=== PATIENT | male | born 1940 | race African-American/Black ===

== ENCOUNTER 2016-06-07 04:24 | Emergency (ER) | payer MEDICARE, MEDICAID ==
[~2016-06-07] VITALS: Ht 182.9 cm; Wt 116.1 kg
[2016-06-07 04:24] VITALS: Ht 182.9 cm; Wt 116.1 kg
[~2016-06-07 04:24] MED LIST: ACET-2321 PO; ASPI81TA2 PO; BENZ1TAB7 PO; BISA10SU61 RECTALLY; DIVA125C PO; DOCU-168 PO; HYDR-4246 PO; INSU100I24 SQ; INSU100I3 SQ; INSU100V SQ; LATA2.5D7 BOTH EYES; LOSA50TA2 PO; MAG-37 PO; MAGN800O PO; MEDR5TAB PO; MENT118G TOP; MENT71OI TOP; METF10002 PO; PARO10TA16 PO; POLY17PO6 PO; RISP1TAB4 PO; RISP2TAB PO; [UNRECOGNIZED DRUG - CODE] IM
--- OUTSIDE RECORDS SUMMARY | 2016-06-07 04:28 | XMS REPORT ---
Author Author [place], Via [facility] - Organization Unknown Address Unknown Phone Unavailable Allergies, Adverse Reactions, Alerts * No Latex Allergy. * No IV Contrast Allergy. Problems * Altered Mental Status* Status:Active. * Dysphagia* Status:Active. * Fall Risk* Status:Active. * Seizure* Status:Active. * Sleep Apnea* Status:Active. Procedures No relevant procedures performed. Medication Medication reconciliation has not been performed. Results LAB--CHEMISTRY from 12/08/2012 8:39 AMAnion Gap 9 (3-20 ) Albumin 3.4 g/dL L (3.5-4.8 g/dL) Alkaline Phosphatase 104 U/L (26-104 U/L) ALT (SGPT) 17 U/L (17-63 U/L) AST (SGOT) 18 U/L (15-41 U/L) Bilirubin Total 0.7 mg/dL (0.2-1.2 mg/dL) BUN 9 mg/dL (4-20 mg/dL) Calcium 9.5 mg/dL (8.6-10.0 mg/dL) Chloride 106 mEq/L (99-109 mEq/L) CO2 25 mEq/L (22-32 mEq/L) Creatinine 0.60 mg/dL L (0.64-1.27 mg/dL) eGFR >60 (>60- ) Globulin 3.2 g/dL (1.9-4.3 g/dL) Glucose 185 mg/dL H (70-100 mg/dL) Potassium 3.6 mEq/L (3.6-5.1 mEq/L) Sodium 140 mEq/L (136-144 mEq/L) Protein 6.6 g/dL (6.1-7.9 g/dL) Troponin <0.06 ng/mL (-<0.06 ng/mL) LAB--HEMATOLOGY from 12/08/2012 8:39 AMAbsolute Basophils 0.04 THOUS (0.00-0.20 THOUS) Absolute Eosinophils 0.18 THOUS (0.00-0.50 THOUS) Absolute Lymphocytes 1.98 THOUS (0.80-3.30 THOUS) Absolute Monocytes 0.39 THOUS (0.30-1.00 THOUS) Absolute Neutrophils 4.09 THOUS (1.90-7.00 THOUS) HCT 34.0 % L (42.0-52.0 %) HGB 11.5 g/dl L (14.0-18.0 g/dl) MCH 29.6 pg (27.0-32.0 pg) MCHC 33.8 g/dL (32.0-36.0 g/dL) MCV 87.4 fL (82.0-99.0 fL) MPV 9.2 fL L (9.4-12.3 fL) Platelet Count 353 K/uL (150-400 K/uL) RBC 3.89 M/uL L (4.60-6.20 M/uL) RDW 14.8 % H (11.5-14.5 %) WBC 6.7 K/uL (4.8-10.8 K/uL) Basophils 1 % (0-2 %) Eosinophils 3 % (0-4 %) Immature Granulocytes 0.1 % (0.0-1.0 %) Lymphocytes 30 % (20-46 %) Monocytes 6 % (4-11 %) Nucleated RBC Automated 0.0 /100 WBC (0 /100 WBC) Neutrophils 61 % (51-75 %) LAB--TOXICOLOGY & THERAPEUTIC DRUGS from 12/08/2012 8:39 AMAcetaminophen (Tylenol ) Level <10 mcg/mL (10-30 mcg/mL) Salicylate <4 mg/dL (0-30 mg/dL)
--- OUTSIDE RECORDS SUMMARY | 2016-06-07 04:28 | XMS REPORT ---
Author Author [place], Via [facility] - Organization Unknown Address Unknown Phone Unavailable Allergies, Adverse Reactions, Alerts * Latex Allergy has not been assessed. * IV Contrast Allergy has not been assessed. Problems * Altered Mental Status* Status:Active. * Dysphagia* Status:Active. * Fall Risk* Status:Active. * Seizure* Status:Active. * Sleep Apnea* Status:Active. Procedures No relevant procedures performed. Medication Medication reconciliation has not been performed. Results LAB--CHEMISTRY from 11/18/2012 8:58 PMB-Type Natriuretic Pep. 16 pg/mL (0-99 pg/ mL) LAB--CHEMISTRY from 11/18/2012 8:59 PMAnion Gap 14 (3-20 ) Albumin 3.6 g/dL (3.5-4.8 g/dL) Alkaline Phosphatase 103 U/L (26-104 U/L) ALT (SGPT) 15 U/L L (17-63 U/L) AST (SGOT) 20 U/L (15-41 U/L) Bilirubin Total 0.2 mg/dL (0.2-1.2 mg/dL) BUN 17 mg/dL (4-20 mg/dL) Calcium 9.6 mg/dL (8.6-10.0 mg/dL) Chloride 100 mEq/L (99-109 mEq/L) CO2 24 mEq/L (22-32 mEq/L) Creatinine 1.25 mg/dL (0.64-1.27 mg/dL) eGFR 57 A (>60- ) Globulin 3.5 g/dL (1.9-4.3 g/dL) Glucose 166 mg/dL H (70-100 mg/dL) Potassium 3.1 mEq/L L (3.6-5.1 mEq/L) Sodium 138 mEq/L (136-144 mEq/L) Protein 7.1 g/dL (6.1-7.9 g/dL) Troponin <0.06 ng/mL (-<0.06 ng/mL) LAB--CHEMISTRY from 11/18/2012 9:25 PMAmmonia 27 umol/L (9-35 umol/L) LAB--HEMATOLOGY from 11/18/2012 8:58 PMAbsolute Basophils 0.04 THOUS (0.00-0.20 THOUS) Absolute Eosinophils 0.22 THOUS (0.00-0.50 THOUS) Absolute Lymphocytes 3.27 THOUS (0.80-3.30 THOUS) Absolute Monocytes 0.68 THOUS (0.30-1.00 THOUS) Absolute Neutrophils 6.92 THOUS (1.90-7.00 THOUS) HCT 37.1 % L (42.0-52.0 %) HGB 12.2 g/dl L (14.0-18.0 g/dl) MCH 29.5 pg (27.0-32.0 pg) MCHC 32.9 g/dL (32.0-36.0 g/dL) MCV 89.8 fL (82.0-99.0 fL) MPV 9.2 fL L (9.4-12.3 fL) Platelet Count 352 K/uL (150-400 K/uL) RBC 4.13 M/uL L (4.60-6.20 M/uL) RDW 14.5 % (11.5-14.5 %) WBC 11.2 K/uL H (4.8-10.8 K/uL) Basophils 0 % (0-2 %) Eosinophils 2 % (0-4 %) Immature Granulocytes 0.2 % (0.0-1.0 %) Lymphocytes 29 % (20-46 %) Monocytes 6 % (4-11 %) Nucleated RBC Automated 0.0 /100 WBC (0 /100 WBC) Neutrophils 62 % (51-75 %) LAB--TOXICOLOGY & THERAPEUTIC DRUGS from 11/18/2012 8:59 PMDigoxin 0.6 ng/ml L ( 0.8-2.0 ng/ml)
--- OUTSIDE RECORDS SUMMARY | 2016-06-07 04:28 | XMS REPORT ---
Author Author [place], [facility] Unknown Address Unknown Phone Unavailable Allergies, Adverse Reactions, Alerts * No Latex Allergy. * No IV Contrast Allergy. * No Known Drug Allergies. * No Known Food Allergies. * No Known Allergies. Problems * Altered Mental Status* Status:Active. * Dysphagia* Status:Active. * Fall Risk* Status:Active. * Seizure* Status:Active. * Sleep Apnea* Status:Active. Procedures No relevant procedures performed. Medication It is the responsibility of the patient or patient junior sales representative to confirm the list of medications with either the patient's personal care provider or the patient's follow-up care provider to ensure the patient has an appropriate list of medications to take at home. Discharge medications* trolamine salicylate (Mobisyl) 10 % Cream, Ordered By: Belkis Trinh Directions: 1 each topical daily * timolol maleate 0.5 % Drops, Ordered By: Pattie Cavanaugh Directions: 1 [DRP] ophthalmic, both eyes daily * rivastigmine (Exelon) 13.3 mg/24 hour Patch 24 hr, Ordered By: Pattie Cavanaugh Directions: 13.3 MG topical Daily at 6 PM _ * QUEtiapine (SEROquel) 100 mg Tablet, Ordered By: Belkis Trinh Directions: 1 tablet oral daily at bedtime Additional Instructions: may need to increase dose for sleep * polyethylene glycol 3350 17 gram/dose Powder, Ordered By: Pattie Cavanaugh Directions: 1 each oral daily Additional Instructions: hold if having diarrhea * modafinil (Provigil) 100 mg Tablet, Ordered By: Belkis Trinh Directions: 2 tablet oral daily Additional Instructions: concerns for narcolepsy phase or sleepiness phase during day; if doing well and no further problem, may be able to discontinue; patient has significant bradycardia * mirtazapine 7.5 mg Tablet, Ordered By: Pattie Cavanaugh Directions: 1 tablet oral daily at bedtime * latanoprost (Xalatan) 0.005 % Drops, Ordered By: Belkis Trinh Directions: 1 [DRP] ophthalmic, both eyes daily at bedtime * lactulose 10 gram/15 mL Solution, Ordered By: Belkis Trinh Directions: 30 mL oral three times a day Additional Instructions: MAY TITRATE TO 3 BM/DAY and need to recheck ammonia level again * insulin glargine (LanTUS) 100 unit/mL Solution, Ordered By: Pattie Cavanaugh Directions: 40 UNIT subcutaneous daily at bedtime * furosemide 20 mg Tablet, Ordered By: Pattie Cavanaugh Directions: 1.5 tablet oral daily * lisinopril 2.5 mg Tablet, Ordered By: Pattie Cavanaugh Directions: 1 tablet oral daily * aspirin (Aspir-Low) 81 mg tablet,delayed release (DR/EC), Ordered By: Pattie Cavanaugh Directions: 1 tablet oral Daily at 8 AM _ * atorvastatin 20 mg Tablet, Ordered By: Pattie Cavanaugh Directions: 1 tablet oral daily at bedtime * fenofibrate micronized 200 mg Capsule, Ordered By: Pattie Cavanaugh Directions: 1 capsule oral daily * trolamine salicylate-aloe vera (Aspercreme with Aloe) 10 % Cream, Ordered By: Pattie Cavanaugh Directions: 1 application topical daily PRN pain Additional Instructions: Apply to both knees * acetaminophen (Mapap (acetaminophen)) 325 mg Tablet, Ordered By: Belkis Trinh Directions: 2 tablet oral every four hours PRN pain-mild * travoprost (Travatan Z) 0.004 % Drops, Ordered By: Pattie Cavanaugh Directions: 1 drop ophthalmic, both eyes daily at bedtime * carboxymethylcellulose sodium (Refresh Plus) 0.5 % Dropperette, Ordered By: Belkis Trinh Directions: 1 [DRP] ophthalmic, left eye every two hours PRN EYE DRYNESS * insulin aspart (NovoLOG) 100 unit/mL Solution, Ordered By: Belkis Trnih Directions: 12 unit subcutaneous three times a day during meal * gabapentin 300 mg Capsule, Ordered By: Belkis Trinh Directions: 1 capsule oral three times a day * amLODIPine 10 mg Tablet, Ordered By: Belkis Trinh Directions: 1 tablet oral daily Stopped medications* magnesium hydroxide (Milk of Magnesia) 400 mg/5 mL Suspension Directions: 30 mL oral daily PRN constipation * digoxin 250 mcg Tablet Directions: 1 tablet oral daily * valproic acid 250 mg Capsule Directions: 2 capsule oral twice a day * glucagon (human recombinant) (Glucagon Emergency) 1 mg Kit Directions: 1 each intramuscular daily one time PRN hypoglycemia * Stopped Medication: Mucinex 600mg ER 1 tablet oral daily; Last dose taken at home: 10/22/2012 * PARoxetine HCl 40 mg Tablet Directions: 1 tablet oral daily * IN PROGRESS OF INPUTTING MAR * HYDROcodone-acetaminophen ([place]) 5 mg-325 mg Tablet Directions: 1-2 tablet oral every four hours PRN pain * insulin lispro (HumaLOG) 100 unit/mL Solution Directions: subcutaneous four times daily PRN BG Additional Instructions: If 150-199=2 unit, 200-249=4 unit, 250-299=6 unit, Call MD if greater than 300 Results LAB--BEDSIDE TESTING from 11/08/2012 11:06 PMGlucose NPT 168 mg/dL H (70-100 mg/ dL) LAB--BEDSIDE TESTING from 11/09/2012 5:28 AMGlucose NPT 182 mg/dL H (70-100 mg/ dL) LAB--BEDSIDE TESTING from 11/09/2012 10:25 AMGlucose NPT 217 mg/dL H (70-100 mg/ dL) LAB--BEDSIDE TESTING from 11/09/2012 1:58 PMGlucose NPT 201 mg/dL H (70-100 mg/ dL) LAB--BEDSIDE TESTING from 11/09/2012 5:57 PMGlucose NPT 173 mg/dL H (70-100 mg/ dL) LAB--BEDSIDE TESTING from 11/09/2012 9:05 PMGlucose NPT 133 mg/dL H (70-100 mg/ dL) LAB--BEDSIDE TESTING from 11/10/2012 12:11 AMGlucose NPT 121 mg/dL H (70-100 mg/ dL) LAB--BEDSIDE TESTING from 11/10/2012 5:29 AMGlucose NPT 148 mg/dL H (70-100 mg/ dL) LAB--BEDSIDE TESTING from 11/10/2012 1:18 PMGlucose NPT 182 mg/dL H (70-100 mg/ dL) LAB--BEDSIDE TESTING from 11/10/2012 8:27 PMGlucose NPT 177 mg/dL H (70-100 mg/ dL) LAB--BEDSIDE TESTING from 11/11/2012 5:42 AMGlucose NPT 212 mg/dL H (70-100 mg/ dL) LAB--BEDSIDE TESTING from 11/11/2012 10:04 AMGlucose NPT 234 mg/dL H (70-100 mg/ dL) LAB--BEDSIDE TESTING from 11/11/2012 2:58 PMGlucose NPT 279 mg/dL H (70-100 mg/ dL) LAB--BEDSIDE TESTING from 11/11/2012 10:19 PMGlucose NPT 295 mg/dL H (70-100 mg/ dL) LAB--BEDSIDE TESTING from 11/12/2012 5:33 AMGlucose NPT 218 mg/dL H (70-100 mg/ dL) LAB--BEDSIDE TESTING from 11/12/2012 10:23 AMGlucose NPT 422 mg/dL H (70-100 mg/ dL) LAB--BEDSIDE TESTING from 11/12/2012 4:01 PMGlucose NPT 193 mg/dL H (70-100 mg/ dL) LAB--BEDSIDE TESTING from 11/12/2012 8:10 PMGlucose NPT 222 mg/dL H (70-100 mg/ dL) LAB--BEDSIDE TESTING from 11/13/2012 5:43 AMGlucose NPT 158 mg/dL H (70-100 mg/ dL) LAB--BEDSIDE TESTING from 11/13/2012 10:43 AMGlucose NPT 252 mg/dL H (70-100 mg/ dL) LAB--BEDSIDE TESTING from 11/13/2012 2:12 PMGlucose NPT 206 mg/dL H (70-100 mg/ dL) LAB--BEDSIDE TESTING from 11/13/2012 8:19 PMGlucose NPT 191 mg/dL H (70-100 mg/ dL) LAB--BEDSIDE TESTING from 11/14/2012 5:53 AMGlucose NPT 173 mg/dL H (70-100 mg/ dL) LAB--BEDSIDE TESTING from 11/14/2012 10:14 AMGlucose NPT 179 mg/dL H (70-100 mg/ dL) LAB--BEDSIDE TESTING from 11/14/2012 3:24 PMGlucose NPT 184 mg/dL H (70-100 mg/ dL) LAB--BEDSIDE TESTING from 11/14/2012 9:37 PMGlucose NPT 252 mg/dL H (70-100 mg/ dL) LAB--BEDSIDE TESTING from 11/15/2012 5:42 AMGlucose NPT 222 mg/dL H (70-100 mg/ dL) LAB--BEDSIDE TESTING from 11/15/2012 10:58 AMGlucose NPT 206 mg/dL H (70-100 mg/ dL) LAB--BEDSIDE TESTING from 11/15/2012 3:09 PMGlucose NPT 188 mg/dL H (70-100 mg/ dL) LAB--BEDSIDE TESTING from 11/15/2012 9:21 PMGlucose NPT 167 mg/dL H (70-100 mg/ dL) LAB--BEDSIDE TESTING from 11/16/2012 5:35 AMGlucose NPT 145 mg/dL H (70-100 mg/ dL) LAB--BEDSIDE TESTING from 11/16/2012 10:01 AMGlucose NPT 269 mg/dL H (70-100 mg/ dL) LAB--BEDSIDE TESTING from 11/16/2012 2:52 PMGlucose NPT 184 mg/dL H (70-100 mg/ dL) LAB--CHEMISTRY from 11/08/2012 11:41 PMB-Type Natriuretic Pep. 17 pg/mL (0-99 pg/ mL) Magnesium 2.0 mg/dL (1.8-2.5 mg/dL) Phosphorus 4.2 mg/dL (2.4-4.7 mg/dL) Hemoglobin A1C 10.4 % H (4.1-5.6 %) Estimated Average Glucose 251.8 mg/dL LAB--CHEMISTRY from 11/09/2012 2:52 AMTroponin <0.06 ng/mL (-<0.06 ng/mL) LAB--CHEMISTRY from 11/09/2012 11:08 AMTroponin <0.06 ng/mL (-<0.06 ng/mL) LAB--CHEMISTRY from 11/10/2012 9:27 AMPercent Saturation 15 % (11-46 %) Iron Binding Capacity 364 ug/dL (268-490 ug/dL) Transferrin 244 mg/dL (180-329 mg/dL) Sodium 136 mEq/L (136-144 mEq/L) Magnesium 1.8 mg/dL (1.8-2.5 mg/dL) Potassium 4.1 mEq/L (3.6-5.1 mEq/L) Iron 56 ug/dL L (65-175 ug/dL) Glucose 150 mg/dL H (70-100 mg/dL) eGFR >60 (>60- ) Creatinine 0.51 mg/dL L (0.64-1.27 mg/dL) CO2 26 mEq/L (22-32 mEq/L) Chloride 102 mEq/L (99-109 mEq/L) Calcium 9.2 mg/dL (8.6-10.0 mg/dL) BUN 8 mg/dL (4-20 mg/dL) Anion Gap 8 (3-20 ) LAB--CHEMISTRY from 11/11/2012 6:31 AMAnion Gap 8 (3-20 ) BUN 8 mg/dL (4-20 mg/dL) Calcium 9.2 mg/dL (8.6-10.0 mg/dL) Chloride 106 mEq/L (99-109 mEq/L) CO2 26 mEq/L (22-32 mEq/L) Creatinine 0.58 mg/dL L (0.64-1.27 mg/dL) eGFR >60 (>60- ) Glucose 202 mg/dL H (70-100 mg/dL) Potassium 3.8 mEq/L (3.6-5.1 mEq/L) Magnesium 1.8 mg/dL (1.8-2.5 mg/dL) Sodium 140 mEq/L (136-144 mEq/L) Vitamin B12 537 pg/mL (211-911 pg/mL) TSH 0.86 uIU/mL (0.35-5.50 uIU/mL) LAB--CHEMISTRY from 11/12/2012 6:42 AMAnion Gap 7 (3-20 ) BUN 13 mg/dL (4-20 mg/dL) Calcium 9.4 mg/dL (8.6-10.0 mg/dL) Chloride 105 mEq/L (99-109 mEq/L) CO2 29 mEq/L (22-32 mEq/L) Creatinine 0.70 mg/dL (0.64-1.27 mg/dL) eGFR >60 (>60- ) Glucose 213 mg/dL H (70-100 mg/dL) Potassium 4.2 mEq/L (3.6-5.1 mEq/L) Magnesium 1.8 mg/dL (1.8-2.5 mg/dL) Sodium 141 mEq/L (136-144 mEq/L) Phosphorus 3.9 mg/dL (2.4-4.7 mg/dL) LAB--CHEMISTRY from 11/12/2012 12:28 PMAmmonia 74 umol/L H (9-35 umol/L) LAB--CHEMISTRY from 11/13/2012 6:34 AMAnion Gap 6 (3-20 ) BUN 9 mg/dL (4-20 mg/dL) Calcium 9.3 mg/dL (8.6-10.0 mg/dL) Chloride 104 mEq/L (99-109 mEq/L) CO2 28 mEq/L (22-32 mEq/L) Creatinine 0.62 mg/dL L (0.64-1.27 mg/dL) eGFR >60 (>60- ) Glucose 185 mg/dL H (70-100 mg/dL) Potassium 4.0 mEq/L (3.6-5.1 mEq/L) Magnesium 1.9 mg/dL (1.8-2.5 mg/dL) Sodium 138 mEq/L (136-144 mEq/L) LAB--CHEMISTRY from 11/14/2012 6:34 AMAnion Gap 7 (3-20 ) BUN 10 mg/dL (4-20 mg/dL) Calcium 9.5 mg/dL (8.6-10.0 mg/dL) Chloride 102 mEq/L (99-109 mEq/L) CO2 28 mEq/L (22-32 mEq/L) Creatinine 0.62 mg/dL L (0.64-1.27 mg/dL) eGFR >60 (>60- ) Glucose 137 mg/dL H (70-100 mg/dL) Potassium 3.8 mEq/L (3.6-5.1 mEq/L) Sodium 137 mEq/L (136-144 mEq/L) Ammonia 64 umol/L H (9-35 umol/L) LAB--HEMATOLOGY from 11/10/2012 9:27 AMWBC 7.8 K/uL (4.8-10.8 K/uL) RDW 14.3 % (11.5-14.5 %) RBC 4.05 M/uL L (4.60-6.20 M/uL) Platelet Count 384 K/uL (150-400 K/uL) MPV 9.4 fL (9.4-12.3 fL) MCV 90.4 fL (82.0-99.0 fL) MCHC 32.5 g/dL (32.0-36.0 g/dL) MCH 29.4 pg (27.0-32.0 pg) HGB 11.9 g/dl L (14.0-18.0 g/dl) HCT 36.6 % L (42.0-52.0 %) LAB--HEMATOLOGY from 11/11/2012 6:31 AMHCT 35.7 % L (42.0-52.0 %) HGB 11.4 g/dl L (14.0-18.0 g/dl) MCH 29.0 pg (27.0-32.0 pg) MCHC 31.9 g/dL L (32.0-36.0 g/dL) MCV 90.8 fL (82.0-99.0 fL) MPV 9.7 fL (9.4-12.3 fL) Platelet Count 357 K/uL (150-400 K/uL) RBC 3.93 M/uL L (4.60-6.20 M/uL) RDW 14.4 % (11.5-14.5 %) WBC 8.1 K/uL (4.8-10.8 K/uL) LAB--HEMATOLOGY from 11/12/2012 6:42 AMHCT 35.2 % L (42.0-52.0 %) HGB 11.4 g/dl L (14.0-18.0 g/dl) MCH 29.1 pg (27.0-32.0 pg) MCHC 32.4 g/dL (32.0-36.0 g/dL) MCV 89.8 fL (82.0-99.0 fL) MPV 9.2 fL L (9.4-12.3 fL) Platelet Count 345 K/uL (150-400 K/uL) RBC 3.92 M/uL L (4.60-6.20 M/uL) RDW 14.5 % (11.5-14.5 %) WBC 6.9 K/uL (4.8-10.8 K/uL) LAB--HEMATOLOGY from 11/13/2012 6:34 AMHCT 35.2 % L (42.0-52.0 %) HGB 11.5 g/dl L (14.0-18.0 g/dl) MCH 29.3 pg (27.0-32.0 pg) MCHC 32.7 g/dL (32.0-36.0 g/dL) MCV 89.6 fL (82.0-99.0 fL) MPV 9.6 fL (9.4-12.3 fL) Platelet Count 347 K/uL (150-400 K/uL) RBC 3.93 M/uL L (4.60-6.20 M/uL) RDW 14.4 % (11.5-14.5 %) WBC 6.6 K/uL (4.8-10.8 K/uL) LAB--HEMATOLOGY from 11/14/2012 6:34 AMHCT 35.2 % L (42.0-52.0 %) HGB 11.6 g/dl L (14.0-18.0 g/dl) MCH 29.1 pg (27.0-32.0 pg) MCHC 33.0 g/dL (32.0-36.0 g/dL) MCV 88.2 fL (82.0-99.0 fL) MPV 9.2 fL L (9.4-12.3 fL) Platelet Count 328 K/uL (150-400 K/uL) RBC 3.99 M/uL L (4.60-6.20 M/uL) RDW 14.2 % (11.5-14.5 %) WBC 8.6 K/uL (4.8-10.8 K/uL) LAB--MICROBIOLOGY from 11/08/2012 11:42 PMBlood Culture #1 Source: Blood Collected: 11/08/12 23:42 Site: Received : 11/08/12 23:53 Order#: [id number] Blood Culture #1 FINAL 11/14/12 12:15 No growth after 5 days of incubation. NARANJO FOR RESULTS: * - NEW RESULT - RESULT WAS MODIFIED AFTER FINAL STATUS SET LAB--MICROBIOLOGY from 11/08/2012 11:49 PMBlood Culture #2 Source: Blood Collected: 11/08/12 23:49 Site: Received : 11/08/12 23:53 Order#: [id number] Blood Culture #2 FINAL 11/14/12 12:15 No growth after 5 days of incubation. NARANJO FOR RESULTS: * - NEW RESULT - RESULT WAS MODIFIED AFTER FINAL STATUS SET LAB--TOXICOLOGY & THERAPEUTIC DRUGS from 11/09/2012 2:52 AMValproic Acid <10 ug/ mL L (50-125 ug/mL) LAB--TOXICOLOGY & THERAPEUTIC DRUGS from 11/12/2012 6:42 AMValproic Acid 42 ug/ mL L (50-125 ug/mL)
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
--- OUTSIDE RECORDS SUMMARY | 2016-06-07 04:45 | XMS REPORT ---
Author Author [place], [facility] - Organization Unknown Address Unknown Phone [...]
--- OUTSIDE RECORDS SUMMARY | 2016-06-07 04:46 | XMS REPORT ---
Author Author [place], [facility] Unknown Address [...] the responsibility of the patient or patient senior sales representative to confirm the list of [...] (NovoLOG) 100 unit/mL Solution, Ordered By: Belkis Trinh Directions: 12 unit subcutaneous three times a [...] IN PROGRESS OF INPUTTING MAR * HYDROcodone-acetaminophen (Golden) 5 mg-325 mg Tablet Directions: 1-2 tablet [...] 23:42 Site: Received : 11/08/12 23:53 Order#: [id number] Blood Culture #1 FINAL 11/14/12 12:15 No growth after 5 days of incubation. NARANJO FOR RESULTS: * - NEW RESULT - RESULT WAS MODIFIED AFTER FINAL STATUS SET LAB--MICROBIOLOGY from 11/08/2012 11:49 PMBlood Culture #2 Source: Blood Collected: 11/08/12 23:49 Site: Received : 11/08/12 23:53 Order#: [id number] Blood Culture #2 FINAL 11/14/12 12:15 No [...]
--- OUTSIDE RECORDS SUMMARY | 2016-06-07 04:46 | XMS REPORT | Continuity of Care Document ---
Author Author [facility] Organization [facility] Address Unknown Phone Unavailable Allergies Active [...] DEMENTIA, UNSPECIFIED, WITHOUT BEHAVIORAL DISTURBA 10/20/2012 Telma Williamson MD 295.90 SCHIZOPHRENIA NOS-UNSPEC 10/20/2012 Telma Williamson MD 296.20 DEPRESS DISORDER-UNSPEC 10/20/2012 Telma Williamson MD 305.1 TOBACCO USE DISORDER 10/20/2012 Telma Williamson MD 348.30 ENCEPHALOPATHY, UNSPECIFIED 10/20/2012 Telma Williamson MD 365.9 GLAUCOMA NOS 10/20/2012 Telma Williamson MD 401.9 HYPERTENSION NOS 10/20/2012 Telma Williamson MD 414.01 CORONARY ATHEROSCLEROSIS OF [place] CORONARY VESSEL 10/20/2012 Telma Williamson MD 784.59 [...] Status Pt. Type Provider Facility Loc./Unit Complaint [id number] 10/20/2012 18:15:00 2012 14:29:00 DIS Inpatient Clay PETERSEN, Telma [facility] W.10TS [id number] 08/06/2012 19:51:00 2012 12:48:00 DIS Inpatient Kendra PETERSEN, Kassy [facility] W.9TS
--- OUTSIDE RECORDS SUMMARY | 2016-06-07 04:46 | XMS REPORT ---
Author Author [facility], [facility] - Organization Unknown Address Unknown Phone Unavailable [...]
--- NOTE | 2016-06-07 04:50 | NUR ---
IMAGING PT TO IMAGING
--- NOTE | 2016-06-07 05:05 | NUR ---
IMAGING PT RETURN TO ROOM FROM IMAGING VIA CART
--- NOTE | 2016-06-07 05:15 | NUR ---
OUTPUT PT ASSISTED WITH URINAL - 450CC OUT
--- NOTE | 2016-06-07 05:32 | ERPDOC ---
Departure Disposition Decision Date: Jun 07, 2016 Disposition Decision Time: 05:51 Disposition: 01 DISCHARGED HOME, SELF-CARE Impression Impression Impression: Primary Impression: Left hip pain Severity: Moderate Condition: Improved Seen By: Physician only Referrals: Inna YATES (Family) 3 Days ABHAY FREEMAN MD 1 Week Patient Instructions: Hip Pain (ED) Problems/Meds/Labs Reviewed?: Yes Medications reviewed and manag: Yes Additional Instructions: You have acute on chronic hip pain, without a known cause. We did not find a fracture or dislocation tonight. Take your medications as prescribed. Follow up with your doctor later this week; see Dr. Freeman for further evaluation of your hip pain. Follow up care ordered?: Yes Mental Status: Alert HPI - Lower Extremity General Chief Complaint: Lower Extremity Pain Stated Complaint: L HIP PAIN Time Seen by Provider: 04:32 Source: patient, RN/MD Exam Limitations: no limitations HPI - Lower Extremity Initial Comments 75yo man presented to the ER by EMS for left hip pain. Pain has been chronic for the last 10 years, but it got much worse following a fall 2 days ago. Initially pt refused further evaluation, including plain films. Tonight, pt decided that the pain was bad enough that it warranted further evaluation. Occurred At: home Onset/Timing: Rapid, Constant Duration: other Pain/Severity Scale: Now & Worst: 6/10 Severity: moderate Pain/Injury Location: left hip Method of Injury: fell Modifying Factors/Context: IMPROVES WITH: immobilization, pain medication, WORSE WITH: jarring, movement Hx of Similar Symptoms: Yes Quality: aching, sharpness Allergies: Coded Allergies: No Known Allergies (Unverified , 02/23/16) Past History Patient Surgical History Hip arthroplasty Past Medical History Metabolic: diabetes, hypercholesterolemia ENMT: glaucoma Cardiac: CAD Respiratory: COPD GI: GERD, constipation Musculoskeletal: osteoarthritis Psychological: dementia, depression, schizophrenia Surgical History General: other Joint: hip Family History Family PMH: FOUND: other Vaccines Hx Influenza Vaccination: Yes (2015) Hx Pneumococcal Vaccination: Yes (05/01/16) Social History # of Packs/Tins per Day: 1 Substance last used: unknown Alcohol Intake: none, other Housing: fdc Review of Systems Musculoskeletal General: joint pain All other Systems All Other Systems: Reviewed and Negative Physical Exam General General Nourishment: well nourished, well developed, appears stated age, no acute distress, adult, obese General Body Habitus: well groomed Vitals and Pain Weight: Kilograms: 116.100 Height (feet): 6 Height (inches): 0 Triage Pain Scale: RN VS reviewed by Provider: Yes Musculoskeletal Joint : Side: Left Joint: hip Joint Findings: FOUND: other (Pain), pain, NOT FOUND: ROM limited, deformity , discoloration, instability, laceration, swelling Supervisory Exam Head: atraumatic Eyes: PERRL Nares: no exudate Neck: trachea midline Chest: symmetric Abdomen: non-distended Neurological: no abnormal movements Skin: pink, dry Psychological: alert, appropriate Differential Diagnoses Considering: Contusion, Dislocation, Fracture, Sprain, Strain, Trauma Progress Results/Orders Orders Procedure Category Date Status Time Hip Left 2 View RAD 06/07/16 Resulted 04:32 Oxygen Administration EDM 06/07/16 Transmitted 06:05 Progress Progress 75yo man with acute on chronic left hip pain. No evidence of a fx or dislocation. Discussed dx of pain with pt and recommendations to f/u with PCM and Ortho as outpt. Pt voiced understanding. Consult/PCP Consult/PCP : Physician Contacted: Dr. Hubbard Time Called: 05:34 Time of first response: 05:36 Type of discussion: Phone Consult/PCP Discussion Details Hypertrophic bone, but no evidence of a fx on films. F/u with Dr. Freeman as outpt if needed. Xray Xray : Xray: Hip L Interpretation: Abnormal (? trochanteric fx), Interpreted by SHELIA Delgado DO Jun 07, 2016 05:32 SHELIA LYON DO Jun 07, 2016 05:32
[2016-06-07 06:50] VITALS: BP 131/56; PULSE 81; RESP 16; TEMP 98.4; O2SAT 95
--- NOTE | 2016-06-07 06:50 | NUR ---
TRANSFER PER [facility] TO [facility]. PT IS AWAKE & TALKING APPROP.
--- NOTE | 2016-06-07 09:10 | DI ---
EXAM: HIP LEFT 2 VIEW COMPARISON: None available. HISTORY: ITS.REASON: Acute on Chronic pain . FINDINGS: Left hip prosthesis is in place without evidence for loosening or infection. Hypertrophic bone is seen lateral to the hip. Irregularity at the greater trochanter likely is related to old injury. The superior and inferior rami and sacral arches are intact. IMPRESSION: 1. Left hip prosthesis in place without evidence for loosening fracture or infection. 2. Hypertrophic bone formation is seen lateral to the hip. 3. Irregularity at the greater trochanter likely is related to old injury. LOCATION OF DICTATION: [facility] – [place] .
== END 2016-06-07 06:50 | disposition home or self-care (01) ==
LOC: ED 04:24
DX: M25.552 Pain in left hip (principal); W19.XXXA Unspecified fall, initial encounter; Y93.9 Activity, unspecified; Y92.009 Unspecified place in unspecified non-institutional (private) residence as the place of occurrence of the external cause; Y99.8 Other external cause status

== ENCOUNTER 2016-06-26 19:35 | Inpatient (IN) | payer MEDICARE, MEDICAID ==
[~2016-06-26] VITALS: Ht 180.3 cm; Wt 113.8 kg
--- OUTSIDE RECORDS SUMMARY | 2016-06-26 20:28 | XMS REPORT ---
Author Author [place], [facility] - [facility] Unknown Address Unknown Phone Unavailable Allergies, Adverse [...] the responsibility of the patient or patient outbound call center representative to confirm the list of medications [...] IN PROGRESS OF INPUTTING MAR * HYDROcodone-acetaminophen (Raccoon) 5 mg-325 mg Tablet Directions: 1-2 tablet [...] 23:42 Site: Received : 11/08/12 23:53 Order#: [id number] Blood Culture #1 FINAL 11/14/12 12:15 No growth after 5 days of incubation. NARANJO FOR RESULTS: * - NEW RESULT - RESULT WAS MODIFIED AFTER FINAL STATUS SET LAB--MICROBIOLOGY from 11/08/2012 11:49 PMBlood Culture #2 Source: Blood Collected: 11/08/12 23:49 Site: Received : 11/08/12 23:53 Order#: [id number] Blood Culture #2 FINAL 11/14/12 12:15 No [...]
--- OUTSIDE RECORDS SUMMARY | 2016-06-26 20:28 | XMS REPORT ---
Author Author [place], [facility] - Organization Unknown Address Unknown [...]
--- OUTSIDE RECORDS SUMMARY | 2016-06-26 20:28 | XMS REPORT ---
Author Author [place], [facility] - Organization Unknown Address Unknown Phone [...]
--- OUTSIDE RECORDS SUMMARY | 2016-06-26 20:29 | XMS REPORT | Continuity of Care Document ---
Author Author [facility] Address Unknown Phone Unavailable Allergies Active Description [...] SLEEP APNEA (ADULT) ( PEDIATRIC) 08/06/2012 Kassy Gardenr MD 365.9 GLAUCOMA NOS 08/06/2012 Kassy Gardner [...] Telma Williamson MD [phone] CORONARY ATHEROSCLEROSIS OF RAMPART CORONARY VESSEL 10/20/2012 Telma Williamson MD [phone] [...] Status Pt. Type Provider Facility Loc./Unit Complaint [id number] 10/20/2012 18:15:00 2012 14:29:00 DIS Inpatient Clay PETERSEN, Telma [facility] W.10TS [id number] 08/06/2012 19:51:00 2012 12:48:00 DIS Inpatient Kendra PETERSEN, Kassy [facility] W.9TS
[2016-06-26] MEDS ORDERED: RISP25DI IM (20:52)
[2016-06-26] MEDS ORDERED: MEDR150D9 IM (20:55)
[2016-06-26] MEDS ORDERED: INSU100V SQ (21:01)
[2016-06-26] MEDS ORDERED: PRN ORDERS MC (22:00)
[2016-06-26] MEDS ORDERED: BISACODYL 10 MG SUPPOSITORY RECTALLY PRN (22:00)
[2016-06-26] MEDS ORDERED: HALOPERIDOL 0.5 MG TABLET PO PRN (22:00)
[2016-06-26] MEDS ORDERED: METHYL SALICYLATE/MENTHOL OINT 28gm TOP PRN (22:00)
[2016-06-26] MEDS ORDERED: MILK OF MAGNESIA 30 ML SUSP PO PRN (22:00)
[2016-06-26] MEDS ORDERED: MAG-AL + SIM LIQUID 30 ML UDC PO PRN (22:00)
[2016-06-26] MEDS ORDERED: CALMOSEPTINE OINT. 113 gm TUBE TOP PRN (22:00)
[2016-06-26] MEDS ORDERED: BENZTROPINE 1 MG TABLET PO PRN (22:00)
[2016-06-26] MEDS ORDERED: LORAZEPAM 0.5 MG TABLET PO PRN (22:00)
[2016-06-26] MEDS ORDERED: HALOPERIDOL 5 MG/ML INJECTION IM PRN (22:00)
[2016-06-26] MEDS ORDERED: LORAZEPAM 2 MG/ML INJECTION IM PRN (22:00)
[2016-06-26 22:01] LABS: BLOOD, URINE TRACE-INTACT (NEGATIVE); COLOR,URINE YELLOW (YELLOW); LEUKOCYTE ESTERASE ,URINE NEGATIVE (NEGATIVE); NITRITE,URINE NEGATIVE (NEGATIVE)
[2016-06-26 22:33] VITALS: Ht 180.3 cm; Wt 113.8 kg
[2016-06-26 22:44] VITALS: BP 150/89; PULSE 123; TEMP 98.2; O2SAT 98
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
[2016-06-26 22:52] VITALS: PULSE 96; RESP 16; O2SAT 97
[2016-06-26 23:04] VITALS: PULSE 120; RESP 20
--- NOTE | 2016-06-26 23:09 | NUR ---
AUDIT/Smoking Status Patient does not use alcohol, current light smoker Addendum: 07/01/16 at 1013 by MANDY OSORIO RN RT consult placed, came to see patient.
[2016-06-27] VITALS (7 sets, daily range): BP systolic 105–126; BP diastolic 54–67; PULSE 85–89; RESP 14–18; TEMP 97.1–99; O2SAT 97–98
[2016-06-27] MEDS: DIVALPROEX SPRINKLE 125 MG CAPSULE PO SCH ×4 (00:29→21:00)
[2016-06-27] MEDS: RISPERIDONE 2 MG TABLET PO SCH ×3 (00:31→21:00)
[2016-06-27] MEDS: LATANOPROST 0.005% EYE DROPS 2.5 ML BOTTLE BOTH EYES SCH ×3 (00:31→21:00)
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
--- NOTE | 2016-06-27 04:11 | NUR ---
Sleep note: Patient was given evening medications and was asleep by 2230. Bed rails up x 2 and bed alarm on. Continue to monitor
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
[2016-06-27] MEDS ORDERED: ALBUTEROL/IPRATROPIUM INHAL. 2.5mg-0.5mg/3ml Neb. AEROSOL PRN (08:30)
[2016-06-27 08:56] LABS: BASOPHILS # (AUTO) 0.1 T/MM3 (0-0.2); BASOPHILS % (AUTO) 0.6 % (0-2); EOSINOPHILS # (AUTO) 0.2 T/MM3 (0-0.5); EOSINOPHILS % (AUTO) 2.7 % (0-4); HCT - HEMATOCRIT 38.3 % (41-53); HGB - HEMOGLOBIN 12.5 GM/DL (13.5-17.5); IMMATURE GRANULOCYTE # (AUTO) 0.02 T/MM3 (0.00-0.03); IMMATURE GRANULOCYTE % (AUTO) 0.2 % (0.0-0.5); LYMPHOCYTES # (AUTO) 2.1 T/MM3 (1-4.8); MEAN CORPUSCULAR HGB 29.8 UUG (26-34); MEAN CORPUSCULAR HGB CONC(MCHC 32.6 GM/DL (31-37); MEAN CORPUSCULAR VOLUME 91.2 UM3 (80-100); MEAN PLATELET VOLUME 10.2 UM3 (9.4-12.4); MONOCYTES # (AUTO) 0.5 T/MM3 (0-0.8); MONOCYTES % (AUTO) 6.7 % (0-9.0); NEUTROPHILS #(AUTO)-ABSOLUTE 5.1 T/MM3 (1.8-7.7); NEUTROPHILS % (AUTO) 63.8 % (33-66)
[2016-06-27 09:06] LABS: ALBUMIN 3.8 G/DL (3.5-5.0); ALBUMIN/GLOBULIN RATIO 1.1 RATIO (1.1-2.2); ALKALINE PHOSPHATASE 86 U/L (38-126); ALT (SGPT) 21 U/L (21-72); ANION GAP 11 MEQ/L (5-15); AST (SGOT) 21 U/L (17-59); BUN/CREATININE RATIO 26 RATIO (6-26); CALCIUM 9.9 MG/DL (8.4-10.2); CHLORIDE 105 MEQ/L (98-107); CO2 - CARBON DIOXIDE 25 MEQ/L (22-30); CREATININE 0.5 MG/DL (0.8-1.5); GLOMERULAR FILTRATION RATE 163; GLUCOSE 282 MG/DL (75-110); POTASSIUM 4.3 MEQ/L (3.6-5); SODIUM 141 MEQ/L (134-144); TOTAL PROTEIN 7.2 G/DL (6.3-8.2)
[2016-06-27 09:14] LABS: PREALBUMIN 14.9 MG/DL (17.6-36.0)
[2016-06-27] MEDS: ASPIRIN 81 MG CHEWABLE TABLET PO SCH (09:38)
[2016-06-27] MEDS: INSULIN ASPART 100 UNIT/ML SQ SCH ×3 (09:38→17:41)
[2016-06-27] MEDS: DOCUSATE SODIUM 100 MG CAPSULE PO SCH ×3 (09:38→21:00)
[2016-06-27] MEDS: LOSARTAN 50 MG TABLET PO SCH (09:40)
[2016-06-27] MEDS: POLYETHYL.GLYCOL 3350 PACKET 17gm PO SCH (09:41)
[2016-06-27] MEDS: METFORMIN 1,000 MG TABLET PO SCH (09:41)
[2016-06-27] MEDS: RISPERIDONE 1 MG TABLET PO SCH (09:42)
[2016-06-27] MEDS: PAROXETINE 10 MG TABLET PO SCH (09:42)
[2016-06-27] MEDS: INSULIN ASPART 100 UNIT/ML SQ PRN ×2 (10:17→21:49)
--- NOTE | 2016-06-27 14:15 | NUR ---
VANDANA ROSS SPOKE WITH BRADY FROM [facility] OF REGARDING D/C PLAN. BRADY STATES THAT THEY ARE WORKING WITH [facility] [employer] TO FIND ALTERATIVE PLACEMENT. BRADY STATES THAT DPOA IS AWARE. CM LEFT MESSAGE FOR DPOA JOAO. BRADY AWARE TO CONTACT CM IF NEEDS ARISE.
--- NOTE | 2016-06-27 14:40 | NUR ---
STATUS patient is AO x 3. patient was cooperative with cares, compliant with medications, patient is able to verbalize needs, he came out for breakfast and lunch, he ate 75% of breakfast and lunch. patient denies any pain or SOA. No inappropriate behaviors noted, no hallucinations or aggressive behaviors noted. Patient requested to go to bed and rest after lunch.
[2016-06-27] MEDS: HYDROCODONE/APAP 5 mg/325 mg TABLET PO PRN (16:46)
--- NOTE | 2016-06-27 18:52 | NUR ---
SUMMARY Patient is AO x 3. patient has been pleasant, cooperative with cares, and compliant with medications. patient has been taking his medications crushed with pudding. patient complain of pain on his hip this evening. [place] 5/325 was given, during follow up patient denied pain. NO hallucinations noted. No aggressive behaviors noted, patient is able to make needs known. patient came out to the dining room for meals. Patient denies needs or concerns at the moment.
[2016-06-27] MEDS ORDERED: INSULIN DEGLUDEC 90 UNIT SQ SCH (21:00)
[2016-06-27] MEDS: INSULIN GLARGINE 100 UNIT/ML SQ SCH ×2 (21:00→21:49)
--- NOTE | 2016-06-27 22:44 | NUR ---
status: Patient was pushing his own wheelchair down [place] to his room. Assisted patient to BR where he had a BM and changed his diapers. He also wanted to change into his sweat pants and long sleeve button up shirt. Patient requested to lay in bed. Was assisted to bed after brushing teeth. Patient then listened to some music. He fell asleep for a short time. When I went into his room to get BS at 2100, patient was compliant. BS was 156. This RN notified Dr Lm Lynn to see what he wanted me to do with patients insulin. Order received to hold 2 units of novalog on sliding scale, and to still give 90 units of lantus. Patients medications were crushed in pudding and he spit it in his urinal. Patient also denied taking his eye drops and insulin. Stated that he didn't care if he . All meds were wasted with observation. Patient is in bed at present. Denies any pain. Bed rails up x2 and bed alarm on. Continue to monitor through night.
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
--- NOTE | 2016-06-28 02:11 | NUR ---
Sleep note: Patient went to sleep at 2030
--- NOTE | 2016-06-28 04:35 | NUR ---
status: Patient handed off to Vidal MADERA who said she did not need report, but reports she is familiar with him
--- NOTE | 2016-06-28 06:00 | NUR ---
Chart Check 24 hour chart check completed
--- NOTE | 2016-06-28 07:45 | NUR ---
Patient slept 10.5 hours last night
--- NOTE | 2016-06-28 07:46 | NUR ---
Summary after going to bed at 2030 patient rested well, only woke during the night for cares being provided. Patient was check for incontinence, encouraged to you urinal, and turned in bed. Patient was encouraged to help when hygiene cares were being provided. If tilting bed back while lifting the foot of the bed, patient was able to help pull himself up in bed. During hygiene cares, patient was laughing and joking with staff. Patient stated he is glad to be back. patient is currently in bed with the bed alarm on, call light is in reach.
[2016-06-28 07:54] VITALS: BP 143/71; PULSE 86; RESP 16; TEMP 96.6; O2SAT 97
[2016-06-28] MEDS: INSULIN ASPART 100 UNIT/ML SQ SCH ×3 (08:04→17:08)
[2016-06-28] MEDS: ASPIRIN 81 MG CHEWABLE TABLET PO SCH (08:04)
[2016-06-28] MEDS: INSULIN ASPART 100 UNIT/ML SQ PRN ×4 (08:04→19:52)
[2016-06-28] MEDS: PAROXETINE 10 MG TABLET PO SCH (08:05)
[2016-06-28] MEDS: METFORMIN 1,000 MG TABLET PO SCH (08:05)
[2016-06-28] MEDS: DIVALPROEX SPRINKLE 125 MG CAPSULE PO SCH ×2 (08:06→19:50)
[2016-06-28] MEDS: RISPERIDONE 1 MG TABLET PO SCH (08:06)
[2016-06-28] MEDS: DOCUSATE SODIUM 100 MG CAPSULE PO SCH ×2 (08:06→19:50)
[2016-06-28] MEDS: POLYETHYL.GLYCOL 3350 PACKET 17gm PO SCH ×2 (08:07→08:38)
[2016-06-28] MEDS: LOSARTAN 50 MG TABLET PO SCH (08:07)
--- NOTE | 2016-06-28 10:11 | NUR ---
Patient Status Patient is awake at the start of this shift at 0700; is is alert, oriented to person, place and time. He is pleasant and allows cares, takes medications crushed in pudding and ate 100% of breakfast independently. Following breakfast he requested to stay in his wheelchair and listen to music on his headphones. Patient has not been disagreeable or argumentative with staff, is sitting in the day room presently
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
--- NOTE | 2016-06-28 16:08 | NUR ---
REMOTE SENSING TECHNICIAN--PSH/ADVANCE DIRECTIVE [facility] made phone call to pt's nephew/DPOA-HC (Artie Che). He stated nothing has changed for pt. since his last hospitalization. He is aware that the pt. is not happy with living at [facility] but they are willing to take pt. back and to assist in finding another placement. He did confirm that pt. is to remain a full code during his hospital stay. Pt. has been refusing some oral medications though he continues on monthly injection. He has demonstrated increase in auditory hallucinations and paranoid delusions. This SW reviewed proposed [place] plan with nephew. He had no additional information to add and gave permission to sign his name on the form. This SW did not review TX with pt. due to his psychosis and dementia. Addendum: 06/28/16 at 1615 by KIANA MCCALLUM Amended: Links added.
[2016-06-28 16:16] VITALS: BP 102/65; PULSE 92; RESP 18; TEMP 97.1; O2SAT 95
--- NOTE | 2016-06-28 17:03 | PNPDOC ---
MICHAEL PEACOCK APRN 06/28/16 1703: Progress Note Date 06/28/16 Dandy is seen while sitting in a wheelchair in his room. He asks, "do you want a fight" and then raises his hand towards myself. He declines any physical exam. Staff report no current concerns. Blood pressure stable 102/65 ABBY BAILEY MD 06/30/16 1805: MICHAEL PEACOCK APRN Jun 28, 2016 17:03 ABBY BAILEY MD Jun 30, 2016 18:05
--- NOTE | 2016-06-28 18:16 | NUR ---
Shift Summary Patient has been alert, awake and oriented all shift. He has taken all oral meds and allowed staff to give him his insulin and take his blood sugars without argument. He has not shown any outward signs of AVH; staff have not observed any behaviors that would indicate he may be responding to internal stimuli. Patient eats 100% of all 3 meals. He is able to make his needs known to staff. Presently he is sitting in his room listening to music
[2016-06-28] MEDS: NICOTINE 14 MG PATCH TD SCH (18:34)
--- NOTE | 2016-06-28 19:40 | GENPN ---
[facility] Subjective Date DATE: 06/28/16 TIME: 19:36 Subjective/Severity of Illness Medications Current Medications Medications (Trade) Dose Ordered Sig/Susan Start Time Stop Time Status Last Admin Dose Admin Acetaminophen (Tylenol Regular Strength) 650 mg Q6H PRN 06/26/16 22:00 Aspirin (ASA) 81 mg DAILY 06/27/16 09:00 06/28/16 08:04 81 MG Benztropine Mesylate (Cogentin) 1 mg QID PRN 06/26/16 22:00 Bisacodyl (Dulcolax) 10 mg DAILY PRN 06/26/16 22:00 Divalproex Sodium (Depakote Sprinkle) 250 mg DAILY 06/27/16 09:00 06/28/16 08:06 250 MG Divalproex Sodium (Depakote Sprinkle) 500 mg HS 06/27/16 21:00 06/27/16 00:29 500 MG Docusate Sodium (Colace) 100 mg BID 06/27/16 09:00 06/28/16 08:06 100 MG Acetaminophen/ Hydrocodone Bitart ([place] 5/325) 1 tab Q8H PRN 06/26/16 22:00 06/27/16 16:46 1 TAB Latanoprost (Xalatan) 1 drop HS 06/27/16 21:00 06/27/16 00:31 1 DROP Losartan Potassium (COZAAR 50 mg) 25 mg DAILY 06/27/16 09:00 06/28/16 08:07 25 MG Magnesium Hydroxide (Mom) 30 ml DAILY PRN 06/26/16 22:00 Calamine/Phenol (Risamine Oint) 1 applic BID PRN 06/26/16 22:00 Metformin HCl (Glucophage) 1,000 mg DAILY 06/27/16 09:00 06/28/16 08:05 1,000 MG Paroxetine HCl (Paxil) 5 mg DAILY 06/27/16 09:00 06/28/16 08:05 5 MG Polyethylene Glycol (Miralax) 17 g DAILY 06/27/16 09:00 06/27/16 09:41 17 G Risperidone (Risperdal) 1 mg 09 06/27/16 09:00 06/28/16 08:06 1 MG Risperidone (Risperdal) 2 mg HS 06/27/16 21:00 06/27/16 00:31 2 MG Risperidone (Risperdal Consta) 25 mg Q14D 07/03/16 09:00 Insulin Aspart (Novolog) 21 unit WL 06/27/16 12:00 06/28/16 11:54 21 UNIT Non-Formulary Medication 90 unit HS 06/27/16 21:00 06/27/16 21:00 DC Insulin Aspart (Novolog) 22 unit WB 06/27/16 08:00 06/28/16 08:04 22 UNIT Al Hydroxide/Mg Hydroxide (Maalox) 30 ml Q6H PRN 06/26/16 22:00 Methyl Salicylate (Analgesic [place]) 1 applic Q6H PRN 06/26/16 22:00 Miscellaneous Medication (May use PRN orders) 1 PRN PRN 06/26/16 22:00 Haloperidol (Haldol) 0.5 mg Q6H PRN 06/26/16 22:00 Lorazepam (Ativan) 0.5 mg Q6H PRN 06/26/16 22:00 Lorazepam (Ativan) 0.5 mg Q6H PRN 06/26/16 22:00 Haloperidol Lactate (Haldol 5 Mg/ml Inj) 0.5 mg Q6H PRN 06/26/16 22:00 Insulin Aspart (Novolog) 21 unit WS 06/27/16 17:30 06/28/16 17:08 21 UNIT Albuterol/ Ipratropium (Duoneb) 3 ml Q4H PRN 06/27/16 08:30 Insulin Glargine (Lantus) 90 unit HS 06/27/16 21:00 Insulin Aspart (Novolog) SS PRN 06/27/16 10:15 06/28/16 17:09 2 UNIT Nicotine (Nicoderm) 14 mg DAILY 06/28/16 18:09 06/28/16 18:34 14 MG Nicotine (Nicoderm Patch Removal) 1 removal DAILY 06/29/16 09:00 Subjective Pt seen and chart examined. Case discussed with nursing. Nursing reports pt slept well and has a good appetite. Nursing reports pt spit out his meds last night but otherwise has been doing well. On face to face the pt states he is doing well. He is only oriented to self. He reports his mood is stable. He denies any psychotic symptoms. Tolerating meds Time of Service: 16:30 Start Time: 16:30 Stop Time: 16:45 Care >50% of this visit spent in counseling/coordination care. [facility] Exam Vitals Vital Signs Date Time Temp Pulse Resp B/P Pulse Ox O2 Delivery O2 Flow Rate FiO2 06/28/16 16:16 97.1 92 18 102/65 95 Room Air Physical examination performed by the hospitalist. Height (Feet): 5 Height (Inches): 11.00 Mental Status Exam Muscle Strength/Tone: Normal Dressing: Casual Grooming: Good Attitude: Cooperative Motor Activity: Retardation Eye Contact: Fair Speech: Slowed Volume: Soft Rhythm: Slurred Sensory: Alert Orientation: Oriented to person Mood: Neutral Affect: Congruent Rate of Thoughts: Delayed Thought Organization: [place] Associations: Illogical Abstract Reasoning: Impaired, concrete Thought Content: Normal Perception/Psychotic: Hx psychosis,not current Attention Span/Concentration: Short Span Fund of Knowledge: Poor fund of knowledge Memory: Poor-immediate, Poor-recent Suicidal Ideation: None Homicidal Ideation: None Insight: Poor Judgment: Poor Impulse Control: Poor Laboratory Tests Test 06/28/16 07:26 06/28/16 10:38 06/28/16 16:32 Glucometer 164mg/dL 188mg/dL 180mg/dL Assessment and Plan (1) Schizophrenia Assessment: Admit to [facility]. 1. Hold Depot Provera and oral Provera: Patient has continued to exhibit indecent sexual behavior despite been on this medication. There is concern that this could be exacerbating his psychotic behavior. 2. Decrease Paroxetine to 5mg: The goal will be to taper off this medication since it is a 2D6 Cytochrome P450 inhibitor which can inhibit the conversion of Risperidone to 9-OH Risperidone 3. Depakote level was 36mcg/dl on admission. He may benefit from further titration of depakote. 4. He is also on Risperidone Consta 06/28/16 Continue current care Qualifiers: Qualified Codes: F20.1 - Disorganized schizophrenia Cont. current psych. meds CECELIA REES MD Jun 28, 2016 19:39
--- NOTE | 2016-06-28 19:45 | NUR ---
Status arrived on shift, patient is alert and oriented to person and place in dayroom. patient is currently having a snack. will continue to monitor.
[2016-06-28] MEDS: RISPERIDONE 2 MG TABLET PO SCH (19:50)
[2016-06-28] MEDS: INSULIN GLARGINE 100 UNIT/ML SQ SCH (19:50)
[2016-06-28] MEDS: LATANOPROST 0.005% EYE DROPS 2.5 ML BOTTLE BOTH EYES SCH (20:05)
[2016-06-28 22:32] VITALS: BP 143/67; PULSE 92; RESP 16; TEMP 98.8; O2SAT 92
--- NOTE | 2016-06-29 03:00 | NUR ---
Sleep patient asleep at 0300
--- NOTE | 2016-06-29 03:36 | NUR ---
Chart Check 24 hour chart check completed
--- NOTE | 2016-06-29 06:43 | NUR ---
Summary arrived on shift, patient was having a snack in the dayroom. Patient at first refused him hs medications. After 5 minutes was able to talk patient into taking his hs medications including scheduled insulin. Patient still refused SS insulin and eye drops. Patient stayed up for a short period before wanting to transition to his room to listen to music. During hs cares patient refused shower, though was cooperative with allowing staff to do a quick bag bath. Patient is demanding at times, and on few times pressed call light or called out as soon as staff left room. Patient was awake in bed listening to music until falling asleep at 0300. no prns given.
--- NOTE | 2016-06-29 07:15 | NUR ---
Patient slept 3 hours last night
[2016-06-29] MEDS: POLYETHYL.GLYCOL 3350 PACKET 17gm PO SCH (07:38)
[2016-06-29] MEDS: RISPERIDONE 1 MG TABLET PO SCH (07:38)
[2016-06-29] MEDS: NICOTINE 14 MG PATCH TD SCH (07:38)
[2016-06-29] MEDS: ASPIRIN 81 MG CHEWABLE TABLET PO SCH (07:39)
[2016-06-29] MEDS: METFORMIN 1,000 MG TABLET PO SCH (07:39)
[2016-06-29] MEDS: DIVALPROEX SPRINKLE 125 MG CAPSULE PO SCH ×2 (07:39→20:02)
[2016-06-29] MEDS: DOCUSATE SODIUM 100 MG CAPSULE PO SCH ×2 (07:39→20:01)
[2016-06-29] MEDS: LOSARTAN 50 MG TABLET PO SCH (07:40)
[2016-06-29] MEDS: NICOTINE PATCH REMOVAL TD SCH (07:40)
[2016-06-29] MEDS: PAROXETINE 10 MG TABLET PO SCH (07:40)
[2016-06-29] MEDS: INSULIN ASPART 100 UNIT/ML SQ SCH ×3 (07:42→17:18)
[2016-06-29 08:22] VITALS: BP 131/59; PULSE 102; RESP 16; TEMP 97; O2SAT 98
[2016-06-29] MEDS: INSULIN ASPART 100 UNIT/ML SQ PRN ×2 (10:36→21:32)
--- NOTE | 2016-06-29 13:57 | GENPN ---
[facility]ations Subjective Date DATE: 06/29/16 TIME: 13:53 Subjective/Severity of Illness Medications Current Medications Medications (Trade) Dose Ordered Sig/Susan Start Time Stop Time Status Last Admin Dose Admin Acetaminophen (Tylenol Regular Strength) 650 mg Q6H PRN 06/26/16 22:00 Aspirin (ASA) 81 mg DAILY 06/27/16 09:00 06/29/16 07:39 81 MG Benztropine Mesylate (Cogentin) 1 mg QID PRN 06/26/16 22:00 Bisacodyl (Dulcolax) 10 mg DAILY PRN 06/26/16 22:00 Divalproex Sodium (Depakote Sprinkle) 250 mg DAILY 06/27/16 09:00 06/29/16 07:39 250 MG Divalproex Sodium (Depakote Sprinkle) 500 mg HS 06/27/16 21:00 06/28/16 19:50 500 MG Docusate Sodium (Colace) 100 mg BID 06/27/16 09:00 06/29/16 07:39 100 MG Acetaminophen/ Hydrocodone Bitart ([place] 5/325) 1 tab Q8H PRN 06/26/16 22:00 06/27/16 16:46 1 TAB Latanoprost (Xalatan) 1 drop HS 06/27/16 21:00 06/27/16 00:31 1 DROP Losartan Potassium (COZAAR 50 mg) 25 mg DAILY 06/27/16 09:00 06/29/16 07:40 25 MG Magnesium Hydroxide (Mom) 30 ml DAILY PRN 06/26/16 22:00 Calamine/Phenol (Risamine Oint) 1 applic BID PRN 06/26/16 22:00 Metformin HCl (Glucophage) 1,000 mg DAILY 06/27/16 09:00 06/29/16 07:39 1,000 MG Paroxetine HCl (Paxil) 5 mg DAILY 06/27/16 09:00 06/29/16 10:58 DC 06/29/16 07:40 5 MG Polyethylene Glycol (Miralax) 17 g DAILY 06/27/16 09:00 06/29/16 07:38 17 G Risperidone (Risperdal) 1 mg 09 06/27/16 09:00 06/29/16 07:38 1 MG Risperidone (Risperdal) 2 mg HS 06/27/16 21:00 06/28/16 19:50 2 MG Risperidone (Risperdal Consta) 25 mg Q14D 07/03/16 09:00 Insulin Aspart (Novolog) 21 unit WL 06/27/16 12:00 06/29/16 11:58 21 UNIT Non-Formulary Medication 90 unit HS 06/27/16 21:00 06/27/16 21:00 DC Insulin Aspart (Novolog) 22 unit WB 06/27/16 08:00 06/29/16 07:42 22 UNIT Al Hydroxide/Mg Hydroxide (Maalox) 30 ml Q6H PRN 06/26/16 22:00 Methyl Salicylate (Analgesic [place]) 1 applic Q6H PRN 06/26/16 22:00 Miscellaneous Medication (May use PRN orders) 1 PRN PRN 06/26/16 22:00 Haloperidol (Haldol) 0.5 mg Q6H PRN 06/26/16 22:00 Lorazepam (Ativan) 0.5 mg Q6H PRN 06/26/16 22:00 Lorazepam (Ativan) 0.5 mg Q6H PRN 06/26/16 22:00 Haloperidol Lactate (Haldol 5 Mg/ml Inj) 0.5 mg Q6H PRN 06/26/16 22:00 Insulin Aspart (Novolog) 21 unit WS 06/27/16 17:30 06/28/16 17:08 21 UNIT Albuterol/ Ipratropium (Duoneb) 3 ml Q4H PRN 06/27/16 08:30 Insulin Glargine (Lantus) 90 unit HS 06/27/16 21:00 06/28/16 19:50 90 UNIT Insulin Aspart (Novolog) SS PRN 06/27/16 10:15 06/29/16 10:36 3 UNIT Nicotine (Nicoderm) 14 mg DAILY 06/28/16 18:09 06/29/16 07:38 14 MG Nicotine (Nicoderm Patch Removal) 1 removal DAILY 06/29/16 09:00 06/29/16 07:40 1 REMOVAL Subjective Pt seen and chart examined. Case discussed with nursing. nursing reports pt slept only 4 hours and was restless and demanding at times. nursing reports pt initially refused hs meds but later took them. on face to face the pt is pleasant. he is only oriented to self. he voices no concerns at this time Time of Service: 09:30 Start Time: 09:30 Stop Time: 09:45 Care >50% of this visit spent in counseling/coordination care. [facility]ations Exam Vitals Vital Signs Date Time Temp Pulse Resp B/P Pulse Ox O2 Delivery O2 Flow Rate FiO2 06/29/16 08:22 97.0 102 16 131/59 98 Room Air Physical examination performed by the hospitalist. Height (Feet): 5 Height (Inches): 11.00 Mental Status Exam Muscle Strength/Tone: Normal Dressing: Casual Grooming: Good Attitude: Cooperative Motor Activity: Retardation Eye Contact: Fair Speech: Slowed Volume: Soft Rhythm: Slurred Sensory: Alert Orientation: Oriented to person Mood: Euthymic Affect: Congruent Rate of Thoughts: Delayed Thought Organization: [place] Associations: Illogical Abstract Reasoning: Impaired, concrete Thought Content: Paranoia Perception/Psychotic: Psychotic Attention Span/Concentration: Inattentive Fund of Knowledge: Poor fund of knowledge Memory: Poor-immediate, Poor-recent Suicidal Ideation: None Homicidal Ideation: None Insight: Poor Judgment: Poor Impulse Control: Poor Laboratory Tests Test 06/28/16 16:32 06/29/16 06:25 Glucometer 180mg/dL 153mg/dL Assessment and Plan (1) Schizophrenia Assessment: Admit to [facility]. 1. Hold Depot Provera and oral Provera: Patient has continued to exhibit indecent sexual behavior despite been on this medication. There is concern that this could be exacerbating his psychotic behavior. 2. Decrease Paroxetine to 5mg: The goal will be to taper off this medication since it is a 2D6 Cytochrome P450 inhibitor which can inhibit the conversion of Risperidone to 9-OH Risperidone 3. Depakote level was 36mcg/dl on admission. He may benefit from further titration of depakote. 4. 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 current psych. meds CECELIA REES MD Jun 29, 2016 13:56
[2016-06-29 16:00] VITALS: BP 143/76; PULSE 83; RESP 16; TEMP 97.4; O2SAT 97
--- NOTE | 2016-06-29 16:15 | NUR ---
SLUMS Patient attempted to answer first 3 questions, able to tell this RN what state we were in but not the day of the week or year. During 4th question patient stated loudly "Oh I don't have time for this shit!" RN explained importance of test but continued to refuse to answer questions
--- NOTE | 2016-06-29 18:19 | NUR ---
Shift Summary Patient has been up either in the day room or sitting in the recliner in his room. He is able to make his needs known, has not been demanding of staff's time, has not been asking for/demanding multiple snacks today as he has in past shifts. He enjoys listening to music, has been cooperative with all cares. He is transferring well from wheelchair to bed/recliner/toilet with assistance of one person. He took all medications including insulin without argument or incident (pill meds crushed). Presently he is in his room listening to the music on the iPod; chair alarm on
[2016-06-29] MEDS: RISPERIDONE 2 MG TABLET PO SCH (20:01)
[2016-06-29] MEDS: LATANOPROST 0.005% EYE DROPS 2.5 ML BOTTLE BOTH EYES SCH (21:25)
[2016-06-29 21:33] VITALS: BP 159/96; PULSE 126; RESP 18; TEMP 97.6; O2SAT 97
[2016-06-29] MEDS: INSULIN GLARGINE 100 UNIT/ML SQ SCH (21:39)
--- NOTE | 2016-06-29 22:52 | NUR ---
STATUS PT IS SITTING IN DAY ROOM EATING PUDDING AND HUMMING TO SELF WITH HEADPHONES ON UPON START OF THIS RN SHIFT. DURING ATTEMPT TO ASSESS PT HE BECAME VERY UPSET WITH ORIENTATION QUESTIONS AND IMMEDIATELY BEGAN TO REFUSE TO ALLOW ANY FURTHER EXAMINATION. PT WAS COOPERATIVE WITH OTHER STAFF TO GET VITAL SIGNS. PT REFUSED TO ALLOW THIS RN TO EVALUATE BREATH SOUNDS, BOWEL SOUNDS, AND PT REFUSED TO ANSWER ANY QUESTIONS. PT WAS VERBALLY AGGRESSIVE MAKING STATEMENTS SUCH "YOU ARE STUPID" "YOU MUST BE ILLITERATE" AND "YOU NEED TO FIND ZEYAD". WHEN ATTEMPTING LATER TO PASS HS MEDS AND ATTEMPT TO ASSESS PT AGAIN PT REFUSES TO TAKE MEDICATIONS FROM THIS RN. RUBIO RN WAS ABLE TO PERSUADE PT TO TAKE MEDICATIONS WITH PUDDING. DURING SPEAKING WITH THE PT AT THIS TIME PT REFUSED TO ALLOW THIS RN TO GET MORE THEN A FEW WORDS OUT BEFORE WAVING HANDS IN THE AIR AND STATING "LEAVE ME ALONE" AND STATING "GET AWAY FROM ME MOTHER FUCKER". AGAIN PT EVENTUALLY WAS COOPERATIVE WITH RUBIO MADERA. APPROXIMATELY 2117 PT WAS ASSISTED TO BED BY MICHAEL OBNNER, SHE REQUESTED ASSISTANCE GETTING PT SITUATED INTO BED AND DURING GETTING PT COMFORTABLE HE WAS VERBALLY AGGRESSIVE LOUDLY SAYING "LEAVE ME ALONE AND GET OUT, LEAVE ME ALONE AND GET OUT". FOLLOWING THIS PT HAS BEEN IN BED QUIET AND SLEEPING. PT GOT MEDICATIONS FOLLOWING GETTING INTO BED, DURING THIS TIME RUBIO GAVE MEDICATIONS AND PT REFUSED TO SPEAK TO HER BUT ALLOWED HER TO PASS MEDICATIONS. PT HAS BEEN IN BED WITH 2 RAILS UP BED IN LOW POSITION BED ALARM ON LIGHTS DIMMED AND AT 2200 PT WAS NOTED TO BE ASLEEP AND SNORING.
--- NOTE | 2016-06-29 23:37 | NUR ---
Chart Check 24 hour chart check completed
--- NOTE | 2016-06-29 23:53 | NUR ---
BEDTIME PT INTO BED AT 2130 NOTED TO BE SLEEPING AT 2200. SLEPT 1.25 HOURS ON DAY SHIFT.
[2016-06-30 00:11] VITALS: PULSE 78; RESP 16; O2SAT 98
--- NOTE | 2016-06-30 05:41 | NUR ---
SUMMARY PT ALERT ORIENTED TO PERSON AND PLACE. PT WAS UNPLEASANT AND UNCOOPERATIVE FOR THIS RN. PT USED AGGRESSIVE LANGUAGE AND DID NOT WANT TO COOPERATE WITH MEDICATIONS OR EXAM HOWEVER WITH OTHER STAFF PT WAS MORE PLEASANT AND MORE COOPERATIVE. FOLLOWING 2129 PT HAS BEEN IN BED ONLY USING CALL LIGHT ONCE TO REQUEST URINAL. PT DENIED PAIN OR ANY OTHER COMPLAINTS. PT HAD NO OBVIOUS HALLUCINATIONS. PT WAS AGGRESSIVE VERBALLY WITH STAFF. PT REMAINED SAFE DURING SHIFT WITH 1-2 PERSON TRANSFERS, BED IN LOW POSITION, ALARM ON, CALL LIGHT EDUCATION AND USE, RAILS UP X2. PT HAS SLEPT SOUNDLY FOR MOST OF SHIFT.
[2016-06-30 08:17] VITALS: BP 141/71; PULSE 90; RESP 16; TEMP 97; O2SAT 96
--- NOTE | 2016-06-30 08:30 | NUR ---
Sleep time Pt went to bed last night at 2330 and awakened this morning at 0815. Pt slept a total of 9.25 hours as reported on the patient observation forms.
[2016-06-30] MEDS: LOSARTAN 50 MG TABLET PO SCH (08:54)
[2016-06-30] MEDS: POLYETHYL.GLYCOL 3350 PACKET 17gm PO SCH (08:55)
[2016-06-30] MEDS: DOCUSATE SODIUM 100 MG CAPSULE PO SCH ×2 (08:55→20:05)
[2016-06-30] MEDS: DIVALPROEX SPRINKLE 125 MG CAPSULE PO SCH ×2 (08:55→20:05)
[2016-06-30] MEDS: ASPIRIN 81 MG CHEWABLE TABLET PO SCH (08:55)
[2016-06-30] MEDS: INSULIN ASPART 100 UNIT/ML SQ SCH ×3 (08:56→18:02)
[2016-06-30] MEDS: METFORMIN 1,000 MG TABLET PO SCH (08:56)
[2016-06-30] MEDS: NICOTINE 14 MG PATCH TD SCH (08:57)
[2016-06-30] MEDS: RISPERIDONE 1 MG TABLET PO SCH (08:57)
[2016-06-30] MEDS: NICOTINE PATCH REMOVAL TD SCH (09:00)
[2016-06-30] MEDS: INSULIN ASPART 100 UNIT/ML SQ PRN (10:43)
--- NOTE | 2016-06-30 10:59 | GENPN ---
Generations Subjective Date DATE: 06/30/16 TIME: 10:57 Subjective/Severity of Illness Medications Current Medications Medications (Trade) Dose Ordered Sig/Susan Start Time Stop Time Status Last Admin Dose Admin Acetaminophen (Tylenol Regular Strength) 650 mg Q6H PRN 06/26/16 22:00 Aspirin (ASA) 81 mg DAILY 06/27/16 09:00 06/30/16 08:55 81 MG Benztropine Mesylate (Cogentin) 1 mg QID PRN 06/26/16 22:00 Bisacodyl (Dulcolax) 10 mg DAILY PRN 06/26/16 22:00 Divalproex Sodium (Depakote Sprinkle) 250 mg DAILY 06/27/16 09:00 06/30/16 08:55 250 MG Divalproex Sodium (Depakote Sprinkle) 500 mg HS 06/27/16 21:00 06/29/16 20:02 500 MG Docusate Sodium (Colace) 100 mg BID 06/27/16 09:00 06/30/16 08:55 100 MG Acetaminophen/ Hydrocodone Bitart ([place] 5/325) 1 tab Q8H PRN 06/26/16 22:00 06/27/16 16:46 1 TAB Latanoprost (Xalatan) 1 drop HS 06/27/16 21:00 06/29/16 21:25 1 DROP Losartan Potassium (COZAAR 50 mg) 25 mg DAILY 06/27/16 09:00 06/30/16 08:54 25 MG Magnesium Hydroxide (Mom) 30 ml DAILY PRN 06/26/16 22:00 Calamine/Phenol (Risamine Oint) 1 applic BID PRN 06/26/16 22:00 Metformin HCl (Glucophage) 1,000 mg DAILY 06/27/16 09:00 06/30/16 07:45 DC 06/29/16 07:39 1,000 MG Paroxetine HCl (Paxil) 5 mg DAILY 06/27/16 09:00 06/29/16 10:58 DC 06/29/16 07:40 5 MG Polyethylene Glycol (Miralax) 17 g DAILY 06/27/16 09:00 06/30/16 08:55 17 G Risperidone (Risperdal) 1 mg 09 06/27/16 09:00 06/30/16 08:57 1 MG Risperidone (Risperdal) 2 mg HS 06/27/16 21:00 06/29/16 20:01 2 MG Risperidone (Risperdal Consta) 25 mg Q14D 07/03/16 09:00 Insulin Aspart (Novolog) 21 unit WL 06/27/16 12:00 06/29/16 11:58 21 UNIT Non-Formulary Medication 90 unit HS 06/27/16 21:00 06/27/16 21:00 DC Insulin Aspart (Novolog) 22 unit WB 06/27/16 08:00 06/30/16 08:56 22 UNIT Al Hydroxide/Mg Hydroxide (Maalox) 30 ml Q6H PRN 06/26/16 22:00 Methyl Salicylate (Analgesic [place]) 1 applic Q6H PRN 06/26/16 22:00 Miscellaneous Medication (May use PRN orders) 1 PRN PRN 06/26/16 22:00 Haloperidol (Haldol) 0.5 mg Q6H PRN 06/26/16 22:00 Lorazepam (Ativan) 0.5 mg Q6H PRN 06/26/16 22:00 Lorazepam (Ativan) 0.5 mg Q6H PRN 06/26/16 22:00 Haloperidol Lactate (Haldol 5 Mg/ml Inj) 0.5 mg Q6H PRN 06/26/16 22:00 Insulin Aspart (Novolog) 21 unit WS 06/27/16 17:30 06/29/16 17:18 21 UNIT Albuterol/ Ipratropium (Duoneb) 3 ml Q4H PRN 06/27/16 08:30 Insulin Glargine (Lantus) 90 unit HS 06/27/16 21:00 06/29/16 21:39 90 UNIT Insulin Aspart (Novolog) SS PRN 06/27/16 10:15 06/30/16 10:43 3 UNIT Nicotine (Nicoderm) 14 mg DAILY 06/28/16 18:09 06/30/16 08:57 14 MG Nicotine (Nicoderm Patch Removal) 1 removal DAILY 06/29/16 09:00 06/30/16 09:00 1 REMOVAL Metformin HCl (Glucophage) 1,000 mg WB 06/30/16 08:00 06/30/16 08:56 1,000 MG Subjective Pt seen and chart examined. Case discussed with nursing. Nursing reports pt slept well and has a good appetite. Can be demanding at times but no behaviors noted. On face to face the pt states he is doing well. He reports his mood is stable. He is only oriented to self. He denies any psychotic symptoms and denies any pain. Time of Service: 09:30 Start Time: 09:30 Stop Time: 09:45 Care >50% of this visit spent in counseling/coordination care. Generations Exam Vitals Vital Signs Date Time Temp Pulse Resp B/P Pulse Ox O2 Delivery O2 Flow Rate FiO2 06/30/16 08:17 97.0 90 16 141/71 96 Room Air Physical examination performed by the hospitalist. Height (Feet): 5 Height (Inches): 11.00 Mental Status Exam Muscle Strength/Tone: Normal Dressing: Casual Grooming: Good Attitude: Cooperative Motor Activity: Retardation Eye Contact: Fair Speech: Slowed Volume: Soft Rhythm: Slurred Sensory: Alert Orientation: Oriented to person Mood: Neutral Affect: Congruent Rate of Thoughts: Delayed Thought Organization: [place] Associations: Illogical Abstract Reasoning: Impaired, concrete Thought Content: Normal Perception/Psychotic: Hx psychosis,not current Attention Span/Concentration: Short Span Fund of Knowledge: Poor fund of knowledge Memory: Poor-immediate, Poor-recent Suicidal Ideation: None Homicidal Ideation: None Insight: Poor Judgment: Poor Impulse Control: Fair Laboratory Tests Test 06/29/16 14:54 06/29/16 20:21 06/30/16 06:02 06/30/16 10:20 Glucometer 126mg/dL 202mg/dL 112mg/dL 232mg/dL Assessment and Plan (1) Schizophrenia Assessment: Admit to [facility]. 1. Hold Depot Provera and oral Provera: Patient has continued to exhibit indecent sexual behavior despite been on this medication. There is concern that this could be exacerbating his psychotic behavior. 2. Decrease Paroxetine to 5mg: The goal will be to taper off this medication since it is a 2D6 Cytochrome P450 inhibitor which can inhibit the conversion of Risperidone to 9-OH Risperidone 3. Depakote level was 36mcg/dl on admission. He may benefit from further titration of depakote. 4. He is also on Risperidone Consta 06/28/16 Continue current care 06/29/16 d/c paxil 06/30/16 Continue current care Qualifiers: Qualified Codes: F20.1 - Disorganized schizophrenia Cont. current psych. meds CECELIA REES MD Jun 30, 2016 10:59
--- NOTE | 2016-06-30 12:41 | NUR ---
Status Pt was cooperative with assessment, cares and medications. Pt has not had any signs of aggression or hallucinations so far this shift. Pt is able to make his needs known. He gets out of bed for meals and stays up for about an hour then prefers to go back to bed and read the news paper and listen to music. Pt is currently in the day room watching television with staff present.
[2016-06-30 16:15] VITALS: BP 138/69; PULSE 102; RESP 16; O2SAT 96
--- NOTE | 2016-06-30 18:41 | NUR ---
Summary Pt was cooperative throughout the shift with cares and medications. Pt is able to make needs known and uses a urinal to go to the bathroom. Pt ate 100% of meals today and spent most of the day wheeling around the day room and dining room in his wheel chair. Pt has been happy in affect and had no complaints of pain or discomfort. Pt has received no PRN medications other than sliding scale insulin for a BG of 232 @ 1000 (received 3 units). Pt is currently in the day room visiting with staff and other patients.
[2016-06-30 19:40] VITALS: PULSE 104; RESP 22
[2016-06-30] MEDS: LATANOPROST 0.005% EYE DROPS 2.5 ML BOTTLE BOTH EYES SCH (20:05)
[2016-06-30] MEDS: RISPERIDONE 2 MG TABLET PO SCH (20:05)
[2016-06-30] MEDS: INSULIN GLARGINE 100 UNIT/ML SQ SCH (21:14)
[2016-06-30 22:35] VITALS: BP 110/67; PULSE 104; RESP 22; TEMP 97.2; O2SAT 97
[2016-07-01 00:30] VITALS: BP 169/97; PULSE 111; RESP 18; TEMP 97.9; O2SAT 93
[2016-07-01] MEDS: HYDROCODONE/APAP 5 mg/325 mg TABLET PO PRN (00:33)
[2016-07-01 02:31] VITALS: BP 149/78; PULSE 95; RESP 20; TEMP 98.9; O2SAT 96
--- NOTE | 2016-07-01 02:41 | NUR ---
Status/PRN Assumed patient care at 1915 and assessment completed at 1940. VS are stable. He self-propels his wheelchair throughout the unit. He is oriented to person (does not answer orientation questions - pleasantly stating that, "You talk too much") and has mumbled speech. Affect is flat. Follows simple commands appropriately. Notifies staff of need to void; uses urinal independently. Readily compliant with medications. Compliant with shower; assists when staff encourages him to do so. Transfers with x1 assist - pivot to/from w/c and patient does assist with standing and taking shuffled steps. HS BGM was 142. He requests a sandwich for a snack. Rests quietly in bed but is unable to sleep. Complains of right hip pain (unable to rate - "It hurts!). VS with elevated heart rate and B/P. [place] 5/325 mg. (1 tablet) provided at 0033. Patient breaks the tablet in half, swallows one of the halves and sticks the other half in his pant's pocket. He does return the pocketed pill upon request and states that he doesn't want it. Refuses position change. "Our Daily Bread" and a large print Bible are provided as per his request. He requests steak and potatoes; reoriented to time and sugar-free pudding is provided. No hallucinations are noted or reported. No aggressive behavior is noted. States that the pain in his hip is "a little better." VS are improved upon reassessment.
--- NOTE | 2016-07-01 03:14 | NUR ---
Bedtime Patient is in bed by 2044 and doesn't fall asleep until 0300. He slept 30 minutes on dayshift. Bed alarm is on and side rails are up x2.
--- NOTE | 2016-07-01 03:41 | NUR ---
Chart Check 24 hour chart check completed
--- NOTE | 2016-07-01 05:57 | NUR ---
Summary Patient was ALOx1 and mostly cooperative this shift; demanding behavior at times and with a flat affect. No verbal or physical aggression; he does appear to ignore staff at times. He does not interact with the other patients in the dayroom and with staff only when he wants something. He listens to music on his i-Pod and looks at the newspaper and devotional books. Some difficulty settling down to sleep. Requests multiple snacks and pain medication was provided (takes dose). Denies anxiety or troubling thoughts. No hallucinations are noted. Reads for a short time and then is able to fall asleep until around 0530. Fasting BGM is 97. No sliding scale insulin is needed this shift. Awake and without complaints at the current time.
[2016-07-01] MEDS: ASPIRIN 81 MG CHEWABLE TABLET PO SCH (08:14)
[2016-07-01] MEDS: DOCUSATE SODIUM 100 MG CAPSULE PO SCH ×2 (08:14→20:39)
[2016-07-01] MEDS: RISPERIDONE 1 MG TABLET PO SCH (08:15)
[2016-07-01] MEDS: LOSARTAN 50 MG TABLET PO SCH (08:15)
[2016-07-01] MEDS: METFORMIN 1,000 MG TABLET PO SCH (08:15)
[2016-07-01] MEDS: NICOTINE 14 MG PATCH TD SCH (08:16)
[2016-07-01] MEDS: POLYETHYL.GLYCOL 3350 PACKET 17gm PO SCH (08:16)
[2016-07-01] MEDS: NICOTINE PATCH REMOVAL TD SCH (08:16)
[2016-07-01] MEDS: DIVALPROEX SPRINKLE 125 MG CAPSULE PO SCH ×2 (08:16→20:39)
[2016-07-01] MEDS: INSULIN ASPART 100 UNIT/ML SQ SCH ×3 (08:30→18:00)
[2016-07-01 08:36] VITALS: BP 130/68; PULSE 96; RESP 16; TEMP 98; O2SAT 95
--- NOTE | 2016-07-01 08:58 | PNPDOC ---
Subjective Date DATE: 07/01/16 TIME: 08:28 Subjective Yordan was dressed and getting ready for breakfast. He woke up in good spirits. He states he slept well through the night. He denies any new complaints, though notes some chronic pain. He denies any trouble breathing. I told him he looks sharp, and he thanked me for the complement. He has been eating well. Last bowel movement was on 06/29/16. Nursing staff report that he is occasionally demanding of them. Objective Vital Signs Vital signs Vital Signs Date Time Temp Pulse Resp B/P Pulse Ox O2 Delivery O2 Flow Rate FiO2 07/01/16 02:31 98.9 95 20 149/78 96 Room Air Height (Feet): 5 Height (Inches): 11.00 Weight (Kilograms): 110.600 General General Appearance: Alert, Well Nourished, Well Developed, No Acute Distress Eyes (Brief) Eyes: FOUND: PERRL, NOT FOUND: scleral icterus ENMT (Brief) ENMT: FOUND: mucosa moist, NOT FOUND: pharnyx erythema Respiratory (Brief) Respiratory: FOUND: clear all robles, equal bilaterally Cardiovascular (Brief) Cardiac: FOUND: regular rate, regular rhythm Abdomen (Brief) Abdominal: FOUND: BS normo active x4, soft, NOT FOUND: distended, tender Extremities (Brief) Extremity : Side: Bilateral Extremity Finding: NOT FOUND: edema Musculoskeletal (Brief) Musculoskeletal: NOT FOUND: tenderness Integumentary (Brief) Integumentary: FOUND: dry, pink, warm Psychiatric (Brief) Psychiatric: FOUND: alert, attentive, normal affect, oriented Assessment & Plan Problems: (1) Schizophrenia Status: Chronic Qualifiers: Schizophrenia type: disorganized schizophrenia Qualified Codes: F20.1 - Disorganized schizophrenia (2) Major depression Status: Chronic (3) COPD (chronic obstructive pulmonary disease) Status: Chronic (4) CAD (coronary artery disease) Status: Chronic (5) Hyperlipidemia Status: Chronic (6) HTN (hypertension) Status: Chronic (7) Type 2 diabetes mellitus Status: Chronic (8) Obesity (BMI 30.0-34.9) Status: Chronic (9) Glaucoma Status: Chronic (10) History of atrial fibrillation (11) Dementia Status: Chronic (12) Normocytic anemia (13) Mild protein-calorie malnutrition Status: Acute (14) Atrial flutter Status: Chronic Plan/Intensity of Service Labs reviewed. Normocytic anemia was noted on this admission, whereas previously his hemoglobin had been in the normal range. Will repeat CBC today. He has been hyperglycemic with sugars above 200, especially after breakfast and supper. Will increase breakfast NovoLog to 25 units and supper NovoLog to 24 units. Fasting this morning was 97. Continue to monitor and adjust accordingly. Patient has a history of a flutter. Occasional tachycardia noted with rates exceeding 100. He is not anticoagulated, nor is he on rate control. Blood pressures have remained stable, typically moderately elevated. His oral antihypertensive agent as Cozaar. We could consider adding diltiazem to assist with rate control and to help with achieving better blood pressure control. Will discuss with Dr. Gómez. Psychiatric progress notes reviewed. Paxil was recently discontinued. Code Status Full Code Hospital Course Summary Disclaimer The hospital course summary below is not to be considered part of the above Progress Note. Hospital Course Summary 06/27/[address] [facility]. Orders per attending. Labs are pending. Type 2 diabetes: Continue anti-glycemic agents, including insulin. Monitor blood sugars. History of A. fib: Tachycardic last night in the 120s. Heart rate sounded regular on exam. Will assess EKG. He is not on any anticoagulants, aspirin, or medications for rate control. Hypertension: Continue Cozaar. COPD: Stable. Respiratory therapy present to evaluate. DuoNeb PRN. Pressure ulcer to left heel: Wound team has already been consulted. History of mild protein calorie malnutrition during recent visit: Repeat pre- albumin. Constipation: Continue bowel regimen; PRNs available. 07/01/16 Labs reviewed. Normocytic anemia was noted on this admission, whereas previously his hemoglobin had been in the normal range. Will repeat CBC today. He has been hyperglycemic with sugars above 200, especially after breakfast and supper. Will increase breakfast NovoLog to 25 units and supper NovoLog to 24 units. Fasting this morning was 97. Continue to monitor and adjust accordingly. Patient has a history of a flutter. Occasional tachycardia noted with rates exceeding 100. He is not anticoagulated, nor is he on rate control. Blood pressures have remained stable, typically moderately elevated. His oral antihypertensive agent as Cozaar. We could consider adding diltiazem to assist with rate control and to help with achieving better blood pressure control. Will discuss with Dr. Gómez. Psychiatric progress notes reviewed. Paxil was recently discontinued. SANDRA DRAKE [employer] VICE PRESIDENT Jul 01, 2016 08:46
[2016-07-01 10:22] LABS: BASOPHILS % (AUTO) 0.3 % (0-2); EOSINOPHILS # (AUTO) 0.2 T/MM3 (0-0.5); HCT - HEMATOCRIT 39.8 % (41-53); HGB - HEMOGLOBIN 12.9 GM/DL (13.5-17.5); IMMATURE GRANULOCYTE # (AUTO) 0.01 T/MM3 (0.00-0.03); IMMATURE GRANULOCYTE % (AUTO) 0.1 % (0.0-0.5); LYMPHOCYTES % (AUTO) 21.7 % (23-45); MEAN CORPUSCULAR HGB CONC(MCHC 32.4 GM/DL (31-37); MEAN CORPUSCULAR VOLUME 92.6 UM3 (80-100); MEAN PLATELET VOLUME 10.1 UM3 (9.4-12.4); MONOCYTES # (AUTO) 0.5 T/MM3 (0-0.8); MONOCYTES % (AUTO) 5.3 % (0-9.0); NEUTROPHILS #(AUTO)-ABSOLUTE 6.5 T/MM3 (1.8-7.7); NEUTROPHILS % (AUTO) 70.6 % (33-66); WBC - WHITE BLOOD COUNT 9.2 T/MM3 (4.5-11.0)
--- NOTE | 2016-07-01 10:26 | NUR ---
SLEEP Pt was out of bed at 0800 and slept a total of 3.75 hours as noted by observation sheets.
[2016-07-01 10:31] LABS: ANION GAP 13 MEQ/L (5-15); BUN/CREATININE RATIO 30 RATIO (6-26); CALCIUM 10.3 MG/DL (8.4-10.2); CHLORIDE 105 MEQ/L (98-107); CO2 - CARBON DIOXIDE 26 MEQ/L (22-30); CREATININE 0.6 MG/DL (0.8-1.5); GLOMERULAR FILTRATION RATE 132; GLUCOSE 159 MG/DL (75-110); POTASSIUM 4.3 MEQ/L (3.6-5); SODIUM 144 MEQ/L (134-144)
--- NOTE | 2016-07-01 11:02 | NUR ---
MILITARY PERSONNEL SPECIALIST--AM GROUP Pt. was invited but refused to attend the psychoeducational group facilitated by [facility].
--- NOTE | 2016-07-01 14:54 | NUR ---
DIVERSITY MANAGER--PM GROUP Pt. was present and somewhat engaged in psychoeducational group facilitated by [facility]. Topic involved was on importance of laughter and having fun at any age. Patients were encouraged to stay active and socialize whenever opportunity presents itself, such as through taoist, community venues, family gatherings, etc. Patients were asked to identify things that they have enjoyed doing at some time in their life. Pt. did not offer any response to question asked. Played variety of tunes from 50's and 60's. Pt. would smile in recognition of many of the songs played. He was able to identify the artist on two of the songs. Pt. smiled when his peers complimented on his knowledge of music.
--- NOTE | 2016-07-01 15:37 | NUR ---
Status Pt was cooperative with assessment, cares and medications. Pt has not had any signs of aggression or hallucinations so far this shift. Pt is able to make his needs known. He has been out of bed most of the day so far. He prefers to wheel himself around in his chair listening to music. Pt has eaten 100% of meals. Pt is currently in his room in his wheel chair with chair alarm activated.
[2016-07-01 16:34] VITALS: BP 115/72; PULSE 121; RESP 20; TEMP 98.6; O2SAT 95
--- NOTE | 2016-07-01 18:27 | NUR ---
Summary Pt was cooperative throughout the shift with cares and medications. Pt is able to make needs known and uses a urinal to go to the bathroom. Pt ate 100% of meals today. Pt has had no complaints of pain or discomfort. Pt has received no PRN medications and no behaviors have been noted. Pt is currently in the day room visiting with staff.
--- NOTE | 2016-07-01 19:21 | GENPN ---
[facility] Subjective Date DATE: 07/01/16 TIME: 10:33 Subjective/Severity of Illness Medications Current Medications Medications (Trade) Dose Ordered Sig/Susan Start Time Stop Time Status Last Admin Dose Admin Acetaminophen (Tylenol Regular Strength) 650 mg Q6H PRN 06/26/16 22:00 Aspirin (ASA) 81 mg DAILY 06/27/16 09:00 07/01/16 08:14 81 MG Benztropine Mesylate (Cogentin) 1 mg QID PRN 06/26/16 22:00 Bisacodyl (Dulcolax) 10 mg DAILY PRN 06/26/16 22:00 Divalproex Sodium (Depakote Sprinkle) 250 mg DAILY 06/27/16 09:00 07/01/16 08:16 250 MG Divalproex Sodium (Depakote Sprinkle) 500 mg HS 06/27/16 21:00 06/30/16 20:05 500 MG Docusate Sodium (Colace) 100 mg BID 06/27/16 09:00 07/01/16 08:14 100 MG Acetaminophen/ Hydrocodone Bitart ([place] 5/325) 1 tab Q8H PRN 06/26/16 22:00 07/01/16 00:33 1 TAB Latanoprost (Xalatan) 1 drop HS 06/27/16 21:00 06/30/16 20:05 1 DROP Losartan Potassium (COZAAR 50 mg) 25 mg DAILY 06/27/16 09:00 07/01/16 08:15 25 MG Magnesium Hydroxide (Mom) 30 ml DAILY PRN 06/26/16 22:00 Calamine/Phenol (Risamine Oint) 1 applic BID PRN 06/26/16 22:00 Metformin HCl (Glucophage) 1,000 mg DAILY 06/27/16 09:00 06/30/16 07:45 DC 06/29/16 07:39 1,000 MG Paroxetine HCl (Paxil) 5 mg DAILY 06/27/16 09:00 06/29/16 10:58 DC 06/29/16 07:40 5 MG Polyethylene Glycol (Miralax) 17 g DAILY 06/27/16 09:00 07/01/16 08:16 17 G Risperidone (Risperdal) 1 mg 09 06/27/16 09:00 07/01/16 08:15 1 MG Risperidone (Risperdal) 2 mg HS 06/27/16 21:00 06/30/16 20:05 2 MG Risperidone (Risperdal Consta) 25 mg Q14D 07/03/16 09:00 Insulin Aspart (Novolog) 21 unit WL 06/27/16 12:00 06/30/16 12:09 21 UNIT Non-Formulary Medication 90 unit HS 06/27/16 21:00 06/27/16 21:00 DC Insulin Aspart (Novolog) 22 unit WB 06/27/16 08:00 07/01/16 08:59 DC 07/01/16 08:30 22 UNIT Al Hydroxide/Mg Hydroxide (Maalox) 30 ml Q6H PRN 06/26/16 22:00 Methyl Salicylate (Analgesic [place]) 1 applic Q6H PRN 06/26/16 22:00 Miscellaneous Medication (May use PRN orders) 1 PRN PRN 06/26/16 22:00 Haloperidol (Haldol) 0.5 mg Q6H PRN 06/26/16 22:00 Lorazepam (Ativan) 0.5 mg Q6H PRN 06/26/16 22:00 Lorazepam (Ativan) 0.5 mg Q6H PRN 06/26/16 22:00 Haloperidol Lactate (Haldol 5 Mg/ml Inj) 0.5 mg Q6H PRN 06/26/16 22:00 Insulin Aspart (Novolog) 21 unit WS 06/27/16 17:30 07/01/16 08:59 DC 06/30/16 18:02 21 UNIT Albuterol/ Ipratropium (Duoneb) 3 ml Q4H PRN 06/27/16 08:30 Insulin Glargine (Lantus) 90 unit HS 06/27/16 21:00 06/30/16 21:14 90 UNIT Insulin Aspart (Novolog) SS PRN 06/27/16 10:15 06/30/16 10:43 3 UNIT Nicotine (Nicoderm) 14 mg DAILY 06/28/16 18:09 07/01/16 08:16 14 MG Nicotine (Nicoderm Patch Removal) 1 removal DAILY 06/29/16 09:00 07/01/16 08:16 1 REMOVAL Metformin HCl (Glucophage) 1,000 mg WB 06/30/16 08:00 07/01/16 08:15 1,000 MG Insulin Aspart (Novolog) 24 unit WS 07/01/16 17:30 Insulin Aspart (Novolog) 25 unit WB 07/02/16 08:00 Subjective Patient seen and chart reviewed. Case discussed with treatment team. Patient is folding towels on approach, in a room by himself. Upon my attempt at interview, he states that psychiatrists aint st and told me to go to [facility]. He tells me he does not think he needs any medication changes and asks me to leave him alone. Per staff report, patient has been irritable and labile, though he very much enjoyed his family visit yesterday. Patient does not currently appear to be hypersexual. Patient denies any SI or HI. Patient slept 9 hours overnight. Appetite is good. Patient denies any adverse side effects due to medications or other concerns. VSS. No new labs. Psychotropic PRNs required in the past 24 hours: none. Time of Service: : Start Time: :40 Stop Time: 10:00 Care >50% of this visit spent in counseling/coordination care. [facility] Exam Vitals Vital Signs Date Time Temp Pulse Resp B/P Pulse Ox O2 Delivery O2 Flow Rate FiO2 07/01/16 08:36 98.0 96 16 130/68 95 Room Air Physical examination performed by the hospitalist. Height (Feet): 5 Height (Inches): 11.00 Mental Status Exam Muscle Strength/Tone: Normal Dressing: Casual Grooming: Fair Attitude: Uncooperative Motor Activity: Normal Eye Contact: Fair Speech: Normal Volume: Loud Rhythm: Mumbled Sensory: Alert Orientation: Oriented to person, Oriented to place Mood: Irritable Affect: Labile Rate of Thoughts: Appropriate Rate Thought Organization: Organized Associations: Intact Abstract Reasoning: Poor abstract reasoning Thought Content: Paranoia Perception/Psychotic: Psychotic Attention Span/Concentration: Normal Language: Naming Intact Fund of Knowledge: Other (Decreased) Memory: Grossly Intact Suicidal Ideation: Denies Homicidal Ideation: Denies Insight: Impaired Judgment: Impaired Impulse Control: Poor Laboratory Tests Test 06/30/16 20:41 07/01/16 05:49 07/01/16 09:40 07/01/16 09:41 Glucometer 142mg/dL 97mg/dL Turbidity < 20 Sodium Level 144MEQ/L Potassium Level 4.3MEQ/L Chloride Level 105MEQ/L Carbon Dioxide Level 26MEQ/L Anion Gap 13MEQ/L Blood Urea Nitrogen 18.0MG/DL Creatinine 0.6MG/DL Glomerular Filtration Rate Calc 132 BUN/Creatinine Ratio 30RATIO Glucose Level 159MG/DL Calculated Osmolality 282MOSM/KG Calcium Level 10.3MG/DL Icterus Index < 2 Chemistry Specimen Hemolysis < 15 White Blood Count 9.2T/MM3 Red Blood Count 4.30M/MM3 Hemoglobin 12.9GM/DL Hematocrit 39.8% Mean Corpuscular Volume 92.6UM3 Mean Corpuscular Hemoglobin 30.0UUG Mean Corpuscular Hemoglobin Concent 32.4GM/DL RDW Standard Deviation 45.5FL Platelet Count 305T/MM3 Mean Platelet Volume 10.1UM3 Immature Granulocyte % (Auto) 0.1% Neutrophils (%) (Auto) 70.6% Lymphocytes (%) (Auto) 21.7% Monocytes (%) (Auto) 5.3% Eosinophils (%) (Auto) 2.0% Basophils (%) (Auto) 0.3% Absolute Immature Granulocyte (auto 0.01T/MM3 Absolute Neutrophils (auto) 6.5T/MM3 Absolute Lymphocytes (auto) 2.0T/MM3 Absolute Monocytes (auto) 0.5T/MM3 Absolute Eosinophils (auto) 0.2T/MM3 Absolute Basophils (auto) 0.0T/MM3 Test 07/01/16 10:21 Glucometer 137mg/dL Assessment and Plan (1) Schizophrenia Assessment: Admit to [facility]. 1. Hold Depot Provera and oral Provera: Patient has continued to exhibit indecent sexual behavior despite been on this medication. There is concern that this could be exacerbating his psychotic behavior. 2. Decrease Paroxetine to 5mg: The goal will be to taper off this medication since it is a 2D6 Cytochrome P450 inhibitor which can inhibit the conversion of Risperidone to 9-OH Risperidone 3. Depakote level was 36mcg/dl on admission. He may benefit from further titration of depakote. 4. He is also on Risperidone Consta 06/28/16 Continue current care 06/29/16 d/c paxil 06/30/16 Continue current care 07/01/16: Plan for trough VPA level in AM and adjust Depakote accordingly. Qualifiers: Qualified Codes: F20.1 - Disorganized schizophrenia Cont. current psych. meds Plan for trough VPA level in AM and adjust Depakote accordingly. ISHA MARTINEZ MD Jul 01, 2016 10:33
[2016-07-01 20:00] VITALS: BP 138/81; PULSE 124; RESP 16; TEMP 98.4; O2SAT 96
[2016-07-01] MEDS: RISPERIDONE 2 MG TABLET PO SCH (20:39)
[2016-07-01] MEDS: INSULIN GLARGINE 100 UNIT/ML SQ SCH (20:39)
[2016-07-01] MEDS: LATANOPROST 0.005% EYE DROPS 2.5 ML BOTTLE BOTH EYES SCH (20:40)
--- NOTE | 2016-07-01 22:30 | NUR ---
summary arrived on shift patient was alert and oriented to person in dayroom. Patient was cooperative with assessment and BGM. Blood sugar was 216, Scheduled insulin given. Patient refused sliding scale. Patient refused taking hs medications at first, though when told he could have them crushed in one bite of pudding and then have the rest of the snack pt was agreeable. After receiving hs medications patient went to sit in room and listen to music. No agitation or aggression noted. Patient is currently awake in bed with the bed alarm on, rails upx2 and call light is in reach.
--- NOTE | 2016-07-02 02:02 | NUR ---
Chart Check 24 hour chart check completed
--- NOTE | 2016-07-02 04:15 | NUR ---
bedtime Pt went to sleep at 04:15, pt slept zero on dayshift
--- NOTE | 2016-07-02 05:15 | NUR ---
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
--- NOTE | 2016-07-02 07:08 | NUR ---
shift summary Pt is alert and oriented x2, pt is up with 1-2 assist to wheelchair, pt awake most of the nights, pt slept 1 hour on nights, pt had no hallucination on retail shift supervisor. Pt awake reading a book on retail shift supervisor, pt did call several times during the night for snacks, pt stated at 05:30 that his left leg hurt, pt repositioned and leg propped on pillow, pain med offered, pt stated "no and to get out of the room." Pt called wanted to get up at 07:00, pt talked with staff and was okay waiting until closer to breakfast. Pt is in bed with 2 bed rails up and bed alarm on.
[2016-07-02 07:41] VITALS: BP 113/66; PULSE 101; RESP 16; TEMP 98.4; O2SAT 96
[2016-07-02] MEDS: INSULIN ASPART 100 UNIT/ML SQ SCH ×3 (07:43→17:16)
[2016-07-02] MEDS: METFORMIN 1,000 MG TABLET PO SCH (07:43)
[2016-07-02] MEDS: RISPERIDONE 1 MG TABLET PO SCH (07:44)
[2016-07-02] MEDS: DIVALPROEX SPRINKLE 125 MG CAPSULE PO SCH ×2 (07:44→19:56)
[2016-07-02] MEDS: DOCUSATE SODIUM 100 MG CAPSULE PO SCH ×2 (07:44→19:56)
[2016-07-02] MEDS: POLYETHYL.GLYCOL 3350 PACKET 17gm PO SCH (07:44)
[2016-07-02] MEDS: ASPIRIN 81 MG CHEWABLE TABLET PO SCH (07:44)
[2016-07-02] MEDS: NICOTINE PATCH REMOVAL TD SCH (07:45)
[2016-07-02] MEDS: NICOTINE 14 MG PATCH TD SCH (07:45)
[2016-07-02] MEDS: LOSARTAN 50 MG TABLET PO SCH (07:48)
--- NOTE | 2016-07-02 09:29 | NUR ---
SLEEP 2.0 hours Pt was in bed last night at 2300 and awoke this morning at 0730. He slept a total of 2.0 hours as reported by 15 minute observation sheets.
--- NOTE | 2016-07-02 10:30 | NUR ---
SALES DEVELOPMENT SPECIALIST--AM GROUP Pt. was passive participant in first part of psychoeducational group facilitated by [facility]. Pt. was alert, Ox2, calm with euthymic mood and flat affect. Topic was on ways to improve mood and importance of attitude and outlook. Listened to Edmundo de souza, "Make the World Go Away." Talked about things that can impact our mood (physical ailments, poor sleep, loneliness). Pt. listened briefly while other patients participated in the discussion. He excused himself in middle of discussion and refused invitation to stay and participate.
--- NOTE | 2016-07-02 14:46 | NUR ---
Status Pt was cooperative with assessment, cares and medications. Pt has not had any aggression or hallucinations noted so far this shift. Pt has been continent of B&B and lets staff know when he needs to void. He has been out of bed most of the day but will take naps in his wheel chair throughout the day. Pt has eaten 100% of meals. Pt is currently in his room in his wheel chair with chair alarm activated.
--- NOTE | 2016-07-02 16:19 | GENPN ---
[facility] Subjective Date DATE: 07/02/16 TIME: 10:10 Subjective/Severity of Illness Medications Current Medications Medications (Trade) Dose Ordered Sig/Susan Start Time Stop Time Status Last Admin Dose Admin Acetaminophen (Tylenol Regular Strength) 650 mg Q6H PRN 06/26/16 22:00 Aspirin (ASA) 81 mg DAILY 06/27/16 09:00 07/02/16 07:44 81 MG Benztropine Mesylate (Cogentin) 1 mg QID PRN 06/26/16 22:00 Bisacodyl (Dulcolax) 10 mg DAILY PRN 06/26/16 22:00 Divalproex Sodium (Depakote Sprinkle) 250 mg DAILY 06/27/16 09:00 07/02/16 07:44 250 MG Divalproex Sodium (Depakote Sprinkle) 500 mg HS 06/27/16 21:00 07/01/16 20:39 500 MG Docusate Sodium (Colace) 100 mg BID 06/27/16 09:00 07/02/16 07:44 100 MG Acetaminophen/ Hydrocodone Bitart ([place] 5/325) 1 tab Q8H PRN 06/26/16 22:00 07/01/16 00:33 1 TAB Latanoprost (Xalatan) 1 drop HS 06/27/16 21:00 07/01/16 20:40 1 DROP Losartan Potassium (COZAAR 50 mg) 25 mg DAILY 06/27/16 09:00 07/02/16 07:48 25 MG Magnesium Hydroxide (Mom) 30 ml DAILY PRN 06/26/16 22:00 Calamine/Phenol (Risamine Oint) 1 applic BID PRN 06/26/16 22:00 Metformin HCl (Glucophage) 1,000 mg DAILY 06/27/16 09:00 06/30/16 07:45 DC 06/29/16 07:39 1,000 MG Paroxetine HCl (Paxil) 5 mg DAILY 06/27/16 09:00 06/29/16 10:58 DC 06/29/16 07:40 5 MG Polyethylene Glycol (Miralax) 17 g DAILY 06/27/16 09:00 07/02/16 07:44 17 G Risperidone (Risperdal) 1 mg 09 06/27/16 09:00 07/02/16 07:44 1 MG Risperidone (Risperdal) 2 mg HS 06/27/16 21:00 07/01/16 20:39 2 MG Risperidone (Risperdal Consta) 25 mg Q14D 07/03/16 09:00 Insulin Aspart (Novolog) 21 unit WL 06/27/16 12:00 07/01/16 11:54 21 UNIT Non-Formulary Medication 90 unit HS 06/27/16 21:00 06/27/16 21:00 DC Insulin Aspart (Novolog) 22 unit WB 06/27/16 08:00 07/01/16 08:59 DC 07/01/16 08:30 22 UNIT Al Hydroxide/Mg Hydroxide (Maalox) 30 ml Q6H PRN 06/26/16 22:00 Methyl Salicylate (Analgesic [place]) 1 applic Q6H PRN 06/26/16 22:00 Miscellaneous Medication (May use PRN orders) 1 PRN PRN 06/26/16 22:00 Haloperidol (Haldol) 0.5 mg Q6H PRN 06/26/16 22:00 Lorazepam (Ativan) 0.5 mg Q6H PRN 06/26/16 22:00 Lorazepam (Ativan) 0.5 mg Q6H PRN 06/26/16 22:00 Haloperidol Lactate (Haldol 5 Mg/ml Inj) 0.5 mg Q6H PRN 06/26/16 22:00 Insulin Aspart (Novolog) 21 unit WS 06/27/16 17:30 07/01/16 08:59 DC 06/30/16 18:02 21 UNIT Albuterol/ Ipratropium (Duoneb) 3 ml Q4H PRN 06/27/16 08:30 Insulin Glargine (Lantus) 90 unit HS 06/27/16 21:00 07/01/16 20:39 90 UNIT Insulin Aspart (Novolog) SS PRN 06/27/16 10:15 06/30/16 10:43 3 UNIT Nicotine (Nicoderm) 14 mg DAILY 06/28/16 18:09 07/02/16 07:45 14 MG Nicotine (Nicoderm Patch Removal) 1 removal DAILY 06/29/16 09:00 07/02/16 07:45 1 REMOVAL Metformin HCl (Glucophage) 1,000 mg WB 06/30/16 08:00 07/02/16 07:43 1,000 MG Insulin Aspart (Novolog) 24 unit WS 07/01/16 17:30 07/01/16 18:00 24 UNIT Insulin Aspart (Novolog) 25 unit WB 07/02/16 08:00 07/02/16 07:43 25 UNIT Subjective Patient seen and chart reviewed. Case discussed with treatment team. Patient is in his room on approach. He is more pleasant with me than yesterday though he complains of "mood swings" and feelings that he doesn't want to live anymore. He says he has had thoughts of getting a gun in the past but he does feel safe here on the unit and does not have access to weapons. Patient does not currently appear to be hypersexual. He was cooperative overall throughout the day yesterday and adherent with medications after some redirection. Limited participation in group as patient does have a tendency to isolate. Patient denies any HI. Patient was restless overight, with only 2 hours of sleep documented. Appetite is good. Patient denies any adverse side effects due to medications or other concerns. VSS. VPA trough level this morning was 49.3. Psychotropic PRNs required in the past 24 hours: none. Time of Service: :30 Start Time: 09:40 Stop Time: 10:00 Care >50% of this visit spent in counseling/coordination care. [facility] Exam Vitals Vital Signs Date Time Temp Pulse Resp B/P Pulse Ox O2 Delivery O2 Flow Rate FiO2 07/02/16 07:41 98.4 101 16 113/66 96 Room Air Physical examination performed by the hospitalist. Height (Feet): 5 Height (Inches): 11.00 Mental Status Exam Muscle Strength/Tone: Normal Dressing: Casual Grooming: Fair Attitude: Guarded Motor Activity: Normal Eye Contact: Fair Speech: Slowed Rhythm: Mumbled Sensory: Alert Orientation: Disoriented to time, Oriented to person, Oriented to place Mood: Other ("Mood swings") Affect: Labile (improving) Rate of Thoughts: Delayed Thought Organization: Organized Abstract Reasoning: Poor abstract reasoning Thought Content: Ruminations (unclear why he is having morbid thoughts, cannot elaborate when asked) Perception/Psychotic: Perception Normal Attention Span/Concentration: Inattentive Language: Naming Intact Fund of Knowledge: Other (Decreased) Memory: Grossly Intact Suicidal Ideation: Other (Endorses morbid thoughts of not wanting to live anymore if he had a gun, but cannot get access here) Homicidal Ideation: Denies Insight: Limited Judgment: Limited Impulse Control: Fair (improving) Laboratory Tests Test 07/01/16 10:21 07/01/16 13:41 07/01/16 20:04 07/02/16 05:27 Glucometer 137mg/dL 90mg/dL 219mg/dL 86mg/dL Test 07/02/16 08:02 07/02/16 10:07 Valproic Acid (Depakene) Level 49.3UG/ML Glucometer 197mg/dL Assessment and Plan (1) Schizophrenia Assessment: Admit to [facility]. 1. Hold Depot Provera and oral Provera: Patient has continued to exhibit indecent sexual behavior despite been on this medication. There is concern that this could be exacerbating his psychotic behavior. 2. Decrease Paroxetine to 5mg: The goal will be to taper off this medication since it is a 2D6 Cytochrome P450 inhibitor which can inhibit the conversion of Risperidone to 9-OH Risperidone 3. Depakote level was 36mcg/dl on admission. He may benefit from further titration of depakote. 4. He is also on Risperidone Consta 06/28/16 Continue current care 06/29/16 d/c paxil 06/30/16 Continue current care 07/01/16: Plan for trough VPA level in AM and adjust Depakote accordingly. 07/02/16: Increase Depakote to 500mg PO BID. Start Ativan 1mg PO q HS PRN insomnia. Qualifiers: Qualified Codes: F20.1 - Disorganized schizophrenia (2) COPD (chronic obstructive pulmonary disease) (3) CAD (coronary artery disease) (4) Hyperlipidemia (5) Type 2 diabetes mellitus (6) Obesity (BMI 30.0-34.9) (7) Glaucoma (8) Atrial flutter Cont. current psych. meds Increase Depakote to 500mg PO BID. Start Ativan 1mg PO q HS PRN insomnia. ISHA MARTINEZ MD Jul 02, 2016 10:10
[2016-07-02] MEDS ORDERED: LORAZEPAM 1 MG TABLET PO PRN (16:30)
[2016-07-02 17:04] VITALS: BP 129/72; PULSE 102; RESP 16; TEMP 98.4; O2SAT 94
--- NOTE | 2016-07-02 18:09 | NUR ---
Summary Pt was cooperative throughout the shift with cares and medications. Pt is able to make needs known and uses a urinal to go to the bathroom and lets staff know when he needs to have a BM. Pt ate 100% of meals today. Pt has had no complaints of pain or discomfort. Pt has received no PRN medications and no behaviors have been noted. Pt is currently in his room in his wheel chair with chair alarm activated.
[2016-07-02 19:48] VITALS: BP 155/84; PULSE 112; RESP 18; TEMP 98; O2SAT 95
[2016-07-02] MEDS: RISPERIDONE 2 MG TABLET PO SCH (19:56)
[2016-07-02] MEDS: LATANOPROST 0.005% EYE DROPS 2.5 ML BOTTLE BOTH EYES SCH (19:57)
[2016-07-02] MEDS: INSULIN GLARGINE 100 UNIT/ML SQ SCH (20:03)
--- NOTE | 2016-07-02 22:30 | NUR ---
pt status Pt is alert and oriented x2, pt in a happy mood at the start, pt cooperative with meds, vitals, pt took a shower, staff set up and pt did all cares willingly, pt sat up in wheelchair until 21:45, pt transfer from wheelchair to bed with assist x1.
--- NOTE | 2016-07-02 23:15 | NUR ---
bedtime Pt went to sleep at 2300, pt slept 1.25 hours on dayshift, pt is in bed with 2 bed rails up and bed alarm on.
--- NOTE | 2016-07-03 03:47 | NUR ---
Chart Check 24 hour chart check completed
--- NOTE | 2016-07-03 06:25 | NUR ---
shift summary Pt is alert x2, pt is up with assist to wheelchair, pt up in wheelchair at the start of shift, pt listening to music and smiling. Pt cooperative with meds, vitals, and assessment. Pt took meds crushed in pudding, pt 2 hr pc blood sugar 276, pt agreed to take Lantus 90 units sq. Pt ate a snack 100%, pt took a shower cooperative with staff who set up pt shower. Pt had no hallucinations, pt request headphones, pt okay that cordless stereo used instead, pt fasting blood sugar 79. Pt went to sleep at 2300, pt has been awake on and off this shift, pt is currently sleeping in bed with 2 bed rails up.
[2016-07-03] MEDS: DOCUSATE SODIUM 100 MG CAPSULE PO SCH ×2 (08:18→20:19)
[2016-07-03] MEDS: METFORMIN 1,000 MG TABLET PO SCH (08:18)
[2016-07-03] MEDS: NICOTINE PATCH REMOVAL TD SCH (08:18)
[2016-07-03] MEDS: NICOTINE 14 MG PATCH TD SCH (08:18)
[2016-07-03] MEDS: ASPIRIN 81 MG CHEWABLE TABLET PO SCH (08:18)
[2016-07-03] MEDS: LOSARTAN 50 MG TABLET PO SCH (08:19)
[2016-07-03] MEDS: DIVALPROEX SPRINKLE 125 MG CAPSULE PO SCH ×2 (08:20→20:19)
[2016-07-03] MEDS: INSULIN ASPART 100 UNIT/ML SQ SCH ×3 (08:20→17:30)
[2016-07-03] MEDS: POLYETHYL.GLYCOL 3350 PACKET 17gm PO SCH (08:20)
[2016-07-03] MEDS: RISPERIDONE 1 MG TABLET PO SCH (08:20)
[2016-07-03 08:30] VITALS: BP 105/64; PULSE 97; RESP 20; TEMP 97.7; O2SAT 96
[2016-07-03] MEDS ORDERED: RISPERIDONE 25 MG/2 ML IM SCH (09:00)
[2016-07-03] MEDS: ACETAMINOPHEN 325 MG TABLET PO PRN ×2 (09:32→09:35)
--- NOTE | 2016-07-03 11:02 | NUR ---
PSYCHIATRIC NURSE PRACTITIONER--AM GROUP Pt. was present and actively engaged in psychoeducational group facilitated by [facility]. Activity was neurocognitive guessing game involving an Easter theme of trivia. Pt. was alert, Ox2 with pleasant mood. Although pt. stated he was not a "Sabianist", he is observed reading his Bible frequently and he knew some of the answers to the questions asked. Ended group by listening to a variety of Easter themed songs. Pt. stayed engaged in group the entire time.
--- NOTE | 2016-07-03 12:04 | GENPN ---
[facility] Subjective Date DATE: 07/03/16 TIME: 11:59 Subjective/Severity of Illness Medications Current Medications Medications (Trade) Dose Ordered Sig/Susan Start Time Stop Time Status Last Admin Dose Admin Acetaminophen (Tylenol Regular Strength) 650 mg Q6H PRN 06/26/16 22:00 07/03/16 09:35 325 MG Aspirin (ASA) 81 mg DAILY 06/27/16 09:00 07/03/16 08:18 81 MG Benztropine Mesylate (Cogentin) 1 mg QID PRN 06/26/16 22:00 Bisacodyl (Dulcolax) 10 mg DAILY PRN 06/26/16 22:00 Divalproex Sodium (Depakote Sprinkle) 250 mg DAILY 06/27/16 09:00 07/02/16 16:21 DC 07/02/16 07:44 250 MG Divalproex Sodium (Depakote Sprinkle) 500 mg HS 06/27/16 21:00 07/02/16 16:21 DC 07/01/16 20:39 500 MG Docusate Sodium (Colace) 100 mg BID 06/27/16 09:00 07/03/16 08:18 100 MG Acetaminophen/ Hydrocodone Bitart ([place] 5/325) 1 tab Q8H PRN 06/26/16 22:00 07/01/16 00:33 1 TAB Latanoprost (Xalatan) 1 drop HS 06/27/16 21:00 07/02/16 19:57 1 DROP Losartan Potassium (COZAAR 50 mg) 25 mg DAILY 06/27/16 09:00 07/03/16 08:19 25 MG Magnesium Hydroxide (Mom) 30 ml DAILY PRN 06/26/16 22:00 Calamine/Phenol (Risamine Oint) 1 applic BID PRN 06/26/16 22:00 Metformin HCl (Glucophage) 1,000 mg DAILY 06/27/16 09:00 06/30/16 07:45 DC 06/29/16 07:39 1,000 MG Paroxetine HCl (Paxil) 5 mg DAILY 06/27/16 09:00 06/29/16 10:58 DC 06/29/16 07:40 5 MG Polyethylene Glycol (Miralax) 17 g DAILY 06/27/16 09:00 07/03/16 08:20 17 G Risperidone (Risperdal) 1 mg 09 06/27/16 09:00 07/03/16 08:20 1 MG Risperidone (Risperdal) 2 mg HS 06/27/16 21:00 07/02/16 19:56 2 MG Risperidone (Risperdal Consta) 25 mg Q14D 07/03/16 09:00 Insulin Aspart (Novolog) 21 unit WL 06/27/16 12:00 07/03/16 11:55 21 UNIT Non-Formulary Medication 90 unit HS 06/27/16 21:00 06/27/16 21:00 DC Insulin Aspart (Novolog) 22 unit WB 06/27/16 08:00 07/01/16 08:59 DC 07/01/16 08:30 22 UNIT Al Hydroxide/Mg Hydroxide (Maalox) 30 ml Q6H PRN 06/26/16 22:00 Methyl Salicylate (Analgesic [place]) 1 applic Q6H PRN 06/26/16 22:00 Miscellaneous Medication (May use PRN orders) 1 PRN PRN 06/26/16 22:00 Haloperidol (Haldol) 0.5 mg Q6H PRN 06/26/16 22:00 Lorazepam (Ativan) 0.5 mg Q6H PRN 06/26/16 22:00 Lorazepam (Ativan) 0.5 mg Q6H PRN 06/26/16 22:00 Haloperidol Lactate (Haldol 5 Mg/ml Inj) 0.5 mg Q6H PRN 06/26/16 22:00 Insulin Aspart (Novolog) 21 unit WS 06/27/16 17:30 07/01/16 08:59 DC 06/30/16 18:02 21 UNIT Albuterol/ Ipratropium (Duoneb) 3 ml Q4H PRN 06/27/16 08:30 Insulin Glargine (Lantus) 90 unit HS 06/27/16 21:00 07/02/16 20:03 90 UNIT Insulin Aspart (Novolog) SS PRN 06/27/16 10:15 06/30/16 10:43 3 UNIT Nicotine (Nicoderm) 14 mg DAILY 06/28/16 18:09 07/03/16 08:18 14 MG Nicotine (Nicoderm Patch Removal) 1 removal DAILY 06/29/16 09:00 07/03/16 08:18 1 REMOVAL Metformin HCl (Glucophage) 1,000 mg WB 06/30/16 08:00 07/03/16 08:18 1,000 MG Insulin Aspart (Novolog) 24 unit WS 07/01/16 17:30 07/02/16 17:16 24 UNIT Insulin Aspart (Novolog) 25 unit WB 07/02/16 08:00 07/03/16 08:20 25 UNIT Divalproex Sodium (Depakote Sprinkle) 500 mg BID 07/02/16 21:00 07/03/16 08:20 500 MG Lorazepam (Ativan) 1 mg HS PRN 07/02/16 16:30 Subjective Patient seen and chart reviewed. Case discussed with treatment team. Patient is in the dayroom but is sleeping soundly in his chair and does not wake to my attempts to interview. Per staff report, patient has been calm and appropriate without behaviors over the past 24 hours. Risperdal Consta shot will be given tomorrow (25mg IM). Patient does not currently appear to be hypersexual. He has been adherent with medications and participates in group some. No suicidal or morbid comments made to staff over past 24 hours; will continue to monitor. Patient slept 7 hours overnight. Appetite is good. Patient denies any adverse side effects due to medications or other concerns. VSS. Psychotropic PRNs required in the past 24 hours: none. Time of Service: 09:30 Start Time: 09:20 Stop Time: 09:40 Care >50% of this visit spent in counseling/coordination care. [facility] Exam Vitals Vital Signs Date Time Temp Pulse Resp B/P Pulse Ox O2 Delivery O2 Flow Rate FiO2 07/03/16 08:30 97.7 97 20 105/64 96 Room Air Physical examination performed by the hospitalist. Height (Feet): 5 Height (Inches): 11.00 Mental Status Exam Muscle Strength/Tone: Normal Dressing: Bizarre (wears women's sparkly hat) Attitude: Cooperative Motor Activity: Retardation Eye Contact: Fair Speech: Slowed Volume: Loud Rhythm: Mumbled Sensory: Other (Currently sleeping) Orientation: Disoriented to time, Oriented to person, Oriented to place Mood: Neutral Affect: Stable, Blunted Rate of Thoughts: Delayed Thought Organization: Organized Associations: Intact Abstract Reasoning: Poor abstract reasoning Thought Content: Other (No abnormal thought content elicited over past 24 hours ) Perception/Psychotic: Hx psychosis,not current Attention Span/Concentration: Distractable Language: Naming Intact Fund of Knowledge: Mike aware current events Memory: Grossly Intact Suicidal Ideation: Other (No suicidal/morbid statements over past 24 hours - continue to monitor) Homicidal Ideation: None Insight: Limited Judgment: Limited Impulse Control: Fair Laboratory Tests Test 07/02/16 14:09 07/02/16 19:44 07/03/16 06:05 07/03/16 10:03 Glucometer 157mg/dL 272mg/dL 79mg/dL 152mg/dL Assessment and Plan (1) Schizophrenia Assessment: [facility]mit to [facility]. 1. Hold Depot Provera and oral Provera: Patient has continued to exhibit indecent sexual behavior despite been on this medication. There is concern that this could be exacerbating his psychotic behavior. 2. Decrease Paroxetine to 5mg: The goal will be to taper off this medication since it is a 2D6 Cytochrome P450 inhibitor which can inhibit the conversion of Risperidone to 9-OH Risperidone 3. Depakote level was 36mcg/dl on admission. He may benefit from further titration of depakote. 4. He is also on Risperidone Consta 06/28/16 Continue current care 06/29/16 d/c paxil 06/30/16 Continue current care 07/01/16: Plan for trough VPA level in AM and adjust Depakote accordingly. 07/02/16: Increase Depakote to 500mg PO BID. Start Ativan 1mg PO q HS PRN insomnia. 07/03/16: Plan to give Risperdal Consta 25mg IM tomorrow. Continue to monitor/ assess for suicidality. Qualifiers: Qualified Codes: F20.1 - Disorganized schizophrenia (2) COPD (chronic obstructive pulmonary disease) (3) CAD (coronary artery disease) (4) Hyperlipidemia (5) Type 2 diabetes mellitus (6) Obesity (BMI 30.0-34.9) (7) Glaucoma (8) Atrial flutter Cont. current psych. meds Plan to give Risperdal Consta 25mg IM tomorrow. Continue to monitor/assess for suicidality. ISHA MARTINEZ MD Jul 03, 2016 12:03
--- NOTE | 2016-07-03 13:10 | NUR ---
SENIOR GRANT WRITER--FACILITY VISIT TUNDE from [facility]& came out to evaluate pt. for possible placement. He stopped by and talked with this SW before meeting with pt. Pt. has indicated he would like to go a facility that has more people from his own race. The pt. also really enjoys visits from his family. Tunde did not feel his facility could meet pt's needs, especially since the nephew would have to drive a further distance to visit. He suggested a [facility] facility might better meet pt's needs.
--- NOTE | 2016-07-03 14:25 | NUR ---
MID SHIFT NOTE PT IS A&O AT THIS TIME. PT HAS TAKEN ALL MEDICATION DIRECTED. PT HAS PARTICIPATED IN GROUP. PT HAS BEEN PLEASANT AND COMMUNICATES NEEDS TO STAFF. PT HAS BEEN CONTINENT OF BOWEL BUT INCONTINENT OF BLADDER X1. PT HAD DRESSING TO FOOT CHANGED. IT WAS WET AND ROLLED UP WITH SOCK COVERING LOWER HALF ULCER. PT HAS HAD NO PRN MEDICATION OR BEHAVIORS
[2016-07-03 16:05] VITALS: BP 127/67; PULSE 92; RESP 18; TEMP 97.9; O2SAT 94
--- NOTE | 2016-07-03 16:10 | NUR ---
GLASSWARE VERIFIER--PM GROUP Pt. actively participated in psychoeducational group facilitated by [facility]. Topic was on importance of using all their skills, including their thinking skills. Encouraged participants to try, at whatever level they are able, to participate in activities in their living community. Pt. was alert, OX2, calm with pleasant mood. Initially he was sitting in his wheelchair with his back to this SW. By end of group, he had turned around and was actively listening and answering questions. Participants were asked several questions and given opportunity to provide variety of answers. Pt. demonstrated positive attitude towards others and enjoyed the social interaction between staff and peers.
--- NOTE | 2016-07-03 17:22 | PNPDOC ---
Subjective Date DATE: 07/03/16 TIME: 17:12 Subjective Zachary is seen watching television in the day room. He was sleeping initially, but did awaken upon exam. He is very pleasant and informs that he has no complaints. He denies chest pain or shortness of air. Blood pressure 127/67. Objective Vital Signs Vital signs Vital Signs Date Time Temp Pulse Resp B/P Pulse Ox O2 Delivery O2 Flow Rate FiO2 07/03/16 16:05 97.9 92 18 127/67 94 Room Air Height (Feet): 5 Height (Inches): 11.00 Weight (Kilograms): 110.600 General General Appearance: Alert, Cooperative, No Acute Distress Eyes (Brief) Eyes: FOUND: EOMI Respiratory (Brief) Respiratory: FOUND: clear all robles, equal bilaterally Cardiovascular (Brief) Cardiac: FOUND: regular rate, regular rhythm Abdomen (Brief) Abdominal: FOUND: BS normo active x4, soft Integumentary (Brief) Integumentary: FOUND: dry, pink, warm Neurologic (Brief) Neurological: FOUND: cranial 2-12 intact Psychiatric (Brief) Psychiatric: FOUND: alert, normal affect Assessment & Plan Problems: (1) Schizophrenia Status: Chronic Qualifiers: Schizophrenia type: disorganized schizophrenia Qualified Codes: F20.1 - Disorganized schizophrenia (2) Major depression Status: Chronic (3) COPD (chronic obstructive pulmonary disease) Status: Chronic (4) CAD (coronary artery disease) Status: Chronic (5) Hyperlipidemia Status: Chronic (6) HTN (hypertension) Status: Chronic (7) Type 2 diabetes mellitus Status: Chronic (8) Obesity (BMI 30.0-34.9) Status: Chronic (9) Glaucoma Status: Chronic (10) History of atrial fibrillation Status: Resolved (11) Dementia Status: Chronic (12) Normocytic anemia (13) Mild protein-calorie malnutrition Status: Acute (14) Atrial flutter Status: Chronic Plan/Intensity of Service 07/03/16 Normocytic anemia noted on admission, remains stable at 12.9. BP remains stable, currently 127/67. Will continue to monitor and adjust antihypertensive as appropriate. Blood sugars have ranged between 219 and 152 2 hours PC. Fasting BS has been 79- 86 since increasing Novolog. We will continue to monitor and adjust accordingly. Psychiatric progress notes reviewed. Code Status Full Code Hospital Course Summary Disclaimer The hospital course summary below is not to be considered part of the above Progress Note. Hospital Course Summary 06/27/16 Agree with admission to [facility]. Orders per attending. Labs are pending. Type 2 diabetes: Continue anti-glycemic agents, including insulin. Monitor blood sugars. History of A. fib: Tachycardic last night in the 120s. Heart rate sounded regular on exam. Will assess EKG. He is not on any anticoagulants, aspirin, or medications for rate control. Hypertension: Continue Cozaar. COPD: Stable. Respiratory therapy present to evaluate. DuoNeb PRN. Pressure ulcer to left heel: Wound team has already been consulted. History of mild protein calorie malnutrition during recent visit: Repeat pre- albumin. Constipation: Continue bowel regimen; PRNs available. 07/01/16 Labs reviewed. Normocytic anemia was noted on this admission, whereas previously his hemoglobin had been in the normal range. Will repeat CBC today. He has been hyperglycemic with sugars above 200, especially after breakfast and supper. Will increase breakfast NovoLog to 25 units and supper NovoLog to 24 units. Fasting this morning was 97. Continue to monitor and adjust accordingly. Patient has a history of a flutter. Occasional tachycardia noted with rates exceeding 100. He is not anticoagulated, nor is he on rate control. Blood pressures have remained stable, typically moderately elevated. His oral antihypertensive agent as Cozaar. We could consider adding diltiazem to assist with rate control and to help with achieving better blood pressure control. Will discuss with Dr. Gómez. Psychiatric progress notes reviewed. Paxil was recently discontinued. 07/03/16 Normocytic anemia noted on admission, remains stable at 12.9. BP remains stable, currently 127/67. Will continue to monitor and adjust antihypertensive as appropriate. Blood sugars have ranged between 219 and 152 2 hours PC. Fasting BS has been 79- 86 since increasing Novolog. We will continue to monitor and adjust accordingly. Psychiatric progress notes reviewed. MICHAEL PEACOCK APRN Jul 03, 2016 17:20
--- NOTE | 2016-07-03 18:36 | NUR ---
SHIFT SUMMARY SEE PRIOR NOTE. PT REMAINS COMPLIANT WITH ALL CARES. PT HAS HAS HAD NO PRN MEDICATION AND HAS HAD NO BEHAVIORS. PT ATE WELL FOR SUPPER AND TOOK MEDICATION DIRECTED. PT WAS INCONTINENT AND ASKED FOR ASSISTANCE CHANGING AND SELF CARES. PT ASSISTED AND STOOD/WIPED SELF. PT SLEPT FOR7 HOURS FROM MIDNIGHT TILL END OF THIS SHIFT.
[2016-07-03] MEDS: RISPERIDONE 2 MG TABLET PO SCH (20:19)
[2016-07-03] MEDS: LATANOPROST 0.005% EYE DROPS 2.5 ML BOTTLE BOTH EYES SCH (20:19)
--- NOTE | 2016-07-03 20:50 | NUR ---
hospitalist called Pt 2 hour pc 110, pt refused a pm snack, Dr Campa notified of pt blood sugar order to hold lantus tonight.
[2016-07-03] MEDS: INSULIN GLARGINE 100 UNIT/ML SQ SCH (20:51)
[2016-07-03 21:25] VITALS: BP 149/84; PULSE 109; RESP 16; TEMP 98.8; O2SAT 92
--- NOTE | 2016-07-03 22:00 | NUR ---
bedtime Pt went to sleep at 2200, pt slept 0.75 hours on dayshift.
--- NOTE | 2016-07-03 23:12 | NUR ---
patient summary Pt in room at the start of shift working on [employer] study, pt pleasant, smiling, pt cooperative with med,vitals, labs. Pt came out of room and watched part of 7 brides for 7 brothers movie. Pt went to bed at 2200 and is currently sleeping in bed, will monitor pt.
--- NOTE | 2016-07-03 23:55 | NUR ---
Chart Check 24 hour chart check completed
--- NOTE | 2016-07-04 01:18 | NUR ---
Snack Pt. awoke and requested applesauce snack. Applesauce provided.
--- NOTE | 2016-07-04 02:40 | NUR ---
BGM Pt. awoke and requested BGM taken; stated he felt 'high'. BGM 86. Pudding snack given.
--- NOTE | 2016-07-04 05:47 | NUR ---
Status Pt. awake; sitting on the bed reading; listening to music via headphones. BGM 93.
[2016-07-04 07:52] VITALS: BP 137/75; PULSE 81; RESP 16; TEMP 98.9; O2SAT 96
[2016-07-04] MEDS: ASPIRIN 81 MG CHEWABLE TABLET PO SCH (08:06)
[2016-07-04] MEDS: DIVALPROEX SPRINKLE 125 MG CAPSULE PO SCH ×2 (08:06→19:52)
[2016-07-04] MEDS: NICOTINE 14 MG PATCH TD SCH (08:07)
[2016-07-04] MEDS: RISPERIDONE 1 MG TABLET PO SCH (08:07)
[2016-07-04] MEDS: METFORMIN 1,000 MG TABLET PO SCH (08:07)
[2016-07-04] MEDS: POLYETHYL.GLYCOL 3350 PACKET 17gm PO SCH (08:07)
[2016-07-04] MEDS: DOCUSATE SODIUM 100 MG CAPSULE PO SCH ×2 (08:07→19:51)
[2016-07-04] MEDS: LOSARTAN 50 MG TABLET PO SCH (08:07)
[2016-07-04] MEDS: NICOTINE PATCH REMOVAL TD SCH (08:08)
[2016-07-04] MEDS: INSULIN ASPART 100 UNIT/ML SQ SCH ×3 (08:12→17:21)
--- NOTE | 2016-07-04 08:28 | NUR ---
AGILE DEVELOPER--FACILITY CONTACT [facility] made phone call to ALESSIO Patino at [facility]. He reports that pt. already has an IPOD set up with over 200 songs. He states pt. uses it on daily basis at the facility. He was advised that Tunde from [facility] came out yesterday and visited with the pt. They have declined accepting pt.
--- NOTE | 2016-07-04 10:30 | NUR ---
ALUMNI SECRETARY--AM GROUP Pt. was present and passively engaged in psychoeducational group facilitated by [facility]. Reminded participants that while change is part of life, some things don't seem to change--like their individual "favorites." Talked with patients about their favorite Easter candies, favorite flavors, and favorite colors. Played a new version of Easter Trivia in order to help encourage socialization and stimulate cognitive functioning. Pt. was alert, oriented to person and place (did not assess for date). Pt attempted to answer a few of the questions asked of him. Finished group by listening to three Muslim hymns related to Easter. Pt. appeared relaxed and calm for entire group.
[2016-07-04] MEDS ORDERED: RISPERIDONE 25 MG/2 ML IM ONE (11:45)
[2016-07-04] MEDS: INSULIN ASPART 100 UNIT/ML SQ PRN ×2 (11:55→19:53)
--- NOTE | 2016-07-04 12:11 | NUR ---
VANDANA ROSS LEFT VM FOR BRADY AT [facility] REGARDING D/C FOR TOMORROW AND NEEDED WARP HAULER TIME.
--- NOTE | 2016-07-04 13:58 | NUR ---
STATUS Patient has eugenio pleasant this morning, he came to the dining room for meals, Patient has been compliant with medications, Patient has been interacting well with staff, he was present during group activity but did not participate much, no hallucinations noted, no inappropriate behaviors noted, Patient will randomly fall sleep when he is sitting on his wheel chair, Patient denies pain at the moment. Patient denies needs or concerns at the moment.
--- NOTE | 2016-07-04 15:03 | NUR ---
VANDANA ROSS SPOKE WITH ABBY BENJAMIN FROM [facility] REGARDING D/C FOR TOMORROW. VANDANA IS AWAITING A RETURN CALL FROM ABBY REGARDING REGARDING TRANSPORTATION TIME FOR TOMORROW. CM LEFT MESSAGE FOR MARSHA NEWMAN DPOA REGARDING D/C PLAN FOR TOMORROW. CM ENCOURAGED DPOA TO CONTACT CM IF NEEDS ARISE.
[2016-07-04 16:09] VITALS: BP 133/71; PULSE 85; RESP 16; TEMP 98.3; O2SAT 95
--- NOTE | 2016-07-04 16:09 | NUR ---
WAKE UP TIME PATIENT WENT TO SLEEP LAST NIGHT AT 2200 AND WOKE UP AT 0615 SLEPT A TOTAL OF 8HR AND 15MIN,
--- NOTE | 2016-07-04 16:44 | GENPN ---
[facility] Subjective Date DATE: 07/04/16 TIME: 16:41 Subjective/Severity of Illness Medications Current Medications Medications (Trade) Dose Ordered Sig/Susan Start Time Stop Time Status Last Admin Dose Admin Acetaminophen (Tylenol Regular Strength) 650 mg Q6H PRN 06/26/16 22:00 07/03/16 09:35 325 MG Aspirin (ASA) 81 mg DAILY 06/27/16 09:00 07/04/16 08:06 81 MG Benztropine Mesylate (Cogentin) 1 mg QID PRN 06/26/16 22:00 Bisacodyl (Dulcolax) 10 mg DAILY PRN 06/26/16 22:00 Divalproex Sodium (Depakote Sprinkle) 250 mg DAILY 06/27/16 09:00 07/02/16 16:21 DC 07/02/16 07:44 250 MG Divalproex Sodium (Depakote Sprinkle) 500 mg HS 06/27/16 21:00 07/02/16 16:21 DC 07/01/16 20:39 500 MG Docusate Sodium (Colace) 100 mg BID 06/27/16 09:00 07/04/16 08:07 100 MG Acetaminophen/ Hydrocodone Bitart ([place] 5/325) 1 tab Q8H PRN 06/26/16 22:00 07/01/16 00:33 1 TAB Latanoprost (Xalatan) 1 drop HS 06/27/16 21:00 07/03/16 20:19 1 DROP Losartan Potassium (COZAAR 50 mg) 25 mg DAILY 06/27/16 09:00 07/04/16 08:07 25 MG Magnesium Hydroxide (Mom) 30 ml DAILY PRN 06/26/16 22:00 Calamine/Phenol (Risamine Oint) 1 applic BID PRN 06/26/16 22:00 Metformin HCl (Glucophage) 1,000 mg DAILY 06/27/16 09:00 06/30/16 07:45 DC 06/29/16 07:39 1,000 MG Paroxetine HCl (Paxil) 5 mg DAILY 06/27/16 09:00 06/29/16 10:58 DC 06/29/16 07:40 5 MG Polyethylene Glycol (Miralax) 17 g DAILY 06/27/16 09:00 07/04/16 08:07 17 G Risperidone (Risperdal) 1 mg 09 06/27/16 09:00 07/04/16 08:07 1 MG Risperidone (Risperdal) 2 mg HS 06/27/16 21:00 07/03/16 20:19 2 MG Risperidone (Risperdal Consta) 25 mg Q14D 07/03/16 09:00 Insulin Aspart (Novolog) 21 unit WL 06/27/16 12:00 07/04/16 11:55 21 UNIT Non-Formulary Medication 90 unit HS 06/27/16 21:00 06/27/16 21:00 DC Insulin Aspart (Novolog) 22 unit WB 06/27/16 08:00 07/01/16 08:59 DC 07/01/16 08:30 22 UNIT Al Hydroxide/Mg Hydroxide (Maalox) 30 ml Q6H PRN 06/26/16 22:00 Methyl Salicylate (Analgesic [place]) 1 applic Q6H PRN 06/26/16 22:00 Miscellaneous Medication (May use PRN orders) 1 PRN PRN 06/26/16 22:00 Haloperidol (Haldol) 0.5 mg Q6H PRN 06/26/16 22:00 Lorazepam (Ativan) 0.5 mg Q6H PRN 06/26/16 22:00 Lorazepam (Ativan) 0.5 mg Q6H PRN 06/26/16 22:00 Haloperidol Lactate (Haldol 5 Mg/ml Inj) 0.5 mg Q6H PRN 06/26/16 22:00 Insulin Aspart (Novolog) 21 unit WS 06/27/16 17:30 07/01/16 08:59 DC 06/30/16 18:02 21 UNIT Albuterol/ Ipratropium (Duoneb) 3 ml Q4H PRN 06/27/16 08:30 Insulin Glargine (Lantus) 90 unit HS 06/27/16 21:00 07/02/16 20:03 90 UNIT Insulin Aspart (Novolog) SS PRN 06/27/16 10:15 07/04/16 11:55 3 UNIT Nicotine (Nicoderm) 14 mg DAILY 06/28/16 18:09 07/04/16 08:07 14 MG Nicotine (Nicoderm Patch Removal) 1 removal DAILY 06/29/16 09:00 07/04/16 08:08 1 REMOVAL Metformin HCl (Glucophage) 1,000 mg WB 06/30/16 08:00 07/04/16 08:07 1,000 MG Insulin Aspart (Novolog) 24 unit WS 07/01/16 17:30 07/02/16 17:16 24 UNIT Insulin Aspart (Novolog) 25 unit WB 07/02/16 08:00 07/04/16 08:12 25 UNIT Divalproex Sodium (Depakote Sprinkle) 500 mg BID 07/02/16 21:00 07/04/16 08:06 500 MG Lorazepam (Ativan) 1 mg HS PRN 07/02/16 16:30 Subjective Patient seen and chart reviewed. Case discussed with treatment team. Patient is in dayroom with peers and is pleasant through inteview. Per staff report, patient has been calm and appropriate without behaviors over the past 24 hours. Risperdal Consta shot will be given today (25mg IM). Patient has not been hypersexual recently. He has been adherent with medications and participating in group, isolating less. No suicidal or morbid comments made to myself or staff over past 48 hours. Patient slept 8 hours overnight. Appetite is good. Patient denies any adverse side effects due to medications or other concerns. VSS. Psychotropic PRNs required in the past 24 hours: none. Time of Service: 09:30 Start Time: 10:20 Stop Time: 10:40 Care >50% of this visit spent in counseling/coordination care. [facility] Exam Vitals Vital Signs Date Time Temp Pulse Resp B/P Pulse Ox O2 Delivery O2 Flow Rate FiO2 07/04/16 16:09 98.3 85 16 133/71 95 Room Air Physical examination performed by the hospitalist. Height (Feet): 5 Height (Inches): 11.00 Mental Status Exam Muscle Strength/Tone: Normal Dressing: Casual Grooming: Fair Attitude: Cooperative Motor Activity: Normal Eye Contact: Fair Speech: Slowed Volume: Loud Rhythm: Mumbled Sensory: Alert Orientation: Oriented to person, Oriented to place Mood: Neutral Affect: Stable Rate of Thoughts: Delayed Thought Organization: Organized Associations: Intact Abstract Reasoning: Poor abstract reasoning Thought Content: Normal Perception/Psychotic: Perception Normal Attention Span/Concentration: Distractable Language: Naming Intact Fund of Knowledge: Mike aware current events Memory: Grossly Intact Suicidal Ideation: Denies Homicidal Ideation: Denies Insight: Limited Judgment: Limited Impulse Control: Fair Laboratory Tests Test 07/03/16 20:11 07/04/16 02:33 07/04/16 05:40 07/04/16 10:20 Glucometer 110mg/dL 86mg/dL 93mg/dL 223mg/dL Test 07/04/16 14:51 Glucometer 120mg/dL Assessment and Plan (1) Schizophrenia Assessment: Admit to [facility]. 1. Hold Depot Provera and oral Provera: Patient has continued to exhibit indecent sexual behavior despite been on this medication. There is concern that this could be exacerbating his psychotic behavior. 2. Decrease Paroxetine to 5mg: The goal will be to taper off this medication since it is a 2D6 Cytochrome P450 inhibitor which can inhibit the conversion of Risperidone to 9-OH Risperidone 3. Depakote level was 36mcg/dl on admission. He may benefit from further titration of depakote. 4. He is also on Risperidone Consta 06/28/16 Continue current care 06/29/16 d/c paxil 06/30/16 Continue current care 07/01/16: Plan for trough VPA level in AM and adjust Depakote accordingly. 07/02/16: Increase Depakote to 500mg PO BID. Start Ativan 1mg PO q HS PRN insomnia. 07/03/16: Plan to give Risperdal Consta 25mg IM tomorrow. Continue to monitor/ assess for suicidality. 07/04/16: Patient to get Risperdal Consta IM 25mg today. Continue current care otherwise; SW/CM will finalize discharge planning with living facility. Qualifiers: Qualified Codes: F20.1 - Disorganized schizophrenia (2) COPD (chronic obstructive pulmonary disease) (3) CAD (coronary artery disease) (4) Hyperlipidemia (5) Type 2 diabetes mellitus (6) Obesity (BMI 30.0-34.9) (7) Glaucoma (8) Atrial flutter Cont. current psych. meds, Anticipate discharge soon Patient to get Risperdal Consta IM 25mg today. Continue current care otherwise; SW/CM will finalize discharge planning with living facility. ISHA MARTINEZ MD Jul 04, 2016 16:44
[2016-07-04] MEDS ORDERED: DIVA125C PO (16:50)
[2016-07-04] MEDS ORDERED: LORA-204 PO (16:50)
--- NOTE | 2016-07-04 16:51 | PDOCECFAO ---
Admission Orders Admission Orders Admit to: [facility] Allergies: Coded Allergies: No Known Allergies (Unverified , 02/23/16) Admitting Diagnosis Schizophrenia With Psychotic Features Admitting Physician Katie Martinez MD Attending Physician Katie Martinez MD Code Status Full Code Anticipated LOS: Greater than 30 days Rehab Potential: Fair Rehab Prognosis: Fair Diet: Regular (Diabetic diet, 2000kcal consistent carb) May use Facility Protocol /SO: Yes May Have Flu Vaccine: Yes Evaluations/Treat: Psychiatric, As Needed [facility] Certification I certify that SNF services are required to be given on an Inpatient basis because of the patients need for [facility] care on a continuing basis for the condition(s) for which he/she received inpatient hospital services prior to his/her transfer to the SNF. SNF inpatient care is necessary for the following reasons Not Applicable KATIE MARTINEZ MD Jul 04, 2016 16:51
--- NOTE | 2016-07-04 17:54 | NUR ---
SHIFT SUMMARY Patient has been pleasant today, he has been compliant with medications, he is able to verbalize needs, no complains of pain this shift, no inappropriate behaviors noted, no hallucinations noted, no aggressive behaviors noted, patient came out of his room for meals, he also stay out in the day room for group activity, he has a flat affect, does not smile often, passive behaviors. He is able to transfer himself to the wheel chair x assist of 1 person. He has been continent and uses the urinal. Patient got 3 additional units before lunch due to his blood sugar being 223. Patient slept 2.75 hr during the day this shift. Patient denies need or concerns at the moment.
[2016-07-04] MEDS: RISPERIDONE 2 MG TABLET PO SCH (19:51)
[2016-07-04] MEDS: LATANOPROST 0.005% EYE DROPS 2.5 ML BOTTLE BOTH EYES SCH (19:52)
[2016-07-04] MEDS: INSULIN GLARGINE 100 UNIT/ML SQ SCH (19:53)
[2016-07-04 20:00] VITALS: BP 117/67; PULSE 83; RESP 18; TEMP 98.4; O2SAT 97
--- NOTE | 2016-07-04 22:30 | NUR ---
bedtime Pt went to sleep at 22:30, pt slept 2.5 hours on dayshift.
--- NOTE | 2016-07-05 00:58 | NUR ---
patient status Pt up in wheelchair in the hallway at the start of shift, pt refused shower or to change clothes at the start of shift. Pt did allow assessment, vitals, pt took meds, pt 2 hour pc 202, pt given insulin (see may) and a bedtime snack, pt is now in bed with 2 bed rails up and bed alarm on.
--- NOTE | 2016-07-05 02:26 | NUR ---
Chart Check 24 hour chart check completed
--- NOTE | 2016-07-05 06:15 | NUR ---
pt awake Pt woke up at 06:15, pt slept 6 hours on welder 2nd shift.
--- NOTE | 2016-07-05 06:19 | NUR ---
end of shift summary Pt is alert and oriented x1, pt is a transfer x1 to wheelchair, pt compliant but guarded this shift, pt cooperative with meds, vitals, and assessment, pt refused his shower last night, wants to take one in the morning before discharge. Pt up in wheelchair at the start of shift, pt wheeling down the hallways, pt wanted to go to bed at 2000, pt assisted with cares, pt did not want to brush his teeth. Pt took all meds crushed in pudding, pt accucheck 210, pt ate a snack of turkey sandwich, applesauce, insulin given (see mar). Pt slept well overnight, pt awake at 06:15, pt accucheck 69, snack given. Pt remains in bed with 2 bed rails up and bed alarm on.
[2016-07-05] MEDS: INSULIN ASPART 100 UNIT/ML SQ SCH ×2 (08:00→12:05)
[2016-07-05] MEDS: ASPIRIN 81 MG CHEWABLE TABLET PO SCH (08:42)
[2016-07-05] MEDS: DIVALPROEX SPRINKLE 125 MG CAPSULE PO SCH (08:43)
[2016-07-05] MEDS: RISPERIDONE 1 MG TABLET PO SCH (08:43)
[2016-07-05] MEDS: DOCUSATE SODIUM 100 MG CAPSULE PO SCH (08:44)
[2016-07-05] MEDS: LOSARTAN 50 MG TABLET PO SCH (08:44)
[2016-07-05] MEDS: POLYETHYL.GLYCOL 3350 PACKET 17gm PO SCH (08:44)
[2016-07-05] MEDS: METFORMIN 1,000 MG TABLET PO SCH (08:44)
[2016-07-05] MEDS: NICOTINE PATCH REMOVAL TD SCH (08:45)
[2016-07-05] MEDS: NICOTINE 14 MG PATCH TD SCH (08:45)
[2016-07-05 08:49] VITALS: BP 139/80; PULSE 96; RESP 18; TEMP 97.4; O2SAT 94
--- NOTE | 2016-07-05 09:54 | NUR ---
CM CM UNABLE TO REACH DPOA AND PT HAS DECLINED TO SIGN HIS MEDICARE IM.
--- NOTE | 2016-07-05 10:05 | NUR ---
VANDANA ROSS SPOKE WITH BRADY FROM [employer] OF AND PT WILL BE PICKED UPTODAY AT 4:00PM. PT/[facility] STAFF AWARE.
--- NOTE | 2016-07-05 11:08 | NUR ---
CM PT WILL HAVE ROT PROGRAM POST D/C FROM [facility] [place].
[2016-07-05] MEDS: INSULIN ASPART 100 UNIT/ML SQ PRN (12:05)
--- NOTE | 2016-07-05 16:46 | NUR ---
Report called to "_[facility] "; unit contact information given along with plans for follow-up care with PCP and MH professional as outlined in PHS. No pending labs on discharge pt discharged with all personal belongings. pt in stable condition upon discharge. pt taken via w/c to [employer] [facility] [employer] vehicle accompanied by generations nurse and [employer] motor vehicle escort driver.
== END 2016-07-05 16:05 | DRG 885 ==
LOC: GEN 19:35
PROVIDERS: ADMIT Psychiatry & Neurology Psychiatry; ATTEND Psychiatry & Neurology Psychiatry
DX: F20.9 Schizophrenia, unspecified (principal); E44.1 Mild protein-calorie malnutrition; I48.92 Unspecified atrial flutter; F32.9 Major depressive disorder, single episode, unspecified; F03.90 Unspecified dementia, unspecified severity, without behavioral disturbance, psychotic disturbance, mood disturbance, and anxiety; E11.9 Type 2 diabetes mellitus without complications; J44.9 Chronic obstructive pulmonary disease, unspecified; D64.9 Anemia, unspecified; I25.10 Atherosclerotic heart disease of native coronary artery without angina pectoris; E78.5 Hyperlipidemia, unspecified; I10 Essential (primary) hypertension; E66.9 Obesity, unspecified; Z68.35 Body mass index [BMI] 35.0-35.9, adult; H40.9 Unspecified glaucoma; Z79.4 Long term (current) use of insulin; Z79.82 Long term (current) use of aspirin
CPT/HCPCS: 36415; 80048; 80053; 80164; 81003; 82948; 84134; 85025; 93005; 99406

== ENCOUNTER 2016-09-05 15:17 | Inpatient (IN) ==
[2016-09-05] MEDS ORDERED: NS 1,000 ML IV ONE (16:10)
--- NOTE | 2016-09-05 16:28 | Emergency Department Report ---
Wound/Laceration HPI - General Chief Complaint: Wound/Laceration Stated Complaint: Wound Time Seen by Provider: 09/05/16 16:06 - History of Present Illness HPI narrative: 75-year-old gentleman with decubitus ulcers on left foot. Patient is been being treated at wound care clinic but has worsened over the past week. On evaluation today Dr. Garcia, there was concern about sepsis and probable need for debridement of wound. Patient was sent to ED for workup and consult of surgery is needed. Patient denies any pain at the wound site currently. He does have a history of psychosis. - Related Data Home Medications Medication Instructions Recorded Confirmed Aspirin 81 mg PO DAILY #0 02/22/16 09/05/16 Insulin Aspart [Novolog Flexpen] 23 unit SQ BIDLS #0 02/22/16 09/05/16 Latanoprost 1 drop BOTH EYES HS #0 02/22/16 09/05/16 Metformin HCl 1,000 mg PO DAILY #0 02/22/16 09/05/16 Insulin Lispro [HumaLOG] 22 unit SQ WB #0 vial 06/26/16 09/05/16 Acetaminophen 650 mg PO Q6H PRN 09/05/16 09/05/16 Amoxicillin/Potassium Clav 1 tab PO BID 09/05/16 09/05/16 [Augmentin 875-125 Tablet] Ascorbic Acid 500 mg PO BIDLS 09/05/16 09/05/16 Benztropine [Cogentin] 1 mg PO QID PRN 09/05/16 09/05/16 Bisacodyl Supp [Dulcolax] 1 mg RECTALLY DAILY PRN 09/05/16 09/05/16 Calmoseptine [Risamine Oint] 1 applic TOP BID PRN 09/05/16 09/05/16 Clopidogrel [Plavix] 75 mg PO DAILY 09/05/16 09/05/16 Divalproex [Depakote] 500 mg PO BID 09/05/16 09/05/16 Duloxetine HCl [Cymbalta] 60 mg PO DAILY 09/05/16 09/05/16 Hydrocodone/APAP 5/325 [[place] 1 tab PO Q8H PRN 09/05/16 09/05/16 5/325] Insulin Detemir [Levemir] 50 unit SQ BIDBS 09/05/16 09/05/16 LORazepam [Ativan] 1 mg PO HS PRN 09/05/16 09/05/16 Losartan Potassium 25 mg PO DAILY 09/05/16 09/05/16 Mag Hydrox/Aluminum Hyd/Simeth 30 ml PO Q6H PRN 09/05/16 09/05/16 [Maalox Advanced Suspension] Magnesium Hydroxide [Milk of 2,400 mg PO DAILY PRN 09/05/16 09/05/16 Magnesia] Menthol [Biofreeze] 1 applic TP Q6H PRN 09/05/16 09/05/16 Multivitamin [Multivitamins] 1 tab PO DAILY 09/05/16 09/05/16 RisperiDONE [RisperDAL] 1 mg PO QAM 09/05/16 09/05/16 Tramadol/APAP 37.5/325 [Ultracet] 1 tab PO BID 09/05/16 09/05/16 Zinc Sulfate 220 mg PO DAILY 09/05/16 09/05/16 Previous Rx's Medication Instructions Recorded RisperiDONE [RisperDAL] 2 mg PO HS 30 Days 02/29/16 Polyethylene Glycol 3350 [Miralax] 1 packet PO DAILY 30 Days 03/01/16 Allergies Allergy/AdvReac Type Severity Reaction Status Date / Time No Known Allergies Allergy Verified 09/05/16 17:29 Review of Systems All systems: reviewed and negative except as stated Musculoskeletal: Reports: as per HPI Integumentary: Reports: as per HPI Neurological: Reports: as per HPI Past Medical History - Past Medical History Attestation statement: The following information was validated with the patient. Medical history: Reports: diabetes Psychiatric history: Reports: previous psychiatric hospitalization, other ( history of psychosis.) - Social History Smoking Status: Never smoker Alcohol intake frequency: does not drink Physical Exam - Respiratory Respiratory exam: Present: normal lung sounds bilaterally - Cardiovascular Cardiovascular exam: Present: regular rate, normal rhythm - Abdominal Exam Abdominal exam: Present: soft, normal bowel sounds - Expanded Lower Extremity Exam Foot/toe exam: Present: other (stage IV decubitus ulcer at left heel and also for second and third metatarsal phalangeal joints. Discharge noted at both areas.) 1 - Decubitus ulcer 2 - Decubitus ulcer Course Vital Signs Temperature 98.6 F 09/05/16 15:40 Pulse Rate 92 09/05/16 15:40 Respiratory Rate 20 09/05/16 15:40 Blood Pressure 128/65 09/05/16 15:40 Pulse Oximetry 97 09/05/16 15:40 Temperature 98.6 F 09/05/16 15:40 Pulse Rate 114 H 09/05/16 17:24 Respiratory Rate 22 09/05/16 17:24 Blood Pressure 167/91 H 09/05/16 17:24 Pulse Oximetry 97 09/05/16 17:24 Wound/Laceration - MDM Narrative Medical decision making narrative: White count 10.6 with small left shift. CRP is 29, lactate 2.5. Patient is afebrile at this time. Blood cultures drawn 2 peripheral, 1 L normal saline given IV. At this time the patient states he is not having pain in his foot. He is diabetic. Dr. Cameron was contacted requested that we start Teflaro 600 mg IV every 12 hours and make patient nothing by mouth after midnight to facilitate possible intraoperative debridement tomorrow morning. Hospitalist was consulted, Dr. Giron accepted the admission and patient will be admitted. - Lab Data Result diagrams: 09/05/16 16:38 09/05/16 16:38 Lab Results 09/05/16 09/05/16 09/05/16 Range/Units 16:28 16:38 16:38 WBC 10.6 (4.5-11.0) T/MM3 RBC 3.52 L (4.50-5.90) M/MM3 Hgb 10.4 L (13.5-17.5) GM/DL Hct 33.4 L (41-53) % MCV 94.9 (80-100) UM3 MCH 29.5 (26-34) UUG MCHC 31.1 (31-37) GM/DL RDW Std Deviation 48.2 (36.9-50.2) FL Plt Count 373 (130-400) T/MM3 MPV 8.8 L (9.4-12.4) UM3 Immature Gran % (Auto) 0.1 (0.0-0.5) % Neut % (Auto) 69.9 H (33-66) % Lymph % (Auto) 18.6 L (23-45) % Kendall % (Auto) 8.1 (0-9.0) % Eos % (Auto) 2.9 (0-4) % Baso % (Auto) 0.4 (0-2) % Neut # 7.4 (1.8-7.7) T/MM3 Lymph # 2.0 (1-4.8) T/MM3 Kendall # 0.9 H (0-0.8) T/MM3 Eos # 0.3 (0-0.5) T/MM3 Baso # 0.0 (0-0.2) T/MM3 Abs Immat Gran (auto) 0.01 (0.00-0.03) T/MM3 Turbidity < 20 (0-20) Sodium 145 H (134-144) MEQ/L Potassium 4.2 (3.6-5) MEQ/L Chloride 105 (98-107) MEQ/L Carbon Dioxide 27 (22-30) MEQ/L Anion Gap 13 (5-15) MEQ/L BUN 16.0 (9-20) MG/DL Creatinine 0.6 L (0.8-1.5) MG/DL GFR Calculation 132 BUN/Creatinine Ratio 27 H (6-26) RATIO Glucose 139 H (75-110) MG/DL Calculated Osmolality 282 H (261-280) MOSM/KG Calcium 9.4 (8.4-10.2) MG/DL Total Bilirubin 0.30 (0.20-1.30) MG/DL Conjugated Bilirubin 0.00 (0.00-0.30) MG/DL Unconjugated Bilirubin 0.10 (0.00-11.10) MG/DL Icterus Index < 2 (0-7) AST 14 L (17-59) U/L ALT 33 (21-72) U/L Alkaline Phosphatase 74 (38-126) U/L C-Reactive Protein 29.5 H (0-9) MG/L Total Protein 7.4 (6.3-8.2) G/DL Albumin 3.7 (3.5-5.0) G/DL Globulin 3.7 H (2.4-3.6) G/DL Albumin/Globulin Ratio 1.0 L (1.1-2.2) RATIO Plasma Lactate 2.5 H (0.6-2.2) MMOL/L Procalcitonin NG/ML Specimen Hemolysis < 15 (0-25) Ur Collection Type Urine, clean catch Urine Color Yellow (YELLOW) Urine Clarity Clear Urine pH 5.5 (5.0-8.0) Ur Specific [place] >=1.030 H (1.015-1.025) Urine Protein Negative (NEGATIVE) Urine Glucose (UA) 2+ A (NEGATIVE) Urine Ketones Negative (NEGATIVE) Urine Occult Blood Negative (NEGATIVE) Urine Nitrate Negative (NEGATIVE) Urine Bilirubin Negative (NEGATIVE) Urine Urobilinogen 2.0 (NORMAL) EU/DL Ur Leukocyte Esterase Negative (NEGATIVE) Urinalysis Comment Microscopic not ind. 09/05/16 Range/Units 16:41 WBC (4.5-11.0) T/MM3 RBC (4.50-5.90) M/MM3 Hgb (13.5-17.5) GM/DL Hct (41-53) % MCV (80-100) UM3 MCH (26-34) UUG MCHC (31-37) GM/DL RDW Std Deviation (36.9-50.2) FL Plt Count (130-400) T/MM3 MPV (9.4-12.4) UM3 Immature Gran % (Auto) (0.0-0.5) % Neut % (Auto) (33-66) % Lymph % (Auto) (23-45) % Kendall % (Auto) (0-9.0) % Eos % (Auto) (0-4) % Baso % (Auto) (0-2) % Neut # (1.8-7.7) T/MM3 Lymph # (1-4.8) T/MM3 Kendall # (0-0.8) T/MM3 Eos # (0-0.5) T/MM3 Baso # (0-0.2) T/MM3 Abs Immat Gran (auto) (0.00-0.03) T/MM3 Turbidity (0-20) Sodium (134-144) MEQ/L Potassium (3.6-5) MEQ/L Chloride (98-107) MEQ/L Carbon Dioxide (22-30) MEQ/L Anion Gap (5-15) MEQ/L BUN (9-20) MG/DL Creatinine (0.8-1.5) MG/DL GFR Calculation BUN/Creatinine Ratio (6-26) RATIO Glucose (75-110) MG/DL Calculated Osmolality (261-280) MOSM/KG Calcium (8.4-10.2) MG/DL Total Bilirubin (0.20-1.30) MG/DL Conjugated Bilirubin (0.00-0.30) MG/DL Unconjugated Bilirubin (0.00-11.10) MG/DL Icterus Index (0-7) AST (17-59) U/L ALT (21-72) U/L Alkaline Phosphatase (38-126) U/L C-Reactive Protein (0-9) MG/L Total Protein (6.3-8.2) G/DL Albumin (3.5-5.0) G/DL Globulin (2.4-3.6) G/DL Albumin/Globulin Ratio (1.1-2.2) RATIO Plasma Lactate (0.6-2.2) MMOL/L Procalcitonin < 0.05 NG/ML Specimen Hemolysis (0-25) Ur Collection Type Urine Color (YELLOW) Urine Clarity Urine pH (5.0-8.0) Ur Specific [place] (1.015-1.025) Urine Protein (NEGATIVE) Urine Glucose (UA) (NEGATIVE) Urine Ketones (NEGATIVE) Urine Occult Blood (NEGATIVE) Urine Nitrate (NEGATIVE) Urine Bilirubin (NEGATIVE) Urine Urobilinogen (NORMAL) EU/DL Ur Leukocyte Esterase (NEGATIVE) Urinalysis Comment Disposition Clinical Impression: Sepsis, Decubitus ulcer of left foot, stage 4 Disposition: 02 To [facility] Acute Care Condition: Stable Prescriptions: No Action Metformin HCl 1,000 mg PO DAILY #0 Aspirin 81 mg PO DAILY #0 Latanoprost 1 drop BOTH EYES HS #0 RisperiDONE [RisperDAL] 2 mg PO HS 30 Days Polyethylene Glycol 3350 [Miralax] 1 packet PO DAILY 30 Days Insulin Lispro [HumaLOG] 22 unit SQ WB #0 vial RisperiDONE [RisperDAL] 1 mg PO QAM Duloxetine HCl [Cymbalta] 60 mg PO DAILY Tramadol/APAP 37.5/325 [Ultracet] 1 tab PO BID Zinc Sulfate 220 mg PO DAILY Multivitamin [Multivitamins] 1 tab PO DAILY Losartan Potassium 25 mg PO DAILY Insulin Detemir [Levemir] 50 unit SQ BIDBS Amoxicillin/Potassium Clav [Augmentin 875-125 Tablet] 1 tab PO BID Benztropine [Cogentin] 1 mg PO QID PRN PRN Reason: Extrapyramidal Symptoms Mag Hydrox/Aluminum Hyd/Simeth [Maalox Advanced Suspension] 30 ml PO Q6H PRN PRN Reason: Indigestion Hydrocodone/APAP 5/325 [[place] 5/325] 1 tab PO Q8H PRN PRN Reason: Pain Bisacodyl Supp [Dulcolax] 1 mg RECTALLY DAILY PRN PRN Reason: Constipation Magnesium Hydroxide [Milk of Magnesia] 2,400 mg PO DAILY PRN PRN Reason: Constipation Calmoseptine [Risamine Oint] 1 applic TOP BID PRN PRN Reason: Prn Orders Insulin Aspart [Novolog Flexpen] 23 unit SQ BIDLS #0 Ascorbic Acid 500 mg PO BIDLS Divalproex [Depakote] 500 mg PO BID Clopidogrel [Plavix] 75 mg PO DAILY Menthol [Biofreeze] 1 applic TP Q6H PRN PRN Reason: Pain Acetaminophen 650 mg PO Q6H PRN PRN Reason: Pain LORazepam [Ativan] 1 mg PO HS PRN PRN Reason: Insomnia Time of Disposition: 18:13 - Seen By: physician
[2016-09-05] MEDS: SALINE FLUSH 10ml SYRINGE IV PRN ×3 (16:37→22:04)
[2016-09-05] MEDS ORDERED: NS IV ONE (18:03)
[2016-09-05] MEDS ORDERED: CEFTAROLINE IV ONE (18:03)
--- NOTE | 2016-09-05 19:20 | History & Physical Report ---
History of Present Illness Date: 09/06/16 Chief complaint: My foot is giving me problems HPI: 75 y/o male presents to ED from Wound clinic secondary to worsening decubitus ulcer of left foot. Initially seen in Wound Clinic August 01. Receiving treatments there and at his nursing facility. Patient reports increasing pain to left foot for the past week. During this time, feeling more tire and weak-not having much energy or drive. Not certain if having fevers or chills. Appetite with decrease. Presents to Wound clinic for evaluation. Seen by Dr Enriquez who was very concerned about drainage from wound and how patient was looking - set to ED for evaluation. In ED, pt tachycardic and tachypnic; blood pressure not decreased. WBC upper limits of normal but Lactic acid elevated (is on metformin which may be contributing to some elevation of lactic acid). With patients severe sepsis secondary to decubitus ulcer, Dr Giron notified and patient place in inpatient admission for IV antibiotics, IVF, and surgical consult for debridement of wound. Anticipated length of stay thought to be greater than two midnight. Review of Systems All systems: reviewed and no additional remarkable complaints except as stated - Constitutional Constitutional: Present: fatigue, lethargy, weakness - EENMT Eyes: Absent: change in vision Mouth/Throat: Present: dry mouth - Cardiovascular Cardiovascular: Present: edema (Lower ext). Absent: chest pain, palpitations - Respiratory Respiratory: Present: dyspnea (slight). Absent: cough, chest congestion - Gastrointestinal Gastrointestinal: Present: other (Apetite decreased ). Absent: abdominal pain, change in bowel habits, constipation, diarrhea, nausea - Genitourinary Genitourinary: Present: dysuria - Musculoskeletal Musculoskeletal: Present: muscle weakness (legs feel more weak ), other ( Ambulated with wheelchair assistance.) - Neurological Neurological: Present: weakness (Generalized, as well as legs more weak.) [facility] Patient Stated Medical History Dementia Yes Glaucoma Yes Hypertension Yes Chronic Obstructive Pulmonary Yes Disease (COPD) Diabetes Mellitus Type 2 Yes: IDDM Gastroesophageal Reflux Yes Disease Other GI Yes: CONSTIPATION Other Musculoskeletal Yes: OSTEOMYELITIS Depression Yes Other Behavioral Health Yes: PSYCHOSIS Medical History Updates: CAD, hyperlipidemia, Schizophrenia, obesity Surgical History: Hip arthroplasty Family History: Father of unknown cause Mother of GB disease 8 brothers and 2 sisters-all whom have Report DM in family - Social History Smoking status: Current every day smoker Packs per day: 1 (1/2 PPD) Substance use type: unknown (? prior Hx of crack) Alcohol intake: former Housing: [facility] Current residence: [facility] Medications Home Medications Medication Instructions Recorded Confirmed Type Aspirin 81 mg PO DAILY #0 02/22/16 09/05/16 History Insulin Aspart [Novolog Flexpen] 23 unit SQ BIDLS #0 02/22/16 09/05/16 History Latanoprost 1 drop BOTH EYES HS #0 02/22/16 09/05/16 History Metformin HCl 1,000 mg PO DAILY #0 02/22/16 09/05/16 History Insulin Lispro [HumaLOG] 22 unit SQ WB #0 vial 06/26/16 09/05/16 History Acetaminophen 650 mg PO Q6H PRN 09/05/16 09/05/16 History Amoxicillin/Potassium Clav 1 tab PO BID 09/05/16 09/05/16 History [Augmentin 875-125 Tablet] Ascorbic Acid 500 mg PO BIDLS 09/05/16 09/05/16 History Benztropine [Cogentin] 1 mg PO QID PRN 09/05/16 09/05/16 History Bisacodyl Supp [Dulcolax] 1 mg RECTALLY DAILY PRN 09/05/16 09/05/16 History Calmoseptine [Risamine Oint] 1 applic TOP BID PRN 09/05/16 09/05/16 History Clopidogrel [Plavix] 75 mg PO DAILY 09/05/16 09/05/16 History Divalproex [Depakote] 500 mg PO BID 09/05/16 09/05/16 History Duloxetine HCl [Cymbalta] 60 mg PO DAILY 09/05/16 09/05/16 History Hydrocodone/APAP 5/325 [[place] 1 tab PO Q8H PRN 09/05/16 09/05/16 History 5/325] Insulin Detemir [Levemir] 50 unit SQ BIDBS 09/05/16 09/05/16 History LORazepam [Ativan] 1 mg PO HS PRN 09/05/16 09/05/16 History Losartan Potassium 25 mg PO DAILY 09/05/16 09/05/16 History Mag Hydrox/Aluminum Hyd/Simeth 30 ml PO Q6H PRN 09/05/16 09/05/16 History [Maalox Advanced Suspension] Magnesium Hydroxide [Milk of 2,400 mg PO DAILY PRN 09/05/16 09/05/16 History Magnesia] Menthol [Biofreeze] 1 applic TP Q6H PRN 09/05/16 09/05/16 History Multivitamin [Multivitamins] 1 tab PO DAILY 09/05/16 09/05/16 History RisperiDONE [RisperDAL] 1 mg PO QAM 09/05/16 09/05/16 History Tramadol/APAP 37.5/325 [Ultracet] 1 tab PO BID 09/05/16 09/05/16 History Zinc Sulfate 220 mg PO DAILY 09/05/16 09/05/16 History Allergies Allergy/AdvReac Type Severity Reaction Status Date / Time No Known Drug Allergies Allergy Verified 09/06/16 13:38 No Known Adverse Drug AdvReac Verified 09/06/16 13:38 Reactions Exam Vital Signs: Temp Pulse Resp BP Pulse Ox 98.6 F 121 H 22 180/95 H 96 09/05/16 15:40 09/05/16 18:54 09/05/16 17:24 09/05/16 18:54 09/05/16 18:54 Telemetry Rhythm: Sinus Tachycardia Height: 1.8 m Weight: 113.852 kg - Constitutional Present: mild distress, well nourished, well developed, obese, other (Tired and weak appearing. ). Absent: combative, agitated - Routine HEENT Exam Head: Present: normocephalic Eye: Present: EOMI, PERRL ENT: Present: mucous membranes dry - Routine Chest/Breast/Axilla Exam Chest wall: Absent: tenderness, mass - Routine Respiratory Exam Present: decreased breath sounds. Absent: accessory muscle use, rhonchi, wheezes, crackles - Routine Cardiovascular Exam Present: tachycardia (regular) - Routine Abdominal Exam Present: soft, normoactive bowel sounds, non distended, non tender. Absent: rebound - Routine Extremities Exam Present: edema (Bilateral LE) - Routine Skin Exam Present: warm, normal turgor, wounds (Woulds to left foot covered). Absent: mottling - Routine Neurological Exam Present: alert, CN II-XII intact. Absent: motor deficit - Routine Psychiatric Exam Present: normal affect. Absent: depressed, anxious Results - Labs CBC & Chem 7: 06/16/17 04:32 09/06/16 04:32 Assessment and Plan (1) Severe sepsis Current visit: Yes Status: Resolved 09/05/16: Tachycardia, tachypnea, elevated lactic acid - source foot wound. (2) Decubitus ulcer of left foot, stage 4 Current visit: Yes Status: Acute (3) CAD (coronary artery disease) Current visit: Yes Status: Chronic (4) HTN (hypertension) Current visit: Yes Status: Chronic (5) Hyperlipidemia Current visit: Yes Status: Chronic (6) Type II diabetes mellitus Current visit: Yes Status: Chronic (7) COPD (chronic obstructive pulmonary disease) Current visit: Yes Status: Chronic (8) Tobacco dependence Current visit: Yes Status: Chronic (9) Dementia Current visit: Yes Status: Chronic (10) Schizophrenia Current visit: Yes Status: Chronic (11) Depression Current visit: Yes Status: Chronic (12) Hypernatremia Current visit: Yes Status: Acute 09/05/16 19:39 POA (13) Obesity Current visit: Yes Status: Chronic DVT Prophylaxis: SCD's Resuscitation Status: Full Code Assessment and Plan: Inpatient admission for treatment of severe sepsis secondary to left foot decubitus wound infection. Start Teflero for antimicrobial coverage. IVF of NS at 75cc/hr for hydration - has received 1L bolus in ED. Recheck Lactic acid this evening due to elevation. Consult Dr Cameron and wound team due to decubitius ulcers. Hold metformin due to elevated lactic acid. Will hold antihypertensives due to sepsis. SCD for DVT prevention. RT for tobacco cessation. Zofran prn nausea. Recheck CBC in am due to sepsis. Repeat BMP in am due to IVF and sepsis. Full code as per patient's request. Care to return to Dr Osman at time of discharge from [facility] [place]. Sepsis Assessment - Focused Exam Vital Signs Temp Pulse Resp BP Pulse Ox 09/05/16 18:54 121 H 180/95 H 96 09/05/16 17:24 114 H 22 167/91 H 97 09/05/16 15:40 98.6 F 92 20 128/65 97 Hospital Course Summary Disclaimer: The visit summary below is not to be considered part of the above Progress Note. Hospital Course: 09/05/16 Inpatient admission for treatment of severe sepsis secondary to left foot decubitus wound infection. Start Teflero for antimicrobial coverage. IVF of NS at 75cc/hr for hydration - has received 1L bolus in ED. Recheck Lactic acid this evening due to elevation. Consult Dr Cameron and wound team due to decubitius ulcers. Hold metformin due to elevated lactic acid. Will hold antihypertensives due to sepsis. SCD for DVT prevention. RT for tobacco cessation. Zofran prn nausea. Recheck CBC in am due to sepsis. Repeat BMP in am due to IVF and sepsis. Full code as per patient's request. Care to return to Dr Osman at time of discharge from [facility] [place].
[2016-09-05] MEDS ORDERED: BISACODYL 10 MG SUPPOSITORY RECTALLY PRN (20:16)
[2016-09-05] MEDS ORDERED: LORazepam 1 MG TABLET PO PRN (20:16)
[2016-09-05] MEDS ORDERED: ONDANSETRON 4 MG/2 ML INJECTION IVP PRN (20:16)
[2016-09-05] MEDS ORDERED: BIOFREEZE PO PRN (20:16)
[2016-09-05] MEDS ORDERED: BENZTROPINE 1 MG TABLET PO PRN (20:16)
[2016-09-05] MEDS ORDERED: MAG-AL + SIM ORAL LIQUID 30ml PO PRN (20:16)
[2016-09-05] MEDS ORDERED: ACETAMINOPHEN 325 MG TABLET PO PRN (20:16)
[2016-09-05] MEDS: TRAMADOL/APAP 37.5 MG/325 MG TABLET PO SCH (22:01)
[2016-09-05] MEDS: NICOTINE 14 MG PATCH TD SCH ×2 (22:01→22:18)
[2016-09-05] MEDS: RisperiDONE 2 MG TABLET PO SCH (22:01)
[2016-09-05] MEDS: DIVALPROEX 125 MG TABLET PO SCH (22:02)
[2016-09-05] MEDS: NS 1,000 ML IV SCH (22:02)
[2016-09-05] MEDS: INSULIN DETEMIR 100unit/ml INJECTION SQ SCH (22:06)
[2016-09-05] MEDS ORDERED: Pharmacy Consult for Fall Risk XX PRN (22:31)
[2016-09-06] MEDS: HYDROCODONE/APAP 5mg/325mg TABLET PO PRN (02:46)
[2016-09-06] MEDS: LATANOPROST 0.005% EYE DROPS 2.5ml RIGHT EYE SCH ×2 (06:46→22:36)
--- NOTE | 2016-09-06 07:17 | General Surgery Consult Note ---
Consult date: 09/06/16 Attending Physician: Rayshawn Giron MD Reason for consult: wound care History of present illness: Per Dr. Cameron [facility] Patient Stated Medical History Dementia Yes Glaucoma Yes Hypertension Yes Chronic Obstructive Pulmonary Yes Disease (COPD) Diabetes Mellitus Type 2 Yes: IDDM Gastroesophageal Reflux Yes Disease Other GI Yes: CONSTIPATION Other Musculoskeletal Yes: OSTEOMYELITIS Depression Yes Schizophrenia Yes Other Behavioral Health Yes: PSYCHOSIS Medical History Updates: CAD, hyperlipidemia, Schizophrenia, obesity Surgical History: Hip arthroplasty Family History: All 8 brothers and 2 sisters have , he is not clear on causes. mother- of complications of her gallbladder father - unknown cause - Social History Smoking status: Current every day smoker Medications Home Medications Medication Instructions Recorded Confirmed Type Aspirin 81 mg PO DAILY #0 02/22/16 09/05/16 History Insulin Aspart [Novolog Flexpen] 23 unit SQ BIDLS #0 02/22/16 09/05/16 History Latanoprost 1 drop BOTH EYES HS #0 02/22/16 09/05/16 History Metformin HCl 1,000 mg PO DAILY #0 02/22/16 09/05/16 History Insulin Lispro [HumaLOG] 22 unit SQ WB #0 vial 06/26/16 09/05/16 History Acetaminophen 650 mg PO Q6H PRN 09/05/16 09/05/16 History Amoxicillin/Potassium Clav 1 tab PO BID 09/05/16 09/05/16 History [Augmentin 875-125 Tablet] Ascorbic Acid 500 mg PO BIDLS 09/05/16 09/05/16 History Benztropine [Cogentin] 1 mg PO QID PRN 09/05/16 09/05/16 History Bisacodyl Supp [Dulcolax] 1 mg RECTALLY DAILY PRN 09/05/16 09/05/16 History Calmoseptine [Risamine Oint] 1 applic TOP BID PRN 09/05/16 09/05/16 History Clopidogrel [Plavix] 75 mg PO DAILY 09/05/16 09/05/16 History Divalproex [Depakote] 500 mg PO BID 09/05/16 09/05/16 History Duloxetine HCl [Cymbalta] 60 mg PO DAILY 09/05/16 09/05/16 History Hydrocodone/APAP 5/325 [Chancellor 1 tab PO Q8H PRN 09/05/16 09/05/16 History 5/325] Insulin Detemir [Levemir] 50 unit SQ BIDBS 09/05/16 09/05/16 History LORazepam [Ativan] 1 mg PO HS PRN 09/05/16 09/05/16 History Losartan Potassium 25 mg PO DAILY 09/05/16 09/05/16 History Mag Hydrox/Aluminum Hyd/Simeth 30 ml PO Q6H PRN 09/05/16 09/05/16 History [Maalox Advanced Suspension] Magnesium Hydroxide [Milk of 2,400 mg PO DAILY PRN 09/05/16 09/05/16 History Magnesia] Menthol [Biofreeze] 1 applic TP Q6H PRN 09/05/16 09/05/16 History Multivitamin [Multivitamins] 1 tab PO DAILY 09/05/16 09/05/16 History RisperiDONE [RisperDAL] 1 mg PO QAM 09/05/16 09/05/16 History Tramadol/APAP 37.5/325 [Ultracet] 1 tab PO BID 09/05/16 09/05/16 History Zinc Sulfate 220 mg PO DAILY 09/05/16 09/05/16 History Allergies Allergy/AdvReac Type Severity Reaction Status Date / Time No Known Allergies Allergy Verified 09/05/16 20:34 Review of Systems 10-point ROS: negative except for HPI and the following: - General General: Present: other (fatigue) - Eyes/Ears/Nose/Throat Eyes: Present: vision problems (glaucoma) - Cardiovascular Cardiovascular: Present: edema/swelling - Respiratory Respiratory: Present: difficulty breathing (COPD) - Gastrointestinal Gastrointestinal: Present: constipation, other (decreased appetite, GERD) - Genitourinary Additional comments: Dysuria - Musculoskeletal Musculoskeletal: Present: other (muiscle weakness, uses a wheelchair) - Neurological Neurological: Present: muscle weakness - Psychiatric Psychiatric: Present: depression, other (Schizophrenia) - Endocrine Endocrine: Present: diabetes - Hematologic/Lymphatic Hematologic/Lymphatic: Present: easy bruising, use of blood thinners - Vital Signs Last Vital Signs Temp 98.8 F 09/05/16 23:51 Pulse 93 09/05/16 23:51 Resp 20 09/05/16 23:51 BP 122/69 09/05/16 23:51 Pulse Ox 95 09/05/16 23:51 - Laboratory Result Diagrams: 09/06/16 04:32 09/06/16 04:32 Wound/Stoma/Drain Assessment - Wound Management Left Foot Wound Type: Diabetic Foot Ulcer Wound Drainage Amount: Small Left Heel Wound Type: Diabetic Foot Ulcer General Surgery Results - Results Labs: 09/06/16 04:32 09/06/16 04:32 (1) Severe sepsis Status: Acute Current visit: Yes (2) Decubitus ulcer of left foot, stage 4 Status: Acute Current visit: Yes (3) CAD (coronary artery disease) Status: Chronic Current visit: Yes (4) HTN (hypertension) Status: Chronic Current visit: Yes (5) Hyperlipidemia Status: Chronic Current visit: Yes (6) Type II diabetes mellitus Status: Chronic Current visit: Yes (7) COPD (chronic obstructive pulmonary disease) Status: Chronic Current visit: Yes (8) Tobacco dependence Status: Chronic Current visit: Yes (9) Dementia Status: Chronic Current visit: Yes (10) Schizophrenia Status: Chronic Current visit: Yes (11) Depression Status: Chronic Current visit: Yes (12) Hypernatremia Status: Acute Current visit: Yes (13) Obesity Status: Chronic Current visit: Yes Hospital Course Summary Disclaimer: The visit summary below is not to be considered part of the above Progress Note. Hospital Course: 09/05/16 Inpatient admission for treatment of severe sepsis secondary to left foot decubitus wound infection. Start Teflero for antimicrobial coverage. IVF of NS at 75cc/hr for hydration - has received 1L bolus in ED. Recheck Lactic acid this evening due to elevation. Consult Dr Cameron and wound team due to decubitius ulcers. Hold metformin due to elevated lactic acid. Will hold antihypertensives due to sepsis. SCD for DVT prevention. RT for tobacco cessation. Zofran prn nausea. Recheck CBC in am due to sepsis. Repeat BMP in am due to IVF and sepsis. Full code as per patient's request. Care to return to Dr Osman at time of discharge from [facility] [place]. Sepsis Assessment - Evaluation Sepsis screening result: No Definite Risk - Focused Exam Vital Signs Temp Pulse Resp BP Pulse Ox 09/05/16 23:51 98.8 F 93 20 122/69 95 09/05/16 20:29 98.8 F 101 H 20 153/72 H 96 Respiratory exam: Present: decreased breath sounds. Absent: accessory muscle use, rhonchi, wheezes, crackles Cardiovascular exam: Present: tachycardia (regular)
[2016-09-06] MEDS ORDERED: CLOPIDOGREL 75 MG TABLET PO SCH (09:00)
[2016-09-06] MEDS: DIVALPROEX 125 MG TABLET PO SCH ×2 (09:14→22:35)
[2016-09-06] MEDS: INSULIN DETEMIR 100unit/ml INJECTION SQ SCH ×2 (09:14→18:15)
[2016-09-06] MEDS: RisperiDONE 1 MG TABLET PO SCH (09:14)
[2016-09-06] MEDS: ZINC GLUCONATE 50 MG TABLET PO SCH (09:14)
[2016-09-06] MEDS: MULTI-VITAMIN PLAIN TABLET PO SCH (09:14)
[2016-09-06] MEDS: DULOXETINE 60 MG CAPSULE PO SCH (09:14)
[2016-09-06] MEDS: ASPIRIN 81 MG CHEWABLE TABLET PO SCH (09:14)
[2016-09-06] MEDS: TRAMADOL/APAP 37.5 MG/325 MG TABLET PO SCH (09:14)
[2016-09-06] MEDS: NICOTINE 14 MG PATCH TD SCH (09:15)
[2016-09-06] MEDS: POLYETHYL GLYCOL 3350 17gm PACKET PO SCH (09:15)
[2016-09-06] MEDS: NS 1,000 ML IV SCH ×2 (11:19→13:17)
--- NOTE | 2016-09-06 11:40 | Progress Note ---
Subjective: F/U: Severe sepsis, decubitus ulcer of left foot Doing fair today-still very tired and sleepy. Notes some discomfort to left foot. Also has chronic pain to left hip-this is the reason he has been wheelchair bound for the past 13 years per his report. Breathing doing well-not feeling SOA or congestion. No pain with breathing or chest pain. Denies ab pain or nausea. No f/c. Objective Vital signs: Temp Pulse Resp BP Pulse Ox 98.0 F 89 20 125/69 97 09/06/16 07:48 09/06/16 07:48 09/06/16 07:48 09/06/16 07:48 09/06/16 07:48 Weight: 114 kg - Constitutional Present: mild distress, well nourished, well developed, obese, somnolent (Will answer guestion well. ). Absent: combative, agitated - Routine HEENT Exam Head: Present: normocephalic, atraumatic Eye: Present: EOMI, PERRL ENT: Present: mucous membranes moist, nares patent - Routine Respiratory Exam Present: CTA bilaterally (Upper airway noises ), distant breath sounds. Absent : accessory muscle use, rales, respiratory distress, wheezes - Routine Cardiovascular Exam Present: RRR - Routine Abdominal Exam Present: soft, normoactive bowel sounds, non distended, non tender. Absent: rebound - Routine Extremities Exam Present: edema (+2 bilateral LE), tenderness (To left hip area ) - Routine Musculoskeletal Exam Musculoskeletal: no clubbing or cyanosis - Routine Skin Exam Present: intact, warm, wounds (Foot wounds covered ). Absent: mottling - Routine Neurological Exam Present: alert, CN II-XII intact, vision grossly intact, hearing grossly intact - Routine Psychiatric Exam Present: normal affect. Absent: agitated, paranoid Results - Labs CBC & Chem 7: 09/06/16 04:32 09/06/16 04:32 Assessment and Plan (1) Severe sepsis Current visit: Yes Status: Resolved 09/05/16: Tachycardia, tachypnea, elevated lactic acid - source foot wound. (2) Decubitus ulcer of left foot, stage 4 Current visit: Yes Status: Acute (3) CAD (coronary artery disease) Current visit: Yes Status: Chronic (4) HTN (hypertension) Current visit: Yes Status: Chronic (5) Hyperlipidemia Current visit: Yes Status: Chronic (6) Type II diabetes mellitus Current visit: Yes Status: Chronic (7) COPD (chronic obstructive pulmonary disease) Current visit: Yes Status: Chronic (8) Tobacco dependence Current visit: Yes Status: Chronic (9) Dementia Current visit: Yes Status: Chronic (10) Schizophrenia Current visit: Yes Status: Chronic (11) Depression Current visit: Yes Status: Chronic (12) Hypernatremia Current visit: Yes Status: Acute 09/05/16 19:39 POA (13) Obesity Current visit: Yes Status: Chronic DVT Prophylaxis: SCD's, Lovenox Resuscitation Status: Full Code Assessment and Plan: Continue with Teflaro for antimicrobial coverage. Decrease IVF to 50 cc/hr as severe sepsis resolving. Speech to check swallow function. Check pelvis/left hip Xray due to chronic pain and immobility. Discussed with Dr Cameron-attempted bedside debridement but feel more intensive debridement needed. Anticipate surgical intervention on Saturday 09/09. Add Lovenox to SCD for DVT prevention. Recheck CBC and BMP in am due to resolving sepsis and IVF use. Continue to hold metformin due to resolving sepsis. May restart ARB as BP improved. Sepsis Assessment - Evaluation Sepsis screening result: No Definite Risk - Focused Exam Vital Signs Temp Pulse Resp BP Pulse Ox 09/06/16 07:48 98.0 F 89 20 125/69 97 09/05/16 23:51 98.8 F 93 20 122/69 95 Respiratory exam: Present: decreased breath sounds. Absent: accessory muscle use, rhonchi, wheezes, crackles Cardiovascular exam: Present: tachycardia (regular) Hospital Course Summary Disclaimer: The visit summary below is not to be considered part of the above Progress Note. Hospital Course: 09/05/16 Inpatient admission for treatment of severe sepsis secondary to left foot decubitus wound infection. Start Teflero for antimicrobial coverage. IVF of NS at 75cc/hr for hydration - has received 1L bolus in ED. Recheck Lactic acid this evening due to elevation. Consult Dr Cameron and wound team due to decubitius ulcers. Hold metformin due to elevated lactic acid. Will hold antihypertensives due to sepsis. SCD for DVT prevention. RT for tobacco cessation. Zofran prn nausea. Recheck CBC in am due to sepsis. Repeat BMP in am due to IVF and sepsis. Full code as per patient's request. Care to return to Dr Osman at time of discharge from [facility] [place] 09/06/16 Continue with Teflaro for antimicrobial coverage. Decrease IVF to 50 cc/hr as severe sepsis resolving. Speech to check swallow function. Check pelvis/left hip Xray due to chronic pain and immobility. Discussed with Dr Cameron-attempted bedside debridement but feel more intensive debridement needed. Anticipate surgical intervention on Saturday 09/09. Add Lovenox to SCD for DVT prevention. Recheck CBC and BMP in am due to resolving sepsis and IVF use. Continue to hold metformin due to resolving sepsis. May restart ARB as BP improved.
[2016-09-06] MEDS: ENOXAPARIN 40 MG/0.4 ML INJECTION SQ SCH (12:22)
[2016-09-06] MEDS: INSULIN ASPART 100unit/ml INJECTION SQ SCH ×2 (12:23→18:15)
--- NOTE | 2016-09-06 13:11 | XRay Report ---
Indication: Chronic left hip pain PROCEDURE: XR pelvis w/ 2 view LT hip: Encounter: Initial Comparison: None Findings: There is no acute fracture, dislocation or malalignment identified. Left hip hemiprosthesis appears intact. Adjacent heterotopic ossification. Mild joint space narrowing in the right hip. Arterial vascular calcifications. Left superficial femoral area vascular stents. Impression: No acute osseous abnormality. .
[2016-09-06] MEDS: CEFTAROLINE IV SCH (13:16)
[2016-09-06] MEDS: NS IV SCH (13:16)
[2016-09-06] MEDS: ASCORBIC ACID 500 MG TABLET PO SCH ×2 (13:17→18:15)
[2016-09-06] MEDS ORDERED: PNEUMOCOCCAL 13 VACCINE 0.5ml INJECTION IM ONE (13:41)
[2016-09-06] MEDS: RisperiDONE 2 MG TABLET PO SCH (22:36)
[2016-09-07] MEDS: CEFTAROLINE IV SCH ×2 (00:07→12:21)
[2016-09-07] MEDS: NS IV SCH ×2 (00:07→12:21)
[2016-09-07] MEDS: TRAMADOL/APAP 37.5 MG/325 MG TABLET PO SCH ×3 (00:14→22:28)
[2016-09-07] MEDS: NS 1,000 ML IV SCH ×2 (04:05→09:38)
[2016-09-07] MEDS: ENOXAPARIN 40 MG/0.4 ML INJECTION SQ SCH (09:14)
[2016-09-07] MEDS: POLYETHYL GLYCOL 3350 17gm PACKET PO SCH (09:15)
[2016-09-07] MEDS: DIVALPROEX 125 MG TABLET PO SCH ×2 (09:15→21:36)
[2016-09-07] MEDS: RisperiDONE 1 MG TABLET PO SCH (09:15)
[2016-09-07] MEDS: ZINC GLUCONATE 50 MG TABLET PO SCH (09:15)
[2016-09-07] MEDS: MULTI-VITAMIN PLAIN TABLET PO SCH (09:15)
[2016-09-07] MEDS: DULOXETINE 60 MG CAPSULE PO SCH (09:15)
[2016-09-07] MEDS: ASPIRIN 81 MG CHEWABLE TABLET PO SCH (09:15)
[2016-09-07] MEDS: INSULIN DETEMIR 100unit/ml INJECTION SQ SCH ×2 (09:16→17:41)
[2016-09-07] MEDS: NICOTINE 14 MG PATCH TD SCH (09:16)
[2016-09-07] MEDS: NICOTINE PATCH REMOVAL TD SCH (09:36)
--- NOTE | 2016-09-07 10:49 | Progress Note ---
Subjective: F/U: Severe sepsis, decubitus ulcer of left foot Resting in bed this morning. Notes pain to left hip/back. No f/c. Breathing well. No chest pain. No nausea or ab pain. No charted stool since admit. Urinating well. Objective Vital signs: Temp Pulse Resp BP Pulse Ox 98.7 F 87 22 162/73 H 98 09/07/16 07:56 09/07/16 07:56 09/07/16 07:56 09/07/16 07:56 09/07/16 00:00 Weight: 110.2 kg - Constitutional Present: mild distress, well nourished, well developed, obese. Absent: combative, agitated - Routine HEENT Exam Head: Present: normocephalic, atraumatic Eye: Present: EOMI, PERRL ENT: Present: mucous membranes moist, nares patent - Routine Respiratory Exam Present: CTA bilaterally. Absent: respiratory distress, wheezes, crackles - Routine Cardiovascular Exam Present: RRR - Routine Abdominal Exam Present: soft, normoactive bowel sounds, non distended, non tender - Routine Extremities Exam Present: edema (+1-2 bilateral LE) - Routine Musculoskeletal Exam Musculoskeletal: no clubbing or cyanosis, no joint swelling - Routine Skin Exam Present: dry, warm, wounds (Covered with gauze ). Absent: mottling - Routine Neurological Exam Present: alert, CN II-XII intact. Absent: motor deficit - Routine Psychiatric Exam Absent: anxious, agitated, paranoid Results - Labs CBC & Chem 7: 09/07/16 04:14 09/07/16 04:14 Assessment and Plan (1) Severe sepsis Current visit: Yes Status: Resolved 09/05/16: Tachycardia, tachypnea, elevated lactic acid - source foot wound. (2) Decubitus ulcer of left foot, stage 4 Current visit: Yes Status: Acute (3) CAD (coronary artery disease) Current visit: Yes Status: Chronic (4) HTN (hypertension) Current visit: Yes Status: Chronic (5) Hyperlipidemia Current visit: Yes Status: Chronic (6) Type II diabetes mellitus Current visit: Yes Status: Chronic (7) COPD (chronic obstructive pulmonary disease) Current visit: Yes Status: Chronic (8) Tobacco dependence Current visit: Yes Status: Chronic (9) Dementia Current visit: Yes Status: Chronic (10) Schizophrenia Current visit: Yes Status: Chronic (11) Depression Current visit: Yes Status: Chronic (12) Hypernatremia Current visit: Yes Status: Resolved 09/05/16 19:39 POA (13) Obesity Current visit: Yes Status: Chronic DVT Prophylaxis: Lovenox Resuscitation Status: Full Code Assessment and Plan: Continue with Teflaro for antimicrobial coverage. Continue IVF to 50 cc/hr to help hydration status due to resolving sepsis. Discussed bowel function with nursing - MOM to be given, if no results then suppository. Continue Lovenox for DVT prevention-will have to hold after tomorrows dose due to Sx anticipated on Friday. Sugars stable - continue to hold metformin due to resolving sepsis. Recheck CBC and BMP in am due to resolving sepsis and IVF use. Case discussed with CM and nursing. Time spent with pt care 25 minutes. Sepsis Assessment - Evaluation Sepsis screening result: No Definite Risk - Focused Exam Vital Signs Temp Pulse Resp BP Pulse Ox 09/07/16 07:56 98.7 F 87 22 162/73 H 09/07/16 00:00 96.3 F L 75 15 119/75 98 Respiratory exam: Present: decreased breath sounds. Absent: accessory muscle use, rhonchi, wheezes, crackles Cardiovascular exam: Present: tachycardia (regular) Hospital Course Summary Disclaimer: The visit summary below is not to be considered part of the above Progress Note. Hospital Course: 09/05/16 Inpatient admission for treatment of severe sepsis secondary to left foot decubitus wound infection. Start Teflaro for antimicrobial coverage. IVF of NS at 75cc/hr for hydration - has received 1L bolus in ED. Recheck Lactic acid this evening due to elevation. Consult Dr Cameron and wound team due to decubitius ulcers. Hold metformin due to elevated lactic acid. Will hold antihypertensives due to sepsis. SCD for DVT prevention. RT for tobacco cessation. Zofran prn nausea. Recheck CBC in am due to sepsis. Repeat BMP in am due to IVF and sepsis. Full code as per patient's request. Care to return to Dr Osman at [place] [facility] [place]06[place]16 Continue with Teflaro for antimicrobial coverage. Decrease IVF to 50 cc/hr as severe sepsis resolving. Speech to check swallow function. Check pelvis/left hip Xray due to chronic pain and immobility. Discussed with Dr Cameron-attempted bedside debridement but feel more intensive debridement needed. Anticipate surgical intervention on Saturday 09/09. Add Lovenox to SCD for DVT prevention. Recheck CBC and BMP in am due to resolving sepsis and IVF use. Continue to hold metformin due to resolving sepsis. May restart ARB as BP improved. 09/07/16 Continue with Teflaro for antimicrobial coverage. Continue IVF to 50 cc/hr to help hydration status due to resolving sepsis. Discussed bowel function with nursing - MOM to be given, if no results then suppository. Continue Lovenox for DVT prevention-will have to hold after tomorrows dose due to Sx anticipated on Friday. Sugars stable - continue to hold metformin due to resolving sepsis. Recheck CBC and BMP in am due to resolving sepsis and IVF use.
--- NOTE | 2016-09-07 11:23 | Consultation ---
DATE OF CONSULTATION 09/06/2016 FINDINGS Mr. Che is a 75-year-old gentleman who I was asked to see earlier today as a result of a left foot diabetic ulceration. Patient apparently has been seen recently in our wound center. Nursing report was that the patient was nonambulatory. Upon speaking to the wound care staff, he has been able to get out of the wheelchair and transfer from the wheelchair to the exam table. Additionally, apparently the patient "scoots himself around" in the wheelchair at his alf facility. Patient unfortunately suffers from schizophrenia. He does have a durable power of regulatory attorney. Patient had recently presented to our wound facility, and it was noted that his wound involving the plantar aspect of the left foot had significantly became worse in nature. Additionally, the nursing staff at his care facility had also noted that his overall functional status was decreasing in nature. Patient was subsequently admitted to the hospital for further evaluation. Past Medical History, Past Surgical History, Medications, Allergies, Social History, Family History, Review of Systems performed by my nurse practitioner, Herber Myles. PHYSICAL EXAMINATION GENERAL: Mr. Che is a 75-year-old gentleman who did not appear to be in acute distress. VITAL SIGNS: Temperature 98.5, pulse 86, respirations 20, blood pressure 141/74 , SaO2 98% on room air. HEENT: Normocephalic. Pupils are equally round and react to light and accommodation. CHEST: Clear to auscultation bilaterally. HEART: Regular rate and rhythm. Normal S1 and S2 without gallops, murmurs or clicks. ABDOMEN: Palpation of the abdomen reveals it to be soft and nontender. I do not appreciate any evidence for hepatosplenomegaly nor abnormal masses. BUTTOCKS: Patient was placed in the right lateral decubitus position. Patient did have a wound dressing overlying his left buttock. Wound dressing was removed. Patient does have a pressure ulceration involving the midportion of the mid/medial portion of the left buttocks. There was an area of skin breakdown on the order of about 1.5 cm in diameter. It was full-thickness in nature. The underlying subcutaneous tissue was exposed. The wound bed was void of granulation tissue at this time. EXTREMITIES: Attention was focused to the left lower extremity. Patient does have an ulceration involving the left heel. This wound was healthy and had good granulation tissue throughout. The wound itself, however, was very large and on the order of about 3 to 4 cm in greatest dimension. Patient also had a dressing upon the plantar aspect of the foot just proximal to the base of the toes. This dressing was removed. Unfortunately, the patient had philipp necrotic tissue in this wound. This wound involved the anatomic location of the fourth and fifth metatarsal heads. Debridement was undertaken. Unfortunately, there was necrotic material all the way down to the fourth and fifth metatarsal heads. There was philipp purulence within the midportion of the wound as well. The foot itself surprisingly did not appear significantly edematous in nature. NEURO: Patient did move all extremities although he appeared weak in nature, especially involving his lower extremities. LABORATORY/RADIOGRAPH EVALUATION Patient had a CBC upon admission yesterday. His white count was 10.6. Hemoglobin was slightly low at 10.4. CMP was obtained and found to have some abnormalities with increased sodium of 145. Glucose was elevated slightly at 139. Patient did have a plasma lactate level that was 1.7. Procalcitonin was normal at less than 0.05. ASSESSMENT A 75-year-old diabetic gentleman with stage III left buttocks pressure ulceration, wounds involving left foot, with associated necrosis and significant infection. PLAN At the bedside earlier today, utilizing tissue forceps and scalpel, the necrotic tissue involving the plantar aspect of the left foot was grasped and retracted outwardly and transected with a knife. A combination of skin, subcutaneous tissues, and fascia was excised down to the underlying fourth metatarsal head. One could see a fair amount of necrotic tissue still persisting within the midfoot region. Patient began to experience a moderate amount of discomfort and therefore further debridement at the bedside was not carried out. Patient had eaten earlier today. Therefore, I did not add him onto the operative schedule this afternoon. I do believe that a majority of the necrotic tissue has been debrided and the wound is adequately draining at this time. Patient is on Teflaro 600 mg IV every 12 hours at this time for management of his infection. From a surgical standpoint, I would recommend that we go ahead and obtain an arterial duplex scan to evaluate his vascular status. We will hold his Plavix. On Friday I will see if our wound staff can come over and perform a TCOM at the bedside. TCOM measurements will aid in the level of amputation and the best level of amputation if this is required. Given the fact that he does use his leg for transfer, I would like to try to "salvage his foot" if at all possible. On Friday patient will tentatively be scheduled for surgical exploration of the wound involving the left foot with excisional surgical debridement as indicated, possible left fourth and fifth toe ray amputation, possible transmetatarsal amputation, possible left below-the -knee amputation. Patient does have a durable power of regulatory attorney. On Friday we will try to discuss this with the patient's DPOA. I would recommend continuing with dressing changes over the course of the weekend as ordered. I will not be present this weekend and if surgical assistance is needed, please contact Dr. Martines. Otherwise, I will resume patient's surgical care on Friday. USNDAR
[2016-09-07] MEDS: ASCORBIC ACID 500 MG TABLET PO SCH ×2 (12:21→17:41)
[2016-09-07] MEDS: INSULIN ASPART 100unit/ml INJECTION SQ SCH ×2 (13:09→17:40)
[2016-09-07] MEDS: BISACODYL 10 MG SUPPOSITORY RECTALLY PRN (15:46)
[2016-09-07] MEDS: LATANOPROST 0.005% EYE DROPS 2.5ml RIGHT EYE SCH (21:36)
[2016-09-07] MEDS: RisperiDONE 2 MG TABLET PO SCH (21:36)
[2016-09-07] MEDS: HYDROCODONE/APAP 5mg/325mg TABLET PO PRN (21:37)
[2016-09-08] MEDS: NS 1,000 ML IV SCH ×3 (00:13→21:46)
[2016-09-08] MEDS: NS IV SCH ×3 (00:16→23:32)
[2016-09-08] MEDS: CEFTAROLINE IV SCH ×3 (00:16→23:32)
[2016-09-08] MEDS: TRAMADOL/APAP 37.5 MG/325 MG TABLET PO SCH ×2 (09:12→21:42)
[2016-09-08] MEDS: DIVALPROEX 125 MG TABLET PO SCH ×2 (09:13→21:41)
[2016-09-08] MEDS: POLYETHYL GLYCOL 3350 17gm PACKET PO SCH (09:13)
[2016-09-08] MEDS: INSULIN DETEMIR 100unit/ml INJECTION SQ SCH ×2 (09:13→17:39)
[2016-09-08] MEDS: RisperiDONE 1 MG TABLET PO SCH (09:13)
[2016-09-08] MEDS: DULOXETINE 60 MG CAPSULE PO SCH (09:13)
[2016-09-08] MEDS: ZINC GLUCONATE 50 MG TABLET PO SCH (09:13)
[2016-09-08] MEDS: MULTI-VITAMIN PLAIN TABLET PO SCH (09:13)
[2016-09-08] MEDS: ASPIRIN 81 MG CHEWABLE TABLET PO SCH (09:13)
[2016-09-08] MEDS: NICOTINE 14 MG PATCH TD SCH (09:13)
[2016-09-08] MEDS: NICOTINE PATCH REMOVAL TD SCH (09:14)
[2016-09-08] MEDS: ENOXAPARIN 40 MG/0.4 ML INJECTION SQ SCH (09:23)
[2016-09-08] MEDS: INSULIN ASPART 100unit/ml INJECTION SQ SCH ×2 (12:07→17:38)
[2016-09-08] MEDS: ASCORBIC ACID 500 MG TABLET PO SCH ×2 (13:37→17:38)
--- NOTE | 2016-09-08 15:18 | Progress Note ---
Subjective: F/U: Severe sepsis, decubitus ulcer of left foot Resting in bed, awake and interactive. No new problems. Pain to left foot controlled. Eating well. Nursing report pt did have good stool yesterday. Breathing well. No chest pain. No f/c. Objective Vital signs: Temp Pulse Resp BP Pulse Ox 96.8 F 84 18 138/81 98 09/08/16 07:28 09/08/16 07:28 09/08/16 07:28 09/08/16 07:28 09/08/16 07:28 Weight: 110.9 kg - Constitutional Present: well nourished, well developed, obese. Absent: combative, agitated - Routine HEENT Exam Head: Present: normocephalic, atraumatic Eye: Present: EOMI, PERRL ENT: Present: mucous membranes dry - Routine Respiratory Exam Present: CTA bilaterally. Absent: respiratory distress, wheezes, crackles - Routine Cardiovascular Exam Present: RRR - Routine Abdominal Exam Present: soft, normoactive bowel sounds, non distended, non tender - Routine Extremities Exam Present: edema (+1 BLE). Absent: cyanosis - Routine Musculoskeletal Exam Musculoskeletal: no clubbing or cyanosis - Routine Skin Exam Present: dry, warm, wounds (Left foot wound covered. ) - Routine Neurological Exam Present: alert, CN II-XII intact. Absent: motor deficit - Routine Psychiatric Exam Present: normal affect. Absent: anxious, agitated Results - Labs CBC & Chem 7: 09/07/16 04:14 09/07/16 04:14 Assessment and Plan (1) Severe sepsis Current visit: Yes Status: Resolved 09/05/16: Tachycardia, tachypnea, elevated lactic acid - source foot wound. (2) Decubitus ulcer of left foot, stage 4 Current visit: Yes Status: Acute (3) CAD (coronary artery disease) Current visit: Yes Status: Chronic (4) HTN (hypertension) Current visit: Yes Status: Chronic (5) Hyperlipidemia Current visit: Yes Status: Chronic (6) Type II diabetes mellitus Current visit: Yes Status: Chronic (7) COPD (chronic obstructive pulmonary disease) Current visit: Yes Status: Chronic (8) Tobacco dependence Current visit: Yes Status: Chronic (9) Dementia Current visit: Yes Status: Chronic (10) Schizophrenia Current visit: Yes Status: Chronic (11) Depression Current visit: Yes Status: Chronic (12) Hypernatremia Current visit: Yes Status: Resolved 09/05/16 19:39 POA (13) Obesity Current visit: Yes Status: Chronic Assessment and Plan: Continue with Teflaro for antimicrobial coverage. Continue IVF to 50 cc/hr to help hydration status due to resolving sepsis. Continue SCD and Lovenox for DVT prevention - hold order in place for Lovenox in anticipation of Sx tomorrow. Sugars stable - continue to hold metformin due to resolving sepsis. Recheck CBC and BMP in am due to resolving sepsis and IVF use. Will check CRP. Anticipate Sx debridement of foot tomorrow. Case discussed with CM and nursing. Time spent with pt care 25 minutes. Sepsis Assessment - Evaluation Sepsis screening result: No Definite Risk - Focused Exam Vital Signs Temp Pulse Resp BP Pulse Ox 09/08/16 07:28 96.8 F 84 18 138/81 98 Respiratory exam: Present: decreased breath sounds. Absent: accessory muscle use, rhonchi, wheezes, crackles Cardiovascular exam: Present: tachycardia (regular) Hospital Course Summary Disclaimer: The visit summary below is not to be considered part of the above Progress Note. Hospital Course: 09/05/16 Inpatient admission for treatment of severe sepsis secondary to left foot decubitus wound infection. Start Teflaro for antimicrobial coverage. IVF of NS at 75cc/hr for hydration - has received 1L bolus in ED. Recheck Lactic acid this evening due to elevation. Consult Dr Cameron and wound team due to decubitius ulcers. Hold metformin due to elevated lactic acid. Will hold antihypertensives due to sepsis. SCD for DVT prevention. RT for tobacco cessation. Zofran prn nausea. Recheck CBC in am due to sepsis. Repeat BMP in am due to IVF and sepsis. Full code as per patient's request. Care to return to Dr Osman at time of discharge from [facility] [place]. 09/06/16 Continue with Teflaro for antimicrobial coverage. Decrease IVF to 50 cc/hr as severe sepsis resolving. Speech to check swallow function. Check pelvis/left hip Xray due to chronic pain and immobility. Discussed with Dr Cameron-attempted bedside debridement but feel more intensive debridement needed. Anticipate surgical intervention on Saturday 09/09. Add Lovenox to SCD for DVT prevention. Recheck CBC and BMP in am due to resolving sepsis and IVF use. Continue to hold metformin due to resolving sepsis. May restart ARB as BP improved. 09/07/16 Continue with Teflaro for antimicrobial coverage. Continue IVF to 50 cc/hr to help hydration status due to resolving sepsis. Discussed bowel function with nursing - MOM to be given, if no results then suppository. Continue Lovenox for DVT prevention-will have to hold after tomorrows dose due to Sx anticipated on Friday. Sugars stable - continue to hold metformin due to resolving sepsis. 09/08/16 Continue with Teflaro for antimicrobial coverage. Continue IVF to 50 cc/hr to help hydration status due to resolving sepsis. Continue SCD and Lovenox for DVT prevention - hold order in place for Lovenox in anticipation of Sx tomorrow. Sugars stable - continue to hold metformin due to resolving sepsis. Recheck CBC and BMP in am due to resolving sepsis and IVF use. Will check CRP. Anticipate Sx debridement of foot tomorrow.
[2016-09-08] MEDS: RisperiDONE 2 MG TABLET PO SCH (21:42)
[2016-09-08] MEDS: LATANOPROST 0.005% EYE DROPS 2.5ml RIGHT EYE SCH (21:45)
--- NOTE | 2016-09-08 23:25 | Ultrasound Report ---
Indication: Foot wound, Diabetes PROCEDURE: US arterial duplex LE LT: Technique: Grayscale color and duplex Doppler imaging was performed of the arterial tree of the left leg. Findings: LEFT LEG (cm/sec) Common Femoral 166 Superficial Femoral Proximal 144 Mid 127 Distal 139 Popliteal 117 ALON-prox 52.6 TRANSIT PLANNING DIRECTOR-prox 146 ALON-dist 33 TRANSIT PLANNING DIRECTOR-dist 91.3 IMPRESSION: Dampened waveforms throughout the left lower extremity arteries below the proximal SFA suggesting a moderate stenosis with diffusely calcified vessels. No complete occlusion. There is a preliminary report by [facility]. .
[2016-09-09] MEDS: INSULIN DETEMIR 100unit/ml INJECTION SQ SCH ×2 (09:08→18:12)
[2016-09-09] MEDS: NICOTINE PATCH REMOVAL TD SCH (09:08)
[2016-09-09] MEDS: DIVALPROEX 125 MG TABLET PO SCH ×2 (09:08→22:49)
[2016-09-09] MEDS: DULOXETINE 60 MG CAPSULE PO SCH (09:08)
[2016-09-09] MEDS: RisperiDONE 1 MG TABLET PO SCH (09:08)
[2016-09-09] MEDS: NICOTINE 14 MG PATCH TD SCH (09:08)
[2016-09-09] MEDS: POLYETHYL GLYCOL 3350 17gm PACKET PO SCH (09:35)
[2016-09-09] MEDS: TRAMADOL/APAP 37.5 MG/325 MG TABLET PO SCH ×2 (09:36→22:48)
[2016-09-09] MEDS: MULTI-VITAMIN PLAIN TABLET PO SCH (09:36)
[2016-09-09] MEDS: ZINC GLUCONATE 50 MG TABLET PO SCH (09:36)
[2016-09-09] MEDS: NS IV SCH (13:06)
[2016-09-09] MEDS: CEFTAROLINE IV SCH (13:06)
[2016-09-09] MEDS: INSULIN ASPART 100unit/ml INJECTION SQ SCH ×2 (13:10→18:13)
[2016-09-09] MEDS: ASCORBIC ACID 500 MG TABLET PO SCH ×2 (13:11→18:12)
--- NOTE | 2016-09-09 13:22 | Progress Note ---
<Martine Veliz - Last Filed: 09/09/16 13:19> Subjective: Yordan was in bed, watching television. He was without complaints. Denied any trouble breathing, or abdominal discomfort. He is going to have surgery this afternoon on his left foot. He didn't offer much further conversation, but asked what I listen for when I listen to his lungs. Objective Vital signs: Temp Pulse Resp BP Pulse Ox 97.5 F 82 18 128/65 96 09/09/16 08:00 09/09/16 08:00 09/09/16 08:00 09/09/16 08:00 09/09/16 08:00 Weight: 110.9 kg - Constitutional Present: well nourished, well developed, obese. Absent: combative, agitated - Routine HEENT Exam ENT: Present: mucous membranes moist - Routine Respiratory Exam Present: CTA bilaterally - Routine Cardiovascular Exam Present: S1, S2 - Routine Abdominal Exam Present: normoactive bowel sounds, non distended - Routine Extremities Exam Present: no edema - Routine Skin Exam Present: intact, warm Comments: gauze dressing over left foot - this was not removed as sx is planned later this afternoon - Routine Neurological Exam Present: alert. Absent: altered mental status - Routine Psychiatric Exam Present: normal affect Results - Labs CBC & Chem 7: 09/09/16 04:48 09/09/16 04:48 Assessment and Plan (1) Decubitus ulcer of left foot, stage 4 Current visit: Yes Status: Acute (2) Severe sepsis Current visit: Yes Status: Resolved 09/05/16: Tachycardia, tachypnea, elevated lactic acid - source foot wound. (3) CAD (coronary artery disease) Current visit: Yes Status: Chronic (4) HTN (hypertension) Current visit: Yes Status: Chronic (5) Hyperlipidemia Current visit: Yes Status: Chronic (6) Type II diabetes mellitus Current visit: Yes Status: Chronic (7) COPD (chronic obstructive pulmonary disease) Current visit: Yes Status: Chronic (8) Tobacco dependence Current visit: Yes Status: Chronic (9) Dementia Current visit: Yes Status: Chronic (10) Schizophrenia Current visit: Yes Status: Chronic (11) Depression Current visit: Yes Status: Chronic (12) Obesity Current visit: Yes Status: Chronic (13) Hypernatremia Current visit: Yes Status: Resolved 09/05/16 19:39 POA Assessment and Plan: Stage IV left foot ulcer -Wound cx reviewed - proteus mirabilis (moderate growth), staphylococcus aureus (light growth), & enterococcus faecium (moderate growth) - Teflaro was discontinued and Vancomycin was started to cover enterococcus and staph. Will start Rocephin to cover proteus. -severe sepsis resolved (lactate normalized); VSS; no lingering SIRS criteria -CRP decreased to 18.18 -surgical exploration/debridement is planned for this afternoon - may need amputation -Since he is NPO Levemir dose was reduced and NovoLog was held. -Discussed with Dr. Giron Sepsis Assessment - Evaluation Sepsis screening result: No Definite Risk - Focused Exam Vital Signs Temp Pulse Resp BP Pulse Ox 09/09/16 08:00 97.5 F 82 18 128/65 96 Respiratory exam: Present: decreased breath sounds. Absent: accessory muscle use, rhonchi, wheezes, crackles Cardiovascular exam: Present: tachycardia (regular) Hospital Course Summary Disclaimer: The visit summary below is not to be considered part of the above Progress Note. Hospital Course: 09/05/16 Inpatient admission for treatment of severe sepsis secondary to left foot decubitus wound infection. Start Teflaro for antimicrobial coverage. IVF of NS at 75cc/hr for hydration - has received 1L bolus in ED. Recheck Lactic acid this evening due to elevation. Consult Dr Cameron and wound team due to decubitius ulcers. Hold metformin due to elevated lactic acid. Will hold antihypertensives due to sepsis. SCD for DVT prevention. RT for tobacco cessation. Zofran prn nausea. Recheck CBC in am due to sepsis. Repeat BMP in am due to IVF and sepsis. Full code as per patient's request. Care to return to Dr Osman at time of discharge from [facility] [place]. 09/06/16 Continue with Teflaro for antimicrobial coverage. Decrease IVF to 50 cc/hr as severe sepsis resolving. Speech to check swallow function. Check pelvis/left hip Xray due to chronic pain and immobility. Discussed with Dr Cameron-attempted bedside debridement but feel more intensive debridement needed. Anticipate surgical intervention on Saturday 09/09. Add Lovenox to SCD for DVT prevention. Recheck CBC and BMP in am due to resolving sepsis and IVF use. Continue to hold metformin due to resolving sepsis. May restart ARB as BP improved. 09/07/16 Continue with Teflaro for antimicrobial coverage. Continue IVF to 50 cc/hr to help hydration status due to resolving sepsis. Discussed bowel function with nursing - MOM to be given, if no results then suppository. Continue Lovenox for DVT prevention-will have to hold after tomorrows dose due to Sx anticipated on Friday. Sugars stable - continue to hold metformin due to resolving sepsis. 09/08/16 Continue with Teflaro for antimicrobial coverage. Continue IVF to 50 cc/hr to help hydration status due to resolving sepsis. Continue SCD and Lovenox for DVT prevention - hold order in place for Lovenox in anticipation of Sx tomorrow. Sugars stable - continue to hold metformin due to resolving sepsis. Recheck CBC and BMP in am due to resolving sepsis and IVF use. Will check CRP. Anticipate Sx debridement of foot tomorrow. 09/09/16 Stage IV left foot ulcer -Wound cx reviewed - proteus mirabilis (moderate growth), staphylococcus aureus (light growth), & enterococcus faecium (moderate growth) - Teflaro was discontinued and Vancomycin was started to cover enterococcus and staph. Will start Rocephin to cover proteus. -severe sepsis resolved (lactate normalized); VSS; no lingering SIRS criteria -CRP decreased to 18.18 -surgical exploration/debridement is planned for this afternoon - may need amputation -Since he is NPO Levemir dose was reduced and NovoLog was held. <Rayshawn Giron - Last Filed: 09/09/16 14:53> Objective Vital signs: Temp Pulse Resp BP Pulse Ox 97.5 F 82 18 128/65 96 09/09/16 08:00 09/09/16 08:00 09/09/16 08:00 09/09/16 08:00 09/09/16 08:00 Results - Labs CBC & Chem 7: 09/09/16 04:48 09/09/16 04:48 Assessment and Plan (1) Severe sepsis Current visit: Yes Status: Resolved (2) Decubitus ulcer of left foot, stage 4 Current visit: Yes Status: Acute (3) Peripheral vascular disease of extremity Current visit: Yes Status: Acute (4) CAD (coronary artery disease) Current visit: Yes Status: Chronic (5) HTN (hypertension) Current visit: Yes Status: Chronic (6) Hyperlipidemia Current visit: Yes Status: Chronic (7) Type II diabetes mellitus Current visit: Yes Status: Chronic (8) COPD (chronic obstructive pulmonary disease) Current visit: Yes Status: Chronic (9) Tobacco dependence Current visit: Yes Status: Chronic (10) Dementia Current visit: Yes Status: Chronic (11) Schizophrenia Current visit: Yes Status: Chronic (12) Depression Current visit: Yes Status: Chronic (13) Hypernatremia Current visit: Yes Status: Resolved (14) Obesity Current visit: Yes Status: Chronic Assessment and Plan: Have independently interviewed and examined pt. Chart reviewed. Case discussed with Dr Cameron and my [employer]SEM[employer] INSPECT[employer] HEL[employer]. Care plan developed with my supervision; agree with above. Resting in bed this afternoon-feels sleepy. Breathing feel well. No nausea or ab pain. Not complaining of foot pain. Lungs: decreased, no distress CV: regular AB: soft NT/ND +BS MSE: awake appropriate GEN: looks tired Plan: Change antibiotics to Vanco and Rocephin for improved wound coverage. Will place PICC line due to need for Vanco. Discussed case with Dr Cameron- with arterial doppler showing evidence of decreased blood flow and decrease O2 delivery noted to foot, Dr Cameron recommends on holding surgical debridement for now due to concern for lack of ability to heal post. Will consult Dr Deluna for vascular evaluation of LE and potential revascularization procedure. Sepsis Assessment - Focused Exam Vital Signs Temp Pulse Resp BP Pulse Ox 09/09/16 08:00 97.5 F 82 18 128/65 96 Hospital Course Summary Disclaimer: The visit summary below is not to be considered part of the above Progress Note.
[2016-09-09] MEDS ORDERED: BUPIVACAINE 0.25%/EPI 1:200,000 30ml SDV ONE (13:24)
--- NOTE | 2016-09-09 13:37 | Pharmacy Consult-Antibiotics ---
Pharmacy Consult-Vancomycin - Laboratory Information WBC 8.7 T/MM3 (4.5-11.0) 09/09/16 04:48 BUN 10.0 MG/DL (9-20) 09/09/16 04:48 Creatinine 0.5 MG/DL (0.8-1.5) L 09/09/16 04:48 Procalcitonin < 0.05 NG/ML 09/05/16 16:41 - Consult Information Order noted to begin vancomycin therapy on Mr Che, who is 75 yrs old and weighs 110.9kg. He has a left heel ulcer. Based on his age,weight and serum creatinine, we will begin vancomycin 2000mg IV q12h. Will continue to monitor and adjust accordingly. Thank you,
[2016-09-09] MEDS ORDERED: CEFTRIAXONE 1 G in NS 100 ML IV SCH (14:30)
--- NOTE | 2016-09-09 15:48 | Cardiology Consult Note ---
History of Present Illness Consult date: 09/09/16 <Stephanie Sandy [facility] 09/09/16 15:54> Requesting physician: Rayshawn Giron <Stephanie Sandy [facility] 09/09/16 15:54> Chief complaint: Left foot ulceration <Stephanie Sandy 09/09/16 15:54> History of present illness: Yordan is a 75 year old male who presented to ED from Wound clinic secondary to worsening decubitus ulcer of left foot on August 06, 2016. Initially seen in Wound Clinic August 01. Receiving treatments there and at his nursing facility. He reported increasing pain to left foot for the past week. During this time, feeling more tire and weak-not having much energy or drive. Not certain if having fevers or chills. Appetite with decrease. Presented to Wound clinic for evaluation. Seen by Dr Enriquez who was very concerned about drainage from wound and how patient was looking - set to ED for evaluation. In ED, he was tachycardic and tachypnic; blood pressure not decreased. WBC upper limits of normal but Lactic acid elevated (is on metformin which may be contributing to some elevation of lactic acid). With patient's severe sepsis secondary to decubitus ulcer, Dr Giron notified and patient place in inpatient admission for IV antibiotics, IVF, and surgical consult for debridement of wound. Today Dr. Deluna was consulted for Left foot ulceration, DM; PVD - ? revacularization. <Stephanie Sandy [facility] 09/09/16 15:54> Review of Systems - Constitutional Constitutional: Present: fatigue, lethargy, weakness <Stephanie Sandy 15:54> - EENMT Eyes: Absent: change in vision <Stephanie Sandy [facility] 09/09/16 15:54> Mouth/Throat: Present: dry mouth <Stephanie Sandy [facility] 09/09/16 15:54> - Cardiovascular Cardiovascular: Present: edema (Lower ext). Absent: chest pain, palpitations <Stephanie Sandy 09/09/16 15:54> - Respiratory Respiratory: Present: dyspnea (slight). Absent: cough, chest congestion < Stephanie Sandy 09/09/16 15:54> - Gastrointestinal Gastrointestinal: Present: other (Apetite decreased ). Absent: abdominal pain, change in bowel habits, constipation, diarrhea, nausea <VikaStephanie 09/09 15:54> - Genitourinary Genitourinary: Present: dysuria <VikaStephanie 09/09/16 15:54> - Musculoskeletal Musculoskeletal: Present: muscle weakness (legs feel more weak ), other ( Ambulated with wheelchair assistance.) <VikaStephanie carter 09/09/16 15:54> - Integumentary/Breasts Integumentary: Present: as per HPI <VikaStephanie Zuri 09/09/16 15:54> - Neurological Neurological: Present: weakness (Generalized, as well as legs more weak.) < VikaStephanie carter 09/09/16 15:54> [facility] Patient Stated Medical History Dementia Yes Glaucoma Yes Hypertension Yes Chronic Obstructive Pulmonary Yes Disease (COPD) Diabetes Mellitus Type 2 Yes: IDDM Gastroesophageal Reflux Yes Disease Other GI Yes: CONSTIPATION Hx Renal Disease No Other Musculoskeletal Yes: OSTEOMYELITIS Depression Yes Schizophrenia Yes Other Behavioral Health Yes: PSYCHOSIS <Genaro Deluna - 09/12/16 13:54> Patient Stated Medical History Dementia Yes Glaucoma Yes Hypertension Yes Chronic Obstructive Pulmonary Yes Disease (COPD) Diabetes Mellitus Type 2 Yes: IDDM Gastroesophageal Reflux Yes Disease Other GI Yes: CONSTIPATION Other Musculoskeletal Yes: OSTEOMYELITIS Depression Yes Schizophrenia Yes Other Behavioral Health Yes: PSYCHOSIS <VikaStephanie Keating 09/09/16 15:54> Medical History Updates: CAD, hyperlipidemia, Schizophrenia, obesity <VikaStephanie carter Zuri 09/09/16 15:54> Surgical History: Hip arthroplasty <VikaStephanie carter 09/09/16 15:54> - Social History Smoking status: Current every day smoker <VikaStephanie carter Zuri 09/09/16 15:54> Current residence: [facility] <VikaStephanie carter 09/09/16 15:54> Medications Home Medications Medication Instructions Recorded Confirmed Type Aspirin 81 mg PO DAILY #0 02/22/16 09/05/16 History Insulin Aspart [Novolog Flexpen] 23 unit SQ BIDLS #0 02/22/16 09/05/16 History Latanoprost 1 drop BOTH EYES HS #0 02/22/16 09/05/16 History Metformin HCl 1,000 mg PO DAILY #0 02/22/16 09/05/16 History Insulin Lispro [HumaLOG] 22 unit SQ WB #0 vial 06/26/16 09/05/16 History Acetaminophen 650 mg PO Q6H PRN 09/05/16 09/05/16 History Amoxicillin/Potassium Clav 1 tab PO BID 09/05/16 09/05/16 History [Augmentin 875-125 Tablet] Ascorbic Acid 500 mg PO BIDLS 09/05/16 09/05/16 History Benztropine [Cogentin] 1 mg PO QID PRN 09/05/16 09/05/16 History Bisacodyl Supp [Dulcolax] 1 mg RECTALLY DAILY PRN 09/05/16 09/05/16 History Calmoseptine [Risamine Oint] 1 applic TOP BID PRN 09/05/16 09/05/16 History Clopidogrel [Plavix] 75 mg PO DAILY 09/05/16 09/05/16 History Divalproex [Depakote] 500 mg PO BID 09/05/16 09/05/16 History Duloxetine HCl [Cymbalta] 60 mg PO DAILY 09/05/16 09/05/16 History Hydrocodone/APAP 5/325 [[place] 1 tab PO Q8H PRN 09/05/16 09/05/16 History 5/325] Insulin Detemir [Levemir] 50 unit SQ BIDBS 09/05/16 09/05/16 History LORazepam [Ativan] 1 mg PO HS PRN 09/05/16 09/05/16 History Losartan Potassium 25 mg PO DAILY 09/05/16 09/05/16 History Mag Hydrox/Aluminum Hyd/Simeth 30 ml PO Q6H PRN 09/05/16 09/05/16 History [Maalox Advanced Suspension] Magnesium Hydroxide [Milk of 2,400 mg PO DAILY PRN 09/05/16 09/05/16 History Magnesia] Menthol [Biofreeze] 1 applic TP Q6H PRN 09/05/16 09/05/16 History Multivitamin [Multivitamins] 1 tab PO DAILY 09/05/16 09/05/16 History RisperiDONE [RisperDAL] 1 mg PO QAM 09/05/16 09/05/16 History Tramadol/APAP 37.5/325 [Ultracet] 1 tab PO BID 09/05/16 09/05/16 History Zinc Sulfate 220 mg PO DAILY 09/05/16 09/05/16 History <RegiGerhardGenaro - 09/12/16 13:54> Allergies Allergy/AdvReac Type Severity Reaction Status Date / Time No Known Drug Allergies Allergy Verified 09/06/16 13:38 No Known Adverse Drug AdvReac Verified 09/06/16 13:38 Reactions <RegiGenaro - 09/12/16 13:54> Exam Vital signs: Temp Pulse Resp BP Pulse Ox 98.1 F 83 18 131/77 94 09/12/16 07:27 09/12/16 07:27 09/12/16 07:27 09/12/16 07:27 09/12/16 07:27 <Genaro Deluna - 09/12/16 13:54> Temp Pulse Resp BP Pulse Ox 97.5 F 82 18 128/65 96 09/09/16 08:00 09/09/16 08:00 09/09/16 08:00 09/09/16 08:00 09/09/16 08:00 <Stephanie Sandy [facility] 09/09/16 15:54> - Constitutional no acute distress, well developed, cooperative <Stephanie Sandy [facility] 09/09/16 16: 48> - Routine HEENT Exam ENT: Present: mucous membranes moist <Stephanie Sandy [facility] 09/09/16 16:48> - Routine Neck Exam Absent: JVD, carotid bruit <Stephanie Sandy [facility] 09/09/16 16:48> - Routine Chest/Breast/Axilla Exam Chest wall: Absent: tenderness <Stephanie Sandy [facility] 09/09/16 16:48> - Routine Respiratory Exam Present: CTA bilaterally. Absent: rales, wheezes <Stephanie Sandy 09/09/16 16:48> - Routine Cardiovascular Exam Present: RRR, no murmur <Stephanie Sandy 09/09/16 16:48> - Routine Abdominal Exam Present: soft, normoactive bowel sounds <Stephanie Sandy 09/09/16 16:48> - Detailed Extremities Exam: Vascular Peripheral pulses: 0 dorsalis pedis (L), 1+ posterior tibialis (L) <Stephanie Sandy - 09/09/16 16:48> - Routine Skin Exam Present: wounds (left foot) <Stephanie Sandy - 09/09/16 16:48> - Routine Neurological Exam Present: alert <Stephanie Sandy - 09/09/16 16:48> - Routine Psychiatric Exam Present: normal affect <Stephanie Sandy - 09/09/16 16:48> Results 09/12/16 01:46 09/12/16 01:46 <Genaro Deluna - 09/12/16 13:54> Cardiac Enzymes 09/12/16 Range/Units 01:46 AST 15 L (17-59) U/L CBC 09/12/16 Range/Units 01:46 WBC 8.7 (4.5-11.0) T/MM3 RBC 3.52 L (4.50-5.90) M/MM3 Hgb 10.6 L (13.5-17.5) GM/DL Hct 32.9 L (41-53) % Plt Count 384 (130-400) T/MM3 Neut # 5.0 (1.8-7.7) T/MM3 Lymph # 2.6 (1-4.8) T/MM3 [place] # 0.8 (0-0.8) T/MM3 Eos # 0.3 (0-0.5) T/MM3 Baso # 0.1 (0-0.2) T/MM3 Comprehensive Metabolic Panel 09/12/16 Range/Units 01:46 Sodium 143 (134-144) MEQ/L Potassium 4.1 (3.6-5) MEQ/L Chloride 105 (98-107) MEQ/L Carbon Dioxide 28 (22-30) MEQ/L BUN 10.0 (9-20) MG/DL Creatinine 0.5 L (0.8-1.5) MG/DL Glucose 81 (75-110) MG/DL Calcium 9.5 (8.4-10.2) MG/DL AST 15 L (17-59) U/L ALT 28 (21-72) U/L Alkaline Phosphatase 68 (38-126) U/L Total Protein 6.8 (6.3-8.2) G/DL Albumin 3.4 L (3.5-5.0) G/DL Intake and Output 09/11/16 09/12/16 09/12/16 22:59 06:59 14:59 Intake Total 775.833 / 775.833 681.668 / 681.668 452.500 / 452.500 Output Total 225 / 225 1150 / 1150 1600 / 1600 Balance 550.833 / 550.833 -468.332 / -468.332 -1147.500 / -1147.500 Intake: IV 775.833 / 775.833 681.668 / 681.668 452.500 / 452.500 Rocephin 1 G In Normal 100 / 100 Saline 100 ml @ 200 mls/ hr IV DAILY LA Rx#: [id number] Normal Saline 1,000 ml @ 275.833 / 275.833 181.668 / 181.668 352.500 / 352.500 50 mls/hr IV .Q20H LA Rx #:[id number] Vancocin 2,000 mg In 500 / 500 500 / 500 Normal Saline 500 ml @ 250 mls/hr IV Q12H LA Rx #:[id number] Output: Urine 225 / 225 1150 / 1150 1600 / 1600 Other: # Incontinent Voids 1 1 # Bowel Movements 1 # Incontinent Bowel 1 1 Movements Weight 111.2 kg Patient Weight 09/13/16 06:59 Weight 111.2 kg <Genaro Deluna - 09/12/16 13:54> CBC 09/09/16 Range/Units 04:48 WBC 8.7 (4.5-11.0) T/MM3 RBC 3.71 L (4.50-5.90) M/MM3 Hgb 11.1 L (13.5-17.5) GM/DL Hct 34.3 L (41-53) % Plt Count 395 (130-400) T/MM3 Neut # 5.4 (1.8-7.7) T/MM3 Lymph # 2.1 (1-4.8) T/MM3 [place] # 0.8 (0-0.8) T/MM3 Eos # 0.3 (0-0.5) T/MM3 Baso # 0.0 (0-0.2) T/MM3 Comprehensive Metabolic Panel 09/09/16 Range/Units 04:48 Sodium 143 (134-144) MEQ/L Potassium 4.5 (3.6-5) MEQ/L Chloride 106 (98-107) MEQ/L Carbon Dioxide 27 (22-30) MEQ/L BUN 10.0 (9-20) MG/DL Creatinine 0.5 L (0.8-1.5) MG/DL Glucose 118 H (75-110) MG/DL Calcium 9.4 (8.4-10.2) MG/DL Intake and Output 09/09/16 09/09/16 09/09/16 06:59 14:59 22:59 Intake Total 213.333 / 213.333 Output Total 825 / 825 725 / 725 Balance -611.667 / -611.667 -725 / -725 Intake: IV 213.333 / 213.333 Teflaro 600 mg In Normal 100 / 100 Saline 100 ml @ 200 mls/ hr IV Q12H LA Rx#: [id number] Normal Saline 1,000 ml @ 113.333 / 113.333 50 mls/hr IV .Q20H LA Rx #:[id number] Output: Urine 825 / 825 725 / 725 Other: Weight 244 lb 7.882 oz Patient Weight 09/10/16 06:59 Weight 244 lb 7.882 oz Laboratory Results - last 48 hr 09/07/16 09/07/16 09/07/16 11:34 17:04 21:16 WBC RBC Hgb Hct MCV MCH MCHC RDW Std Deviation Plt Count MPV Immature Gran % (Auto) Neut % (Auto) Lymph % (Auto) [place] % (Auto) Eos % (Auto) Baso % (Auto) Neut # Lymph # [place] # Eos # Baso # Abs Immat Gran (auto) Turbidity Sodium Potassium Chloride Carbon Dioxide Anion Gap BUN Creatinine GFR Calculation BUN/Creatinine Ratio Glucose Glucometer 201 113 99 Calculated Osmolality Calcium Icterus Index C-Reactive Protein Specimen Hemolysis 09/08/16 09/08/16 09/08/16 06:15 11:40 17:33 WBC RBC Hgb Hct MCV MCH MCHC RDW Std Deviation Plt Count MPV Immature Gran % (Auto) Neut % (Auto) Lymph % (Auto) [place] % (Auto) Eos % (Auto) Baso % (Auto) Neut # Lymph # [place] # Eos # Baso # Abs Immat Gran (auto) Turbidity Sodium Potassium Chloride Carbon Dioxide Anion Gap BUN Creatinine GFR Calculation BUN/Creatinine Ratio Glucose Glucometer 139 211 191 Calculated Osmolality Calcium Icterus Index C-Reactive Protein Specimen Hemolysis 09/08/16 09/09/16 09/09/16 20:54 04:48 04:48 WBC 8.7 RBC 3.71 L Hgb 11.1 L Hct 34.3 L MCV 92.5 MCH 29.9 MCHC 32.4 RDW Std Deviation 46.7 Plt Count 395 MPV 8.9 L Immature Gran % (Auto) 0.1 Neut % (Auto) 62.2 Lymph % (Auto) 24.1 [place] % (Auto) 9.5 H Eos % (Auto) 3.6 Baso % (Auto) 0.5 Neut # 5.4 Lymph # 2.1 [place] # 0.8 Eos # 0.3 Baso # 0.0 Abs Immat Gran (auto) 0.01 Turbidity < 20 Sodium 143 Potassium 4.5 Chloride 106 Carbon Dioxide 27 Anion Gap 10 BUN 10.0 Creatinine 0.5 L GFR Calculation 163 BUN/Creatinine Ratio 20 Glucose 118 H Glucometer 171 Calculated Osmolality 275 Calcium 9.4 Icterus Index < 2 C-Reactive Protein 18.8 H Specimen Hemolysis 20 09/09/16 09/09/16 06:45 11:33 WBC RBC Hgb Hct MCV MCH MCHC RDW Std Deviation Plt Count MPV Immature Gran % (Auto) Neut % (Auto) Lymph % (Auto) [place] % (Auto) Eos % (Auto) Baso % (Auto) Neut # Lymph # [place] # Eos # Baso # Abs Immat Gran (auto) Turbidity Sodium Potassium Chloride Carbon Dioxide Anion Gap BUN Creatinine GFR Calculation BUN/Creatinine Ratio Glucose Glucometer 139 130 Calculated Osmolality Calcium Icterus Index C-Reactive Protein Specimen Hemolysis <Stephanie Sandy - 09/09/16 16:48> - Imaging and Cardiology Imaging & Cardiology Narrative: = = = = = = = = = = = = = = = = = = = = = = = = = = = = = = = = = = = = = = = = = = = = = = = = = = = = = = = = = = = Date of Exam: 09/06/16 Ordering Provider: Rayshawn Giron MD Type of Exam(s): US arterial duplex LE LT Reason for Exam(s): Foot wound, Diabetes Indication: Foot wound, Diabetes PROCEDURE: US arterial duplex LE LT: Technique: Grayscale color and duplex Doppler imaging was performed of the arterial tree of the left leg. Findings: LEFT LEG (cm/sec) Common Femoral 166 Superficial Femoral Proximal 144 Mid 127 Distal 139 Popliteal 117 ALON-prox 52.6 SENIOR DESIGNER-prox 146 ALON-dist 33 SENIOR DESIGNER-dist 91.3 IMPRESSION: Dampened waveforms throughout the left lower extremity arteries below the proximal SFA suggesting a moderate stenosis with diffusely calcified vessels. No complete occlusion. Date of Exam: 09/06/16 Ordering Provider: Rayshawn Giron MD Type of Exam(s): XR pelvis w/ 2 view LT hip Reason for Exam(s): Chronic left hip pain Indication: Chronic left hip pain PROCEDURE: XR pelvis w/ 2 view LT hip: Encounter: Initial Comparison: None Findings: There is no acute fracture, dislocation or malalignment identified. Left hip hemiprosthesis appears intact. Adjacent heterotopic ossification. Mild joint space narrowing in the right hip. Arterial vascular calcifications. Left superficial femoral area vascular stents. Impression: No acute osseous abnormality. <Stephanie Sandy - 09/09/16 15:54> Assessment and Plan (1) Decubitus ulcer of left foot, stage 4 Current visit: Yes Status: Acute (2) Severe sepsis Current visit: Yes Status: Resolved (3) CAD (coronary artery disease) Current visit: Yes Status: Chronic (4) HTN (hypertension) Current visit: Yes Status: Chronic (5) Hyperlipidemia Current visit: Yes Status: Chronic (6) Type II diabetes mellitus Current visit: Yes Status: Chronic (7) Tobacco dependence Current visit: Yes Status: Chronic (8) Peripheral vascular disease of extremity Problem details: LE arterial Duplex: proximal SFA suggesting a moderate stenosis with diffusely calcified vessels. No complete occlusion. Current visit: Yes Status: Acute (9) Atrial flutter Current visit: Yes Status: Acute <Genaro Deluna - 09/12/16 13:54> (1) Decubitus ulcer of left foot, stage 4 Current visit: Yes Status: Acute LE arterial Duplex: proximal SFA suggesting a moderate stenosis with diffusely calcified vessels. No complete occlusion. Plan LE angiogram with possible SENIOR DESIGNER/ Stent tomorrow afternoon (2) Peripheral vascular disease of extremity Current visit: Yes Status: Acute (3) Severe sepsis Current visit: Yes Status: Resolved (4) CAD (coronary artery disease) Current visit: Yes Status: Chronic (5) HTN (hypertension) Current visit: Yes Status: Chronic (6) Hyperlipidemia Current visit: Yes Status: Chronic (7) Type II diabetes mellitus Current visit: Yes Status: Chronic (8) Tobacco dependence Current visit: Yes Status: Chronic <Stephanie Sandy - 09/09/16 16:41> Hospital Course Summary Disclaimer: The visit summary below is not to be considered part of the above Progress Note. <DorcasGenaro colvin - 09/12/16 13:54> The visit summary below is not to be considered part of the above Progress Note. <Stephanie Sandy Zuri - 09/09/16 15:54> Hospital Course: Recommendation After examining the patient I agree with the above assessment. I am involved in the formulation of the patient's plan of care. <Genaro Deluna - 09/12/16 13:54> 09/05/16 Inpatient admission for treatment of severe sepsis secondary to left foot decubitus wound infection. Start Teflaro for antimicrobial coverage. IVF of NS at 75cc/hr for hydration - has received 1L bolus in ED. Recheck Lactic acid this evening due to elevation. Consult Dr Cameron and wound team due to decubitius ulcers. Hold metformin due to elevated lactic acid. Will hold antihypertensives due to sepsis. SCD for DVT prevention. RT for tobacco cessation. Zofran prn nausea. Recheck CBC in am due to sepsis. Repeat BMP in am due to IVF and sepsis. Full code as per patient's request. Care to return to Dr Osman at time of discharge from [facility]. 09/06/16 Continue with Teflaro for antimicrobial coverage. Decrease IVF to 50 cc/hr as severe sepsis resolving. Speech to check swallow function. Check pelvis/left hip Xray due to chronic pain and immobility. Discussed with Dr Cameron-attempted bedside debridement but feel more intensive debridement needed. Anticipate surgical intervention on Saturday 09/09. Add Lovenox to SCD for DVT prevention. Recheck CBC and BMP in am due to resolving sepsis and IVF use. Continue to hold metformin due to resolving sepsis. May restart ARB as BP improved. 09/07/16 Continue with Teflaro for antimicrobial coverage. Continue IVF to 50 cc/hr to help hydration status due to resolving sepsis. Discussed bowel function with nursing - MOM to be given, if no results then suppository. Continue Lovenox for DVT prevention-will have to hold after tomorrows dose due to Sx anticipated on Friday. Sugars stable - continue to hold metformin due to resolving sepsis. 09/08/16 Continue with Teflaro for antimicrobial coverage. Continue IVF to 50 cc/hr to help hydration status due to resolving sepsis. Continue SCD and Lovenox for DVT prevention - hold order in place for Lovenox in anticipation of Sx tomorrow. Sugars stable - continue to hold metformin due to resolving sepsis. Recheck CBC and BMP in am due to resolving sepsis and IVF use. Will check CRP. Anticipate Sx debridement of foot tomorrow. 09/09/16 Stage IV left foot ulcer -Wound cx reviewed - proteus mirabilis (moderate growth), staphylococcus aureus (light growth), & enterococcus faecium (moderate growth) - Teflaro was discontinued and Vancomycin was started to cover enterococcus and staph. Will start Rocephin to cover proteus. -severe sepsis resolved (lactate normalized); VSS; no lingering SIRS criteria -CRP decreased to 18.18 -surgical exploration/debridement is planned for this afternoon - may need amputation -Since he is NPO Levemir dose was reduced and NovoLog was held. 09/09/16 16:47 LE arterial Duplex: proximal SFA suggesting a moderate stenosis with diffusely calcified vessels. No complete occlusion. Plan LE angiogram with possible SENIOR DESIGNER/ Stent tomorrow afternoon. Thank you for allowing us to participate in this patient's care. <Stephanie Sandy - 09/09/16 16:48> Sepsis Assessment - Evaluation Sepsis screening result: No Definite Risk <Stephanie Sandy 09/09/16 15:54> - Focused Exam Vital Signs Temp Pulse Resp BP Pulse Ox 09/09/16 08:00 97.5 F 82 18 128/65 96 <Stephanie Sandy 09/09/16 15:54> Respiratory exam: Present: decreased breath sounds. Absent: accessory muscle use, rhonchi, wheezes, crackles <Stephanie Sandy 09/09/16 15:54> Cardiovascular exam: Present: tachycardia (regular) <Stephanie Sandy 15:54>
[2016-09-09] MEDS: CEFTRIAXONE 1 G in NS 100 ML IV SCH (17:39)
[2016-09-09] MEDS: HYDROCODONE/APAP 5mg/325mg TABLET PO PRN (18:12)
--- NOTE | 2016-09-09 18:13 | Progress Note ---
DATE OF SERVICE 09/09/2016 FINDINGS Mr. Che was without complaints today. PHYSICAL EXAM VITAL SIGNS: Afebrile, normotensive. Last recorded vitals include temperature 97.5, pulse 82, respirations 18, blood pressure 128/65, SAO2 96% on room air. CHEST: Clear to auscultation bilaterally. HEART: Regular rate and rhythm. Normal S1 and S2 without gallops, murmurs or clicks. EXTREMITIES: Attention was focused to the left lower extremity. There is still a fair amount of gangrenous tissue present within the midportion of the ulceration overlying the anatomic location of the fourth and fifth metatarsal head. There is some granulation tissue now beginning to form along the edges of the ulcer itself. One can stick a hemostat within the wound and advance it distally towards the base of the fourth and fifth toes. The patient began to complain of discomfort and therefore debridement was not carried out at the bedside today. LABORATORY/RADIOGRAPHIC EVALUATION I did review the patient's arterial duplex scan from last week. There did appear to be a moderate stenosis involving the SFA. I did have our wound staff today come over from the wound center and perform a TCOM at the bedside. The patient's transcutaneous pO2 levels were quite low in the 20s at the midcalf. ASSESSMENT 75-year-old gentleman with left diabetic foot ulceration. Patient with associated peripheral arterial disease. PLAN Given his moderate stenosis noted within the SFA and his low transcutaneous partial pressures of oxygen noted on TCOM, it was my recommendation not to proceed with amputation today but to obtain a vascular consult. Dr. Duke has been consulted to see if revascularization could be performed prior to amputation to increase the patient's likelihood of surgical success. Following revascularization will then proceed with additional excisional surgical debridement and amputation as indicated. SUNDAR
[2016-09-09] MEDS: LATANOPROST 0.005% EYE DROPS 2.5ml RIGHT EYE SCH (22:48)
[2016-09-09] MEDS: RisperiDONE 2 MG TABLET PO SCH (22:48)
[2016-09-09] MEDS: NS 1,000 ML IV SCH (22:51)
[2016-09-10] MEDS: NS 1,000 ML IV SCH ×2 (05:14→18:40)
[2016-09-10] MEDS: NICOTINE PATCH REMOVAL TD SCH (08:08)
[2016-09-10] MEDS: RisperiDONE 1 MG TABLET PO SCH (08:11)
[2016-09-10] MEDS: DULOXETINE 60 MG CAPSULE PO SCH (08:11)
[2016-09-10] MEDS: TRAMADOL/APAP 37.5 MG/325 MG TABLET PO SCH ×2 (08:12→22:21)
[2016-09-10] MEDS: INSULIN DETEMIR 100unit/ml INJECTION SQ SCH ×2 (08:12→22:19)
[2016-09-10] MEDS: DIVALPROEX 500 MG TABLET PO SCH ×2 (08:12→22:21)
[2016-09-10] MEDS: NICOTINE 14 MG PATCH TD SCH (08:12)
[2016-09-10] MEDS: ZINC GLUCONATE 50 MG TABLET PO SCH (08:12)
[2016-09-10] MEDS: MULTI-VITAMIN PLAIN TABLET PO SCH (08:12)
[2016-09-10] MEDS: INSULIN ASPART 100unit/ml INJECTION SQ SCH ×3 (08:14→22:20)
[2016-09-10] MEDS: CEFTRIAXONE 1 G in NS 100 ML IV SCH (08:18)
[2016-09-10] MEDS: POLYETHYL GLYCOL 3350 17gm PACKET PO SCH (08:18)
[2016-09-10] MEDS: ASCORBIC ACID 500 MG TABLET PO SCH ×2 (12:15→18:40)
--- NOTE | 2016-09-10 13:07 | Progress Note ---
<Martine Veliz - Last Filed: 09/10/16 13:04> Subjective: Yordan was resting, but opened his eyes. He didn't engage much in conversation today but declined any immediate concerns. He is NPO for LE angiogram by dr. Deluna today. Nursing staff has been giving him Calvin for c/o pain in his buttock area. Objective Vital signs: Temp Pulse Resp BP Pulse Ox 97.7 F 84 18 116/69 95 09/10/16 07:56 09/10/16 07:56 09/10/16 07:56 09/10/16 07:56 09/10/16 07:56 Weight: 110.5 kg - Constitutional Present: no acute distress, well developed, cooperative - Routine HEENT Exam ENT: Present: mucous membranes dry - Routine Respiratory Exam Present: CTA bilaterally - Routine Cardiovascular Exam Present: RRR, S1, S2 - Routine Abdominal Exam Present: soft, normoactive bowel sounds, non distended, non tender - Routine Extremities Exam Present: no edema - Routine Skin Exam Present: dry, warm Comments: left foot with gauze dressing - Routine Neurological Exam Present: oriented X3 (x2). Absent: alert (drowsy) - Routine Psychiatric Exam Present: cooperative Results - Labs CBC & Chem 7: 09/10/16 04:23 09/10/16 04:23 Assessment and Plan (1) Decubitus ulcer of left foot, stage 4 Current visit: Yes Status: Acute (2) Severe sepsis Current visit: Yes Status: Resolved 09/05/16: Tachycardia, tachypnea, elevated lactic acid - source foot wound. (3) CAD (coronary artery disease) Current visit: Yes Status: Chronic (4) HTN (hypertension) Current visit: Yes Status: Chronic (5) Hyperlipidemia Current visit: Yes Status: Chronic (6) Type II diabetes mellitus Current visit: Yes Status: Chronic (7) COPD (chronic obstructive pulmonary disease) Current visit: Yes Status: Chronic (8) Tobacco dependence Current visit: Yes Status: Chronic (9) Dementia Current visit: Yes Status: Chronic (10) Schizophrenia Current visit: Yes Status: Chronic (11) Depression Current visit: Yes Status: Chronic (12) Obesity Current visit: Yes Status: Chronic (13) Hypernatremia Current visit: Yes Status: Resolved 09/05/16 19:39 POA (14) Peripheral vascular disease of extremity Problem details: LE arterial Duplex: proximal SFA suggesting a moderate stenosis with diffusely calcified vessels. No complete occlusion. Current visit: Yes Status: Acute Assessment and Plan: Stage IV left foot ulcer, proximal SFA moderate stenosis -LE angiogram per Dr. Deluna today -Surgical debridement on hold -continue vancomycin (PICC placed yesterday) and rocephin -continue wound care to left foot and buttocks -continue monitoring BG - elevated last evening (260+) but stable today; NovoLOG held d/t NPO status d/w Dr. Giron. Sepsis Assessment - Evaluation Sepsis screening result: No Definite Risk Hospital Course Summary Disclaimer: The visit summary below is not to be considered part of the above Progress Note. Hospital Course: 09/05/16 Inpatient admission for treatment of severe sepsis secondary to left foot decubitus wound infection. Start Teflaro for antimicrobial coverage. IVF of NS at 75cc/hr for hydration - has received 1L bolus in ED. Recheck Lactic acid this evening due to elevation. Consult Dr Cameron and wound team due to decubitius ulcers. Hold metformin due to elevated lactic acid. Will hold antihypertensives due to sepsis. SCD for DVT prevention. RT for tobacco cessation. Zofran prn nausea. Recheck CBC in am due to sepsis. Repeat BMP in am due to IVF and sepsis. Full code as per patient's request. Care to return to Dr Osman at time of discharge from [facility]. 09/06/16 Continue with Teflaro for antimicrobial coverage. Decrease IVF to 50 cc/hr as severe sepsis resolving. Speech to check swallow function. Check pelvis/left hip Xray due to chronic pain and immobility. Discussed with Dr Cameron-attempted bedside debridement but feel more intensive debridement needed. Anticipate surgical intervention on Saturday 09/09. Add Lovenox to SCD for DVT prevention. Recheck CBC and BMP in am due to resolving sepsis and IVF use. Continue to hold metformin due to resolving sepsis. May restart ARB as BP improved. 09/07/16 Continue with Teflaro for antimicrobial coverage. Continue IVF to 50 cc/hr to help hydration status due to resolving sepsis. Discussed bowel function with nursing - MOM to be given, if no results then suppository. Continue Lovenox for DVT prevention-will have to hold after tomorrows dose due to Sx anticipated on Kurt. Sugars stable - continue to hold metformin due to resolving sepsis. 09/08/16 Continue with Teflaro for antimicrobial coverage. Continue IVF to 50 cc/hr to help hydration status due to resolving sepsis. Continue SCD and Lovenox for DVT prevention - hold order in place for Lovenox in anticipation of Sx tomorrow. Sugars stable - continue to hold metformin due to resolving sepsis. Recheck CBC and BMP in am due to resolving sepsis and IVF use. Will check CRP. Anticipate Sx debridement of foot tomorrow. 09/09/16 Stage IV left foot ulcer -Wound cx reviewed - proteus mirabilis (moderate growth), staphylococcus aureus (light growth), & enterococcus faecium (moderate growth) - Teflaro was discontinued and Vancomycin was started to cover enterococcus and staph. Will start Rocephin to cover proteus. PICC line was placed. -severe sepsis resolved (lactate normalized); VSS; no lingering SIRS criteria -CRP decreased to 18.18 -surgical exploration/debridement is planned for this afternoon - may need amputation -Since he is NPO Levemir dose was reduced and NovoLog was held. -Dr. 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 Deluna today -Surgical debridement on hold -continue vancomycin (PICC placed yesterday) and rocephin -continue monitoring BG - elevated last evening but stable today; NovoLOG held d /t NPO status <Rayshawn Giron - Last Filed: 09/10/16 15:23> Objective Vital signs: Temp Pulse Resp BP Pulse Ox 97.7 F 84 18 116/69 95 09/10/16 07:56 09/10/16 07:56 09/10/16 07:56 09/10/16 07:56 09/10/16 07:56 Results - Labs CBC & Chem 7: 09/10/16 04:23 09/10/16 04:23 Assessment and Plan (1) Decubitus ulcer of left foot, stage 4 Current visit: Yes Status: Acute (2) Peripheral vascular disease of extremity Problem details: LE arterial Duplex: proximal SFA suggesting a moderate stenosis with diffusely calcified vessels. No complete occlusion. Current visit: Yes Status: Acute (3) Severe sepsis Current visit: Yes Status: Resolved (4) Type II diabetes mellitus Current visit: Yes Status: Chronic (5) CAD (coronary artery disease) Current visit: Yes Status: Chronic (6) HTN (hypertension) Current visit: Yes Status: Chronic (7) Hyperlipidemia Current visit: Yes Status: Chronic (8) COPD (chronic obstructive pulmonary disease) Current visit: Yes Status: Chronic (9) Tobacco dependence Current visit: Yes Status: Chronic (10) Dementia Current visit: Yes Status: Chronic (11) Schizophrenia Current visit: Yes Status: Chronic (12) Depression Current visit: Yes Status: Chronic (13) Hypernatremia Current visit: Yes Status: Resolved (14) Obesity Current visit: Yes Status: Chronic Assessment and Plan: Have independently interviewed and examined pt. Chart reviewed. Case discussed with my AVIONICS ELECTRONICS TECHNICIAN. Care plan developed with my supervision; agree with above. Feels hungry-NPO for vascular procedure this afternoon. Notes some discomfort to IV site in left hand. Reports some cough and nasal congestion. Not soa. No nausea or ab pain. Lungs: decreased bilaterally, no distress CV: regular AB: soft nt/nd +BS MSE: awake alert appropriate Plan: Discussed with pt about PICC line-hope for placement soon. Anticipate angiogram this afternoon-hope to be able to improve blood flow to allow for improved wound healing. Worry if not able to revascularise, may be needing amputation at some point in time. Continue with wound care. Hospital Course Summary Disclaimer: The visit summary below is not to be considered part of the above Progress Note.
--- NOTE | 2016-09-10 16:03 | Progress Note ---
DATE OF SERVICE 09/10/2016 FINDINGS Mr. Che was without complaints today. His nephew was present this morning who is his durable power of city attorney. EXAM VITAL SIGNS: Afebrile, normotensive. Last recorded vitals include temperature 97.7, pulse 84, respirations 18, blood pressure 116/69, SAO2 95% on room air. CHEST: Clear to auscultation bilaterally. HEART: Regular rate and rhythm. Normal S1 and S2 without gallops, murmurs or clicks. EXTREMITIES: Attention was focused to the left lower extremity. Wound remains stable without further progression of necrosis along the skin edges. Central portion of the wound continues to contain necrotic material. Wound is located over the anatomic location of the fourth and fifth metatarsal head. Wound upon the posterior heel remains stable as well. ASSESSMENT 75-year-old gentleman with left diabetic foot ulceration. Patient with associated peripheral arterial disease. PLAN Attempt at revascularization today. Following revascularization will proceed with excisional surgical debridement and amputation as indicated upon intraoperative findings. I did inform the patient's nephew, who has durable power of city attorney that the patient's arterial duplex scan was abnormal as well as his TICOM results. These TICOM results were indicative for significant peripheral arterial disease. I informed the patient's durable power city attorney it was my recommendation that we try to revascularize the patient before proceeding with debridement and amputation to increase the chances of healing at the amputation site. The patient and his durable power of city attorney understood and agreed with the proposed plan at this time. SUNDAR
[2016-09-10] MEDS ORDERED: HEPARIN 1,000 UNITS/500 ML PREMIX (*CVL ONLY*) IV ONE ×2 (17:12→17:13)
[2016-09-10] MEDS ORDERED: LIDOCAINE 1% (10mg/ml) 30ml SDV INJ ONE ×2 (17:12→17:13)
[2016-09-10] MEDS ORDERED: MIDAZOLAM 2mg/2ml INJECTION ONE (17:25)
[2016-09-10] MEDS ORDERED: FentaNYL 100 MCG/2 ML INJECTION ONE (17:25)
[2016-09-10] MEDS ORDERED: ACETAMINOPHEN 325 MG TABLET PO PRN (17:27)
[2016-09-10] MEDS ORDERED: ONDANSETRON 4 MG/2 ML INJECTION IVP PRN (17:27)
[2016-09-10] MEDS ORDERED: METOCLOPRAMIDE 10mg/2ml INJECTION IVP PRN (17:27)
[2016-09-10] MEDS ORDERED: NITROGLYCERIN 0.4 MG SUBLINGUAL TABLET SL PRN (17:27)
[2016-09-10] MEDS ORDERED: BISACODYL E.C. 5 MG TABLET PO PRN (17:27)
[2016-09-10] MEDS ORDERED: PROMETHAZINE 25 MG INJECTION IVP PRN (17:27)
[2016-09-10] MEDS ORDERED: MAG-AL + SIM ORAL LIQUID 30ml PO PRN (17:27)
[2016-09-10] MEDS ORDERED: ATROPINE 1 MG/ML INJECTION IVP PRN (17:27)
[2016-09-10] MEDS ORDERED: MORPHINE SULFATE 4 MG SYRINGE IVP PRN ×2 (17:27)
[2016-09-10] MEDS ORDERED: LORazepam 0.5 MG TABLET PO PRN (17:27)
[2016-09-10] MEDS ORDERED: HYDROCODONE/APAP 7.5 MG/325 MG TABLET PO PRN (17:27)
[2016-09-10] MEDS ORDERED: BISACODYL 10 MG SUPPOSITORY RECTALLY PRN (17:27)
[2016-09-10] MEDS: RisperiDONE 2 MG TABLET PO SCH (22:21)
[2016-09-10] MEDS: LATANOPROST 0.005% EYE DROPS 2.5ml RIGHT EYE SCH (22:23)
[2016-09-11] MEDS: NS 1,000 ML IV SCH ×2 (01:05→20:38)
[2016-09-11] MEDS: DULOXETINE 60 MG CAPSULE PO SCH (08:42)
[2016-09-11] MEDS: NICOTINE 14 MG PATCH TD SCH (08:42)
[2016-09-11] MEDS: RisperiDONE 1 MG TABLET PO SCH (08:42)
[2016-09-11] MEDS: TRAMADOL/APAP 37.5 MG/325 MG TABLET PO SCH ×2 (08:42→21:14)
[2016-09-11] MEDS: MULTI-VITAMIN PLAIN TABLET PO SCH (08:42)
[2016-09-11] MEDS: ZINC GLUCONATE 50 MG TABLET PO SCH (08:42)
[2016-09-11] MEDS: DIVALPROEX 500 MG TABLET PO SCH ×2 (08:42→21:15)
[2016-09-11] MEDS: INSULIN DETEMIR 100unit/ml INJECTION SQ SCH ×2 (08:43→17:50)
[2016-09-11] MEDS: CEFTRIAXONE 1 G in NS 100 ML IV SCH (08:43)
[2016-09-11] MEDS: NICOTINE PATCH REMOVAL TD SCH (08:44)
--- NOTE | 2016-09-11 08:52 | Cardiology Report ---
DATE OF PROCEDURE September 10, 2016 REFERRING PHYSICIAN Adam Cameron MD INDICATIONS The patient is a 75-year-old gentleman with large ulcer of the left foot and abnormal lower extremity duplex study and was referred for further evaluation by angiography and possible intervention. INFORMED CONSENT Informed consent was obtained after explaining the procedure and the potential risks to the patient who agreed to proceed with the procedure. PROCEDURE 1. Abdominal aortography by placing catheter in abdominal aorta. 2. Selective left lower extremity angiogram using crossover technique and placing catheter in left SFA and left common iliac. 3. Runoffs of the right lower extremity through the right femoral sheath. 4. Successful Mynx deployment for hemostasis. TECHNIQUE He was prepped and draped in the usual sterile techniques. 1% lidocaine was used for local anesthesia. Conscious sedation was performed using Versed and fentanyl. Using modified Seldinger technique, arterial access was obtained into the right femoral artery with placement of a 6-Ethiopian arterial sheath. ABDOMINAL AORTOGRAPHY Abdominal aortography showed irregularities of the abdominal aorta with no significant lesions or aneurysms. There were single renal arteries to each kidney. Common iliacs, external and internal iliacs and common femoral arteries had irregularities with no significant lesions. Selective left lower left lower extremity angiogram showed patent profunda. SFA had multiple endovascular stents which were widely patent. There was about 20% lesions in SFA. Left popliteal artery was patent. Left posterior tibial artery was patent with excellent flow down to the foot. Left anterior tibial and peroneal arteries were occluded. Runoffs of the right lower extremity showed patent profunda. SFA had 80% stenosis distally. Popliteal artery was patent. Right posterior tibial artery was patent. Right anterior tibial artery had diffuse disease of up to about 90% . Right peroneal artery was patent. The patient tolerated the procedure well with no complications. Mynx was used for hemostasis. PLAN Will continue medical management for left lower extremity. The patient may require further treatment with wound care. One might consider right SFA percutaneous intervention from left groin in future. SUNDAR
[2016-09-11] MEDS: POLYETHYL GLYCOL 3350 17gm PACKET PO SCH (09:08)
[2016-09-11] MEDS: INSULIN ASPART 100unit/ml INJECTION SQ SCH ×3 (09:10→17:38)
[2016-09-11] MEDS: ENOXAPARIN 120 MG/0.8 ML INJECTION SQ SCH ×2 (09:47→21:15)
--- NOTE | 2016-09-11 10:24 | Cardiology Progress Note ---
Subjective Principal diagnosis: Left foot ulceration Interval history: Pt laying in bed, denies any pain. Pt was placed on tele last noc post procedure and discovered an irregular rhythm on tele. EKG confirmed pt in aflutter. Exam Vital signs: Temp Pulse Resp BP Pulse Ox 98.3 F 85 19 160/79 H 98 09/11/16 08:00 09/11/16 08:00 09/11/16 08:00 09/11/16 08:00 09/11/16 08:00 - Constitutional no acute distress, cooperative - Routine HEENT Exam ENT: Present: mucous membranes moist - Routine Respiratory Exam Present: CTA bilaterally. Absent: wheezes - Routine Cardiovascular Exam Present: irregular rhythm. Absent: JVD - Routine Abdominal Exam Present: soft, non distended - Routine Extremities Exam Present: edema Comments: . - Routine Skin Exam Present: wounds Comments: Left foot wound with dressing C/D/I - Routine Neurological Exam Present: alert - Routine Psychiatric Exam Present: normal affect Hospital Course Hospital course: 09/05/16 Inpatient admission for treatment of severe sepsis secondary to left foot decubitus wound infection. Start Teflaro for antimicrobial coverage. IVF of NS at 75cc/hr for hydration - has received 1L bolus in ED. Recheck Lactic acid this evening due to elevation. Consult Dr Cameron and wound team due to decubitius ulcers. Hold metformin due to elevated lactic acid. Will hold antihypertensives due to sepsis. SCD for DVT prevention. RT for tobacco cessation. Zofran prn nausea. Recheck CBC in am due to sepsis. Repeat BMP in am due to IVF and sepsis. Full code as per patient's request. Care to return to Dr Osman at time of discharge from [facility] [place]. 09/06/16 Continue with Teflaro for antimicrobial coverage. Decrease IVF to 50 cc/hr as severe sepsis resolving. Speech to check swallow function. Check pelvis/left hip Xray due to chronic pain and immobility. Discussed with Dr Cameron-attempted bedside debridement but feel more intensive debridement needed. Anticipate surgical intervention on Saturday 09/09. Add Lovenox to SCD for DVT prevention. Recheck CBC and BMP in am due to resolving sepsis and IVF use. Continue to hold metformin due to resolving sepsis. May restart ARB as BP improved. 09/07/16 Continue with Teflaro for antimicrobial coverage. Continue IVF to 50 cc/hr to help hydration status due to resolving sepsis. Discussed bowel function with nursing - MOM to be given, if no results then suppository. Continue Lovenox for DVT prevention-will have to hold after tomorrows dose due to Sx anticipated on Friday. Sugars stable - continue to hold metformin due to resolving sepsis. 09/08/16 Continue with Teflaro for antimicrobial coverage. Continue IVF to 50 cc/hr to help hydration status due to resolving sepsis. Continue SCD and Lovenox for DVT prevention - hold order in place for Lovenox in anticipation of Sx tomorrow. Sugars stable - continue to hold metformin due to resolving sepsis. Recheck CBC and BMP in am due to resolving sepsis and IVF use. Will check CRP. Anticipate Sx debridement of foot tomorrow. 09/09/16 Stage IV left foot ulcer -Wound cx reviewed - proteus mirabilis (moderate growth), staphylococcus aureus (light growth), & enterococcus faecium (moderate growth) - Teflaro was discontinued and Vancomycin was started to cover enterococcus and staph. Will start Rocephin to cover proteus. PICC line was placed. -severe sepsis resolved (lactate normalized); VSS; no lingering SIRS criteria -CRP decreased to 18.18 -surgical exploration/debridement is planned for this afternoon - may need amputation -Since he is NPO Levemir dose was reduced and NovoLog was held. -Dr. 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 Deluna today -Surgical debridement on hold -continue vancomycin (PICC placed yesterday) and rocephin -continue monitoring BG - elevated last evening but stable today; NovoLOG held d /t NPO status Progress Note-A&P (1) Atrial flutter Status: Acute Assessment and plan: HR 80-90's. Started on therapeutic lovenox 1mg/kg BID. Will change post amputation schedule for tomorrow. Ordered ECHO, showed EF45%. Start lisinopril and coreg. TSH elevated. Current Visit: Yes (2) Decubitus ulcer of left foot, stage 4 Status: Acute Assessment and plan: Likely pressure related as the arterial blood flow is patent throughout the entire extremity. Surgery scheduled amputation for tomorrow. Current Visit: Yes (3) Severe sepsis Status: Resolved Current Visit: Yes (4) CAD (coronary artery disease) Status: Chronic Current Visit: Yes (5) HTN (hypertension) Status: Chronic Current Visit: Yes (6) Hyperlipidemia Status: Chronic Current Visit: Yes (7) Type II diabetes mellitus Status: Chronic Current Visit: Yes (8) Tobacco dependence Status: Chronic Current Visit: Yes (9) Peripheral vascular disease of extremity Problem details: LE arterial Duplex: proximal SFA suggesting a moderate stenosis with diffusely calcified vessels. No complete occlusion. Status: Acute Current Visit: Yes - Time Spent With Patient Total time spent is greater than 50% in coordination of care (as documented) at patient's floor/unit and/or counseling patient: less than 15 minutes Sepsis Assessment - Evaluation Sepsis screening result: No Definite Risk
--- NOTE | 2016-09-11 12:26 | Progress Note ---
Subjective: Pt offers no complaints. He is resting and does not appear to be in respiratory distress. Spoke very little, and fell asleep while I was in the room. Objective Vital signs: Temp Pulse Resp BP Pulse Ox 99.1 F 94 21 122/58 98 09/11/16 11:29 09/11/16 11:29 09/11/16 11:29 09/11/16 11:29 09/11/16 11:29 Rhythm: Normal Sinus Rhythm Weight: 112.2 kg - Constitutional Present: no acute distress, somnolent - Routine HEENT Exam Head: Present: normocephalic, atraumatic Eye: Present: EOMI, PERRL ENT: Present: mucous membranes moist - Routine Respiratory Exam Present: accessory muscle use - Routine Cardiovascular Exam Present: RRR - Routine Abdominal Exam Present: soft, normoactive bowel sounds, non distended, non tender - Routine Extremities Exam Present: cyanosis Results - Labs CBC & Chem 7: 09/11/16 04:41 09/11/16 04:41 Assessment and Plan (1) Decubitus ulcer of left foot, stage 4 Current visit: Yes Status: Acute (2) Severe sepsis Current visit: Yes Status: Resolved 09/05/16: Tachycardia, tachypnea, elevated lactic acid - source foot wound. (3) CAD (coronary artery disease) Current visit: Yes Status: Chronic (4) HTN (hypertension) Current visit: Yes Status: Chronic (5) Hyperlipidemia Current visit: Yes Status: Chronic (6) Type II diabetes mellitus Current visit: Yes Status: Chronic (7) COPD (chronic obstructive pulmonary disease) Current visit: Yes Status: Chronic (8) Tobacco dependence Current visit: Yes Status: Chronic (9) Dementia Current visit: Yes Status: Chronic (10) Schizophrenia Current visit: Yes Status: Chronic (11) Depression Current visit: Yes Status: Chronic (12) Obesity Current visit: Yes Status: Chronic (13) Hypernatremia Current visit: Yes Status: Resolved 09/05/16 19:39 POA (14) Peripheral vascular disease of extremity Problem details: LE arterial Duplex: proximal SFA suggesting a moderate stenosis with diffusely calcified vessels. No complete occlusion. Current visit: Yes Status: Acute Assessment and Plan: Mr Che is a 75 YO AAM that came with a decubitus ulcer of his foot and was found to have arterial occlusive disease. Angiogram was done and was apparently bad enough for pt to be scheduled for amputation in the AM. 1) Decubitus ulcer of the L foot, on a diabetic patient with PVD. - Pt will go for surgery in the AM. 2) type II DM with macrovascular disease, hyperlipidemia, CAD. 3) Depression/Obesity/Schizophrenia. 4) COPD with H.O Tobacco abuse in the past. 5) New onset A flutter - EKG done this AM - suggests A flutter with 2 - 3: 1 conduction. HR is in the 90's. Pt was started on Lovenox this AM by cardiology. - EKG - shows atrial rhythm > ventricular rhythm as above, with atrial rate of about 300. Ventricular rate is controlled. - Will decrease Nicotine patch from 14mg to 7mg - Ventriculae rate is controlled. Sepsis Assessment - Evaluation Sepsis screening result: No Definite Risk Hospital Course Summary Disclaimer: The visit summary below is not to be considered part of the above Progress Note. Hospital Course: 09/05/16 Inpatient admission for treatment of severe sepsis secondary to left foot decubitus wound infection. Start Teflaro for antimicrobial coverage. IVF of NS at 75cc/hr for hydration - has received 1L bolus in ED. Recheck Lactic acid this evening due to elevation. Consult Dr Cameron and wound team due to decubitius ulcers. Hold metformin due to elevated lactic acid. Will hold antihypertensives due to sepsis. SCD for DVT prevention. RT for tobacco cessation. Zofran prn nausea. Recheck CBC in am due to sepsis. Repeat BMP in am due to IVF and sepsis. Full code as per patient's request. Care to return to Dr Osman at time of discharge from [facility] [place]. 09/06/16 Continue with Teflaro for antimicrobial coverage. Decrease IVF to 50 cc/hr as severe sepsis resolving. Speech to check swallow function. Check pelvis/left hip Xray due to chronic pain and immobility. Discussed with Dr Cameron-attempted bedside debridement but feel more intensive debridement needed. Anticipate surgical intervention on Saturday 09/09. Add Lovenox to SCD for DVT prevention. Recheck CBC and BMP in am due to resolving sepsis and IVF use. Continue to hold metformin due to resolving sepsis. May restart ARB as BP improved. 09/07/16 Continue with Teflaro for antimicrobial coverage. Continue IVF to 50 cc/hr to help hydration status due to resolving sepsis. Discussed bowel function with nursing - MOM to be given, if no results then suppository. Continue Lovenox for DVT prevention-will have to hold after tomorrows dose due to Sx anticipated on Friday. Sugars stable - continue to hold metformin due to resolving sepsis. 09/08/16 Continue with Teflaro for antimicrobial coverage. Continue IVF to 50 cc/hr to help hydration status due to resolving sepsis. Continue SCD and Lovenox for DVT prevention - hold order in place for Lovenox in anticipation of Sx tomorrow. Sugars stable - continue to hold metformin due to resolving sepsis. Recheck CBC and BMP in am due to resolving sepsis and IVF use. Will check CRP. Anticipate Sx debridement of foot tomorrow. 09/09/16 Stage IV left foot ulcer -Wound cx reviewed - proteus mirabilis (moderate growth), staphylococcus aureus (light growth), & enterococcus faecium (moderate growth) - Teflaro was discontinued and Vancomycin was started to cover enterococcus and staph. Will start Rocephin to cover proteus. PICC line was placed. -severe sepsis resolved (lactate normalized); VSS; no lingering SIRS criteria -CRP decreased to 18.18 -surgical exploration/debridement is planned for this afternoon - may need amputation -Since he is NPO Levemir dose was reduced and NovoLog was held. -Dr. 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 Deluna today -Surgical debridement on hold -continue vancomycin (PICC placed yesterday) and rocephin -continue monitoring BG - elevated last evening but stable today; NovoLOG held d /t NPO status
[2016-09-11] MEDS ORDERED: NICOTINE 7 MG PATCH TD PRN (12:44)
[2016-09-11] MEDS ORDERED: NICOTINE PATCH REMOVAL TD PRN (12:50)
[2016-09-11] MEDS: ASCORBIC ACID 500 MG TABLET PO SCH ×2 (13:10→17:40)
[2016-09-11] MEDS: LISINOPRIL 2.5 MG TABLET PO SCH (14:30)
--- NOTE | 2016-09-11 16:09 | Progress Note ---
DATE 09/11/2016 FINDINGS Mr. Che today was sleeping upon my entering the room. OBJECTIVE VITALS: Afebrile. Normotensive. EXTREMITIES: Attention was focused to the left lower extremity. Dressing was in place. Periwound area was without evidence for marked erythema or edema. ASSESSMENT 75-year-old gentleman with left diabetic foot ulceration with associated soft tissue necrosis and probable osteomyelitis. PLAN Will proceed tomorrow with exploration of surgical wound involving left foot and amputation as indicated. It is my hope that we will be able to perform a left fourth and fifth ray amputation versus that of a transmetatarsal amputation tomorrow pending his intraoperative findings. Dr. Deluna did an arteriogram with left lower extremity runoff. The patient has had several stents placed within his left lower extremity. There was no evidence for significant stenosis and it did appear that he had good blood flow. Hopefully the patient will be able to heal his amputation site despite his low values obtained previously on his prior TCOM exam. SUNDAR
[2016-09-11] MEDS: CARVEDILOL 3.125 MG TABLET PO SCH (17:40)
[2016-09-11] MEDS: BISACODYL 10 MG SUPPOSITORY RECTALLY PRN (17:58)
[2016-09-11] MEDS: RisperiDONE 2 MG TABLET PO SCH (21:16)
[2016-09-11] MEDS: LATANOPROST 0.005% EYE DROPS 2.5ml RIGHT EYE SCH (21:17)
[2016-09-12] MEDS: NS 1,000 ML IV SCH ×2 (03:22→08:54)
[2016-09-12] MEDS ORDERED: MORPHINE SULFATE 2 MG SYRINGE IVP PRN (08:14)
[2016-09-12] MEDS: INSULIN DETEMIR 100unit/ml INJECTION SQ SCH ×2 (08:15→18:50)
[2016-09-12] MEDS: CARVEDILOL 3.125 MG TABLET PO SCH ×2 (08:15→18:06)
[2016-09-12] MEDS: DULOXETINE 60 MG CAPSULE PO SCH (08:15)
[2016-09-12] MEDS: INSULIN ASPART 100unit/ml INJECTION SQ SCH ×3 (08:15→18:50)
[2016-09-12] MEDS: ZINC GLUCONATE 50 MG TABLET PO SCH (08:16)
[2016-09-12] MEDS: RisperiDONE 1 MG TABLET PO SCH (08:16)
[2016-09-12] MEDS: LISINOPRIL 2.5 MG TABLET PO SCH (08:16)
[2016-09-12] MEDS: MULTI-VITAMIN PLAIN TABLET PO SCH (08:16)
[2016-09-12] MEDS: TRAMADOL/APAP 37.5 MG/325 MG TABLET PO SCH ×2 (08:16→22:09)
[2016-09-12] MEDS: POLYETHYL GLYCOL 3350 17gm PACKET PO SCH (08:16)
[2016-09-12] MEDS: DIVALPROEX 500 MG TABLET PO SCH ×2 (08:16→22:09)
[2016-09-12] MEDS: CEFTRIAXONE 1 G in NS 100 ML IV SCH (08:52)
--- NOTE | 2016-09-12 09:07 | Echocardiogram ---
DATE OF PROCEDURE September 11, 2016 REFERRING PHYSICIAN Rayshawn Giron MD This is a two-dimensional echo with spectral Doppler, color-flow and M-mode. It was obtained in a patient with atrial flutter. Left atrial dimension is normal. Left ventricle end-diastolic dimension is normal. Left ventricular wall thickness is increased. LV systolic function is reduced with global hypokinesia with ejection fraction of about 40-45%. Right atrium is normal. Right ventricle is normal. Aortic root dimension is normal. Mitral valve is morphologically normal with trace of mitral regurgitation. Aortic valve shows fibrocalcific changes with no stenosis or insufficiency. Tricuspid valve shows mild tricuspid regurgitation with normal estimated pulmonary artery systolic pressure of 31. Pulmonary valve shows no pulmonary insufficiency. There is no pericardial effusion. This was a technically difficult study. IMPRESSION 1. Technically difficult study. 2. LV dysfunction with ejection fraction of about 40-45%. 3. Concentric left ventricular hypertrophy. 4. Trace of mitral regurgitation. 5. Aortic sclerosis. 6. Mild tricuspid regurgitation with normal estimated pulmonary artery systolic pressure of 31. MTDD
--- NOTE | 2016-09-12 10:56 | Pharmacy Consult-TPN/PPN ---
Pharmacy Consult-TPN/PPN - Laboratory Information Chemistry Turbidity < 20 (0-20) 09/12/16 01:46 Sodium 143 MEQ/L (134-144) 09/12/16 01:46 Potassium 4.1 MEQ/L (3.6-5) 09/12/16 01:46 Chloride 105 MEQ/L (98-107) 09/12/16 01:46 Carbon Dioxide 28 MEQ/L (22-30) 09/12/16 01:46 Anion Gap 10 MEQ/L (5-15) 09/12/16 01:46 BUN 10.0 MG/DL (9-20) 09/12/16 01:46 Creatinine 0.5 MG/DL (0.8-1.5) L 09/12/16 01:46 GFR Calculation 163 09/12/16 01:46 BUN/Creatinine Ratio 20 RATIO (6-26) 09/12/16 01:46 Glucose 81 MG/DL (75-110) 09/12/16 01:46 Glucometer 95 mg/dL (65-110) 09/12/16 06:11 Calculated Osmolality 273 MOSM/KG (261-280) 09/12/16 01:46 Calcium 9.5 MG/DL (8.4-10.2) 09/12/16 01:46 Phosphorus 3.7 MG/DL (2.5-4.5) 09/12/16 01:46 Magnesium 2.0 MG/DL (1.6-2.3) 09/12/16 01:46 Total Bilirubin 0.30 MG/DL (0.20-1.30) 09/12/16 01:46 Conjugated Bilirubin 0.00 MG/DL (0.00-0.30) 09/05/16 16:38 Unconjugated Bilirubin 0.10 MG/DL (0.00-11.10) 09/05/16 16:38 Icterus Index < 2 (0-7) 09/12/16 01:46 AST 15 U/L (17-59) L 09/12/16 01:46 ALT 28 U/L (21-72) 09/12/16 01:46 Alkaline Phosphatase 68 U/L (38-126) 09/12/16 01:46 C-Reactive Protein 18.8 MG/L (0-9) H 09/09/16 04:48 Total Protein 6.8 G/DL (6.3-8.2) 09/12/16 01:46 Albumin 3.4 G/DL (3.5-5.0) L 09/12/16 01:46 Globulin 3.4 G/DL (2.4-3.6) 09/12/16 01:46 Albumin/Globulin Ratio 1.0 RATIO (1.1-2.2) L 09/12/16 01:46 Plasma Lactate 1.7 MMOL/L (0.6-2.2) 09/05/16 20:51 Procalcitonin < 0.05 NG/ML 09/05/16 16:41 TSH 4.97 MIU/L (0.47-4.68) H 09/11/16 04:41 Specimen Hemolysis < 15 (0-25) 09/12/16 01:46 Intake and Output 09/11/16 09/12/16 09/13/16 06:59 06:59 06:59 Intake Total 2081.666 / 2081.666 2199.167 / 2199.167 351.667 / 351.667 Output Total 1500 / 1500 1575 / 1575 1000 / 1000 Balance 581.666 / 581.666 624.167 / 624.167 -648.333 / -648.333 Weight 110.5 kg 112.2 kg 111.2 kg Intake: IV 2081.666 / 2081.666 1959.167 / 1959.167 351.667 / 351.667 Rocephin 1 G In Normal 100 / 100 100 / 100 100 / 100 Saline 100 ml @ 200 mls/ hr IV DAILY LA Rx#: [id number] Normal Saline 1,000 ml @ 981.666 / 981.666 859.167 / 859.167 251.667 / 251.667 50 mls/hr IV .Q20H LA Rx #:[id number] Vancocin 2,000 mg In 1000 / 1000 1000 / 1000 Normal Saline 500 ml @ 250 mls/hr IV Q12H [place] Rx #:[id number] Oral 0 / 0 240 / 240 Output: Urine 1500 / 1500 1575 / 1575 1000 / 1000 Other: # Incontinent Voids 1 # Bowel Movements 1 # Incontinent Bowel 1 Movements - Consult Information Vancomycin trough slightly low. Will change vancomycin to 1500mg IV q8h. Will verify dose with trough on 09/14/16. Thank you.
[2016-09-12] MEDS: ASCORBIC ACID 500 MG TABLET PO SCH ×2 (11:05→18:06)
--- NOTE | 2016-09-12 14:37 | Cardiology Progress Note ---
Subjective Principal diagnosis: Left foot ulceration Interval history: Yordan is seen in his room on the Surgical unit. He denies chest pain or pressure , denies dyspnea and is on room air. He reports pain in his left leg. Exam Vital signs: Temp Pulse Resp BP Pulse Ox 98.1 F 83 18 131/77 94 09/12/16 07:27 09/12/16 07:27 09/12/16 07:27 09/12/16 07:27 09/12/16 07:27 - Constitutional no acute distress, obese, cooperative - Routine HEENT Exam ENT: Present: mucous membranes moist - Routine Neck Exam Absent: JVD, carotid bruit - Routine Chest/Breast/Axilla Exam Chest wall: Absent: tenderness - Routine Respiratory Exam Present: CTA bilaterally. Absent: rales, wheezes - Routine Cardiovascular Exam Present: irregular rhythm. Absent: murmur, JVD - Routine Abdominal Exam Present: soft, non tender - Routine Extremities Exam Present: edema - Routine Skin Exam Present: intact - Routine Neurological Exam Present: alert, oriented X3 - Routine Psychiatric Exam Present: normal affect, normal thought process Hospital Course Hospital course: 09/09/16 16:47 LE arterial Duplex: proximal SFA suggesting a moderate stenosis with diffusely calcified vessels. No complete occlusion. Plan LE angiogram with possible GOGGLES ASSEMBLER/ Stent tomorrow afternoon. Thank you for allowing us to participate in this patient's care. 09/10/16 Date of Exam: 09/10/16 Type of Exam(s): [place] cardiovascular procedures DATE OF PROCEDURE September 10, 2016 REFERRING PHYSICIAN Adam Cameron MD INDICATIONS The patient is a 75-year-old gentleman with large ulcer of the left foot and abnormal lower extremity duplex study and was referred for further evaluation by angiography and possible intervention. INFORMED CONSENT Informed consent was obtained after explaining the procedure and the potential risks to the patient who agreed to proceed with the procedure. PROCEDURE 1. Abdominal aortography by placing catheter in abdominal aorta. 2. Selective left lower extremity angiogram using crossover technique and placing catheter in left SFA and left common iliac. 3. Runoffs of the right lower extremity through the right femoral sheath. 4. Successful Mynx deployment for hemostasis. TECHNIQUE He was prepped and draped in the usual sterile techniques. 1% lidocaine was used for local anesthesia. Conscious sedation was performed using Versed and fentanyl. Using modified Seldinger technique, arterial access was obtained into the right femoral artery with placement of a 6-Amharic arterial sheath. ABDOMINAL AORTOGRAPHY Abdominal aortography showed irregularities of the abdominal aorta with no significant lesions or aneurysms. There were single renal arteries to each kidney. Common iliacs, external and internal iliacs and common femoral arteries had irregularities with no significant lesions. Selective left lower left lower extremity angiogram showed patent profunda. SFA had multiple endovascular stents which were widely patent. There was about 20% lesions in SFA. Left popliteal artery was patent. Left posterior tibial artery was patent with excellent flow down to the foot. Left anterior tibial and peroneal arteries were occluded. Runoffs of the right lower extremity showed patent profunda. SFA had 80% stenosis distally. Popliteal artery was patent. Right posterior tibial artery was patent. Right anterior tibial artery had diffuse disease of up to about 90% . Right peroneal artery was patent. The patient tolerated the procedure well with no complications. Mynx was used for hemostasis. PLAN Will continue medical management for left lower extremity. The patient may require further treatment with wound care. One might consider right SFA percutaneous intervention from left groin in future. 09/11/16 HR 80-90's. Started on therapeutic lovenox 1mg/kg BID. Will change post amputation, scheduled for tomorrow. Ordered ECHO, showed EF45%. Start lisinopril and coreg. TSH elevated. Progress Note-A&P (1) Atrial flutter Status: Acute Current Visit: Yes (2) Decubitus ulcer of left foot, stage 4 Status: Acute Current Visit: Yes (3) Severe sepsis Status: Resolved Current Visit: Yes (4) CAD (coronary artery disease) Status: Chronic Current Visit: Yes (5) HTN (hypertension) Status: Chronic Current Visit: Yes (6) Hyperlipidemia Status: Chronic Current Visit: Yes (7) Type II diabetes mellitus Status: Chronic Current Visit: Yes (8) Tobacco dependence Status: Chronic Current Visit: Yes (9) Peripheral vascular disease of extremity Problem details: LE arterial Duplex: proximal SFA suggesting a moderate stenosis with diffusely calcified vessels. No complete occlusion. Status: Acute Current Visit: Yes - Time Spent With Patient Total time spent is greater than 50% in coordination of care (as documented) at patient's floor/unit and/or counseling patient: less than 15 minutes Sepsis Assessment - Evaluation Sepsis screening result: No Definite Risk
[2016-09-12] MEDS ORDERED: BUPIVACAINE 0.25%/EPI 1:200,000 30ml SDV ONE (15:00)
[2016-09-12] MEDS ORDERED: NS 1,000 ML IV PRN (15:06)
--- NOTE | 2016-09-12 15:14 | Anesthesia Preoperative Report ---
Anesthesia Preoperative Record - Date and Time Date: 09/12/16 Preoperative Diagnosis: Left heel decubitus ulcer Proposed Procedure: Left foot surgical debridement, amputation of 4th and 5th toes, poss BKA NPO Since Date: 09/11/16 NPO Since Time: 23:00 Allergies/Adverse Reactions: Allergies Allergy/AdvReac Type Severity Reaction Status Date / Time No Known Drug Allergies Allergy Verified 09/06/16 13:38 No Known Adverse Drug AdvReac Verified 09/06/16 13:38 Reactions - Vital Signs Vital Signs: Temp Pulse Resp BP Pulse Ox 98.3 F 84 21 141/66 H 96 09/12/16 14:45 09/12/16 14:54 09/12/16 14:45 09/12/16 14:45 09/12/16 14:45 Height and Weight: Height 5 ft 11 in Weight 111.2 kg Body Mass Index 34.9 - Medications Inpatient Medications: Current Medications Acetaminophen (Tylenol) 650 mg PO Q6H PRN PRN Reason: Pain Acetaminophen/Hydrocodone Bitart (York 5/325) 1 tab PO Q8H PRN PRN Reason: Pain Last Admin: 09/09/16 18:12 Dose: 1 tab Al Hydroxide/Mg Hydroxide (Maalox Plus) 30 ml PO Q6H PRN PRN Reason: Indigestion Ascorbic Acid (Vitamin C) 500 mg PO BIDLS [facility] Last Admin: 09/12/16 11:05 Dose: Not Given Benztropine Mesylate (Cogentin) 1 mg PO QID PRN PRN Reason: Extrapyramidal symptoms Bisacodyl (Dulcolax) 10 mg RECTALLY DAILY PRN PRN Reason: Constipation Last Admin: 09/11/16 17:58 Dose: 10 mg Carvedilol (Coreg) 3.125 mg PO BIDWM [facility] Last Admin: 09/12/16 08:15 Dose: Not Given Divalproex Sodium (Depakote) 500 mg PO BID [facility] Last Admin: 09/12/16 08:16 Dose: Not Given Duloxetine HCl (Cymbalta) 60 mg PO DAILY [facility] Last Admin: 09/12/16 08:15 Dose: Not Given Ceftriaxone Sodium 1 g/ Sodium (Chloride) 100 mls @ 200 mls/hr IV DAILY [facility] Last Infusion: 09/12/16 09:22 Dose: Infused Vancomycin HCl 1,500 mg/ (Sodium Chloride) 500 mls @ 250 mls/hr IV Q8H [facility] Last Infusion: 09/12/16 14:49 Dose: Infused Sodium Chloride (Normal Saline) 1,000 mls @ 50 mls/hr IV .Q20H PRN Insulin Aspart (Novolog) 22 unit SQ WB [facility] Last Admin: 09/12/16 08:15 Dose: Not Given Insulin Aspart (Novolog) 23 unit SQ BIDLS [facility] Last Admin: 09/12/16 11:05 Dose: Not Given Insulin Detemir (Levemir) 50 unit SQ BIDBS [facility] Last Admin: 09/12/16 08:15 Dose: Not Given Latanoprost (Xalatan) 1 drops RIGHT EYE HS [facility] Last Admin: 09/11/16 21:17 Dose: Not Given Lisinopril (Prinivil) 2.5 mg PO DAILY [facility] Last Admin: 09/12/16 08:16 Dose: Not Given Lorazepam (Ativan) 1 mg PO HS PRN PRN Reason: Insomnia Magnesium Hydroxide (Mom) 30 ml PO DAILY PRN PRN Reason: Constipation Last Admin: 09/11/16 16:26 Dose: 30 ml Metoclopramide HCl (Reglan) 5 - 10 mg IVP Q6H PRN PRN Reason: Nausea &/or vomiting Morphine Sulfate (Morphine Sulfate Inj) 2 mg IVP Q2H PRN PRN Reason: Pain Multivitamins (Theragran) 1 tab PO DAILY [facility] Last Admin: 09/12/16 08:16 Dose: Not Given Nicotine (Nicoderm) 7 mg TD DAILY PRN Nicotine (Nicotine Patch Removal) 1 removal TD DAILY PRN Last Admin: 09/12/16 10:41 Dose: 1 removal Nitroglycerin (Nitrostat) 0.4 mg SL Q5MIN3 PRN PRN Reason: Angina Biofreeze (Menthol - -May Use Patient's Own 1 applic PO Q6H PRN PRN Reason: Pain Ondansetron HCl (Zofran) 4 mg IVP Q6H PRN PRN Reason: Nausea Pharmacy Consult () 1 each XX ONE TIME PRN PRN Reason: PRN orders Polyethylene Glycol (Miralax) 17 gm PO DAILY [facility] Last Admin: 09/12/16 08:16 Dose: Not Given Risperidone (Risperdal) 1 mg PO QAM [facility] Last Admin: 09/12/16 08:16 Dose: Not Given Risperidone (Risperdal) 2 mg PO HS [facility] Last Admin: 09/11/16 21:16 Dose: 2 mg Sodium Chloride (Iv Flush) 10 - 80 ml IV PRN PRN PRN Reason: Flushing Last Admin: 09/05/16 22:04 Dose: 10 ml Tramadol/Acetaminophen (Ultracet) 1 tab PO BID [facility] Last Admin: 09/12/16 08:16 Dose: Not Given Zinc Gluconate (Zinc Gluconate) 50 mg PO DAILY [facility] Last Admin: 09/12/16 08:16 Dose: Not Given Home Medications: Home Medications Medication Instructions Recorded Confirmed Type Aspirin 81 mg PO DAILY #0 02/22/16 09/05/16 History Insulin Aspart [Novolog Flexpen] 23 unit SQ BIDLS #0 02/22/16 09/05/16 History Latanoprost 1 drop BOTH EYES HS #0 02/22/16 09/05/16 History Metformin HCl 1,000 mg PO DAILY #0 02/22/16 09/05/16 History Insulin Lispro [HumaLOG] 22 unit SQ WB #0 vial 06/26/16 09/05/16 History Acetaminophen 650 mg PO Q6H PRN 09/05/16 09/05/16 History Amoxicillin/Potassium Clav 1 tab PO BID 09/05/16 09/05/16 History [Augmentin 875-125 Tablet] Ascorbic Acid 500 mg PO BIDLS 09/05/16 09/05/16 History Benztropine [Cogentin] 1 mg PO QID PRN 09/05/16 09/05/16 History Bisacodyl Supp [Dulcolax] 1 mg RECTALLY DAILY PRN 09/05/16 09/05/16 History Calmoseptine [Risamine Oint] 1 applic TOP BID PRN 09/05/16 09/05/16 History Clopidogrel [Plavix] 75 mg PO DAILY 09/05/16 09/05/16 History Divalproex [Depakote] 500 mg PO BID 09/05/16 09/05/16 History Duloxetine HCl [Cymbalta] 60 mg PO DAILY 09/05/16 09/05/16 History Hydrocodone/APAP 5/325 [York 1 tab PO Q8H PRN 09/05/16 09/05/16 History 5/325] Insulin Detemir [Levemir] 50 unit SQ BIDBS 09/05/16 09/05/16 History LORazepam [Ativan] 1 mg PO HS PRN 09/05/16 09/05/16 History Losartan Potassium 25 mg PO DAILY 09/05/16 09/05/16 History Mag Hydrox/Aluminum Hyd/Simeth 30 ml PO Q6H PRN 09/05/16 09/05/16 History [Maalox Advanced Suspension] Magnesium Hydroxide [Milk of 2,400 mg PO DAILY PRN 09/05/16 09/05/16 History Magnesia] Menthol [Biofreeze] 1 applic TP Q6H PRN 09/05/16 09/05/16 History Multivitamin [Multivitamins] 1 tab PO DAILY 09/05/16 09/05/16 History RisperiDONE [RisperDAL] 1 mg PO QAM 09/05/16 09/05/16 History Tramadol/APAP 37.5/325 [Ultracet] 1 tab PO BID 09/05/16 09/05/16 History Zinc Sulfate 220 mg PO DAILY 09/05/16 09/05/16 History Is Patient on Beta Chana?: No - Medical History Respiratory: Reports: Chronic Obstructive Pulmonary Disease (COPD) Cardiovascular: Reports: Coronary Artery Disease, Hypertension Gastrointestional: Reports: Gastroesophageal Reflux Disease Neuro/Musculoskeletal: Reports: Other (dementia) Renal/Endocrine: Reports: Diabetes Mellitus Type 1 - Surgical History Cardiac Surgeries/Treatments: DENIES: Pacemaker Reproductive Surgery/Treatment: DENIES: Mastectomy Anesthesia Reactions: None Hx Family Anesthesia Reaction: No History of Motion Sickness: No - Social History Smoking Status: Current every day smoker Packs per day: 1 Pack-years: 60 Hx Chewing Tobacco Use: No Second Hand Exposure: Yes Substance Use Type: does not use Alcohol Intake Frequency: does not drink - Pertinent Findings Laboratory: CBC and BMP 09/12/16 01:46 09/12/16 01:46 BMP 09/12/16 01:46 Sodium 143 Potassium 4.1 Chloride 105 Carbon Dioxide 28 BUN 10.0 Creatinine 0.5 L Glucose 81 Calcium 9.5 Liver Function 09/12/16 Range/Units 01:46 Total Bilirubin 0.30 (0.20-1.30) MG/DL AST 15 L (17-59) U/L ALT 28 (21-72) U/L Alkaline Phosphatase 68 (38-126) U/L Albumin 3.4 L (3.5-5.0) G/DL EKG Rhythm: Normal Sinus Rhythm - Physical Exam Respiratory Exam: Present: lungs clear, bilateral breath sounds equal Cardiovascular Exam: Present: regular rate and rhythm, no murmur - Airway Assessment TMD: 3 Fingerbreadths Teeth: upper dentures, lower dentures Overall Assessment: may be difficult mask vent - ASA ASA Score: 3 - Plan Anesthesia: General TIVA - Discussion Discussion: Discussed risks/options/alternatives of anesthesia and questions answered. Patient consents. Nursing pain assessment noted. Attestation Statement: Prior to the delivery of any anesthetic medication, I examined the patient, developed the plan, obtained the patient's consent and discussed the risk and benefits of the procedure with the patient/guardian. - Additional Information Seen by Anesthesia: Yes
[2016-09-12] MEDS ORDERED: PROPOFOL 500 MG/50 ML VIAL IV ONE ×2 (15:30→16:08)
[2016-09-12] MEDS ORDERED: FentaNYL 100 MCG/2 ML INJECTION ONE (15:32)
[2016-09-12] MEDS ORDERED: BUPIVACAINE 0.25%/EPI 1:200,000 30ml SDV ID ONE (15:51)
[2016-09-12] MEDS ORDERED: HYDROMORPHONE 2 MG/ML INJECTION IVP PRN ×2 (15:51→17:08)
--- NOTE | 2016-09-12 16:24 | Progress Note ---
Subjective: Pt was seen and examined this AM at 10am. He was awake but sleepy. Monitor showed atrial flutter, with controlled ventricular rate. Pt appeared to be in NAD. Objective Vital signs: Temp Pulse Resp BP Pulse Ox 98.3 F 84 21 141/66 H 96 09/12/16 14:45 09/12/16 14:54 09/12/16 14:45 09/12/16 14:45 09/12/16 14:45 Rhythm: Atrial Flutter with Variable Conduction Comments: Controled ventricular rate. - Constitutional Present: no acute distress, obese, cooperative - Routine HEENT Exam Head: Present: normocephalic Eye: Present: EOMI - Routine Respiratory Exam Present: CTA bilaterally - Routine Cardiovascular Exam Present: RRR - Routine Abdominal Exam Present: soft, non distended, non tender - Routine Extremities Exam Absent: cyanosis, clubbing, edema Results - Labs CBC & Chem 7: 09/12/16 01:46 09/12/16 01:46 Assessment and Plan (1) Decubitus ulcer of left foot, stage 4 Current visit: Yes Status: Acute (2) Severe sepsis Current visit: Yes Status: Resolved 09/05/16: Tachycardia, tachypnea, elevated lactic acid - source foot wound. (3) CAD (coronary artery disease) Current visit: Yes Status: Chronic (4) HTN (hypertension) Current visit: Yes Status: Chronic (5) Hyperlipidemia Current visit: Yes Status: Chronic (6) Type II diabetes mellitus Current visit: Yes Status: Chronic (7) COPD (chronic obstructive pulmonary disease) Current visit: Yes Status: Chronic (8) Tobacco dependence Current visit: Yes Status: Chronic (9) Dementia Current visit: Yes Status: Chronic (10) Schizophrenia Current visit: Yes Status: Chronic (11) Depression Current visit: Yes Status: Chronic (12) Obesity Current visit: Yes Status: Chronic (13) Hypernatremia Current visit: Yes Status: Resolved 09/05/16 19:39 POA (14) Peripheral vascular disease of extremity Problem details: LE arterial Duplex: proximal SFA suggesting a moderate stenosis with diffusely calcified vessels. No complete occlusion. Current visit: Yes Status: Acute Assessment and Plan: Mr Che is a 75 YO AAM that came with a decubitus ulcer of his foot and was found to have arterial occlusive disease; he is currenlty in the OR where he will have a procedure that would depend on intra-operative findings and could end up in a BKA. 1) Decubitus ulcer of the L foot, on a diabetic patient with PVD. - Pt is currently on the OR. 2) type II DM with macrovascular disease, hyperlipidemia, CAD. 3) Depression/Obesity/Schizophrenia. 4) COPD with H.O Tobacco abuse in the past. 5) New onset A flutter - EKG done on 09/11, pt on Lovenox. - suggests A flutter with 2 - 3: 1 conduction. HR is in the 90's. - Ventricular rate is controlled. Sepsis Assessment - Evaluation Sepsis screening result: No Definite Risk Hospital Course Summary Disclaimer: The visit summary below is not to be considered part of the above Progress Note. Hospital Course: 09/09/16 16:47 LE arterial Duplex: proximal SFA suggesting a moderate stenosis with diffusely calcified vessels. No complete occlusion. Plan LE angiogram with possible HEADING MATCHER AND ASSEMBLER/ Stent tomorrow afternoon. Thank you for allowing us to participate in this patient's care. 09/10/16 Date of Exam: 09/10/16 Type of Exam(s): [place] cardiovascular procedures DATE OF PROCEDURE September 10, 2016 REFERRING PHYSICIAN Adam Cameron MD INDICATIONS The patient is a 75-year-old gentleman with large ulcer of the left foot and abnormal lower extremity duplex study and was referred for further evaluation by angiography and possible intervention. INFORMED CONSENT Informed consent was obtained after explaining the procedure and the potential risks to the patient who agreed to proceed with the procedure. PROCEDURE 1. Abdominal aortography by placing catheter in abdominal aorta. 2. Selective left lower extremity angiogram using crossover technique and placing catheter in left SFA and left common iliac. 3. Runoffs of the right lower extremity through the right femoral sheath. 4. Successful Mynx deployment for hemostasis. TECHNIQUE He was prepped and draped in the usual sterile techniques. 1% lidocaine was used for local anesthesia. Conscious sedation was performed using Versed and fentanyl. Using modified Seldinger technique, arterial access was obtained into the right femoral artery with placement of a 6-Taiwanese arterial sheath. ABDOMINAL AORTOGRAPHY Abdominal aortography showed irregularities of the abdominal aorta with no significant lesions or aneurysms. There were single renal arteries to each kidney. Common iliacs, external and internal iliacs and common femoral arteries had irregularities with no significant lesions. Selective left lower left lower extremity angiogram showed patent profunda. SFA had multiple endovascular stents which were widely patent. There was about 20% lesions in SFA. Left popliteal artery was patent. Left posterior tibial artery was patent with excellent flow down to the foot. Left anterior tibial and peroneal arteries were occluded. Runoffs of the right lower extremity showed patent profunda. SFA had 80% stenosis distally. Popliteal artery was patent. Right posterior tibial artery was patent. Right anterior tibial artery had diffuse disease of up to about 90% . Right peroneal artery was patent. The patient tolerated the procedure well with no complications. Mynx was used for hemostasis. PLAN Will continue medical management for left lower extremity. The patient may require further treatment with wound care. One might consider right SFA percutaneous intervention from left groin in future. 09/11/16 HR 80-90's. Started on therapeutic lovenox 1mg/kg BID. Will change post amputation, scheduled for tomorrow. Ordered ECHO, showed EF45%. Start lisinopril and coreg. TSH elevated.
--- NOTE | 2016-09-12 16:25 | General Surgery Procedure Note ---
Date of Procedure: 09/12/16 Surgeon: Rakesh Postoperative Diagnosis: Left heel decubitus ulcer Procedure: Left 4th toe ray amputation Estimated Blood Loss: See Anesthesia Record.
--- NOTE | 2016-09-12 16:31 | General Surgery Procedure Note ---
Date of Procedure: 09/12/16 Surgeon: Rakesh Postoperative Diagnosis: Left 4th toe and metatarsal head diabetic foot ulcer with necrosis Procedure: Left 4th toe ray amputation Estimated Blood Loss: See Anesthesia Record.
[2016-09-12] MEDS ORDERED: ONDANSETRON 4 MG/2 ML INJECTION IVP PRN (17:08)
--- NOTE | 2016-09-12 17:09 | Anesthesia Postoperative Note ---
- Date and Time Date: 09/12/16 Time: 17:09 - Status Patient Participated in Evaluation: Patient Participated in Person Vital Signs: Temp Pulse Resp BP Pulse Ox 98.3 F 84 21 141/66 H 96 09/12/16 14:45 09/12/16 14:54 09/12/16 14:45 09/12/16 14:45 09/12/16 14:45 Respiratory Function: Airway Patent Cardiovascular Function: Regular Pulse EKG Rhythm: Normal Sinus Rhythm Mental Status: Alert and Oriented Hydration: IV Infusing Complications During Recover: None Apparent - Follow-Up Instructions Instructions: Per Surgeon
[2016-09-12] MEDS: SALINE FLUSH 10ml SYRINGE IV PRN (18:19)
[2016-09-12] MEDS: HYDROCODONE/APAP 5mg/325mg TABLET PO PRN (18:44)
[2016-09-12] MEDS: LATANOPROST 0.005% EYE DROPS 2.5ml RIGHT EYE SCH (22:10)
[2016-09-12] MEDS: RisperiDONE 2 MG TABLET PO SCH (23:02)
[2016-09-13] MEDS: CARVEDILOL 3.125 MG TABLET PO SCH ×2 (09:07→17:37)
[2016-09-13] MEDS: LISINOPRIL 2.5 MG TABLET PO SCH (09:07)
[2016-09-13] MEDS: DIVALPROEX 500 MG TABLET PO SCH ×2 (09:07→21:23)
[2016-09-13] MEDS: DULOXETINE 60 MG CAPSULE PO SCH (09:07)
[2016-09-13] MEDS: ZINC GLUCONATE 50 MG TABLET PO SCH (09:07)
[2016-09-13] MEDS: POLYETHYL GLYCOL 3350 17gm PACKET PO SCH (09:07)
[2016-09-13] MEDS: CEFTRIAXONE 1 G in NS 100 ML IV SCH (09:08)
[2016-09-13] MEDS: RisperiDONE 1 MG TABLET PO SCH (09:08)
[2016-09-13] MEDS: MULTI-VITAMIN PLAIN TABLET PO SCH (09:08)
[2016-09-13] MEDS: TRAMADOL/APAP 37.5 MG/325 MG TABLET PO SCH ×2 (09:19→21:20)
[2016-09-13] MEDS: INSULIN DETEMIR 100unit/ml INJECTION SQ SCH ×2 (09:26→17:37)
[2016-09-13] MEDS: INSULIN ASPART 100unit/ml INJECTION SQ SCH ×3 (09:28→17:38)
--- NOTE | 2016-09-13 11:12 | Operative Note ---
DATE OF SERVICE 09/12/2016 SURGEON Adam Cameron MD PREOPERATIVE DIAGNOSIS Left diabetic foot ulcer/wound. POSTOPERATIVE DIAGNOSIS Left diabetic foot ulcer/wound. PROCEDURE Left fourth toe ray amputation. Application of wound VAC. ANESTHESIA TIVA/local BRIEF HISTORY/INDICATIONS Mr. Che is a 75-year-old diabetic gentleman who has had the misfortune of developing a significant wound involving his left foot. Patient is mostly wheelchair-bound but patient does use lower extremities for transfer. The patient had developed a wound that had frankly necrotic material within it in conjunction with purulent material coming forth from the midportion of the foot. Anatomically the wound was present overlying the fourth metatarsal head. It was recommended to the patient and his durable power of contract attorney that we proceed with surgical exploration of the wound and amputation as indicated upon intraoperative findings. Patient presents today to undergo this procedure. DESCRIPTION OF PROCEDURE After informed consent was obtained, patient was brought to the operative suite , placed on the table in a supine fashion. Left lower extremity was then prepped and draped in sterile fashion. Formal time-out was then completed. 0.25% Marcaine with epinephrine was injected circumferentially around the wound that was present involving the plantar aspect of the left foot. Next, a circular incision was then made adjacent to the edges of the wound. An additional 4-5 mm of normal-appearing skin was obtained. I was pleased to see that there was some bleeding coming forth from the skin edges. Dissection was then carried down to the deep subcuticular tissues to the underlying enveloping fascia. All necrotic subcutaneous tissues was debrided sharply. One could then see some purulent material coming forth from the base of the fourth toe. It appeared that there was still some necrotic and grossly infected tissues at this location. Fifth toe and third toe did not appear to contain any necrotic material. I elected to go ahead and proceed with a ray amputation of the fourth toe. Additional 0.25% Marcaine with epinephrine was injected upon the plantar aspect of the foot proximal to the base of the fourth toe. The incision that was on the plantar aspect of foot was then carried between the fourth and fifth web space as well as between the third and fourth web space and carried this a short distance up onto the dorsum of the foot. Dissection was carried down to the base of the toe itself. The toe itself was then disarticulated off the fourth metatarsal head and passed off the table as a surgical specimen. I elected to go ahead and transect the fourth metatarsal head. Utilizing the oscillating saw, the metatarsal head was transected and also passed off the table as a surgical specimen. Rongeur was then utilized and the edges of the remaining fourth metatarsal was "rounded off." A rasp was then utilized. This area was then irrigated. At this point time, all grossly infected/necrotic tissue had been sharply debrided. Surprisingly the wound edges were bleeding. Next, I elected to go ahead and reapproximate the edges of the incision upon the dorsum of the foot. Several mattress sutures were placed with 0 Prolene, imbricating the 5th and 3rd toes to one another. This newly created webspace was also reapproximated between the third and fifth toes by placing several mattress sutures of 0 Prolene. This resulted in a residual wound upon the plantar aspect of the foot that was about 2 cm in greatest dimension. As stated above, all grossly infected/necrotic material at this time had been debrided. We elected to go ahead and proceed with application of wound VAC. Wound was further irrigated and meticulous hemostasis obtained within the wound. Black foam was then placed within the wound followed by Steri-Drape followed by a TRAC pad and attached to the wound VAC. The patient is in the process of awakening from his anesthetic and will be sent back to the recovery room once deemed in stable condition. SUNDAR
[2016-09-13] MEDS: ASCORBIC ACID 500 MG TABLET PO SCH ×2 (12:28→17:37)
--- NOTE | 2016-09-13 14:43 | Cardiology Progress Note ---
Subjective Principal diagnosis: Left foot ulceration <Stephanie Sandy 09/13/16 14:51> Interval history: Yordan is seen in his room on the Surgical unit. He is drowsy. Denies cardiac complaints. <Stephanie Sandy 09/13/16 14:51> Exam Vital signs: Temperature 98.6 F 09/16/16 15:53 Pulse Rate 80 09/16/16 15:58 Respiratory Rate 18 09/16/16 15:53 Blood Pressure 103/60 09/16/16 15:53 Pulse Oximetry 100 09/16/16 15:53 Oxygen Delivery Method Room Air Oxygen Flow Rate 2 <Genaro Deluna - 09/17/16 08:27> Temp Pulse Resp BP Pulse Ox 98.5 F 84 12 121/68 98 09/13/16 12:00 09/13/16 12:00 09/13/16 12:00 09/13/16 12:00 09/13/16 12:00 <Stephanie Sandy 09/13/16 14:51> - Constitutional no acute distress, obese, cooperative <Stephanie Sandy 09/13/16 14:51> - Routine Neck Exam Absent: JVD, carotid bruit <Stephanie Sandy 09/13/16 14:51> - Routine Chest/Breast/Axilla Exam Chest wall: Absent: tenderness <Stephanie Sandy 09/13/16 14:51> - Routine Respiratory Exam Present: CTA bilaterally. Absent: rales, wheezes <Stephanie Sandy 09/13/16 14:51> - Routine Cardiovascular Exam Present: irregular rhythm. Absent: JVD <Stephanie Sandy 09/13/16 14:51> - Routine Abdominal Exam Present: soft, normoactive bowel sounds <Stephanie Sandy 09/13/16 14:51> - Routine Skin Exam Present: wounds (left toes amputation) <Stephanie Sandy 09/13/16 14:51> - Routine Neurological Exam Present: alert <Stephanie Sandy 09/13/16 14:51> - Routine Psychiatric Exam Present: normal affect <Stephanie Sandy 09/13/16 14:51> Hospital Course This is a general summary of the patient's hospital course. For more details refer to the complete medical record. <Genaro Deluna - 09/17/16 08:27> Hospital course: Recommendation After examining the patient I agree with the above assessment. I am involved in the formulation of the patient's plan of care. <Genaro Deluna - 09/17/16 08:27> 09/09/16 16:47 LE arterial Duplex: proximal SFA suggesting a moderate stenosis with diffusely calcified vessels. No complete occlusion. Plan LE angiogram with possible [facility]/ Stent tomorrow afternoon. Thank you for allowing us to participate in this patient's care. 09/10/16 Date of Exam: 09/10/16 Type of Exam(s): [place] cardiovascular procedures DATE OF PROCEDURE September 10, 2016 REFERRING PHYSICIAN Adam Cameron MD INDICATIONS The patient is a 75-year-old gentleman with large ulcer of the left foot and abnormal lower extremity duplex study and was referred for further evaluation by angiography and possible intervention. INFORMED CONSENT Informed consent was obtained after explaining the procedure and the potential risks to the patient who agreed to proceed with the procedure. PROCEDURE 1. Abdominal aortography by placing catheter in abdominal aorta. 2. Selective left lower extremity angiogram using crossover technique and placing catheter in left SFA and left common iliac. 3. Runoffs of the right lower extremity through the right femoral sheath. 4. Successful Mynx deployment for hemostasis. TECHNIQUE He was prepped and draped in the usual sterile techniques. 1% lidocaine was used for local anesthesia. Conscious sedation was performed using Versed and fentanyl. Using modified Seldinger technique, arterial access was obtained into the right femoral artery with placement of a 6-Chinese arterial sheath. ABDOMINAL AORTOGRAPHY Abdominal aortography showed irregularities of the abdominal aorta with no significant lesions or aneurysms. There were single renal arteries to each kidney. Common iliacs, external and internal iliacs and common femoral arteries had irregularities with no significant lesions. Selective left lower left lower extremity angiogram showed patent profunda. SFA had multiple endovascular stents which were widely patent. There was about 20% lesions in SFA. Left popliteal artery was patent. Left posterior tibial artery was patent with excellent flow down to the foot. Left anterior tibial and peroneal arteries were occluded. Runoffs of the right lower extremity showed patent profunda. SFA had 80% stenosis distally. Popliteal artery was patent. Right posterior tibial artery was patent. Right anterior tibial artery had diffuse disease of up to about 90% . Right peroneal artery was patent. The patient tolerated the procedure well with no complications. Mynx was used for hemostasis. PLAN Will continue medical management for left lower extremity. The patient may require further treatment with wound care. One might consider right SFA percutaneous intervention from left groin in future. 09/11/16 HR 80-90's. Started on therapeutic lovenox 1mg/kg BID. Will change post amputation, scheduled for tomorrow. Ordered ECHO, showed EF45%. Start lisinopril and coreg. TSH elevated. 09/12/16 Held Lovenox. Left 4th toe amputation. <Stephanie Sandy - 09/13/16 14:51> Progress Note-A&P (1) Decubitus ulcer of left foot, stage 4 Status: Resolved (2) Severe sepsis Status: Resolved (3) CAD (coronary artery disease) Status: Chronic (4) HTN (hypertension) Status: Chronic (5) Hyperlipidemia Status: Chronic (6) Type II diabetes mellitus Status: Chronic (7) Tobacco dependence Status: Chronic (8) Peripheral vascular disease of extremity Status: Chronic (9) Atrial flutter Status: Chronic <Genaro Deluna - 09/17/16 08:27> (1) Decubitus ulcer of left foot, stage 4 Status: Chronic (2) Severe sepsis Status: Resolved (3) CAD (coronary artery disease) Status: Chronic (4) HTN (hypertension) Status: Chronic (5) Hyperlipidemia Status: Chronic (6) Type II diabetes mellitus Status: Chronic (7) Tobacco dependence Status: Chronic (8) Peripheral vascular disease of extremity Problem details: LE arterial Duplex: proximal SFA suggesting a moderate stenosis with diffusely calcified vessels. No complete occlusion. Status: Acute (9) Atrial flutter Status: Acute Assessment and plan: Needs anticoagulation when okay with surgery team <Stephanie Sandy - 09/13/16 17:20> - Time Spent With Patient Total time spent is greater than 50% in coordination of care (as documented) at patient's floor/unit and/or counseling patient: <Genaro Deluna - 09/17/16 08:27> Total time spent is greater than 50% in coordination of care (as documented) at patient's floor/unit and/or counseling patient: <Stephanie Sandy 09/13/16 14:51> less than 15 minutes <Stephanie Sandy 09/13/16 17:20> Sepsis Assessment - Evaluation Sepsis screening result: No Definite Risk <Stephanie Sandy 09/13/16 14:51>
--- NOTE | 2016-09-13 17:23 | Progress Note ---
Subjective: Pt was seen and examined earlier today. Stated he did not feel any pain and was comfortable. Objective Vital signs: Temp Pulse Resp BP Pulse Ox 98.5 F 85 12 121/68 97 09/13/16 12:00 09/13/16 16:00 09/13/16 12:00 09/13/16 12:00 09/13/16 16:00 Rhythm: Atrial Flutter with Variable Conduction Weight: 111.4 kg - Constitutional Present: no acute distress, obese, cooperative - Routine HEENT Exam Head: Present: normocephalic, atraumatic Eye: Present: EOMI, PERRL ENT: Present: mucous membranes moist - Routine Cardiovascular Exam Present: RRR - Routine Abdominal Exam Present: soft, non distended, non tender - Routine Extremities Exam Absent: cyanosis, clubbing, edema - Routine Neurological Exam PT is arousable. For the most part is sleepy. - Routine Psychiatric Exam Present: cooperative Results - Labs CBC & Chem 7: 09/13/16 04:41 09/12/16 18:12 Assessment and Plan (1) Decubitus ulcer of left foot, stage 4 Current visit: Yes Status: Chronic (2) Severe sepsis Current visit: Yes Status: Resolved 09/05/16: Tachycardia, tachypnea, elevated lactic acid - source foot wound. (3) CAD (coronary artery disease) Current visit: Yes Status: Chronic (4) HTN (hypertension) Current visit: Yes Status: Chronic (5) Hyperlipidemia Current visit: Yes Status: Chronic (6) Type II diabetes mellitus Current visit: Yes Status: Chronic (7) COPD (chronic obstructive pulmonary disease) Current visit: Yes Status: Chronic (8) Tobacco dependence Current visit: Yes Status: Chronic (9) Dementia Current visit: Yes Status: Chronic (10) Schizophrenia Current visit: Yes Status: Chronic (11) Depression Current visit: Yes Status: Chronic (12) Obesity Current visit: Yes Status: Chronic (13) Hypernatremia Current visit: Yes Status: Resolved 09/05/16 19:39 POA (14) Peripheral vascular disease of extremity Problem details: LE arterial Duplex: proximal SFA suggesting a moderate stenosis with diffusely calcified vessels. No complete occlusion. Current visit: Yes Status: Acute Assessment and Plan: Mr Che is a 75 YO AAM that came with a decubitus ulcer of his foot and was found to have arterial occlusive disease; he had surgery yesterday and has a wound vac. 1) Decubitus ulcer of the L foot, on a diabetic patient with PVD. - Left 4th toe and metatarsal head diabetic foot ulcer with necrosis, pt is S/P Left 4th toe ray amputation (09/12) 2) New onset A flutter - EKG done on 09/11 suggests A flutter with 2 - 3: 1 conduction. HR is in the 90's. - Ventricular rate is controlled. - Cardiology following this pt. - Lovenox on hold for now (per surgery - see cardiology notes) 3) Type II DM with macrovascular disease, hyperlipidemia, CAD. - Check HbA1c and lipids. 4) COPD with H.O Tobacco abuse in the past. - ? of ABDULLAHI. I have found this pt many times in the room sleeping and snoring. - Will check overnight oxymetry to screen. 5) Hypothyroidism - TSH is elevated. - Check T3, Cortisol. 5) Depression/Obesity/Schizophrenia. Sepsis Assessment - Evaluation Sepsis screening result: No Definite Risk Hospital Course Summary Disclaimer: The visit summary below is not to be considered part of the above Progress Note. Hospital Course: 09/09/16 16:47 LE arterial Duplex: proximal SFA suggesting a moderate stenosis with diffusely calcified vessels. No complete occlusion. Plan LE angiogram with possible [employer]/ Stent tomorrow afternoon. Thank you for allowing us to participate in this patient's care. 09/10/16 Date of Exam: 09/10/16 Type of Exam(s): [place] cardiovascular procedures DATE OF PROCEDURE September 10, 2016 REFERRING PHYSICIAN Adam Cameron MD INDICATIONS The patient is a 75-year-old gentleman with large ulcer of the left foot and abnormal lower extremity duplex study and was referred for further evaluation by angiography and possible intervention. INFORMED CONSENT Informed consent was obtained after explaining the procedure and the potential risks to the patient who agreed to proceed with the procedure. PROCEDURE 1. Abdominal aortography by placing catheter in abdominal aorta. 2. Selective left lower extremity angiogram using crossover technique and placing catheter in left SFA and left common iliac. 3. Runoffs of the right lower extremity through the right femoral sheath. 4. Successful Mynx deployment for hemostasis. TECHNIQUE He was prepped and draped in the usual sterile techniques. 1% lidocaine was used for local anesthesia. Conscious sedation was performed using Versed and fentanyl. Using modified Seldinger technique, arterial access was obtained into the right femoral artery with placement of a 6-Polish arterial sheath. ABDOMINAL AORTOGRAPHY Abdominal aortography showed irregularities of the abdominal aorta with no significant lesions or aneurysms. There were single renal arteries to each kidney. Common iliacs, external and internal iliacs and common femoral arteries had irregularities with no significant lesions. Selective left lower left lower extremity angiogram showed patent profunda. SFA had multiple endovascular stents which were widely patent. There was about 20% lesions in SFA. Left popliteal artery was patent. Left posterior tibial artery was patent with excellent flow down to the foot. Left anterior tibial and peroneal arteries were occluded. Runoffs of the right lower extremity showed patent profunda. SFA had 80% stenosis distally. Popliteal artery was patent. Right posterior tibial artery was patent. Right anterior tibial artery had diffuse disease of up to about 90% . Right peroneal artery was patent. The patient tolerated the procedure well with no complications. Mynx was used for hemostasis. PLAN Will continue medical management for left lower extremity. The patient may require further treatment with wound care. One might consider right SFA percutaneous intervention from left groin in future. 09/11/16 HR 80-90's. Started on therapeutic lovenox 1mg/kg BID. Will change post amputation, scheduled for tomorrow. Ordered ECHO, showed EF45%. Start lisinopril and coreg. TSH elevated. 09/12/16 Held Lovenox. Left 4th toe amputation.
[2016-09-13] MEDS: LATANOPROST 0.005% EYE DROPS 2.5ml RIGHT EYE SCH (21:23)
[2016-09-13] MEDS: RisperiDONE 2 MG TABLET PO SCH (21:23)
[2016-09-14] MEDS: NS FLUSH BAG 500ml IV PRN ×2 (06:09→22:29)
--- NOTE | 2016-09-14 08:34 | Pharmacy Consult-Antibiotics ---
Pharmacy Consult-Vancomycin - Laboratory Information WBC 9.6 T/MM3 (4.5-11.0) 09/14/16 03:50 BUN 10.0 MG/DL (9-20) 09/14/16 03:50 Creatinine 0.5 MG/DL (0.8-1.5) L 09/14/16 03:50 Procalcitonin < 0.05 NG/ML 09/05/16 16:41 Vancomycin Trough 19.03 UG/ML (15-20) 09/14/16 03:50 - Consult Information VANCOMYCIN CONSULT. We will continue vancomycin 1.5gm ivpb q8h. Trough level is expected to be around 17. Thanks
[2016-09-14] MEDS: LISINOPRIL 2.5 MG TABLET PO SCH (09:01)
[2016-09-14] MEDS: DULOXETINE 60 MG CAPSULE PO SCH (09:01)
[2016-09-14] MEDS: ZINC GLUCONATE 50 MG TABLET PO SCH (09:01)
[2016-09-14] MEDS: TRAMADOL/APAP 37.5 MG/325 MG TABLET PO SCH ×2 (09:01→21:52)
[2016-09-14] MEDS: MULTI-VITAMIN PLAIN TABLET PO SCH (09:02)
[2016-09-14] MEDS: CARVEDILOL 3.125 MG TABLET PO SCH ×2 (09:02→18:24)
[2016-09-14] MEDS: RisperiDONE 1 MG TABLET PO SCH (09:02)
[2016-09-14] MEDS: DIVALPROEX 500 MG TABLET PO SCH ×2 (09:02→21:51)
[2016-09-14] MEDS: INSULIN DETEMIR 100unit/ml INJECTION SQ SCH ×2 (09:03→18:23)
[2016-09-14] MEDS: CEFTRIAXONE 1 G in NS 100 ML IV SCH (09:04)
[2016-09-14] MEDS: INSULIN ASPART 100unit/ml INJECTION SQ SCH ×3 (09:04→18:23)
[2016-09-14] MEDS: POLYETHYL GLYCOL 3350 17gm PACKET PO SCH (09:08)
[2016-09-14] MEDS: SALINE FLUSH 10ml SYRINGE IV PRN ×2 (09:58→13:20)
[2016-09-14] MEDS: ASCORBIC ACID 500 MG TABLET PO SCH ×2 (13:18→18:24)
--- NOTE | 2016-09-14 14:58 | Progress Note ---
Subjective: Pt states he has been having leg pain that feels like "many needles". This has been going on for a while. He thought the surgery was to correct this. He was educated that this is probably neuropathy. He will be willing to try Gabapentin for this. Objective Vital signs: Temp Pulse Resp BP Pulse Ox 98.6 F 84 18 136/72 95 09/14/16 12:00 09/14/16 12:00 09/14/16 12:00 09/14/16 12:00 09/14/16 12:00 Rhythm: Normal Sinus Rhythm, Atrial Flutter with Variable Conduction Weight: 111.4 kg - Constitutional Present: no acute distress, obese, cooperative - Routine HEENT Exam Head: Present: normocephalic, atraumatic Eye: Present: EOMI, PERRL ENT: Present: mucous membranes moist - Routine Respiratory Exam Present: CTA bilaterally - Routine Cardiovascular Exam Present: RRR, no murmur - Routine Abdominal Exam Present: soft, non distended, non tender - Routine Extremities Exam Absent: cyanosis, clubbing, edema - Routine Musculoskeletal Exam Musculoskeletal: no clubbing or cyanosis - Routine Neurological Exam Present: alert, oriented X3 - Routine Psychiatric Exam Present: normal affect, cooperative Results - Labs CBC & Chem 7: 09/14/16 03:50 09/14/16 03:50 Assessment and Plan (1) Decubitus ulcer of left foot, stage 4 Current visit: Yes Status: Chronic (2) Severe sepsis Current visit: Yes Status: Resolved 09/05/16: Tachycardia, tachypnea, elevated lactic acid - source foot wound. (3) CAD (coronary artery disease) Current visit: Yes Status: Chronic (4) HTN (hypertension) Current visit: Yes Status: Chronic (5) Hyperlipidemia Current visit: Yes Status: Chronic (6) Type II diabetes mellitus Current visit: Yes Status: Chronic (7) COPD (chronic obstructive pulmonary disease) Current visit: Yes Status: Chronic (8) Tobacco dependence Current visit: Yes Status: Chronic (9) Dementia Current visit: Yes Status: Chronic (10) Schizophrenia Current visit: Yes Status: Chronic (11) Depression Current visit: Yes Status: Chronic (12) Obesity Current visit: Yes Status: Chronic (13) Hypernatremia Current visit: Yes Status: Resolved 09/05/16 19:39 POA (14) Peripheral vascular disease of extremity Problem details: LE arterial Duplex: proximal SFA suggesting a moderate stenosis with diffusely calcified vessels. No complete occlusion. Current visit: Yes Status: Acute Assessment and Plan: Mr Che is a 75 YO AAM that came with a decubitus ulcer of his foot and was found to have arterial occlusive disease; he had surgery yesterday and has a wound vac. He states he is having distal pain in that leg (neuropathic ?). 1) Decubitus ulcer of the L foot, on a diabetic patient with PVD. - Left 4th toe and metatarsal head diabetic foot ulcer with necrosis, pt is S/P Left 4th toe ray amputation (09/12) - Stable, no fever or chills. - Cultures from bone and pathology is pending. 2) New onset A flutter - EKG done on 09/11 suggests A flutter with 2 - 3: 1 conduction. HR is in the 90's. - Ventricular rate is controlled. - Cardiology following this pt. - Lovenox on hold for now (per surgery - see cardiology notes) 3) Type II DM with macrovascular disease, hyperlipidemia, CAD, and distal neuropathy. - Check HbA1c and lipids. - Neurophathy - Try capsaicin topically and observe for response. 4) COPD with H.O Tobacco abuse in the past. - ? of ABDULLAHI. I have found this pt many times in the room sleeping and snoring. - Will check overnight oxymetry to screen (ordered) 5) Hypothyroidism - TSH is elevated. - Check T3, Cortisol (pending). 5) Depression/Obesity/Schizophrenia. Sepsis Assessment - Evaluation Sepsis screening result: No Definite Risk Hospital Course Summary Disclaimer: The visit summary below is not to be considered part of the above Progress Note. Hospital Course: 09/09/16 16:47 LE arterial Duplex: proximal SFA suggesting a moderate stenosis with diffusely calcified vessels. No complete occlusion. Plan LE angiogram with possible ENTERTAINMENT USHER/ Stent tomorrow afternoon. Thank you for allowing us to participate in this patient's care. 09/10/16 Date of Exam: 09/10/16 Type of Exam(s): [place] cardiovascular procedures DATE OF PROCEDURE September 10, 2016 REFERRING PHYSICIAN Adam Cameron MD INDICATIONS The patient is a 75-year-old gentleman with large ulcer of the left foot and abnormal lower extremity duplex study and was referred for further evaluation by angiography and possible intervention. INFORMED CONSENT Informed consent was obtained after explaining the procedure and the potential risks to the patient who agreed to proceed with the procedure. PROCEDURE 1. Abdominal aortography by placing catheter in abdominal aorta. 2. Selective left lower extremity angiogram using crossover technique and placing catheter in left SFA and left common iliac. 3. Runoffs of the right lower extremity through the right femoral sheath. 4. Successful Mynx deployment for hemostasis. TECHNIQUE He was prepped and draped in the usual sterile techniques. 1% lidocaine was used for local anesthesia. Conscious sedation was performed using Versed and fentanyl. Using modified Seldinger technique, arterial access was obtained into the right femoral artery with placement of a 6-[place] arterial sheath. ABDOMINAL AORTOGRAPHY Abdominal aortography showed irregularities of the abdominal aorta with no significant lesions or aneurysms. There were single renal arteries to each kidney. Common iliacs, external and internal iliacs and common femoral arteries had irregularities with no significant lesions. Selective left lower left lower extremity angiogram showed patent profunda. SFA had multiple endovascular stents which were widely patent. There was about 20% lesions in SFA. Left popliteal artery was patent. Left posterior tibial artery was patent with excellent flow down to the foot. Left anterior tibial and peroneal arteries were occluded. Runoffs of the right lower extremity showed patent profunda. SFA had 80% stenosis distally. Popliteal artery was patent. Right posterior tibial artery was patent. Right anterior tibial artery had diffuse disease of up to about 90% . Right peroneal artery was patent. The patient tolerated the procedure well with no complications. Mynx was used for hemostasis. PLAN Will continue medical management for left lower extremity. The patient may require further treatment with wound care. One might consider right SFA percutaneous intervention from left groin in future. 09/11/16 HR 80-90's. Started on therapeutic lovenox 1mg/kg BID. Will change post amputation, scheduled for tomorrow. Ordered ECHO, showed EF45%. Start lisinopril and coreg. TSH elevated. 09/12/16 Held Lovenox. Left 4th toe amputation.
[2016-09-14] MEDS: LATANOPROST 0.005% EYE DROPS 2.5ml RIGHT EYE SCH (21:53)
[2016-09-14] MEDS: RisperiDONE 2 MG TABLET PO SCH (21:53)
[2016-09-15] MEDS: LISINOPRIL 2.5 MG TABLET PO SCH (09:33)
[2016-09-15] MEDS: TRAMADOL/APAP 37.5 MG/325 MG TABLET PO SCH ×2 (09:33→21:39)
[2016-09-15] MEDS: ZINC GLUCONATE 50 MG TABLET PO SCH (09:33)
[2016-09-15] MEDS: RisperiDONE 1 MG TABLET PO SCH (09:34)
[2016-09-15] MEDS: CARVEDILOL 3.125 MG TABLET PO SCH ×2 (09:34→17:03)
[2016-09-15] MEDS: INSULIN ASPART 100unit/ml INJECTION SQ SCH ×3 (09:34→17:50)
[2016-09-15] MEDS: DIVALPROEX 500 MG TABLET PO SCH ×2 (09:34→21:39)
[2016-09-15] MEDS: DULOXETINE 60 MG CAPSULE PO SCH (09:34)
[2016-09-15] MEDS: MULTI-VITAMIN PLAIN TABLET PO SCH (09:34)
[2016-09-15] MEDS: INSULIN DETEMIR 100unit/ml INJECTION SQ SCH ×2 (09:35→17:51)
[2016-09-15] MEDS: POLYETHYL GLYCOL 3350 17gm PACKET PO SCH (09:36)
[2016-09-15] MEDS ORDERED: ALTEPLASE (Cathflo*) 2mg INJECTION IV ONE (10:00)
[2016-09-15] MEDS: ASCORBIC ACID 500 MG TABLET PO SCH ×2 (12:18→17:03)
[2016-09-15] MEDS: CEFTRIAXONE 1 G in NS 100 ML IV SCH (14:19)
--- NOTE | 2016-09-15 17:09 | Progress Note ---
Subjective: Pt states the capsaicin cream burned too much to tolerate. He is otherwise feeling well and will be looking for placement starting tomorrow. Objective Vital signs: Temp Pulse Resp BP Pulse Ox 98.0 F 84 18 130/76 99 09/15/16 15:48 09/15/16 16:03 09/15/16 15:48 09/15/16 15:48 09/15/16 15:48 Rhythm: Atrial Fibrillation with Normal Ventricular Rate Weight: 112.7 kg - Constitutional Present: no acute distress, obese, cooperative - Routine HEENT Exam Head: Present: normocephalic, atraumatic Eye: Present: EOMI, PERRL - Routine Respiratory Exam Present: CTA bilaterally - Routine Cardiovascular Exam Present: irregular rhythm - Routine Abdominal Exam Present: soft, non distended, non tender - Routine Extremities Exam Absent: cyanosis, clubbing, edema - Routine Neurological Exam Present: alert, oriented X3 - Routine Psychiatric Exam Present: normal affect, cooperative Results - Labs CBC & Chem 7: 09/15/16 11:49 09/15/16 11:49 Assessment and Plan (1) Decubitus ulcer of left foot, stage 4 Current visit: Yes Status: Chronic (2) Severe sepsis Current visit: Yes Status: Resolved 09/05/16: Tachycardia, tachypnea, elevated lactic acid - source foot wound. (3) CAD (coronary artery disease) Current visit: Yes Status: Chronic (4) HTN (hypertension) Current visit: Yes Status: Chronic (5) Hyperlipidemia Current visit: Yes Status: Chronic (6) Type II diabetes mellitus Current visit: Yes Status: Chronic (7) COPD (chronic obstructive pulmonary disease) Current visit: Yes Status: Chronic (8) Tobacco dependence Current visit: Yes Status: Chronic (9) Dementia Current visit: Yes Status: Chronic (10) Schizophrenia Current visit: Yes Status: Chronic (11) Depression Current visit: Yes Status: Chronic (12) Obesity Current visit: Yes Status: Chronic (13) Hypernatremia Current visit: Yes Status: Resolved 09/05/16 19:39 POA (14) Peripheral vascular disease of extremity Problem details: LE arterial Duplex: proximal SFA suggesting a moderate stenosis with diffusely calcified vessels. No complete occlusion. Current visit: Yes Status: Acute Assessment and Plan: Mr Che is a 75 YO AAM that came with a diabetic foot ulcer of his foot and was found to have arterial occlusive disease; he had surgery on 09/13 and has a wound vac now. He states he is having distal pain in that leg, that feels like he has many needles poking him. (neuropathic ?). He thought this would go away with surgery. He was given Capsaicin topically for neuropathy but stated it burned too much ( Regular strength ). 1) Left 4th toe and metatarsal head diabetic foot ulcer with necrosis. - S/P Left 4th toe ray amputation (09/12) - Stable, no fever or chills. - Cultures from bone and pathology pending. 2) Atrial flutter - EKG done on 09/11 suggests A flutter with 2 - 3: 1 conduction. HR is in the 90's. - Ventricular rate is controlled. - Cardiology following this pt. - Should resume Lovenox when OK with surgery 3) Type II DM with macrovascular disease, hyperlipidemia, CAD, obesity and distal neuropathy. - On Levemir 50 U BID (Total of 100 U of basal) + bolus 22U in the AM, 23 U lunch and dinner (68 units) - Neurophathy - Did not tolerate Zostrix, will start Gabapentin. 4) COPD with H.O Tobacco abuse in the past. - Nocturnal Oxymetry shows pt has some desaturations at night but these are not severe enough at this time to warrant a formal sleep study. - Add Spiriva daily. 5) Hypothyroidism - TSH is elevated, T3 and cortisol are pending. 6) Anemia, most likely ACD - can workup electively. 7) Depression/Schizophrenia. Sepsis Assessment - Evaluation Sepsis screening result: No Definite Risk Hospital Course Summary Disclaimer: The visit summary below is not to be considered part of the above Progress Note. Hospital Course: 09/09/16 16:47 LE arterial Duplex: proximal SFA suggesting a moderate stenosis with diffusely calcified vessels. No complete occlusion. Plan LE angiogram with possible TOWER WATCHMAN/ Stent tomorrow afternoon. Thank you for allowing us to participate in this patient's care. 09/10/16 Date of Exam: 09/10/16 Type of Exam(s): [place] cardiovascular procedures DATE OF PROCEDURE September 10, 2016 REFERRING PHYSICIAN Adam Cameron MD INDICATIONS The patient is a 75-year-old gentleman with large ulcer of the left foot and abnormal lower extremity duplex study and was referred for further evaluation by angiography and possible intervention. INFORMED CONSENT Informed consent was obtained after explaining the procedure and the potential risks to the patient who agreed to proceed with the procedure. PROCEDURE 1. Abdominal aortography by placing catheter in abdominal aorta. 2. Selective left lower extremity angiogram using crossover technique and placing catheter in left SFA and left common iliac. 3. Runoffs of the right lower extremity through the right femoral sheath. 4. Successful Mynx deployment for hemostasis. TECHNIQUE He was prepped and draped in the usual sterile techniques. 1% lidocaine was used for local anesthesia. Conscious sedation was performed using Versed and fentanyl. Using modified Seldinger technique, arterial access was obtained into the right femoral artery with placement of a 6-[place] arterial sheath. ABDOMINAL AORTOGRAPHY Abdominal aortography showed irregularities of the abdominal aorta with no significant lesions or aneurysms. There were single renal arteries to each kidney. Common iliacs, external and internal iliacs and common femoral arteries had irregularities with no significant lesions. Selective left lower left lower extremity angiogram showed patent profunda. SFA had multiple endovascular stents which were widely patent. There was about 20% lesions in SFA. Left popliteal artery was patent. Left posterior tibial artery was patent with excellent flow down to the foot. Left anterior tibial and peroneal arteries were occluded. Runoffs of the right lower extremity showed patent profunda. SFA had 80% stenosis distally. Popliteal artery was patent. Right posterior tibial artery was patent. Right anterior tibial artery had diffuse disease of up to about 90% . Right peroneal artery was patent. The patient tolerated the procedure well with no complications. Mynx was used for hemostasis. PLAN Will continue medical management for left lower extremity. The patient may require further treatment with wound care. One might consider right SFA percutaneous intervention from left groin in future. 09/11/16 HR 80-90's. Started on therapeutic lovenox 1mg/kg BID. Will change post amputation, scheduled for tomorrow. Ordered ECHO, showed EF45%. Start lisinopril and coreg. TSH elevated. 09/12/16 Held Lovenox. Left 4th toe amputation.
[2016-09-15] MEDS: SALINE FLUSH 10ml SYRINGE IV PRN (19:50)
[2016-09-15] MEDS ORDERED: GABAPENTIN 600 MG TABLET PO SCH (21:00)
[2016-09-15] MEDS: RisperiDONE 2 MG TABLET PO SCH (21:39)
[2016-09-15] MEDS: LATANOPROST 0.005% EYE DROPS 2.5ml RIGHT EYE SCH (21:41)
[2016-09-15] MEDS ORDERED: GABAPENTIN 300 MG CAPSULE PO SCH (22:00)
[2016-09-16] MEDS: NS FLUSH BAG 500ml IV PRN (04:15)
[2016-09-16] MEDS: SALINE FLUSH 10ml SYRINGE IV PRN ×2 (04:15→09:55)
[2016-09-16] MEDS: INSULIN DETEMIR 100unit/ml INJECTION SQ SCH (08:48)
[2016-09-16] MEDS: POLYETHYL GLYCOL 3350 17gm PACKET PO SCH (08:49)
[2016-09-16] MEDS: INSULIN ASPART 100unit/ml INJECTION SQ SCH ×2 (08:49→12:37)
[2016-09-16] MEDS: CARVEDILOL 3.125 MG TABLET PO SCH (08:50)
[2016-09-16] MEDS: LISINOPRIL 2.5 MG TABLET PO SCH (08:50)
[2016-09-16] MEDS: MULTI-VITAMIN PLAIN TABLET PO SCH (08:50)
[2016-09-16] MEDS: TRAMADOL/APAP 37.5 MG/325 MG TABLET PO SCH (08:50)
[2016-09-16] MEDS: DULOXETINE 60 MG CAPSULE PO SCH (08:50)
[2016-09-16] MEDS: RisperiDONE 1 MG TABLET PO SCH (08:50)
[2016-09-16] MEDS: ZINC GLUCONATE 50 MG TABLET PO SCH (08:50)
[2016-09-16] MEDS: DIVALPROEX 500 MG TABLET PO SCH (08:51)
[2016-09-16] MEDS: CEFTRIAXONE 1 G in NS 100 ML IV SCH (08:52)
[2016-09-16] MEDS ORDERED: TIOTROPIUM 18mcg/cap HANDIHALER ORAL INH SCH (09:00)
--- NOTE | 2016-09-16 10:42 | Progress Note ---
Subjective: Pt is seen and examined at 11:30AM. He states he is feeling fine. Denies any CP/ SOB. Distal lower extremity pain is a bit better. Ordered MRSA screen to decide on antibiotics. Cardiology recommended Pradaxa and pt was started on it already. Objective Vital signs: Temp Pulse Resp BP Pulse Ox 97.7 F 79 20 162/77 H 97 09/16/16 08:01 09/16/16 08:24 09/16/16 09:52 09/16/16 08:01 09/16/16 08:01 Rhythm: Atrial Flutter with Variable Conduction Weight: 110.1 kg - Constitutional Present: no acute distress, obese, cooperative - Routine HEENT Exam Head: Present: normocephalic, atraumatic Eye: Present: EOMI, PERRL - Routine Respiratory Exam Present: CTA bilaterally - Routine Cardiovascular Exam Present: no murmur, irregular rhythm - Routine Abdominal Exam Present: soft, non distended, non tender - Routine Extremities Exam Absent: cyanosis, clubbing, edema - Routine Skin Exam Present: intact - Routine Neurological Exam Present: alert, oriented X3 - Routine Psychiatric Exam Present: normal affect, cooperative Results - Labs CBC & Chem 7: 09/15/16 11:49 09/15/16 11:49 Assessment and Plan (1) Decubitus ulcer of left foot, stage 4 Current visit: Yes Status: Resolved (2) Severe sepsis Current visit: Yes Status: Resolved 09/05/16: Tachycardia, tachypnea, elevated lactic acid - source foot wound. (3) CAD (coronary artery disease) Current visit: Yes Status: Chronic (4) HTN (hypertension) Current visit: Yes Status: Chronic (5) Hyperlipidemia Current visit: Yes Status: Chronic (6) Type II diabetes mellitus Current visit: Yes Status: Chronic (7) COPD (chronic obstructive pulmonary disease) Current visit: Yes Status: Chronic (8) Tobacco dependence Current visit: Yes Status: Chronic (9) Dementia Current visit: Yes Status: Chronic (10) Schizophrenia Current visit: Yes Status: Chronic (11) Depression Current visit: Yes Status: Chronic (12) Obesity Current visit: Yes Status: Chronic (13) Hypernatremia Current visit: Yes Status: Resolved 09/05/16 19:39 POA (14) Peripheral vascular disease of extremity Problem details: LE arterial Duplex: proximal SFA suggesting a moderate stenosis with diffusely calcified vessels. No complete occlusion. Current visit: Yes Status: Acute (15) Atrial flutter Current visit: Yes Status: Chronic 09/16/16 11:55 Chronic a flutter with controlled ventricular rate, pt will be placed on Pradaxa. Assessment and Plan: Mr Che is a 75 YO AAM that came with a diabetic foot ulcer of his foot and was found to have arterial occlusive disease; he had surgery on 09/13 and has a wound vac now. He states he is having distal pain in that leg, that feels like he has many needles poking him; likely neuropathy; he was started on Gabapentin on 09/15 and is feeling a bit better, the dose is yet to be increased more. He thought this pain would go away with surgery, now he understands it is most likely related to his DM. Pathology report of his resected toe, showed chronic OM, with clear margins. Pt has been on Vancomicyn. Discussed verbally with ID - Dr Milan - she states if margins are clear pt can be D/C on oral agents. An MRSA screeen was ordered, if + will D/C on Bactrim/Clinda or Doxy if negative will send to [facility] on Augmentin. DIAGNOSIS - 1) Left 4th toe and metatarsal head diabetic foot ulcer with necrosis. His pathology report states he has clear margins. I discussed the case via telephone with Dr Milan (ID). She is off but was kind enough to give us some advise. Bone cultures were not done, but pt proximal margins look fine per pathology reports. Based on this pt can be on oral agents to complete 2 weeks total of antibiotics. Will count day # 1 the 09/12. - S/P Left 4th toe ray amputation (09/12) - Stable, no fever or chills. 2) Atrial flutter - EKG done on 09/11 suggests A flutter with 2 - 3: 1 conduction. HR is in the 90's. - Ventricular rate is controlled + Dabigatran 150 mg PO BID. 3) Type II DM with macrovascular disease, hyperlipidemia, CAD, obesity and distal neuropathy. - On Levemir 50 U BID (Total of 100 U of basal) + bolus 22U in the AM, 23 U lunch and dinner (68 units) - Neurophathy - Did not tolerate Zostrix, will start Gabapentin. 4) COPD with H.O Tobacco abuse in the past. - Nocturnal Oxymetry shows pt has some desaturations at night but these are not severe enough at this time to warrant a formal sleep study. - Add Spiriva daily. 5) Hypothyroidism - TSH is elevated, T3 and cortisol are pending. 6) Anemia, most likely ACD - can workup electively. 7) Depression/Schizophrenia. Sepsis Assessment - Evaluation Sepsis screening result: No Definite Risk Hospital Course Summary Disclaimer: The visit summary below is not to be considered part of the above Progress Note. Hospital Course: 09/09/16 16:47 LE arterial Duplex: proximal SFA suggesting a moderate stenosis with diffusely calcified vessels. No complete occlusion. Plan LE angiogram with possible CORRECTIONAL CLASSIFICATION COUNSELOR/ Stent tomorrow afternoon. Thank you for allowing us to participate in this patient's care. 09/10/16 Date of Exam: 09/10/16 Type of Exam(s): [place] cardiovascular procedures DATE OF PROCEDURE September 10, 2016 REFERRING PHYSICIAN Adam Cameron MD INDICATIONS The patient is a 75-year-old gentleman with large ulcer of the left foot and abnormal lower extremity duplex study and was referred for further evaluation by angiography and possible intervention. INFORMED CONSENT Informed consent was obtained after explaining the procedure and the potential risks to the patient who agreed to proceed with the procedure. PROCEDURE 1. Abdominal aortography by placing catheter in abdominal aorta. 2. Selective left lower extremity angiogram using crossover technique and placing catheter in left SFA and left common iliac. 3. Runoffs of the right lower extremity through the right femoral sheath. 4. Successful Mynx deployment for hemostasis. TECHNIQUE He was prepped and draped in the usual sterile techniques. 1% lidocaine was used for local anesthesia. Conscious sedation was performed using Versed and fentanyl. Using modified Seldinger technique, arterial access was obtained into the right femoral artery with placement of a 6-[place] arterial sheath. ABDOMINAL AORTOGRAPHY Abdominal aortography showed irregularities of the abdominal aorta with no significant lesions or aneurysms. There were single renal arteries to each kidney. Common iliacs, external and internal iliacs and common femoral arteries had irregularities with no significant lesions. Selective left lower left lower extremity angiogram showed patent profunda. SFA had multiple endovascular stents which were widely patent. There was about 20% lesions in SFA. Left popliteal artery was patent. Left posterior tibial artery was patent with excellent flow down to the foot. Left anterior tibial and peroneal arteries were occluded. Runoffs of the right lower extremity showed patent profunda. SFA had 80% stenosis distally. Popliteal artery was patent. Right posterior tibial artery was patent. Right anterior tibial artery had diffuse disease of up to about 90% . Right peroneal artery was patent. The patient tolerated the procedure well with no complications. Mynx was used for hemostasis. PLAN Will continue medical management for left lower extremity. The patient may require further treatment with wound care. One might consider right SFA percutaneous intervention from left groin in future. 09/11/16 HR 80-90's. Started on therapeutic lovenox 1mg/kg BID. Will change post amputation, scheduled for tomorrow. Ordered ECHO, showed EF45%. Start lisinopril and coreg. TSH elevated. 09/12/16 Held Lovenox. Left 4th toe amputation.
[2016-09-16] MEDS ORDERED: AMOX/CLAV 875 MG/125 MG TABLET PO SCH (11:00)
--- NOTE | 2016-09-16 11:33 | Cardiology Progress Note ---
Subjective Principal diagnosis: left foot ulcer <Genaro Deluna - 09/17/16 08:27> Left foot ulceration <Stephanie Sandy - 09/16/16 11:33> Interval history: Yordan is seen in his room on the Surgical unit. He denies cardiac complaints. <Stephanie Sandy - 09/16/16 11:33> <Genaro Deluna - 09/19/16 17:16> Yordan is seen in his room on the Surgical unit. He denies cardiac complaints. <Stephanie Sandy - 09/16/16 11:33> Exam Vital signs: Temperature 98.6 F 09/16/16 15:53 Pulse Rate 80 09/16/16 15:58 Respiratory Rate 18 09/16/16 15:53 Blood Pressure 103/60 09/16/16 15:53 Pulse Oximetry 100 09/16/16 15:53 Oxygen Delivery Method Room Air Oxygen Flow Rate 2 <Genaro Deluna - 09/19/16 17:18> Temp Pulse Resp BP Pulse Ox 97.7 F 79 20 162/77 H 97 09/16/16 08:01 09/16/16 08:24 09/16/16 09:52 09/16/16 08:01 09/16/16 08:01 <SandsGrover - 09/16/16 11:52> Temp Pulse Resp BP Pulse Ox 97.7 F 79 20 162/77 H 97 09/16/16 08:01 09/16/16 08:24 09/16/16 09:52 09/16/16 08:01 09/16/16 08:01 <Stephanie Sandy - 09/16/16 11:33> - Constitutional no acute distress, cooperative <Stephanie Sandy - 09/16/16 11:33> - Routine HEENT Exam ENT: Present: mucous membranes moist <VikaStephanie Keating - 09/16/16 11:33> - Routine Neck Exam Absent: JVD <VikaStephanie Keating - 09/16/16 11:33> - Routine Chest/Breast/Axilla Exam Chest wall: Absent: tenderness <VikaStephanie carter Zuri Brennen 09/16/16 11:33> - Routine Respiratory Exam Present: CTA bilaterally. Absent: rales, wheezes <Stephanie Sandy 09/16/16 11:33> - Routine Cardiovascular Exam Present: irregular rhythm. Absent: murmur, JVD <Stephanie Sandy 09/16/16 11: 33> - Routine Abdominal Exam Present: soft, non tender <Stephanie Sandy 09/16/16 11:33> - Routine Skin Exam Present: intact <Stephanie Sandy 09/16/16 11:33> - Routine Neurological Exam Present: alert, oriented X3 <Stephanie Sandy 09/16/16 11:33> - Routine Psychiatric Exam Present: normal affect, normal thought process <Stephanie Sandy 09/16/16 11: 33> - Urinary Catheter Management Urethral Cath placed during this visit: no <Genaro Deluna - 09/19/16 17:16> Urethral indwelling: No <Genaro Deluna - 09/19/16 17:15> Hospital Course This is a general summary of the patient's hospital course. For more details refer to the complete medical record. <Gerhard Delunasein - 09/17/16 08:27> Hospital course: Recommendation After examining the patient I agree with the above assessment. I am involved in the formulation of the patient's plan of care. <Gerhard Delunasein - 09/18/16 16:16> 09/09/16 16:47 LE arterial Duplex: proximal SFA suggesting a moderate stenosis with diffusely calcified vessels. No complete occlusion. Plan LE angiogram with possible SPACE CONTROL SUPERVISOR/ Stent tomorrow afternoon. Thank you for allowing us to participate in this patient's care. 09/10/16 Date of Exam: 09/10/16 Type of Exam(s): CA cardiovascular procedures DATE OF PROCEDURE September 10, 2016 REFERRING PHYSICIAN Adam Cameron MD INDICATIONS The patient is a 75-year-old gentleman with large ulcer of the left foot and abnormal lower extremity duplex study and was referred for further evaluation by angiography and possible intervention. INFORMED CONSENT Informed consent was obtained after explaining the procedure and the potential risks to the patient who agreed to proceed with the procedure. PROCEDURE 1. Abdominal aortography by placing catheter in abdominal aorta. 2. Selective left lower extremity angiogram using crossover technique and placing catheter in left SFA and left common iliac. 3. Runoffs of the right lower extremity through the right femoral sheath. 4. Successful Mynx deployment for hemostasis. TECHNIQUE He was prepped and draped in the usual sterile techniques. 1% lidocaine was used for local anesthesia. Conscious sedation was performed using Versed and fentanyl. Using modified Seldinger technique, arterial access was obtained into the right femoral artery with placement of a 6-Lithuanian arterial sheath. ABDOMINAL AORTOGRAPHY Abdominal aortography showed irregularities of the abdominal aorta with no significant lesions or aneurysms. There were single renal arteries to each kidney. Common iliacs, external and internal iliacs and common femoral arteries had irregularities with no significant lesions. Selective left lower left lower extremity angiogram showed patent profunda. SFA had multiple endovascular stents which were widely patent. There was about 20% lesions in SFA. Left popliteal artery was patent. Left posterior tibial artery was patent with excellent flow down to the foot. Left anterior tibial and peroneal arteries were occluded. Runoffs of the right lower extremity showed patent profunda. SFA had 80% stenosis distally. Popliteal artery was patent. Right posterior tibial artery was patent. Right anterior tibial artery had diffuse disease of up to about 90% . Right peroneal artery was patent. The patient tolerated the procedure well with no complications. Mynx was used for hemostasis. PLAN Will continue medical management for left lower extremity. The patient may require further treatment with wound care. One might consider right SFA percutaneous intervention from left groin in future. 09/11/16 HR 80-90's. Started on therapeutic lovenox 1mg/kg BID. Will change post amputation, scheduled for tomorrow. Ordered ECHO, showed EF45%. Start lisinopril and coreg. TSH elevated. 09/12/16 Held Lovenox. Left 4th toe amputation. 09/16/16 Start Pradaxa 150mg BID. Stop aspirin <Stephanie Sandy - 09/16/16 15:46> Progress Note-A&P (1) Decubitus ulcer of left foot, stage 4 Status: Resolved (2) Severe sepsis Status: Resolved (3) CAD (coronary artery disease) Status: Chronic (4) HTN (hypertension) Status: Chronic (5) Hyperlipidemia Status: Chronic (6) Type II diabetes mellitus Status: Chronic (7) Tobacco dependence Status: Chronic (8) Peripheral vascular disease of extremity Status: Chronic (9) Atrial flutter Status: Chronic <Gerhard Delunasein - 09/19/16 17:18> (1) Decubitus ulcer of left foot, stage 4 Status: Resolved Assessment and plan: Pt had surgery and removal of infected toe, pathology showed chronic osteomyelitis. (2) Severe sepsis Status: Resolved (3) CAD (coronary artery disease) Status: Chronic (4) HTN (hypertension) Status: Chronic (5) Hyperlipidemia Status: Chronic (6) Type II diabetes mellitus Status: Chronic (7) COPD (chronic obstructive pulmonary disease) Status: Chronic (8) Tobacco dependence Status: Chronic (9) Dementia Status: Chronic (10) Schizophrenia Status: Chronic (11) Depression Status: Chronic (12) Obesity Status: Chronic (13) Hypernatremia Status: Resolved (14) Peripheral vascular disease of extremity Problem details: LE arterial Duplex: proximal SFA suggesting a moderate stenosis with diffusely calcified vessels. No complete occlusion. Status: Acute (15) Atrial flutter Start date: 09/12/16 (with controlled ventricular rate. ) Status: Chronic <Grover Sands - 09/16/16 11:52> (1) Atrial flutter Status: Chronic Assessment and plan: Recommend Pradaxa 150mg po BID for anticoagulation to prevent stroke as it has a reversal agent. Stop Aspirin (2) Decubitus ulcer of left foot, stage 4 Status: Resolved (3) Severe sepsis Status: Resolved (4) CAD (coronary artery disease) Status: Chronic (5) HTN (hypertension) Status: Chronic (6) Hyperlipidemia Status: Chronic (7) Type II diabetes mellitus Status: Chronic (8) Tobacco dependence Status: Chronic (9) Peripheral vascular disease of extremity Status: Chronic <Stephanie Sandy - 09/16/16 15:44> - Time Spent With Patient Total time spent is greater than 50% in coordination of care (as documented) at patient's floor/unit and/or counseling patient: <Genaro Deluna - 09/19/16 17:18> Total time spent is greater than 50% in coordination of care (as documented) at patient's floor/unit and/or counseling patient: <Grover Sands - 09/16/16 11:52> Total time spent is greater than 50% in coordination of care (as documented) at patient's floor/unit and/or counseling patient: <Stephanie Sandy - 09/16/16 11:33> less than 15 minutes <Genaro Deluna - 09/19/16 17:16> - Attestation Attestation Narrative: Recommendation After examining the patient I agree with the above assessment. I am involved in the formulation of the patient's plan of care. <Genaro Deluna - 09/19/16 17:18> Sepsis Assessment - Evaluation Sepsis screening result: No Definite Risk <Stephanie Sandy - 09/16/16 11:33>
[2016-09-16] MEDS: ASCORBIC ACID 500 MG TABLET PO SCH (12:37)
--- NOTE | 2016-09-16 13:40 | Discharge Summary ---
<Martine Veliz - Last Filed: 09/16/16 14:53> Discharge Information Date of admission: 09/05/16 20:16 Anticipated date of discharge: 09/16/16 Attending Physician: Rayshawn Giron MD Consults: 09/09/16 Pharmacy Consult [CONS] Routine Pharmacy Consult: Vancomycin 09/09/16 11:14 Dietary Consult [CONS] Routine Comment: Reason For Exam: BS GREATER THAN 180X2 09/09/16 14:18 Dr [Physician Consult] [CONS] Routine Consulting Provider: Genaro Deluna Reason For Exam: Left food ulceration, DM; PVD - ? revacularization Ordering Provider has Notified Biostatistics Teacher: No 09/16/16 IRU Screening [Inpatient Rehab Screening] [CONS] Routine Screen requested by:: Physician Comment Text:: Evaluate for weakness - pt has remained in bedrest. - Discharge Diagnosis (1) Decubitus ulcer of left foot, stage 4 Status: Resolved (2) Severe sepsis Status: Resolved (3) CAD (coronary artery disease) Status: Chronic (4) HTN (hypertension) Status: Chronic (5) Hyperlipidemia Status: Chronic (6) Type II diabetes mellitus Status: Chronic (7) COPD (chronic obstructive pulmonary disease) Status: Chronic (8) Tobacco dependence Status: Chronic (9) Dementia Status: Chronic (10) Schizophrenia Status: Chronic (11) Depression Status: Chronic (12) Obesity Status: Chronic (13) Hypernatremia Status: Resolved (14) Peripheral vascular disease of extremity Status: Chronic (15) Atrial flutter Status: Chronic (16) Systolic CHF Qualifiers: Congestive heart failure chronicity: chronic Qualified Code(s): I50.22 - Chronic systolic (congestive) heart failure Status: Acute - Procedures Procedures: 09/06/16: BEDSIDE DEBRIDEMENT 09/10/16: ANGIOGRAPHY: continue medical treatment 1. Abdominal aortography by placing catheter in abdominal aorta. 2. Selective left lower extremity angiogram using crossover technique and placing catheter in left SFA and left common iliac. 3. Runoffs of the right lower extremity through the right femoral sheath. 4. Successful Mynx deployment for hemostasis. 09/11/16: Echocardiogram 1. Technically difficult study. 2. LV dysfunction with ejection fraction of about 40-45%. 3. Concentric left ventricular hypertrophy. 4. Trace of mitral regurgitation. 5. Aortic sclerosis. 6. Mild tricuspid regurgitation with normal estimated pulmonary artery systolic pressure of 31. 09/09/16-09/16/16: PICC line 09/12/16: Left fourth toe ray amputation. Application of wound VAC. - Laboratory Labs: 09/15/16 11:49 09/15/16 11:49 - Microbiology Wound cx - proteus mirabilis (moderate growth), staphylococcus aureus (light growth), & enterococcus faecium (moderate growth) Blood cultures negative after 5 days - Radiology Radiology: HIP/PELVIS X-RAY: negative US ARTERIAL DUPLEX: proximal SFA suggesting a moderate stenosis with diffusely calcified vessels. No complete occlusion. ECHOCARDIOGRAM: 1. Technically difficult study. 2. LV dysfunction with ejection fraction of about 40-45%. 3. Concentric left ventricular hypertrophy. 4. Trace of mitral regurgitation. 5. Aortic sclerosis. 6. Mild tricuspid regurgitation with normal estimated pulmonary artery systolic pressure of 31. History of Present Illness HPI: 75 y/o male presents to ED from Wound clinic secondary to worsening decubitus ulcer of left foot. Initially seen in Wound Clinic August 01. Receiving treatments there and at his nursing facility. Patient reports increasing pain to left foot for the past week. During this time, feeling more tire and weak-not having much energy or drive. Not certain if having fevers or chills. Appetite with decrease. Presents to Wound clinic for evaluation. Seen by Dr Garcia who was very concerned about drainage from wound and how patient was looking - set to ED for evaluation. In ED, pt tachycardic and tachypnic; blood pressure not decreased. WBC upper limits of normal but Lactic acid elevated (is on metformin which may be contributing to some elevation of lactic acid). With patients severe sepsis secondary to decubitus ulcer, Dr Giron notified and patient place in inpatient admission for IV antibiotics, IVF, and surgical consult for debridement of wound. Anticipated length of stay thought to be greater than two midnights. Hospital Course Hospital course: Mr. Che was admitted on 09/05/16 for stage IV decubitus ulcer of his left foot with severe sepsis. Lactic acid was elevated and metformin was placed on hold. Recheck lactic acid showed a downward trend. Teflaro was initiated and Dr. Cameron was consulted. He performed a bedside debridement, but recommended further debridement in the OR suite. An arterial duplex showed proximal SFA suggesting moderate stenosis without complete occlusion, and Dr. Deluna was consulted. On September 09, wound culture results were positive for moderate growth Proteus mirabilis, likely growth of Staphylococcus aureus, and moderate growth of enterococcus. A PICC line was placed, and antibiotics were changed to vancomycin and Rocephin. He underwent angiography on 09/10/16, and medical management was recommended. Telemetry was monitored, and on 09/11/16 he went into a-flutter at a controlled rate. Echocardiogram showed an EF of 45%. Lisinopril and Coreg were started per cardiology. TSH was elevated slightly at 4.97 and T3 and cortisol levels were ordered, which were normal (though T3 CARLA was low at 74). Blood glucose was monitored and insulin doses were adjusted according to oral intake and glycemic levels. On 09/12/16, Dr. Cameron took him to the OR for left 4th toe ray amputation and application of a wound vac. For anticoagulation, cardiology recommended Pradaxa 150 mg BID, since it has a reversal agent. Discharge abx: Bactrim DS 1 PO BID through 09/26/16 (this will complete a 2-week course post-amputation). (Consideration given to Augmentin but pt refused MRSA swab.) Recheck BMP on 09/19/16. Continue Wound VAC & f/u in wound clinic. Change Wound VAC on Tuesdays and Fridays. F/U with Dr. Cameron on 10/01/16 at 1030 at Wound Clinic. A-flutter and systolic CHF: Rx lisinopril, Coreg, Pradaxa. F/U with Dr. Deluna in 2 weeks. Also recommend follow-up for ABDULLAHI evaluation in the outpatient setting. Nocturnal Oxymetry shows pt has some desaturations at night but these are not severe enough at this time to warrant a formal sleep study. Rx Spiriva was added. F/U with Dr. Osman within a week. [this is a general summation of the patient's hospital course. For more details , please refer to the entire medical record. Time spent in DC: 60 minutes] DVT Prophylaxis: Pradaxa Discharge Plan - Med Rec/Dispo Referrals/Follow Up: Genaro Deluna MD [Physician] - 2 Weeks Adam Cameron MD [Physician] - 10/01/16 10:30 am (Wound Clinic) Inna Osman MD [Physician] - 1 Week [place] [facility] [place], Wound Infection (DC), Wound Healing and Your Diet (DC), Toe Amputation (DC), Angiogram (DC) Additional Instructions: Discharge abx: Bactrim DS 1 PO BID through 09/26/16 (this will complete a 2-week course post-amputation). (Consideration given to Augmentin but pt refused MRSA swab.) Recheck BMP on 09/19/16. Continue Wound VAC & f/u in wound clinic. Change Wound VAC on Tuesdays and Fridays. F/U with Dr. Cameron on 10/01/16 at 1030 at Wound Clinic. A-flutter and systolic CHF: Rx lisinopril, Coreg, Pradaxa. F/U with Dr. Deluna in 2 weeks. Also recommend follow-up for ABDULLAHI evaluation in the outpatient setting. Nocturnal Oxymetry shows pt has some desaturations at night but these are not severe enough at this time to warrant a formal sleep study. Rx Spiriva was added. F/U with Dr. Osman within a week. Prescriptions: New Dabigatran [Pradaxa] 150 mg PO BID cap Insulin Aspart [NovoLOG] 22 unit SQ WB vial Tiotropium [place] [Spiriva] 1 cap ORAL INH DAILY Carvedilol [Coreg] 3.125 mg PO BIDWM Gabapentin [Neurontin] 300 mg PO HS cap Lisinopril [Prinivil] 2.5 mg PO DAILY Sulfamethoxazole/Trimethoprim [Bactrim Ds Tablet] 1 tab PO BID #20 tab Continue Metformin HCl 1,000 mg PO DAILY #0 Latanoprost 1 drop BOTH EYES HS #0 RisperiDONE [RisperDAL] 2 mg PO HS 30 Days Polyethylene Glycol 3350 [Miralax] 1 packet PO DAILY 30 Days RisperiDONE [RisperDAL] 1 mg PO QAM Duloxetine HCl [Cymbalta] 60 mg PO DAILY Zinc Sulfate 220 mg PO DAILY Multivitamin [Multivitamins] 1 tab PO DAILY Insulin Detemir [Levemir] 50 unit SQ BIDBS Benztropine [Cogentin] 1 mg PO QID PRN PRN Reason: Extrapyramidal Symptoms Mag Hydrox/Aluminum Hyd/Simeth [Maalox Advanced Suspension] 30 ml PO Q6H PRN PRN Reason: Indigestion Bisacodyl Supp [Dulcolax] 1 mg RECTALLY DAILY PRN PRN Reason: Constipation Magnesium Hydroxide [Milk of Magnesia] 2,400 mg PO DAILY PRN PRN Reason: Constipation Calmoseptine [Risamine Oint] 1 applic TOP BID PRN PRN Reason: Prn Orders LORazepam [Ativan] 1 mg PO HS PRN #14 PRN Reason: Insomnia Tramadol/APAP 37.5/325 [Ultracet] 1 tab PO BID #20 Insulin Aspart [Novolog Flexpen] 23 unit SQ BIDLS #0 Ascorbic Acid 500 mg PO BIDLS Divalproex [Depakote] 500 mg PO BID Menthol [Biofreeze] 1 applic TP Q6H PRN PRN Reason: Pain Acetaminophen 650 mg PO Q6H PRN PRN Reason: Pain Changed Hydrocodone/APAP 5/325 [[place] 5/325] 1 tab PO Q6H PRN #30 PRN Reason: Pain Discontinued Aspirin 81 mg PO DAILY #0 Insulin Lispro [HumaLOG] 22 unit SQ WB #0 vial Losartan Potassium 25 mg PO DAILY Amoxicillin/Potassium Clav [Augmentin 875-125 Tablet] 1 tab PO BID Clopidogrel [Plavix] 75 mg PO DAILY - Disposition 04 To [facility] Home/Facility <Grover Sands - Last Filed: 09/16/16 16:32> Discharge Information Date of admission: 09/05/16 20:16 Attending Physician: Rayshawn Giron MD Consults: 09/09/16 Pharmacy Consult [CONS] Routine Pharmacy Consult: Vancomycin 09/09/16 11:14 Dietary Consult [CONS] Routine Comment: Reason For Exam: BS GREATER THAN 180X2 09/09/16 14:18 Dr [Physician Consult] [CONS] Routine Consulting Provider: Genaro Deluna Reason For Exam: Left food ulceration, DM; PVD - ? revacularization Ordering Provider has Notified Biostatistics Teacher: Sandy 09/16/16 IRU Screening [Inpatient Rehab Screening] [CONS] Routine Screen requested by:: Physician Comment Text:: Evaluate for weakness - pt has remained in bedrest. - Discharge Diagnosis (1) Decubitus ulcer of left foot, stage 4 Status: Resolved (2) Severe sepsis Status: Resolved (3) CAD (coronary artery disease) Status: Chronic (4) HTN (hypertension) Status: Chronic (5) Hyperlipidemia Status: Chronic (6) Type II diabetes mellitus Status: Chronic (7) COPD (chronic obstructive pulmonary disease) Status: Chronic (8) Tobacco dependence Status: Chronic (9) Dementia Status: Chronic (10) Schizophrenia Status: Chronic (11) Depression Status: Chronic (12) Obesity Status: Chronic (13) Hypernatremia Status: Resolved (14) Peripheral vascular disease of extremity Status: Chronic (15) Atrial flutter Status: Chronic (16) Systolic CHF Qualifiers: Congestive heart failure chronicity: chronic Qualified Code(s): I50.22 - Chronic systolic (congestive) heart failure Status: Acute - Laboratory Labs: 09/15/16 11:49 09/15/16 11:49 Hospital Course Hospital course: Agree with above plan of care. Please refer to my progress note for today. Addendum entered and electronically signed by Martine Veliz APRN 09/16/16 15: 41: Patient was discharged to long-term (not ICF) for wound care and PT/OT.
--- NOTE | 2016-09-16 14:51 | Wound Care Progress Note ---
Wound Center Progress Note: Spoke with Gustavo (wound nurse) at [facility]. Pt will have new wound vac drsg and their wound vac placed upon arrival to [place]. At this time also discussed need for pt to return to see Dr Cameron on the for wound care. Also were informed that if they have any issues to call with concerns.
[2016-09-16] MEDS ORDERED: NEOMYCIN/POLYMYXIN/BACITRACIN OINT PACKET TP PRN (15:24)
--- NOTE | 2016-09-16 15:41 | Extended Care Facility Orders ---
Admission Orders Admit to:: [facility] Allergies/Adverse Reactions: Allergies No Known Drug Allergies Allergy (Verified 09/06/16 13:38) No Known Adverse Drug Reactions Adverse Reaction (Verified 09/06/16 13:38) Admitting Diagnosis: Left heel decubitus ulcer Admitting Physician: Rayshawn Giron MD Attending Physician: Rayshawn Giron MD Code Status: Full Code Anticiapted Length of Stay: 30 days or less Rehab Potential: fair Rehab Prognosis: fair Diet: Consistent Carbohydrate Diet [DIET] Calorie Level: 2000 Fluid Consistency: SYRNEC Comment: PUREED Wound/Incision Care: Wound VAC change on Friday/Friday. F/U in Wound Clinic on 10/01/16 at 1030. For questions, contact SANTY Davis, at Wound Clinic May use Facility Protocol or Standing Orders: Yes May have flu vaccine: Yes Evaluations/Treatment: PT, OT [facility] Certification: I certify that SNF services are required to be given on an Inpatient basis because of the patients need for [facility] care on a continuing basis for the condition(s) for which he/she received inpatient hospital services prior to his/her transfer to the SNF. SNF inpatient care is necessary for the following reasons Indication for [facility]: Wound Care/Assessment, Teach CHF - Additional Information In Event of Arrest: Start CPR,call 911,send patient to the ER Laboratory/Radiology: ISELA on 09/19/16 to monitor renal functions and potassium level on new medication. Fax results to Dr. Osman. Referrals: Genaro Deluna MD [Physician] - 2 Weeks Inna Osman MD [Physician] - 1 Week Adam Cameron MD [Physician] - 10/01/16 10:30 am (Wound Clinic)
--- NOTE | 2016-09-17 08:04 | Right on Track Program ---
Right on Track Program Date of Discharge: 09/16/16 Home Medications: Home Medications Medication Instructions Recorded Confirmed Insulin Aspart [Novolog Flexpen] 23 unit SQ BIDLS #0 02/22/16 09/05/16 Latanoprost 1 drop BOTH EYES HS #0 02/22/16 09/05/16 Metformin HCl 1,000 mg PO DAILY #0 02/22/16 09/05/16 Acetaminophen 650 mg PO Q6H PRN 09/05/16 09/05/16 Ascorbic Acid 500 mg PO BIDLS 09/05/16 09/05/16 Benztropine [Cogentin] 1 mg PO QID PRN 09/05/16 09/05/16 Bisacodyl Supp [Dulcolax] 1 mg RECTALLY DAILY PRN 09/05/16 09/05/16 Calmoseptine [Risamine Oint] 1 applic TOP BID PRN 09/05/16 09/05/16 Divalproex [Depakote] 500 mg PO BID 09/05/16 09/05/16 Duloxetine HCl [Cymbalta] 60 mg PO DAILY 09/05/16 09/05/16 Insulin Detemir [Levemir] 50 unit SQ BIDBS 09/05/16 09/05/16 Mag Hydrox/Aluminum Hyd/Simeth 30 ml PO Q6H PRN 09/05/16 09/05/16 [Maalox Advanced Suspension] Magnesium Hydroxide [Milk of 2,400 mg PO DAILY PRN 09/05/16 09/05/16 Magnesia] Menthol [Biofreeze] 1 applic TP Q6H PRN 09/05/16 09/05/16 Multivitamin [Multivitamins] 1 tab PO DAILY 09/05/16 09/05/16 RisperiDONE [RisperDAL] 1 mg PO QAM 09/05/16 09/05/16 Zinc Sulfate 220 mg PO DAILY 09/05/16 09/05/16 Previous Rx's Medication Instructions Recorded RisperiDONE [RisperDAL] 2 mg PO HS 30 Days 02/29/16 Polyethylene Glycol 3350 [Miralax] 1 packet PO DAILY 30 Days 03/01/16 Carvedilol [Coreg] 3.125 mg PO BIDWM 09/16/16 Dabigatran [Pradaxa] 150 mg PO BID cap 09/16/16 Gabapentin [Neurontin] 300 mg PO HS cap 09/16/16 Hydrocodone/APAP 5/325 [[place] 1 tab PO Q6H PRN #30 09/16/16 5/325] Insulin Aspart [NovoLOG] 22 unit SQ WB vial 09/16/16 LORazepam [Ativan] 1 mg PO HS PRN #14 09/16/16 Lisinopril [Prinivil] 2.5 mg PO DAILY 09/16/16 Sulfamethoxazole/Trimethoprim 1 tab PO BID #20 tab 09/16/16 [Bactrim Ds Tablet] Tiotropium [place] [Spiriva] 1 cap ORAL INH DAILY 09/16/16 Tramadol/APAP 37.5/325 [Ultracet] 1 tab PO BID #20 09/16/16 - Right on Track Program PHONE CALL #1 Date: 09/17/16 Right on Track Program: 24 Hour Follow-Up Discharge Summary Received: Yes Care Plan Received: Yes Follow Up: Follow Up Appointment Scheduled (Wound center 10/01; Dr. Deluna - they need to schedule; Dr. Osman makes rounds at the facility) Education: Diagnosis Education Reviewed, Education Provided To Caregiver Community Paramedicine Fall Intervention: No Referral: Social Work, Primary Care Physician Comments: I called [facility] on [facility]16 and spoke with Makayla, the nurse taking care of Yordan. She stated that he is doing well this morning. He's up and already had breakfast. He's in good spirits. They are having some problems with the wound VAC. It keeps beeping and they tried to troubleshoot it all night. They are expecting a nurse experienced in wound VAC to arrive any minute to evaluate it. She also reported that pharmacy was not able to fill his Rx last night (thus, he did not receive any of his psychiatric or cardiac meds). She was already on the phone with them this morning, working on his medications and should be arriving soon. We discussed the hospital course and new diagnoses , as well as follow up plans. Discussed With Patient and Caregiver: Yes Recommendations For Follow-up: 1. Continue wound care & [facility] 2. Arsr-[id number] visit 09/26/16 - Problems (1) Decubitus ulcer of left foot, stage 4 Code(s): L89.894 - Pressure ulcer of other site, stage 4 Status: Resolved (2) Severe sepsis Code(s): A41.9 - Sepsis, unspecified organism; R65.20 - Severe sepsis without septic shock Status: Resolved (3) CAD (coronary artery disease) Code(s): I25.10 - Atherosclerotic heart disease of [place] coronary artery without angina pectoris Status: Chronic (4) HTN (hypertension) Code(s): I10 - Essential (primary) hypertension Status: Chronic (5) Hyperlipidemia Code(s): E78.5 - Hyperlipidemia, unspecified Status: Chronic (6) Type II diabetes mellitus Code(s): E11.9 - Type 2 diabetes mellitus without complications Status: Chronic (7) COPD (chronic obstructive pulmonary disease) Code(s): J44.9 - Chronic obstructive pulmonary disease, unspecified Status: Chronic (8) Tobacco dependence Code(s): F17.200 - Nicotine dependence, unspecified, uncomplicated Status: Chronic (9) Dementia Code(s): F03.90 - Unspecified dementia without behavioral disturbance Status: Chronic (10) Schizophrenia Code(s): F20.9 - Schizophrenia, unspecified Status: Chronic (11) Depression Code(s): F32.9 - Major depressive disorder, single episode, unspecified Status : Chronic (12) Obesity Code(s): E66.9 - Obesity, unspecified Status: Chronic (13) Hypernatremia Code(s): E87.0 - Hyperosmolality and hypernatremia Status: Resolved (14) Peripheral vascular disease of extremity Code(s): I73.9 - Peripheral vascular disease, unspecified Status: Chronic (15) Atrial flutter Code(s): I48.92 - Unspecified atrial flutter Status: Chronic (16) Systolic CHF Qualifiers: Congestive heart failure chronicity: chronic Qualified Code(s): I50.22 - Chronic systolic (congestive) heart failure Code(s): I50.20 - Unspecified systolic (congestive) heart failure Status: Acute
== END 2016-09-16 18:05 | DRG 853 ==
LOC: ED 15:17 → SRG 19:57
PROVIDERS: ADMIT Hospitalist; ATTEND Hospitalist

== ENCOUNTER 2016-12-20 11:04 | Inpatient (IN) ==
[2016-12-20 11:47] VITALS: BMI 34.4
--- NOTE | 2016-12-20 12:13 | Anesthesia Preoperative Report ---
Anesthesia Preoperative Record - Date and Time Date: 12/20/16 Preoperative Diagnosis: Ulcer Lt heel,Lt plantar,L97.422,E11.621,M86.8X7 Proposed Procedure: left below knee amputation NPO Since Date: 12/19/16 NPO Since Time: 23:00 Allergies/Adverse Reactions: Allergies Allergy/AdvReac Type Severity Reaction Status Date / Time No Known Drug Allergies Allergy Verified 09/06/16 13:38 No Known Adverse Drug AdvReac Verified 09/06/16 13:38 Reactions - Vital Signs Vital Signs: Temperature 97.9 F 12/20/16 11:54 Pulse Rate 79 12/20/16 12:04 Respiratory Rate 18 12/20/16 11:54 Blood Pressure 145/73 H 12/20/16 11:54 Pulse Oximetry 97 12/20/16 11:54 Height and Weight: Height 1.8 m Weight 112.037 kg Body Mass Index 34.4 - Medications Inpatient Medications: Current Medications Lactated Ringer's (Lactated Ringers) 1,000 mls @ 50 mls/hr IV .Q20H LA Last Admin: 12/20/16 12:00 Dose: 50 mls/hr Vancomycin HCl 1,000 mg/ (Sodium Chloride) 250 mls @ 250 mls/hr IV PREOP ONE Stop: 12/20/16 15:40 Lidocaine HCl (Xylocaine-Mpf 1% Vial) 1 mg ID O ONE Stop: 12/20/16 15:30 Last Admin: 12/20/16 12:01 Dose: Not Given Home Medications: Home Medications Medication Instructions Recorded Confirmed Type Latanoprost 1 drop BOTH EYES HS #0 02/22/16 12/19/16 History Metformin HCl 1,000 mg PO DAILY #0 02/22/16 12/19/16 History Acetaminophen 650 mg PO Q6H PRN 09/05/16 12/19/16 History Ascorbic Acid 500 mg PO BIDLS 09/05/16 12/19/16 History Benztropine [Cogentin] 1 mg PO QID PRN 09/05/16 12/19/16 History Bisacodyl Supp [Dulcolax] 1 mg RECTALLY DAILY PRN 09/05/16 12/19/16 History Calmoseptine [Risamine Oint] 1 applic TOP BID PRN 09/05/16 09/26/16 History Duloxetine HCl [Cymbalta] 60 mg PO DAILY 09/05/16 12/19/16 History Mag Hydrox/Aluminum Hyd/Simeth 30 ml PO Q6H PRN 09/05/16 09/26/16 History [Maalox Advanced Suspension] Multivitamin [Multivitamins] 1 tab PO DAILY 09/05/16 09/26/16 History RisperiDONE [RisperDAL] 1 mg PO HS 09/05/16 12/19/16 History Zinc Sulfate 220 mg PO DAILY 09/05/16 09/26/16 History Dabigatran [Pradaxa] 150 mg PO DAILY 09/26/16 12/19/16 History Linagliptin [Tradjenta] 5 mg PO DAILY 09/26/16 12/19/16 History Menthol [Biofreeze] 1 applic TOP Q6H PRN 09/26/16 09/26/16 History Milk of Magnesia [Mom] 10 ml PO DAILY PRN 09/26/16 12/19/16 History risperiDONE [Risperidone] 1 mg PO DAILY 09/26/16 12/19/16 History Divalproex [Depakote] 1 tab PO BID 12/19/16 12/19/16 History Fleet Phospho-Soda Enema [Fleet 1 unit RECTALLY PRN 12/19/16 12/19/16 History Enema] Insulin Aspart [NovoLOG] 22 unit SQ DAILY 12/19/16 12/19/16 History LORazepam [Ativan] 1 mg PO DAILY PRN 12/19/16 12/19/16 History Tramadol/APAP 37.5/325 [Ultracet] 1 tab PO BID 12/19/16 12/19/16 History - Medical History Cardiovascular: Reports: Hypertension Neuro/Musculoskeletal: Reports: Depression, Other Renal/Endocrine: Reports: Diabetes Mellitus Type 2 - Surgical History Anesthesia Reactions: None Hx Family Anesthesia Reaction: No - Social History Smoking Status: Current every day smoker - Pertinent Findings Laboratory: CBC and BMP 12/20/16 11:48 BMP 12/20/16 11:48 Sodium 144 Potassium 4.5 Chloride 103 Carbon Dioxide 30 BUN 15.0 Creatinine 0.6 L Glucose 114 H Calcium 10.0 EKG: Sinus Rhythm - Physical Exam Respiratory Exam: Present: lungs clear, bilateral breath sounds equal Cardiovascular Exam: Present: regular rate and rhythm, no murmur - Airway Assessment Mallampati Score: II TMD: 3 Fingerbreadths Neck Extension: good Teeth: upper dentures, lower dentures Overall Assessment: no airway concerns - ASA ASA Score: 3 - Plan Anesthesia: General Inhalation Gases Peripheral Nerve Block: Popliteal-Left (if needed in recovery ) - Discussion Discussion: Discussed risks/options/alternatives of anesthesia and questions answered. Patient consents. Nursing pain assessment noted. Attestation Statement: Prior to the delivery of any anesthetic medication, I examined the patient, developed the plan, obtained the patient's consent and discussed the risk and benefits of the procedure with the patient/guardian.
--- OUTSIDE RECORDS SUMMARY | 2016-12-20 12:44 | External Medical Summary | Continuity of Care Document ---
:[address] [facility] Allergies Active Description Code Type Severity Reaction Onset Reported/ Identified Relationship Clinical to Patient Status Yes No Allergy Drug N/A N/A 12/28/2012 Information Aller gy Yes No Known Drug N/A N/A 02/14/2013 Allergies Aller gy Yes No Known Drug N/A N/A 02/14/2013 Drug Aller Allergies gy Yes No Known Food N/A N/A 02/14/2013 Food Aller [place]ergies [place] Yes No Known 15202 Unknown N/A 07/16/2016 Drug 0 Allergies Medications Medication Packaging Start Date Stop Date Route Dosage Sig 07/16/2016 ALUM-MAG 7 HYDROXIDE-SIMETH Q4HPRN 07/16/2016 DOCUSATE SODIUM 7 BIDPRN 07/16/2016 ACETAMINOPHEN 7 Q4HPRN 07/16/2016 ACETAMINOPHEN 7 Q4HPRN 07/16/2016 MAGNESIUM HYDROXIDE 7 HSPRN 07/16/2016 HYDROCODONE-ACET 7 5-325MG Q3HPRN 07/16/2016 ONDANSETRON HCL 7 Q6HPRN 07/16/2016 MORPHINE 7 [id number] 07/16/2016 NITROGLYCERIN 7 [id number] 07/16/2016 SODIUM CHLORIDE 0.9 7 C % 07/16/2016 LORazepam 7 HSPRN 07/16/2016 HYDROcodone-ACET 7 5-325MG Q8HPRN 07/16/2016 ZINC SULFATE 7 QD 07/16/2016 CLOPIDOGREL 7 ONCE 07/16/2016 LOSARTAN 7 QD 07/16/2016 ASPIRIN EC 7 0700 07/16/2016 POLYETHYLENE GLYCOL 7 QD 3350 07/16/2016 DULoxetine 7 QD 07/16/2016 ASPIRIN, BUFFERED 7 QD 07/16/2016 MULTIVITAMIN 7 QD 07/16/2016 INSULIN LEVEMIR 7 BIDWM 07/16/2016 DIVALPROEX 7 BID 07/16/2016 ASCORBIC ACID 7 BID 07/16/2016 VANCOMYCIN 7 Q12H 07/16/2016 BENZTROPINE 7 QID 07/16/2016 LATANOPROST 7 HS 07/16/2016 risperiDONE 7 HS 07/17/2016 INSULIN NOVOLOG 7 0700 07/17/2016 CLOPIDOGREL 7 QD 07/17/2016 risperiDONE 7 QD 07/17/2016 SODIUM HYPOCHLORITE 7 QD 1/ STRENGTH Problems Date Dx Attending Type Code Diagnosis Diagnosed By Coded 08/06/2012 Kendra PETERSEN, F 250.00 DIAB TAYLOR WO COMPL, Kassy A TYPE II OR UNSPEC TYPE, NOT UN 08/06/2012 Kendra PETERSEN, F 263.9 PROTEIN-CONSUELO MALNUTR Kassy A NOS 08/06/2012 Kendra PETERSEN, F 295.70 SCHIZOAFFECTIVE Kassy A DISORDER, UNSPECIFIED 08/06/2012 Kendra PETERSEN, F 305.1 TOBACCO USE DISORDER Kassy Nagel 08/06/2012 Kendra PETERSEN, F 327.23 OBSTRUCTIVE SLEEP Kassy Nagel APNEA (ADULT) (PEDIATRIC) 08/06/2012 Kendra PETERSEN, F 365.9 GLAUCOMA NOS aKssy A 08/06/2012 Kendra PETERSEN, F 401.9 HYPERTENSION NOS Kassy A 08/06/2012 Kendra PETERSEN, F 496 CHR AIRWAY OBSTRUCT Kassy Nagel NEC 08/06/2012 Kendra PETERSEN, F 715.90 OSTEOARTHROS Kassy Nagel NOS-UNSPEC 08/06/2012 Kendra PETERSEN, F 780.09 OTHER ALTERATION OF Kassy Nagel CONSCIOUSNESS 08/06/2012 Kendra PETERSEN, F 820.09 FX FEMUR INTRCAPS Kassy Nagel NEC-CL 08/06/2012 Kendra PETERSEN, F E849.7 ACCID IN RESIDENT Kassy Nagel INSTIT 08/06/2012 Kendra PETERSEN, F E884.3 FALL FROM WHEELCHAIR Kassy A 08/06/2012 Kendra PETERSEN, F V58.67 LONG-TERM (CURRENT) Kassy Nagel USE OF INSULIN 10/20/2012 Clay PETERSEN, F 250.00 DIAB TAYLOR WO COMPL, Telma A TYPE II OR UNSPEC TYPE, NOT UN 10/20/2012 Clay PETERSEN, F 272.4 HYPERLIPIDEMIA Telma A NEC/NOS 10/20/2012 Clay PETERSEN, F 276.51 DEHYDRATION Telma A 10/20/2012 Clay PETERSEN, F 294.20 DEMENTIA, Telma A UNSPECIFIED, WITHOUT BEHAVIORAL DISTURBA 10/20/2012 Clay PETERSEN, F 295.90 SCHIZOPHRENIA Telma A NOS-UNSPEC 10/20/2012 Clay PETERSEN, F 296.20 DEPRESS Telma A DISORDER-UNSPEC 10/20/2012 Clay PETERSEN, F 305.1 TOBACCO USE DISORDER Telma A 10/20/2012 Clay PETERSEN, F 348.30 ENCEPHALOPATHY, Telma A UNSPECIFIED 10/20/2012 Clay PETERSEN, F 365.9 GLAUCOMA NOS Telma A 10/20/2012 Clay PETERSEN, F 401.9 HYPERTENSION NOS Telma A 10/20/2012 Clay PETERSEN, F 414.01 CORONARY Telma A ATHEROSCLEROSIS OF [place] CORONARY VESSEL 10/20/2012 Clay PETERSEN, F 784.59 OTHER SPEECH Telma A DISTURBANCE 10/20/2012 Clay PETERSEN, F 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 11/08/2012 Gayathri PETERSEN, Belkis N Final 250.00 DM2/NOS UNCOMP NSU 11/08/2012 Gayathri PETERSEN, Belkis N Final 272.4 HYPERLIPIDEMIA NEC NOS 11/08/2012 Gayathri PETERSEN, Belkis N Final 278.01 MORBID OBESITY 11/08/2012 Gayathri PETERSEN, Belkis N Final 285.9 ANEMIA NOS 11/08/2012 Gayathri PETERSEN, Belkis N Final 295.70 SCHIZOAFF DISORDER NOS 11/08/2012 Gayathri PETERSEN, Belkis N Final 300.00 ANXIETY STATE NOS 11/08/2012 Gayathri PETRESEN, Belkis N Final 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 11/08/2012 Gayathri PETERSEN, Belkis N Final 311 DEPRESSIVE DISORDER NEC 11/08/2012 Gayathri PETERSEN, Belkis N Final 327.23 OBSTRUCTIVE SLEEP APNEA 11/08/2012 Gayathri PETERSEN, Belkis N Final 348.30 ENCEPHALOPATHY NOS 11/08/2012 Gayathri PETERSEN, Belkis N Final 401.9 HYPERTENSION NOS 11/08/2012 Gayathri PETERSEN, Belkis N Final 426.13 2ND DEGREE A/V BLOCK NEC 11/08/2012 Gayathri PETERSEN, Belkis N Final 427.31 ATRIAL FIBRILLATION 11/08/2012 Gayathri PETERSEN, Belkis N Admitting 780.97 ALTERED MENTAL STATUS 11/18/2012 Nik PETERSEN, Final 250.00 DM2/NOS UNCOMP NSU Adam F 11/18/2012 Nik PETERSEN, Final 294.20 DEMENTIA NOS W/O Adam F BEHAV 11/18/2012 Nik PETERSEN, Final 401.9 HYPERTENSION NOS Adam F 11/18/2012 Nik PETERSEN, 780.09 ALTER CONSCIOUSNESS Adam F NEC 11/18/2012 Nik PETERSEN, Final 780.97 ALTERED MENTAL Adam F STATUS 12/08/2012 Ngozi PETERSEN, Carson Final 250.00 DM2/NOS UNCOMP NSU S 12/08/2012 Ngozi PETERSEN, [place] Final 272.4 HYPERLIPIDEMIA NEC S NOS 12/08/2012 Ngozi PETERSEN, [place] Final 294.20 DEMENTIA NOS W/O S BEHAV 12/08/2012 Ngozi PETERSEN, [place] Final 295.90 SCHIZOPHRENIA S NOS-UNSPEC 12/08/2012 Ngozi PETERSEN, [place] Final 401.9 HYPERTENSION NOS S 12/08/2012 Ngozi PETERSEN, [place] 780.09 ALTER CONSCIOUSNESS S NEC 12/08/2012 Ngozi PETERSEN, [place] Final 780.97 ALTERED MENTAL S STATUS 02/23/2013 Dawson PETERSEN, R Final 401.1 BENIGN HYPERTENSION Jordi 02/23/2013 Dawson PETERSEN, R Admitting 785.0 TACHYCARDIA NOS Jordi 07/16/2016 Ange GOLDEN MD E11.9 Type 2 diabetes DIANA B mellitus without complications 07/16/2016 Ange GOLDEN MD F02.81 Dementia in oth DIANA B diseases classd elswhr w behavioral disturb 07/16/2016 Ange GOLDEN MD F10.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, DIANA B in remission 07/16/2016 Ange GOLDEN MD F25.1 Schizoaffective DIANA B disorder, depressive type 07/16/2016 Ange GOLDEN MD G89.29 Other chronic pain DIANA B 07/16/2016 Ange GOLDEN MD I10 Essential (primary) KERI B hypertension 07/16/2016 Ange GOLDEN MD 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 07/16/2016 Ange GOLDEN MD I77.1 Stricture of artery KERI B 07/16/2016 Ange GOLDEN MD K59.00 Constipation, KERI B unspecified 07/16/2016 Ange GOLDEN MD L89.620 Pressure ulcer of KERI B left heel, unstageable 07/16/2016 Ange GOLDEN MD Z79.4 watermaster (current) KERI B use of insulin 08/04/2016 FELIPA, P E11.51 TYPE 2 DIABETES FELIPA, SHARON A MELLITUS WITH SHARON A DIABETIC PERIPHERAL ANGIOPATHY WITHOUT GANGRENE 08/04/2016 FELIPA S E11.621 TYPE 2 DIABETES FELIPA, SHARON A MELLITUS WITH FOOT SHARON A ULCER 08/04/2016 FELIPA, S F03.90 UNSPECIFIED DEMENTIA FELIPA, SHARON A WITHOUT BEHAVIORAL SHARON A DISTURBANCE 08/04/2016 FELIPA S F20.9 SCHIZOPHRENIA, FELIPA, SHARON A UNSPECIFIED SHARON A 08/04/2016 FELIPA, S F32.9 MAJOR DEPRESSIVE SHARON LOE A DISORDER, SINGLE SHARON A EPISODE, UNSPECIFIED 08/04/2016 FELIPA S I10 ESSENTIAL (PRIMARY) FELIPA, SHARON A HYPERTENSION SHARON A 08/04/2016 FELIPA, S I25.10 ATHEROSCLEROTIC FELIPA, SHARON A HEART DISEASE OF SHARON A [place] CORONARY ARTERY WITHOUT ANGINA PECTORIS 08/04/2016 FELIPA, S I70.244 ATHEROSCLEROSIS OF FELIPA, SHARON A [place] ARTERIES OF SHARON A LEFT LEG WITH ULCERATION OF HEEL AND MIDFOOT 08/04/2016 FELIPA, S I70.92 CHRONIC TOTAL LEO, SHARON A OCCLUSION OF ARTERY SHARON A OF THE EXTREMITIES 08/04/2016 FELIPA S J44.9 CHRONIC OBSTRUCTIVE LEO, SHARON A PULMONARY DISEASE, SHARON A UNSPECIFIED 08/04/2016 FELIPA, S L97.424 NON-PRESSURE CHRONIC FELIPA, SHARON A ULCER OF LEFT HEEL SHARON A AND MIDFOOT WITH NECROSIS OF BONE 08/04/2016 Dorota LEO Z79.4 SENIOR LIVING (CURRENT) SHARON LEO USE OF INSULIN SHARON Nagel 08/04/2016 Dorota LEO Z79.82 MOISTURE TESTER (CURRENT) SHARON LEO USE OF ASPIRIN SHARON Nagel 08/04/2016 Dorota LEO Z79.899 OTHER MOISTURE TESTER SHARON LEO (CURRENT) DRUG SHARON Nagel THERAPY 08/04/2016 Dorota LEO Z87.891 PERSONAL HISTORY OF SHARON LEO NICOTINE DEPENDENCE SHARON Nagel Procedures Code Description Performed By Performed On VENOUS Quarles DO, Ruy H 08/06/2012 38.93 CATHETERIZATION NEC PARTIAL Kassy Gardner MD 08/06/2012 81.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 Visit Discharge Status Pt. Type Provider Facility Loc./Unit Complaint Date/Time [id number] 10/20/2012 10/22/2012 DIS Inpatient Darwin Walter Woods10TS 627 18:15:00 14:29:00 , Tel[facility] [id number] 08/06/2012 08/13/2012 DIS Inpatient Kendra Woods9TS 089 19:51:00 12:48:00 , [facility] [id number] 02/23/2013 02/23/2013 CLS Pavel Osman MD, Via FOP 21 10:15:00 23:59:59 [facility] [id number] 02/14/2013 02/14/2013 CLS [facility] Via JERM 98 10:22:00 23:59:59 MD [facility] [id number] 12/28/2012 12/28/2012 CLS [facility] Via JERM 41 09:32:00 23:59:59 MD [facility] [id number] 12/08/2012 12/08/2012 DIS Emergency Ngozi PETERSEN, Via FERM 54 08:04:00 11:50:00 [facility] [id number] 11/18/2012 11/18/2012 DIS Emergency [facility] Via FERM 84 20:38:00 22:37:00 , [facility] [id number] 11/08/2012 11/16/2012 DIS Inpatient Gayathri PETERSEN, Via F8SW 34 18:35:00 17:30:00 [facility] [place] [id number] 07/16/2016 07/17/2016 DIS [place], [place] [address] 11:09:00 13:45:00 [facility] [id number] 07/09/2016 07/16/2016 DIS Inpatient CHANTEL Salmeron [facility] 11:40:00 09:10:00 , [facility]
[2016-12-20] MEDS ORDERED: ANESTHESIA MIXTURE 50 ML IV ONE (12:45)
[2016-12-20] MEDS ORDERED: MIDAZOLAM 2mg/2ml INJECTION ONE (13:46)
[2016-12-20] MEDS ORDERED: FentaNYL 100 MCG/2 ML INJECTION ONE (13:53)
[2016-12-20] MEDS ORDERED: PHENYLEPHRINE INJ 10 MG/ML VIAL IV ONE (14:22)
[2016-12-20] MEDS ORDERED: PROPOFOL 500 MG/50 ML VIAL IV ONE (14:32)
[2016-12-20] MEDS ORDERED: ACETAMINOPHEN IV 1,000 MG/100 ML VIAL IV ONE (14:50)
[2016-12-20] MEDS ORDERED: HYDROMORPHONE 2 MG/ML INJECTION ONE (14:54)
[2016-12-20] MEDS ORDERED: HYDROMORPHONE 2 MG/ML INJECTION IVP PRN (14:57)
[2016-12-20] MEDS ORDERED: ONDANSETRON 4 MG/2 ML INJECTION IVP PRN ×2 (14:57→16:16)
[2016-12-20] MEDS ORDERED: PROPOFOL 40 ML ONE (15:01)
[2016-12-20] MEDS ORDERED: LIDOCAINE 1% (10mg/ml) 2mL INJ PF SDV ID ONE (15:29)
[2016-12-20] MEDS ORDERED: LR 1,000 ML IV SCH (15:30)
--- NOTE | 2016-12-20 15:31 | General Surgery Procedure Note ---
Date of Procedure: 12/20/16 Surgeon: [employer] Ax Developer: Herber Myles APRN Postoperative Diagnosis: Osteomyelitis left foot Procedure: Left Below the Knee amputation Estimated Blood Loss: See Anesthesia Record.
--- NOTE | 2016-12-20 16:15 | Consult Note ---
<Bharati Christianson V - Last Filed: 12/20/16 16:12> Consult Information - Data of Consult Consult date: 12/20/16 Requesting Physician: Adam Cameron MD Primary Care Provider: Garrison De Oliveira DO Family Provider: Garrison De Oliveira DO - Consult Narrative Reason for consult: medical management of diabetes History of present illness: Dandy is a 75 (gentleman who is well known to the hospitalist services from previous admissions. He has had chronic problems with osteomyelitis in the left foot. Today he was scheduled for a left [id number] amputation under care of Dr. Cameron. He tolerated procedure well and is seen postoperatively for medical management of his diabetes, hypertension and other comorbidities. On examination he is sleeping, however, will open his eyes and mumble yes and no to basic questions. He does complain of some pain in the left lower extremity. History panel is reviewed from this morning, sodium was 144, potassium 4.5, BUN 15, Tool Planer Set Up Operator 0.6. Hemoglobin A1c 7.2. He is currently on 2 liters of oxygen by nasal cannula postoperatively and vital signs are stable. [facility] Patient Stated Medical History Dementia Glaucoma Coronary Artery Disease Hypertension Chronic Obstructive Pulmonary Disease (COPD) Sleep Apnea Diabetes Mellitus Type 2 Gastroesophageal Reflux Disease CONSTIPATION Osteomyelitis Left Foot Depression Schizophrenia PSYCHOSIS Medical History Updates: CAD, hyperlipidemia, Schizophrenia, obesity Surgical History: [facility] amputation- 12/20- Dr Cameron. Hip arthroplasty Family History: Father of unknown cause Mother of GB disease 8 brothers and 2 sisters-all whom have Report DM in family - Social History Smoking status: Current every day smoker Substance use type: does not use Alcohol intake frequency: does not drink Housing: other ([facility]) Social history: Dr Osman? Listed as last PCP Review of Systems ROS unobtainable: due to mental status Review of systems: Unable to obtain ROS due to mentation Medications Home Medications Medication Instructions Recorded Confirmed Type Latanoprost 1 drop BOTH EYES HS #0 02/22/16 12/20/16 History Metformin HCl 1,000 mg PO DAILY #0 02/22/16 12/20/16 History Acetaminophen 650 mg PO Q6H PRN 09/05/16 12/19/16 History Ascorbic Acid 500 mg PO BIDLS 09/05/16 12/20/16 History Benztropine [Cogentin] 1 mg PO QID PRN 09/05/16 12/19/16 History Bisacodyl Supp [Dulcolax] 1 mg RECTALLY DAILY PRN 09/05/16 12/19/16 History Duloxetine HCl [Cymbalta] 60 mg PO DAILY 09/05/16 12/20/16 History RisperiDONE [RisperDAL] 1 mg PO HS 09/05/16 12/20/16 History Dabigatran [Pradaxa] 150 mg PO DAILY 09/26/16 12/20/16 History Linagliptin [Tradjenta] 5 mg PO DAILY 09/26/16 12/20/16 History Milk of Magnesia [Mom] 10 ml PO DAILY PRN 09/26/16 12/20/16 History risperiDONE [Risperidone] 1 mg PO DAILY 09/26/16 12/20/16 History Divalproex [Depakote] 1 tab PO BID 12/19/16 12/20/16 History Fleet Phospho-Soda Enema [Fleet 1 unit RECTALLY PRN 12/19/16 12/19/16 History Enema] Insulin Aspart [NovoLOG] 11 unit SQ DAILY 12/19/16 12/20/16 History LORazepam [Ativan] 1 mg PO DAILY PRN 12/19/16 12/20/16 History Tramadol/APAP 37.5/325 [Ultracet] 1 tab PO BID 12/19/16 12/20/16 History Doxycycline Hyclate 1 tab PO BIDWM 12/20/16 12/20/16 History Insulin Detemir [Levemir] 25 units SUB-Q DAILY 12/20/16 12/20/16 History Miconazole Nitrate [Micatin] 1 dose TP BID 12/20/16 12/20/16 History Pentoxifylline ER [Trental] 1 tab PO TID 12/20/16 12/20/16 History Allergies Allergy/AdvReac Type Severity Reaction Status Date / Time No Known Drug Allergies Allergy Verified 09/06/16 13:38 No Known Adverse Drug AdvReac Verified 09/06/16 13:38 Reactions Exam Vital Signs: Temperature 97.8 F 12/20/16 16:01 Pulse Rate 78 12/20/16 16:00 Respiratory Rate 14 12/20/16 16:00 Blood Pressure 180/98 H 12/20/16 16:00 Pulse Oximetry 99 12/20/16 16:00 Height/Weight/BMI: Height 1.8 m Weight 112.037 kg Body Mass Index 34.4 - Constitutional Present: no acute distress, well nourished, well developed - Routine HEENT Exam Eye: Present: EOMI ENT: Present: mucous membranes moist, dentition normal - Routine Respiratory Exam Present: CTA bilaterally. Absent: wheezes - Routine Cardiovascular Exam Present: RRR, S1, S2. Absent: murmur - Routine Abdominal Exam Present: soft, non distended. Absent: normoactive bowel sounds (hypoactive), tenderness - Routine Extremities Exam Comments: Left BKA- JULIO CESAR drain intact - Routine Skin Exam Present: intact, dry, warm - Routine Neurological Exam Present: alert, CN II-XII intact - Routine Psychiatric Exam Present: cooperative Results - Labs CBC & Chem 7: 12/20/16 11:48 Assessment and Plan (1) S/P BKA (below knee amputation) unilateral Current visit: Yes Status: Acute Resuscitation Status: Full Code Assessment and Plan: Impression S/P Left BKA- 12/20/16- Dr Cameron Type II diabetes Hypertension Coronary artery disease Hyperlipidemia COPD GERD History of osteomyelitis Schizophrenia Depression Chronic tobacco dependence Plan Postop and wound management of LLE as per Dr Cameron Work on weaning down oxygen. Encourage work with IS if patient is able to postoperatively Will monitor blood sugars- Reviewed old records and reported med list. Awaiting MAR from [facility]. Currently will resume Levemir insulin 10 units BID once he is eating (home dose 25units BID). Meal time insulin lists multiple different dosages. Initially in the computer it reports NovoLog 11 units subcutaneous daily, however, on a separate med list reports NovoLog 22 units with breakfast, 23 with lunch and 23 units with dinner. Patient also takes Trajenta 5 milligrams daily. Awaiting final MAR from [facility]. Postoperative BGM was 107. Will start Levemir at 10 units BID and sliding scale NovoLog until he is eating normally. Chronic anticoagulation, Pradaxa has been on hold since the . Will need to discuss with Surgical team regarding when to resume Recommend checking laboratory studies tomorrow morning including CBC and BMP to follow routine blood counts, renal function and electrolytes. SCDs to right lower extremity for DVT prophylaxis Did ask nursing staff to confirm code status with [facility] records Will discuss further orders and plan of care with attending, Dr. Giron Hospital Course Summary Disclaimer: The visit summary below is not to be considered part of the above Progress Note. Hospital Course: 12/20/16 Impression S/P Yared KAM- 12/20/16- Dr Cameron Type II diabetes Hypertension Coronary artery disease Hyperlipidemia COPD GERD History of osteomyelitis Schizophrenia Depression Chronic tobacco dependence Plan Postop and wound management of LLE as per Dr Cameron Work on weaning down oxygen. Encourage work with IS if patient is able to postoperatively Will monitor blood sugars- Reviewed old records and reported med list. Awaiting MAR from [facility]. Currently will resume Levemir insulin 10 units BID once he is eating (home dose 25units BID). Meal time insulin lists multiple different dosages. Initially in the computer it reports NovoLog 11 units subcutaneous daily, however, on a separate med list reports NovoLog 22 units with breakfast, 23 with lunch and 23 units with dinner. Patient also takes Trajenta 5 milligrams daily. Awaiting final MAR from [facility]. Postoperative BGM was 107. Will start Levemir at 10 units BID and sliding scale NovoLog until he is eating normally. Chronic anticoagulation, Pradaxa has been on hold since the . Will need to discuss with Surgical team regarding when to resume Recommend checking laboratory studies tomorrow morning including CBC and BMP to follow routine blood counts, renal function and electrolytes. SCDs to right lower extremity for DVT prophylaxis Did ask nursing staff to confirm code status with [facility] records Will discuss further orders and plan of care with attending, Dr. Giron <Rayshawn Giron D - Last Filed: 12/20/16 21:29> Consult Information - Data of Consult Requesting Physician: Adam Cameron MD Primary Care Provider: Garrison De Oliveira DO Family Provider: Garrison De Oliveira DO [facility] Patient Stated Medical History Dementia Yes Glaucoma Yes Coronary Artery Disease Yes Hypertension Yes Chronic Obstructive Pulmonary Yes Disease (COPD) Sleep Apnea No Diabetes Mellitus Type 2 Yes Gastroesophageal Reflux Yes Disease Other GI Yes: CONSTIPATION Other Musculoskeletal Yes: Generalized Muscle Weakness Other Yes: Osteomyelitis Left Foot Depression Yes Schizophrenia Yes Other Behavioral Health Yes: PSYCHOSIS Exam Vital Signs: Temperature 97.8 F 12/20/16 16:01 Pulse Rate 82 12/20/16 19:44 Respiratory Rate 14 12/20/16 16:00 Blood Pressure 168/78 H 12/20/16 19:44 Pulse Oximetry 93 12/20/16 18:53 Height/Weight/BMI: Height 1.8 m Weight 112.037 kg Body Mass Index 34.4 Results - Labs CBC & Chem 7: 12/20/16 11:48 Assessment and Plan (1) S/P BKA (below knee amputation) unilateral Current visit: Yes Status: Acute DVT Prophylaxis: Pradaxa Assessment and Plan: Impression S/P Left BKA- 12/20/16- Dr Cameron Type II diabetes Hypertension Coronary artery disease Hyperlipidemia COPD GERD History of osteomyelitis Schizophrenia Depression Chronic tobacco dependence Have independently interviewed and examined pt. Chart reviewed. Case discussed with my CADASTRAL SURVEYOR. Care plan developed with my supervision; agree with above. Resting this evening. Denies pain or nausea. Not wanting to talk-wants to sleep. Lungs: decreased, no distress CV: Regular AB: soft nt/nd Plan: Lower dose of Levemir and insulin - monitor sugars and oral intake. Hope to initiate Pradaxa in near future. IS for pulm toilet. Monitor blood counts. Hospital Course Summary Disclaimer: The visit summary below is not to be considered part of the above Progress Note.
[2016-12-20] MEDS ORDERED: LORazepam 1 MG TABLET PO PRN (16:16)
[2016-12-20] MEDS ORDERED: MORPHINE SULFATE 4 MG SYRINGE IVP PRN (16:16)
--- NOTE | 2016-12-20 16:19 | Anesthesia Postoperative Note ---
- Date and Time Date: 12/20/16 Time: 16:19 - Status Patient Participated in Evaluation: Patient Participated in Person Vital Signs: Temperature 97.8 F 12/20/16 16:01 Pulse Rate 78 12/20/16 16:00 Respiratory Rate 14 12/20/16 16:00 Blood Pressure 180/98 H 12/20/16 16:00 Pulse Oximetry 99 12/20/16 16:00 Respiratory Function: Airway Patent Cardiovascular Function: Regular Pulse Mental Status: Lethargic (drowsy, but answers questions appropriately) Pain Intensity: 2 Hydration: IV Infusing Complications During Recover: None Apparent - Follow-Up Instructions Instructions: Per Surgeon
[2016-12-20] MEDS: NS 1,000 ML IV SCH (16:25)
[2016-12-20] MEDS ORDERED: FALL RISK - PHARMACY CONSULT XX ONE (16:35)
[2016-12-20] MEDS: CARVEDILOL 3.125 MG TABLET PO SCH (17:53)
[2016-12-20] MEDS: INSULIN DETEMIR 100unit/ml INJECTION SQ SCH (20:25)
[2016-12-20] MEDS: GABAPENTIN 300 MG CAPSULE PO SCH (20:26)
[2016-12-20] MEDS: RisperiDONE 1 MG TABLET PO SCH (20:26)
[2016-12-20] MEDS: PENTOXIFYLLINE 400 MG PO SCH (20:27)
[2016-12-20] MEDS: DIVALPROEX 500 MG TABLET PO SCH (20:27)
[2016-12-20] MEDS: TRAMADOL/APAP 37.5 MG/325 MG TABLET PO SCH (20:29)
[2016-12-20] MEDS: LATANOPROST 0.005% EYE DROPS 2.5ml EACH EYE SCH (20:32)
[2016-12-20] MEDS ORDERED: INSULIN DETEMIR 100unit/ml INJECTION SQ SCH (21:00)
[2016-12-20] MEDS: INSULIN ASPART 100unit/ml INJECTION SQ PRN (21:03)
[2016-12-20] MEDS ORDERED: FLEET PHOSPHO - SODA ENEMA 133ml PR PRN (21:22)
[2016-12-20] MEDS ORDERED: BENZTROPINE 1 MG TABLET PO PRN (21:22)
[2016-12-20] MEDS ORDERED: ACETAMINOPHEN 325 MG TABLET PO PRN (21:22)
[2016-12-20] MEDS ORDERED: HYDROCODONE/APAP 5mg/325mg TABLET PO PRN (21:22)
[2016-12-21] MEDS: NS 1,000 ML IV SCH (04:59)
[2016-12-21] MEDS ORDERED: ENOXAPARIN 40 MG/0.4 ML INJECTION SQ SCH (09:00)
[2016-12-21] MEDS: TIOTROPIUM 18mcg/cap HANDIHALER ORAL INH SCH (09:08)
[2016-12-21] MEDS: POLYETHYL GLYCOL 3350 17gm PACKET PO SCH (09:50)
[2016-12-21] MEDS: ENOXAPARIN 40 MG/0.4 ML INJECTION SQ SCH (09:50)
[2016-12-21] MEDS: TRAMADOL/APAP 37.5 MG/325 MG TABLET PO SCH ×2 (09:51→20:36)
[2016-12-21] MEDS: METFORMIN 1,000 MG TABLET PO SCH (09:51)
[2016-12-21] MEDS: RisperiDONE 1 MG TABLET PO SCH ×2 (09:51→20:23)
[2016-12-21] MEDS: DULOXETINE 60 MG CAPSULE PO SCH (09:51)
[2016-12-21] MEDS: LISINOPRIL 2.5 MG TABLET PO SCH (09:52)
[2016-12-21] MEDS: CARVEDILOL 3.125 MG TABLET PO SCH ×2 (09:52→18:02)
[2016-12-21] MEDS: DIVALPROEX 500 MG TABLET PO SCH ×2 (09:52→20:23)
[2016-12-21] MEDS: PENTOXIFYLLINE 400 MG PO SCH ×3 (09:53→20:27)
[2016-12-21] MEDS: INSULIN DETEMIR 100unit/ml INJECTION SQ SCH ×2 (09:53→20:26)
[2016-12-21] MEDS: MICONAZOLE 2% TP SCH ×2 (10:03→20:25)
--- NOTE | 2016-12-21 11:06 | Operative Note ---
DATE OF SERVICE 12/20/2016 SURGEON Adam Cameron MD FINANCIAL INVESTMENT MANAGER Herber Myles APRN PREOPERATIVE DIAGNOSIS Progressive left diabetic foot ulcerations, osteomyelitis involving left foot. POSTOPERATIVE DIAGNOSIS Progressive left diabetic foot ulcerations, osteomyelitis involving left foot. PROCEDURE Left [id number] amputation. ANESTHESIA TIVA BRIEF HISTORY/INDICATIONS Mr. Che is a 75-year-old gentleman who is well known to my wound care practice. I met Mr. Che quite some time ago as the result of a left diabetic foot ulceration. He did undergo a toe amputation which did heal. Unfortunately, he developed a new ulceration involving the lateral aspect of the left foot as well as a progressive ulceration involving the left heel region. Despite advanced wound care therapy these ulcerations continued to be progressive in nature. The patient had a frankly necrotic wound involving the left lateral foot that extended down to the underlying fifth metatarsal head. One could see that the metatarsal head itself was beginning to become "moth- eaten" as a result of progressive osteomyelitis. The patient was nonambulatory in nature. As a result of the above indications, it was recommended to the patient that he undergo a left [id number] amputation. The patient presents today to undergo this procedure. For completeness please refer to notes included in the patient's chart. DESCRIPTION OF PROCEDURE After informed consent was obtained, the patient was brought to the operative suite and placed on the table in supine fashion. Left lower extremity had been marked out percutaneously as the site of the surgery. Left lower extremity was prepped and draped in a sterile fashion. One could see the previously marked "yes" upon the anterior tibial surface. A formal time-out was then completed. Next, a transverse incision was made about 5 cm beneath the tibial plateau overlying the anterior tibial surface. Dissection was carried down to the tibia itself. The incision itself was then extended distally along the medial and lateral aspect of the calf perhaps 15-20 cm in total length along the posterior calf region. Underlying subcutaneous tissues and fascia was then excised circumferentially involving the incision as discussed above. Attention was first focused anteriorly. The muscle between the tibia and fibula and involving the interosseous region was then divided with electrocautery. Vessels were dissected posteriorly away from the tibia. The muscles were then also divided out laterally to the tibia itself until the tibia had been dissected out circumferentially. An ostial elevator was then utilized and the fascia was then dissected away from the anterior tibial surface proximally. A rake was then placed upon the skin edge to protect the skin itself. I then requested that Anesthesia inflate the tourniquet. Tibia was then transected with the oscillating saw. A tissue plane was then created upon the gastroc muscle and the gastroc muscles were then from the posterior aspect of the tibia. Vessels were then visualized and were sequentially ligated between right angle clamps and secured with 0 Vicryl ties. Dissection was then carried out until the fibula had been dissected out circumferentially involving the proximal aspect of the wound. Oscillating saw was then utilized to transect the fibula. The remaining portion of the gastroc was then divided with cautery. Left lower extremity was then passed off the table as a surgical specimen. Anesthesia was then informed to release the tourniquet. Prior areas of dissection were inspected and found to be hemostatic in nature. Posterior flap that had been created was then brought forth up anteriorly and one could see that there was going to be good coverage of the transected tibia. Next, I divided the anterior aspect of the tibia at a 45-degree angle with the oscillating saw. A rasp was then utilized to smooth out the edges of the tibia. The wound was then irrigated. The wound was then carefully inspected throughout and found be hemostatic in nature. Attention was directed towards closure. The fascia of the gastrocnemius muscle was then imbricated to the fascia overlying the anterior tibial region throughout the length of the incision. This resulted in the flap covering the stump circumferentially. The skin edges at this time were fairly well imbricated after placing numerous simple interrupted sutures of 0 Ethibond as discussed above. The skin edges were then approximated with henny. Additionally, it should be noted that prior to closure a 15-Nepali Miguel drain was placed within the depth of the wound and allowed to exit laterally and proximally to the surgical incision site. A sterile dressing was then placed overlying the incision. The patient is in the process of awakening from his anesthetic and will be sent back to the Recovery Room once deemed in stable condition. Additionally, it should be noted that Herber Myles APRN, was present throughout the entire case and played a pivotal role in providing assistance and exposure during the course of the procedure. SUNDAR
--- NOTE | 2016-12-21 12:08 | Progress Note ---
Subjective: Refused labs and blood sugar check this morning, later did allow the blood sugar to be checked. Awakens briefly for me but not answering questions reliably. Per discussion between nursing staff and DPOA, he is to be a FULL CODE. Slept well overnight. Objective Vital signs: Temperature 96.9 F 12/21/16 07:54 Pulse Rate 85 12/21/16 07:54 Respiratory Rate 16 12/21/16 09:08 Blood Pressure 162/78 H 12/21/16 08:24 Pulse Oximetry 95 12/21/16 09:08 Rhythm: Normal Sinus Rhythm Height/Weight/BMI: Height 1.8 m Weight 102.5 kg Body Mass Index 34.4 - Constitutional Present: well nourished, well developed, somnolent - Routine HEENT Exam Head: Present: normocephalic, atraumatic Eye: Present: EOMI, PERRL ENT: Present: mucous membranes moist, oropharynx clear - Routine Respiratory Exam Present: diminished air movement. Absent: accessory muscle use, rales - Routine Cardiovascular Exam Present: RRR. Absent: murmur - Routine Abdominal Exam Present: soft, non distended, non tender - Routine Extremities Exam Present: pulses intact, normal capillary refill. Absent: edema Comments: right BKA stump immobilized and bandaged - Routine Skin Exam Present: dry. Absent: rash - Routine Neurological Exam Present: altered mental status - Routine Psychiatric Exam Present: unable to assess Results - Labs CBC & Chem 7: 12/20/16 11:48 Labs: Labs ordered for this AM but patient combative and refusing, will assess again tomorrow AM. Assessment and Plan DVT Prophylaxis: SCD's, Lovenox Resuscitation Status: Full Code Assessment and Plan: Impression S/P Left BKA- 12/20/16- Dr Cameron Type II diabetes Hypertension Coronary artery disease Hyperlipidemia COPD GERD History of osteomyelitis Schizophrenia Depression Chronic tobacco dependence Acute delirium versus chronic psycniatric comorbidities; confused and combative this morning Plan/Recommendations: Continue current medications and monitor for worsening confusion. Labs to be drawn in AM tomorrow (renal panel, CBC) for surveillance. Continue basal/bolus insulin regimen. FULL CODE per nursing discussion with his family by phone. Hold further IVF today and monitor po intake. Minimize narcotics where able. Hospital Course Summary Disclaimer: The visit summary below is not to be considered part of the above Progress Note. Hospital Course: 12/20/16 Impression S/P Left BKA- 12/20/16- Dr Cameron Type II diabetes Hypertension Coronary artery disease Hyperlipidemia COPD GERD History of osteomyelitis Schizophrenia Depression Chronic tobacco dependence Plan Postop and wound management of LLE as per Dr Cameron Work on weaning down oxygen. Encourage work with IS if patient is able to postoperatively Will monitor blood sugars- Reviewed old records and reported med list. Awaiting MAR from [facility]. Currently will resume Levemir insulin 10 units BID once he is eating (home dose 25units BID). Meal time insulin lists multiple different dosages. Initially in the computer it reports NovoLog 11 units subcutaneous daily, however, on a separate med list reports NovoLog 22 units with breakfast, 23 with lunch and 23 units with dinner. Patient also takes Trajenta 5 milligrams daily. Awaiting final MAR from [facility]. Postoperative BGM was 107. Will start Levemir at 10 units BID and sliding scale NovoLog until he is eating normally. Chronic anticoagulation, Pradaxa has been on hold since the . Will need to discuss with Surgical team regarding when to resume Recommend checking laboratory studies tomorrow morning including CBC and BMP to follow routine blood counts, renal function and electrolytes. SCDs to right lower extremity for DVT prophylaxis Did ask nursing staff to confirm code status with [facility] records Will discuss further orders and plan of care with attending, Dr. Giron 12/21/16 Continue current medications and monitor for worsening confusion. Labs to be drawn in AM tomorrow (renal panel, CBC) for surveillance. Continue basal/bolus insulin regimen. FULL CODE per nursing discussion with his family by phone. Hold further IVF today and monitor po intake. Minimize narcotics where able.
[2016-12-21] MEDS: ASCORBIC ACID 500 MG TABLET PO SCH ×2 (12:22→18:02)
[2016-12-21] MEDS: INSULIN ASPART 100unit/ml INJECTION SQ PRN ×2 (12:27→20:27)
[2016-12-21] MEDS: GABAPENTIN 300 MG CAPSULE PO SCH (20:24)
[2016-12-21] MEDS: LATANOPROST 0.005% EYE DROPS 2.5ml EACH EYE SCH (20:26)
[2016-12-21] MEDS: SALINE FLUSH 10ml SYRINGE IV PRN (20:39)
[2016-12-22] MEDS: SALINE FLUSH 10ml SYRINGE IV PRN ×2 (06:13→22:10)
[2016-12-22] MEDS: INSULIN DETEMIR 100unit/ml INJECTION SQ SCH ×2 (09:29→21:23)
[2016-12-22] MEDS: LISINOPRIL 2.5 MG TABLET PO SCH (09:30)
[2016-12-22] MEDS: TRAMADOL/APAP 37.5 MG/325 MG TABLET PO SCH ×2 (09:30→21:22)
[2016-12-22] MEDS: PENTOXIFYLLINE 400 MG PO SCH ×3 (09:30→21:23)
[2016-12-22] MEDS: DULOXETINE 60 MG CAPSULE PO SCH (09:30)
[2016-12-22] MEDS: METFORMIN 1,000 MG TABLET PO SCH (09:31)
[2016-12-22] MEDS: MICONAZOLE 2% TP SCH ×2 (09:31→21:24)
[2016-12-22] MEDS: CARVEDILOL 3.125 MG TABLET PO SCH ×2 (09:31→17:00)
[2016-12-22] MEDS: ENOXAPARIN 40 MG/0.4 ML INJECTION SQ SCH (09:31)
[2016-12-22] MEDS: RisperiDONE 1 MG TABLET PO SCH ×2 (09:31→21:23)
[2016-12-22] MEDS: POLYETHYL GLYCOL 3350 17gm PACKET PO SCH (09:31)
[2016-12-22] MEDS: DIVALPROEX 500 MG TABLET PO SCH ×2 (09:32→21:22)
[2016-12-22] MEDS: TIOTROPIUM 18mcg/cap HANDIHALER ORAL INH SCH (09:58)
--- NOTE | 2016-12-22 10:51 | Progress Note ---
Subjective: Feeling better, much more alert today. Refusing labs again today, no labs done since surgery, discussed need for intermittent surveillance and ultimately he agrees to labs today. Eating well. Pain controlled. Objective Vital signs: Temperature 97.1 F 12/22/16 08:59 Pulse Rate 80 12/22/16 08:59 Respiratory Rate 12 12/22/16 09:59 Blood Pressure 145/79 H 12/22/16 08:59 Pulse Oximetry 95 12/22/16 09:59 Rhythm: Normal Sinus Rhythm Height/Weight/BMI: Height 1.8 m Weight 101.6 kg Body Mass Index 34.4 - Constitutional Present: no acute distress - Routine HEENT Exam Head: Present: atraumatic Eye: Present: EOMI ENT: Present: mucous membranes moist, oropharynx clear - Routine Respiratory Exam Present: CTA bilaterally. Absent: accessory muscle use, rales, wheezes - Routine Cardiovascular Exam Present: RRR. Absent: murmur - Routine Abdominal Exam Present: soft, non distended, non tender - Routine Extremities Exam Absent: edema Comments: RLE with BKA stump immobilized and bandaged - Routine Skin Exam Present: dry, warm. Absent: rash - Routine Neurological Exam Present: alert, normal speech - Routine Psychiatric Exam Present: normal affect Results - Labs CBC & Chem 7: 12/22/16 09:52 12/22/16 09:52 Assessment and Plan (1) Hypomagnesemia Current visit: Yes Status: Acute (2) S/P BKA (below knee amputation) unilateral Current visit: Yes Status: Acute (3) Systolic CHF Current visit: No Status: Chronic (4) Atrial flutter Current visit: No Status: Chronic (5) CAD (coronary artery disease) Current visit: No Status: Chronic (6) COPD (chronic obstructive pulmonary disease) Current visit: No Status: Chronic (7) Dementia Current visit: No Status: Chronic (8) Depression Current visit: No Status: Chronic (9) HTN (hypertension) Current visit: No Status: Chronic DVT Prophylaxis: Lovenox Resuscitation Status: Full Code Assessment and Plan: Impression S/P Left BKA- 12/20/16- Dr Cameron Type II diabetes Hypertension Coronary artery disease Hyperlipidemia COPD GERD History of osteomyelitis Schizophrenia Depression Chronic tobacco dependence Acute delirium versus chronic psycniatric comorbidities; much improved today Hypomagnesemia; Mg 1.3 when checked Plan/Recommendations: Continue current medications and monitor for confusion; much more clear today Labs drawn this morning after discussion; will hold labs tomorrow as promised unless change in clinical status Continue basal/bolus insulin regimen. FULL CODE per nursing discussion with his family Continue to hold further IVF today and monitor po intake. IV Magnesium sulfate 4g over 8 hours today DVT prophylaxis with lovenox PT/OT to eval in AM Hospital Course Summary Disclaimer: The visit summary below is not to be considered part of the above Progress Note. Hospital Course: 12/20/16 Impression S/P Left BKA- 12/20/16- Dr Cameron Type II diabetes Hypertension Coronary artery disease Hyperlipidemia COPD GERD History of osteomyelitis Schizophrenia Depression Chronic tobacco dependence Plan Postop and wound management of LLE as per Dr Cameron Work on weaning down oxygen. Encourage work with IS if patient is able to postoperatively Will monitor blood sugars- Reviewed old records and reported med list. Awaiting MAR from assisted. Currently will resume Levemir insulin 10 units BID once he is eating (home dose 25units BID). Meal time insulin lists multiple different dosages. Initially in the computer it reports NovoLog 11 units subcutaneous daily, however, on a separate med list reports NovoLog 22 units with breakfast, 23 with lunch and 23 units with dinner. Patient also takes Trajenta 5 milligrams daily. Awaiting final MAR from assisted. Postoperative BGM was 107. Will start Levemir at 10 units BID and sliding scale NovoLog until he is eating normally. Chronic anticoagulation, Pradaxa has been on hold since the . Will need to discuss with Surgical team regarding when to resume Recommend checking laboratory studies tomorrow morning including CBC and BMP to follow routine blood counts, renal function and electrolytes. SCDs to right lower extremity for DVT prophylaxis Did ask nursing staff to confirm code status with assisted records Will discuss further orders and plan of care with attending, Dr. Giron 12/21/16 Continue current medications and monitor for worsening confusion. Labs to be drawn in AM tomorrow (renal panel, CBC) for surveillance. Continue basal/bolus insulin regimen. FULL CODE per nursing discussion with his family by phone. Hold further IVF today and monitor po intake. Minimize narcotics where able. 12/22/16 Continue current medications and monitor for confusion; much more clear today Labs drawn this morning after discussion; will hold labs tomorrow as promised unless change in clinical status Continue basal/bolus insulin regimen. FULL CODE per nursing discussion with his family Continue to hold further IVF today and monitor po intake. IV Magnesium sulfate 4g over 8 hours today DVT prophylaxis with lovenox PT/OT to eval in AM
[2016-12-22] MEDS ORDERED: NS FLUSH BAG 500ml IV PRN (11:46)
[2016-12-22] MEDS: MAGNESIUM SULFATE 1gm PREMIX 1 GM/100 ML BAG IV SCH ×5 (11:48→20:00)
[2016-12-22] MEDS: ASCORBIC ACID 500 MG TABLET PO SCH ×2 (11:48→17:00)
[2016-12-22] MEDS: INSULIN ASPART 100unit/ml INJECTION SQ PRN ×3 (11:52→21:24)
[2016-12-22] MEDS ORDERED: MAGNESIUM SULFATE 1gm/100ml PREMIX IV ONE (19:30)
[2016-12-22] MEDS: GABAPENTIN 300 MG CAPSULE PO SCH (21:23)
[2016-12-22] MEDS: LATANOPROST 0.005% EYE DROPS 2.5ml EACH EYE SCH (21:25)
[2016-12-23] MEDS: INSULIN ASPART 100unit/ml INJECTION SQ PRN ×3 (06:20→16:43)
--- NOTE | 2016-12-23 07:56 | Progress Note ---
DATE 12/21/2016 Mr. Che was sleeping upon entering his hospital room this morning. He denied significant pain. VITALS: Afebrile. Normotensive. CHEST: Clear to auscultation bilaterally. HEART: Regular rate and rhythm. Normal S1 and S2 without gallops, murmurs or clicks. EXTREMITIES: Attention was focused to the left lower extremity. Minimal output is present within the JULIO CESAR drain. I did remove a portion of the Evgeny wrap to evaluate the dressing beneath the Evgeny wrap. Dressing is without any evidence for bloody discharge and remains intact. I did not remove the entire dressing this morning. ASSESSMENT 75-year-old gentleman with multiple medical comorbidities, status post left [id number] amputation secondary to progressive osteomyelitis, left diabetic foot ulcerations. Patient currently doing well. PLAN Will continue with current care. I appreciate hospitalists' care in regard to his medical management. SUNDAR
--- NOTE | 2016-12-23 08:59 | Progress Note ---
DATE 12/22/2016 FINDINGS Mr. Che was sleeping upon entering his room. Upon questioning the patient , he states he was having some discomfort involving the left lower extremity but overall has been doing fairly well. VITALS: Afebrile. Normotensive. EXTREMITIES: Dressing to the left [id number] amputation site was removed. Incision is clean, dry and intact. There is no evidence for vascular compromise of the posterior skin flap. JULIO CESAR output has been minimal. ASSESSMENT 75-year-old gentleman status post left ddkzv-[id number]-[id number] amputation secondary to progressive osteomyelitis/diabetic foot ulcerations. Patient doing well. PLAN JULIO CESAR drain was removed today. Dressings were reapplied as well as Evgeny wrap. Will work with discharge planning tomorrow in regard to possible transfer to rehab facility for strengthening and transfer versus discharge back to care facility. At this time the patient is stable from a surgical standpoint. SUNDAR
[2016-12-23] MEDS: METFORMIN 1,000 MG TABLET PO SCH (09:06)
[2016-12-23] MEDS: DIVALPROEX 500 MG TABLET PO SCH (09:07)
[2016-12-23] MEDS: LISINOPRIL 2.5 MG TABLET PO SCH (09:08)
[2016-12-23] MEDS: ENOXAPARIN 40 MG/0.4 ML INJECTION SQ SCH (09:08)
[2016-12-23] MEDS: RisperiDONE 1 MG TABLET PO SCH (09:08)
[2016-12-23] MEDS: MICONAZOLE 2% TP SCH (09:08)
[2016-12-23] MEDS: CARVEDILOL 3.125 MG TABLET PO SCH (09:09)
[2016-12-23] MEDS: POLYETHYL GLYCOL 3350 17gm PACKET PO SCH (09:09)
[2016-12-23] MEDS: PENTOXIFYLLINE 400 MG PO SCH ×2 (09:09→16:05)
[2016-12-23] MEDS: DULOXETINE 60 MG CAPSULE PO SCH (09:12)
[2016-12-23] MEDS: TIOTROPIUM 18mcg/cap HANDIHALER ORAL INH SCH (09:17)
[2016-12-23] MEDS: INSULIN DETEMIR 100unit/ml INJECTION SQ SCH (09:20)
[2016-12-23] MEDS: TRAMADOL/APAP 37.5 MG/325 MG TABLET PO SCH ×2 (09:26→16:05)
--- NOTE | 2016-12-23 10:29 | Progress Note ---
<Bharati Christianson V - Last Filed: 12/23/16 10:25> Subjective: Yordan is seen today during breakfast. He is alert and eating breakfast. He will mumble some Yes/No however is mostly non-verbal during examination. He is comfortably breathing on room air without distress. Does not appear to have any pain on exam. Sitting up in the bed feeding himself breakfast. JULIO CESAR drain removed yesterday. Evgeny wrap to Left stump. Objective Vital signs: Temperature 95.6 F L 12/23/16 08:00 Pulse Rate 79 12/23/16 08:00 Respiratory Rate 14 12/23/16 09:10 Blood Pressure 124/73 12/23/16 08:00 Pulse Oximetry 93 12/23/16 08:00 Rhythm: Normal Sinus Rhythm Height/Weight/BMI: Height 1.8 m Weight 101.1 kg Body Mass Index 34.4 - Constitutional Present: no acute distress, well nourished, well developed - Routine HEENT Exam Eye: Present: EOMI ENT: Present: mucous membranes moist, dentition normal - Routine Respiratory Exam Present: CTA bilaterally. Absent: wheezes - Routine Cardiovascular Exam Present: RRR, S1, S2. Absent: murmur - Routine Abdominal Exam Present: soft, normoactive bowel sounds, non distended. Absent: tenderness - Routine Extremities Exam Comments: Left stump with evgeny wrap intact. No obvious drainage noted. - Routine Skin Exam Present: intact, dry, warm - Routine Neurological Exam Present: alert, CN II-XII intact, altered mental status (chronic dementia) - Routine Lymphatic Exam Lymphatic: Absent: adenopathy - Routine Psychiatric Exam Present: cooperative Results - Labs CBC & Chem 7: 12/22/16 09:52 12/22/16 09:52 Assessment and Plan (1) CAD (coronary artery disease) Current visit: No Status: Chronic (2) HTN (hypertension) Current visit: No Status: Chronic (3) COPD (chronic obstructive pulmonary disease) Current visit: No Status: Chronic (4) Dementia Current visit: No Status: Chronic (5) Depression Current visit: No Status: Chronic (6) Atrial flutter Current visit: No Status: Chronic (7) Systolic CHF Current visit: No Status: Chronic (8) S/P BKA (below knee amputation) unilateral Current visit: Yes Status: Acute (9) Hypomagnesemia Current visit: Yes Status: Acute Assessment and Plan: Impression S/P Left BKA- 12/20/16- Dr Cameron Type II diabetes Hypertension Coronary artery disease Hyperlipidemia COPD GERD History of osteomyelitis Schizophrenia Depression Chronic tobacco dependence Acute delirium versus chronic psycniatric comorbidities; much improved today Hypomagnesemia; Mg 1.3 when checked 12/23-Plan Labs yesterday remain stable Mag was low. IV Magnesium sulfate given yesterday for replacement. JULIO CESAR drain was removed yesterday. Evgeny wrap to left stump without evidence of drainage Doxycycline for antimicrobial coverage DVT prophylaxis with lovenox Will discuss discharge plan with attending and CM Hospital Course Summary Disclaimer: The visit summary below is not to be considered part of the above Progress Note. Hospital Course: 12/20/16 Impression S/P Left BKA- 12/20/16- Dr Cameron Type II diabetes Hypertension Coronary artery disease Hyperlipidemia COPD GERD History of osteomyelitis Schizophrenia Depression Chronic tobacco dependence Plan Postop and wound management of LLE as per Dr Cameron Work on weaning down oxygen. Encourage work with IS if patient is able to postoperatively Will monitor blood sugars- Reviewed old records and reported med list. Awaiting MAR from long term. Currently will resume Levemir insulin 10 units BID once he is eating (home dose 25units BID). Meal time insulin lists multiple different dosages. Initially in the computer it reports NovoLog 11 units subcutaneous daily, however, on a separate med list reports NovoLog 22 units with breakfast, 23 with lunch and 23 units with dinner. Patient also takes Trajenta 5 milligrams daily. Awaiting final MAR from long term. Postoperative BGM was 107. Will start Levemir at 10 units BID and sliding scale NovoLog until he is eating normally. Chronic anticoagulation, Pradaxa has been on hold since the . Will need to discuss with Surgical team regarding when to resume Recommend checking laboratory studies tomorrow morning including CBC and BMP to follow routine blood counts, renal function and electrolytes. SCDs to right lower extremity for DVT prophylaxis Did ask nursing staff to confirm code status with long term records Will discuss further orders and plan of care with attending, Dr. Giron 12/21/16 Continue current medications and monitor for worsening confusion. Labs to be drawn in AM tomorrow (renal panel, CBC) for surveillance. Continue basal/bolus insulin regimen. FULL CODE per nursing discussion with his family by phone. Hold further IVF today and monitor po intake. Minimize narcotics where able. 12/22/16 Continue current medications and monitor for confusion; much more clear today Labs drawn this morning after discussion; will hold labs tomorrow as promised unless change in clinical status Continue basal/bolus insulin regimen. FULL CODE per nursing discussion with his family Continue to hold further IVF today and monitor po intake. IV Magnesium sulfate 4g over 8 hours today DVT prophylaxis with lovenox PT/OT to eval in AM 12/23-Plan Labs yesterday remain stable Mag was low. IV Magnesium sulfate given yesterday for replacement. JULIO CESAR drain was removed yesterday. Evgeny wrap to left stump without evidence of drainage Doxycycline for antimicrobial coverage DVT prophylaxis with lovenox Will discuss discharge plan with attending and VANDANA <Rayshawn Giron - Last Filed: 12/23/16 14:27> Objective Vital signs: Temperature 97.6 F 12/23/16 12:00 Pulse Rate 82 12/23/16 12:00 Respiratory Rate 16 12/23/16 12:00 Blood Pressure 120/67 12/23/16 12:00 Pulse Oximetry 94 12/23/16 12:00 Height/Weight/BMI: Height 1.8 m Weight 101.1 kg Body Mass Index 34.4 Results - Labs CBC & Chem 7: 12/23/16 11:35 12/22/16 09:52 Assessment and Plan (1) CAD (coronary artery disease) Current visit: No Status: Chronic (2) HTN (hypertension) Current visit: No Status: Chronic (3) COPD (chronic obstructive pulmonary disease) Current visit: No Status: Chronic (4) Dementia Current visit: No Status: Chronic (5) Depression Current visit: No Status: Chronic (6) Atrial flutter Current visit: No Status: Chronic (7) Systolic CHF Current visit: No Status: Chronic (8) S/P BKA (below knee amputation) unilateral Current visit: Yes Status: Acute (9) Hypomagnesemia Current visit: Yes Status: Acute Resuscitation Status: Full Code Assessment and Plan: Impression S/P Left BKA- 12/20/16- Dr Cameron Type II diabetes Hypertension Coronary artery disease Hyperlipidemia COPD GERD History of osteomyelitis Schizophrenia Depression Chronic tobacco dependence Acute delirium versus chronic psychiatric comorbidities; much improved today Hypomagnesemia; Mg 1.3 when checked Have independently interviewed and examined pt. Chart reviewed. Case discussed with VANDANA, Dr Cameron, and my REHABILITATION AIDE/SCHEDULER. Above care plan developed with my supervision; agree with above. Doing well this afternoon. Notes some discomfort to left stump-feels 'full.' No f/c. Breathing well. Eating well without nausea. Stools slow. CV: regular Lungs: clear bilaterally, no distress on RA MSE: awake alert appropriate Plan: Medically stable for discharge. Would continue prior home medications. F/ U with Dr Cameron for continue care for his stump. Hospital Course Summary Disclaimer: The visit summary below is not to be considered part of the above Progress Note.
--- NOTE | 2016-12-23 10:33 | General Surgery Progress Note ---
Subjective Patient reports: pain is less, tolerating a regular diet, afebrile - Vital Signs Last Vital Signs Temp 95.6 F L 12/23/16 08:00 Pulse 79 12/23/16 08:00 Resp 14 12/23/16 09:10 BP 124/73 12/23/16 08:00 Pulse Ox 93 12/23/16 08:00 - Laboratory Result Diagrams: 12/22/16 09:52 12/22/16 09:52 - Abnormal Exam General: other (sleeping when I entered, light touch on his arm and calling his name, he woke up, able to answer questions. at 1st would not lift his stump leg for dresssing change, but then told me he would hold the leg and he was able to hold the left leg stump.) Abdominal: obese - Normal Exam General: alert (after waking up) Cardiovascular: regular rhythm Respiratory: clear all robles, no labored breathing Abdominal: soft, non-tender Additional Normal Findings: Left BKA stump CDI, henny in tact. Drain hole not sealed yet, and with minimal serosanguineous drainage on gauze. Assessment and Plan Plan: Assessment: S/P Left BKA Dementia Glaucoma Coronary Artery Disease Hypertension Chronic Obstructive Pulmonary Disease (COPD) Sleep Apnea Diabetes Mellitus Type 2 Gastroesophageal Reflux Disease CONSTIPATION Osteomyelitis Left Foot Depression Schizophrenia PSYCHOSIS PLAN: Stump looks good, Will restart his Pradaxa today and DC Lovenox tomorrow. PT/OT IRU screen ordered. He is stable, nearly at baseline medically. Plan in DC to either IRU or his facility today or tomorrow. Hospital Course Summary Disclaimer: The visit summary below is not to be considered part of the above Progress Note. Hospital Course: 12/20/16 Impression S/P Left BKA- 12/20/16- Dr Cameron Type II diabetes Hypertension Coronary artery disease Hyperlipidemia COPD GERD History of osteomyelitis Schizophrenia Depression Chronic tobacco dependence Plan Postop and wound management of LLE as per Dr Cameron Work on weaning down oxygen. Encourage work with IS if patient is able to postoperatively Will monitor blood sugars- Reviewed old records and reported med list. [facility]. Currently will resume Levemir insulin 10 units BID once he is eating (home dose 25units BID). Meal time insulin lists multiple different dosages. Initially in the computer it reports NovoLog 11 units subcutaneous daily, however, on a separate med list reports NovoLog 22 units with breakfast, 23 with lunch and 23 units with dinner. Patient also takes Trajenta 5 milligrams daily. [facility]ing [facility] MAR from jail. Postoperative BGM was 107. Will start Levemir at 10 units BID and sliding scale NovoLog until he is eating normally. Chronic anticoagulation, Pradaxa has been on hold since the . Will need to discuss with Surgical team regarding when to resume Recommend checking laboratory studies tomorrow morning including CBC and BMP to follow routine blood counts, renal function and electrolytes. SCDs to right lower extremity for DVT prophylaxis Did ask nursing staff to confirm code [facility] with [facility] records Will discuss further orders and plan of care with attending, Dr. Giron 12/21/16 Continue current medications and monitor for worsening confusion. Labs to be drawn in AM tomorrow (renal panel, CBC) for surveillance. Continue basal/bolus insulin regimen. FULL CODE per nursing discussion with his family by phone. Hold further IVF today and monitor po intake. Minimize narcotics where able. 12/22/16 Continue current medications and monitor for confusion; much more clear today Labs drawn this morning after discussion; will hold labs tomorrow as promised unless change in clinical status Continue basal/bolus insulin regimen. Continue to hold further IVF today and monitor po intake. IV Magnesium sulfate 4g over 8 hours today DVT prophylaxis with lovenox PT/OT to eval in AM 12/23/16 10:38 PLAN: Erick looks good, Will restart his Pradaxa today and DC Lovenox tomorrow. He is stable, nearly at baseline medically. Plan in DC to either IRU or his facility today or tomorrow
[2016-12-23 12:16] VITALS: BP 120/67; PULSE 82; RESP 16; TEMP 97.6; O2SAT 94
--- NOTE | 2016-12-23 14:21 | Discharge Instructions ---
Discharge Plan - Med Rec/Dispo Referrals/Follow Up: Adam Cameron MD [Physician] - 01/07/17 2:30 pm Prescriptions: Continue Metformin HCl 1,000 mg PO DAILY #0 Latanoprost 1 drop BOTH EYES HS #0 Polyethylene Glycol 3350 [Miralax] 1 packet PO DAILY 30 Days #30 packet RisperiDONE [RisperDAL] 1 mg PO HS Duloxetine HCl [Cymbalta] 60 mg PO DAILY Benztropine [Cogentin] 1 mg PO QID PRN PRN Reason: Extrapyramidal Symptoms Bisacodyl Supp [Dulcolax] 1 mg RECTALLY DAILY PRN PRN Reason: Constipation Tiotropium Arley [Spiriva] 1 cap ORAL INH DAILY Milk of Magnesia [Mom] 10 ml PO DAILY PRN PRN Reason: Constipation Dabigatran [Pradaxa] 150 mg PO DAILY risperiDONE [Risperidone] 1 mg PO DAILY Tramadol/APAP 37.5/325 [Ultracet] 1 tab PO BID Fleet Phospho-Soda Enema [Fleet Enema] 1 unit RECTALLY PRN Insulin Aspart [NovoLOG] 11 unit SQ DAILY Miconazole Nitrate [Micatin] 1 dose TP BID Insulin Detemir [Levemir] 25 units SUB-Q DAILY Hydrocodone/APAP 5/325 [Sunbright 5/325] 1 tab PO Q6H PRN #30 tab PRN Reason: Pain Ascorbic Acid 500 mg PO BIDLS Acetaminophen 650 mg PO Q6H PRN PRN Reason: Pain Carvedilol [Coreg] 3.125 mg PO BIDWM Gabapentin [Neurontin] 300 mg PO HS cap Lisinopril [Prinivil] 2.5 mg PO DAILY Linagliptin [Tradjenta] 5 mg PO DAILY LORazepam [Ativan] 1 mg PO DAILY PRN PRN Reason: Anxiety Divalproex [Depakote] 1 tab PO BID Pentoxifylline ER [Trental] 1 tab PO TID Discontinued Doxycycline Hyclate 1 tab PO BIDWM Discharge Instructions/Outpatient Orders: Final Provider Discharge Instructions Location: Determined By Patient - Disposition 03 To SNU Not MIC ([facility])
--- NOTE | 2016-12-23 14:29 | Extended Care Facility Orders ---
Admission Orders Admit to:: [facility] Allergies/Adverse Reactions: Allergies No Known Drug Allergies Allergy (Verified 09/06/16 13:38) No Known Adverse Drug Reactions Adverse Reaction (Verified 09/06/16 13:38) Admitting Diagnosis: Ulcer Lt heel,Lt plantar,L97.422,E11.621,M86.8X7 Admitting Physician: Adam Cameron MD Attending Physician: Adam Cameron MD Code Status: Full Code Anticiapted Length of Stay: 30 days or less Rehab Potential: fair Rehab Prognosis: fair Diet: 12/20/16 Dinner Consistent Carbohydrate Diet [DIET] Calorie Level: 2400 May use Facility Protocol or Standing Orders: Yes May have flu vaccine: Yes Evaluations/Treatment: PT, OT [facility] Certification: I certify that SNF services are required to be given on an Inpatient basis because of the patients need for senior living care on a continuing basis for the condition(s) for which he/she received inpatient hospital services prior to his/her transfer to the SNF. SNF inpatient care is necessary for the following reasons Indication for [facility]: Postop Assessment Care, Diabetic Education, Other (new below knee amputation) - Additional Information In Event of Arrest: Start CPR,call 911,send patient to the ER Resident is Aware of Diagnosis: Yes (Osteomyelitis requiring amputation) Referrals: Adam Cameron MD [Physician] - 01/07/17 2:30 pm
[2016-12-23] MEDS: ASCORBIC ACID 500 MG TABLET PO SCH (16:04)
--- NOTE | 2016-12-23 17:04 | Discharge Summary ---
Discharge Information Date of admission: 12/20/16 16:16 Anticipated date of discharge: 12/23/16 Attending Physician: Adam Cameron MD Primary care physician: Garrison De Oliveira DO Consults: 12/20/16 15:28 Physician Consult [CONS] Routine Consulting Provider: Rayshawn Giron Reason For Exam: medical management Ordering Provider has Notified [employer]: Yes 12/23/16 IRU Screening [Inpatient Rehab Screening] [CONS] Routine Screen requested by:: Case Management Comment Text:: see DR. ZHAO note 12/22/16 - Discharge Diagnosis (1) Osteomyelitis of ankle and foot Status: Resolved (2) Hypomagnesemia Status: Resolved (3) S/P BKA (below knee amputation) unilateral Status: Chronic (4) Atrial flutter Status: Chronic (5) CAD (coronary artery disease) Status: Chronic (6) COPD (chronic obstructive pulmonary disease) Status: Chronic (7) Dementia Status: Chronic (8) Depression Status: Chronic - Procedures Procedures: 12/20/2016 SURGEON Adam Cameron MD REMARKETING REP Herber Myles APRN PREOPERATIVE DIAGNOSIS Progressive left diabetic foot ulcerations, osteomyelitis involving left foot. POSTOPERATIVE DIAGNOSIS Progressive left diabetic foot ulcerations, osteomyelitis involving left foot. PROCEDURE Left [id number] amputation. - Laboratory Labs: 12/23/16 11:35 12/22/16 09:52 - Pathology Pending at time of discharge History of Present Illness HPI: 12/20/2016 BRIEF HISTORY/INDICATIONS Mr. Che is a 75-year-old gentleman who is well known to my wound care practice. I met Mr. Che quite some time ago as the result of a left diabetic foot ulceration. He did undergo a toe amputation which did heal. Unfortunately, he developed a new ulceration involving the lateral aspect of the left foot as well as a progressive ulceration involving the left heel region. Despite advanced wound care therapy these ulcerations continued to be progressive in nature. The patient had a frankly necrotic wound involving the left lateral foot that extended down to the underlying fifth metatarsal head. One could see that the metatarsal head itself was beginning to become "moth- eaten" as a result of progressive osteomyelitis. The patient was nonambulatory in nature. As a result of the above indications, it was recommended to the patient that he undergo a left [id number] amputation. The patient presents today to undergo this procedure. 12/23/16 17:02 Hospital Course This is a general summary of the patient's hospital course. For more details refer to the complete medical record. Hospital course: 12/20/16 Impression S/P Left BKA- 12/20/16- Dr Cameron Type II diabetes Hypertension Coronary artery disease Hyperlipidemia COPD GERD History of osteomyelitis Schizophrenia Depression Chronic tobacco dependence Plan Postop and wound management of LLE as per Dr Cameron Work on weaning down oxygen. Encourage work with [facility] if patient is able to postoperatively Will monitor blood sugars- Reviewed old records and reported med list. Awaiting MAR from intermediate. Currently will resume Levemir insulin 10 units BID once he is eating (home dose 25units BID). Meal time insulin lists multiple different dosages. Initially in the computer it reports NovoLog 11 units subcutaneous daily, however, on a separate med list reports NovoLog 22 units with breakfast, 23 with lunch and 23 units with dinner. Patient also takes Trajenta 5 milligrams daily. Awaiting final MAR from intermediate. Postoperative BGM was 107. Will start Levemir at 10 units BID and sliding scale NovoLog until he is eating normally. Chronic anticoagulation, Pradaxa has been on hold since the . Will need to discuss with Surgical team regarding when to resume Recommend checking laboratory studies tomorrow morning including CBC and BMP to follow routine blood counts, renal function and electrolytes. SCDs to right lower extremity for DVT prophylaxis Did ask nursing staff to confirm code status with intermediate records Will discuss further orders and plan of care with attending, Dr. Giron 12/21/16 Continue current medications and monitor for worsening confusion. Labs to be drawn in AM tomorrow (renal panel, CBC) for surveillance. Continue basal/bolus insulin regimen. FULL CODE per nursing discussion with his family by phone. Hold further IVF today and monitor po intake. Minimize narcotics where able. 12/22/16 Continue to hold further IVF today and monitor po intake. IV Magnesium sulfate 4g over 8 hours today DVT prophylaxis with lovenox PT/OT to eval in AM 12/23/16 10:38 PLAN: Stump looks good, Will restart his Pradaxa today and DC Lovenox tomorrow. He is stable, nearly at baseline medically. Plan in DC to either IRU or his facility today or tomorrow Update: IRU declined admission. He is returned to his facility longterm status for PT/OT Will follow up with Rakesh for staple removal, sooner if concerns arise. Discharge Plan - Med Rec/Dispo Referrals/Follow Up: Adam Cameron MD [Physician] - 01/07/17 2:30 pm Prescriptions: Continue Metformin HCl 1,000 mg PO DAILY #0 Latanoprost 1 drop BOTH EYES HS #0 Polyethylene Glycol 3350 [Miralax] 1 packet PO DAILY 30 Days #30 packet RisperiDONE [RisperDAL] 1 mg PO HS Duloxetine HCl [Cymbalta] 60 mg PO DAILY Benztropine [Cogentin] 1 mg PO QID PRN PRN Reason: Extrapyramidal Symptoms Bisacodyl Supp [Dulcolax] 1 mg RECTALLY DAILY PRN PRN Reason: Constipation Tiotropium Horatio [Spiriva] 1 cap ORAL INH DAILY Milk of Magnesia [Mom] 10 ml PO DAILY PRN PRN Reason: Constipation Dabigatran [Pradaxa] 150 mg PO DAILY risperiDONE [Risperidone] 1 mg PO DAILY Tramadol/APAP 37.5/325 [Ultracet] 1 tab PO BID Fleet Phospho-Soda Enema [Fleet Enema] 1 unit RECTALLY PRN Insulin Aspart [NovoLOG] 11 unit SQ DAILY Miconazole Nitrate [Micatin] 1 dose TP BID Insulin Detemir [Levemir] 25 units SUB-Q DAILY Hydrocodone/APAP 5/325 [[place] 5/325] 1 tab PO Q6H PRN #30 tab PRN Reason: Pain Ascorbic Acid 500 mg PO BIDLS Acetaminophen 650 mg PO Q6H PRN PRN Reason: Pain Carvedilol [Coreg] 3.125 mg PO BIDWM Gabapentin [Neurontin] 300 mg PO HS cap Lisinopril [Prinivil] 2.5 mg PO DAILY Linagliptin [Tradjenta] 5 mg PO DAILY LORazepam [Ativan] 1 mg PO DAILY PRN PRN Reason: Anxiety Divalproex [Depakote] 1 tab PO BID Pentoxifylline ER [Trental] 1 tab PO TID Discontinued Doxycycline Hyclate 1 tab PO BIDWM Discharge Instructions/Outpatient Orders: Final Provider Discharge Instructions Location: Determined By Patient
== END 2016-12-23 17:05 | DRG 475 ==
LOC: SUR 11:04 → SRG 11:05
PROVIDERS: ADMIT Surgery; ATTEND Surgery